=== PATIENT | male | born 1965 | race Caucasian/White ===

== ENCOUNTER 2017-01-02 13:41 | Inpatient (IN) | payer OTHER ==
[2017-01-02 14:56] VITALS: BMI 30.5
--- NOTE | 2017-01-02 16:28 | HP ---
COWS - Scale Resting Pulse: 0= ME 80 or Below Sweatin=Flushed/Facial Moisture Restless Observation: 3= Extraneous Movement Pupil Size: 2= Moderately Dilated Bone or Joint Aches: 2= Severe Diffuse Aches Runny Nose/ Eye Tearin= Runny Nose/Eyes GI Upset > 30mins: 3= Vomiting/Diarrhea Tremor Observation: 2= Slight Tremor Visible Yawning Observation: 2= >3x During Session Anxiety or Irritability: 2=Irritable/Anxious Goose Flesh Skin: 0=Smooth Skin COWS Score: 20 CIWA Score - CIWA Score Nausea/Vomitin Muscle Tremors: 3 Anxiety: 3 Agitation: 3 Paroxysmal Sweats: 1-Minimal Palms Moist Orientation: 0-Oriented Tacttile Disturbances: 2-Mild Itch/Numbness/Burn Auditory Disturbances: 2-Mild Harshness/Frighten Visual Disturbances: 2-Mild Sensitivity Headache: 2-Mild CIWA-Ar Total Score: 21 Admission ROS BHS - HPI Chief Complaint: i am here for detox from heroin,xanax,alcohol,cocaine Allergies/Adverse Reactions: Allergies Allergy/AdvReac Type Severity Reaction Status Date / Time shellfish derived Allergy Severe Verified 01/02/17 19:28 History of Present Illness: this 51years old male with heroin,alcohol,xanax,cocaine dependence,seeking detox ,multiple admissions in detox,last tretment in 06/30 at [facility] 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 in [facility] 18 months ago anxiety ptsd stated need help for detox Exam Limitations: No Limitations - Ebola screening Have you traveled outside of the country in the last 21 days: No Have you had contact with anyone from an Ebola affected area: No Have you been sick,other than usual withdrawal symptoms: No Do you have a fever: No - Review of Systems Constitutional: Chills, Diaphoresis, Loss of Appetite, Malaise, Night Sweats, Changes in sleep, Weakness EENT: reports: Tearing, Nose Congestion Respiratory: reports: No Symptoms reported Cardiac: reports: No Symptoms Reported GI: reports: Diarrhea, Vomiting, Indigestion : reports: No Symptoms Reported Musculoskeletal: reports: Back Pain, Joint Pain, Muscle Pain, Joint Stiffness Integumentary: reports: Dryness Neuro: reports: Headache, Tremors Endocrine: reports: No Symptoms Reported Hematology: reports: No Symptoms Reported Psychiatric: reports: Anxious (ptsd) Patient History - Patient Medical History Hx Anemia: No Hx Asthma: No Hx Chronic Obstructive Pulmonary Disease (COPD): No Hx Cancer: No Hx Cardiac Disorders: No Hx Congestive Heart Failure: No Hx Hypertension: No Hx Hypercholesterolemia: No Hx Pacemaker: No HX Cerebrovascular Accident: No Hx Seizures: Yes (etoh and drug related Last in 03/25) Hx Dementia: No Hx Diabetes: No Hx Gastrointestinal Disorders: No Hx Liver Disease: No Hx Genitourinary Disorders: No Hx Sexually Transmitted Disorders: No Hx Renal Disease (ESRD): No Hx Thyroid Disease: No Hx Human Immunodeficiency Virus (HIV): No (last 2015 negative) Hx Hepatitis C: No Hx Depression: Yes (anxiety,ptsd) Hx Suicide Attempt: No Hx Bipolar Disorder: No Hx Schizophrenia: No Other Medical History: no suicidal,no homicidal - Patient Surgical History Past Surgical History: Yes Hx Neurologic Surgery: No Hx Cataract Extraction: No Hx Cardiac Surgery: No Hx Lung Surgery: No Hx Breast Surgery: No Hx Breast Biopsy: No Hx Abdominal Surgery: No Hx Appendectomy: No Hx Cholecystectomy: No Hx Genitourinary Surgery: No Hx Section: No Hx Orthopedic Surgery: No Other Surgical History: 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 Anesthesia Reaction: No - PPD History Previous Implant?: Yes Documented Results: Negative w/o proof Implanted On Prior R Admission?: Yes Date: 01/18/13 PPD to be Administered?: Yes - Smoking Cessation Smoking history: Current every day smoker Have you smoked in the past 12 months: Yes Aproximately how many cigarettes per day: 20 Cigars Per Day: 0 Hx Chewing Tobacco Use: No Initiated information on smoking cessation: Yes 'Breaking Loose' booklet given: 01/02/17 - Substance & Tx. History Hx Alcohol Use: Yes Hx Substance Use: Yes Substance Use Type: Alcohol, Cocaine, Heroin, Tranquilizers Hx Substance Use Treatment: Yes ([facility] 06/30) - Substances Abused Heroin Route: Inhalation Frequency: Daily Amount used: 12 to 15 bags Age of first use: 37 Date of Last Use: 01/01/17 Alcohol Route: Oral Frequency: Daily Amount used: 1pint of vodka,1 quart of wine Age of first use: 13 Date of Last Use: 01/01/17 Cocaine Route: Smoking Frequency: 3-6 times per week Amount used: 30$ Age of first use: 16 Date of Last Use: 01/01/17 Alprazolam (Xanax) Route: Oral Frequency: Daily Amount used: 6 mgs Age of first use: 35 Date of Last Use: 12/31/16 street methadone Route: Oral Frequency: 1-3 times last 30 days Amount used: 40 mg Age of first use: 39 Date of Last Use: 12/30/16 Family Disease History - Family Disease History Family Disease History: Other: Father (parkinsonism) Admission Physical Exam [facility] - Vital Signs Vital Signs: Vital Signs - 24 hr 01/02/17 14:55 Temperature 97.1 F L Pulse Rate 67 Respiratory 20 Rate Blood Pressure 120/73 - Physical General Appearance: Yes: Moderate Distress, Tremorous, Irritable, Sweating, Anxious HEENTM: Yes: Hearing grossly Normal, Normal ENT Inspection, CHRYSTAL, Pharynx Normal Respiratory: Yes: Lungs Clear, Normal Breath Sounds, No Respiratory Distress Neck: Yes: Within Normal Limits, Supple, Trachea in good position Breast: Yes: Within Normal Limits Cardiology: Yes: Within Normal Limits, Regular Rhythm, Regular Rate, S1, S2 Abdominal: Yes: Within Normal Limits, Normal Bowel Sounds, Non Tender, Flat, Soft Genitourinary: Yes: Within Normal Limits Back: Yes: Muscle Spasm Extremities: Yes: Normal Range of Motion, Tremors Neurological: Yes: toaster operator II-XII NML intact, Fully Oriented, Alert, Motor Strength 5/5 Integumentary: Yes: Dry, Other (scar in left forearm and upper arm with mass in left upper rm size 1x1 cm) Lymphatic: Yes: Within Normal Limits - Diagnostic (1) Opioid dependence with withdrawal Current Visit: Yes Status: Acute (2) Uncomplicated sedative, hypnotic or anxiolytic withdrawal Current Visit: Yes Status: Acute (3) Alcohol dependence with uncomplicated withdrawal Current Visit: Yes Status: Acute (4) Cocaine dependence Current Visit: Yes Status: Acute (5) Sarcoma Current Visit: Yes Status: Acute (6) Sarcoma of upper extremity Current Visit: Yes Status: Acute (7) Anxiety Current Visit: Yes Status: Acute (8) PTSD (post-traumatic stress disorder) Current Visit: Yes Status: Acute (9) Seizure Current Visit: Yes Status: Acute (10) Nicotine dependence Current Visit: Yes Status: Acute (11) Neuropathy Current Visit: Yes Status: Acute Cleared for Admission [facility] - Detox or Rehab [facility] Level of Care: Medically Managed Detox Regimen/Protocol: Methadone/Valium [facility] Breath Alcohol Content Breath Alcohol Content: 0 Urine Drug Screen - Results Drug Screen Negative: No Urine Drug Screen Results: KAREEM-Cocaine, OPI-Opiates, BZO-Benzodiazepines, MTD- Methadone
[2017-01-02] MEDS ORDERED: guaiFENesin/D-METHORPHAN HB 10 ML UNIT-DOSE CUPS PO PRN (16:58)
[2017-01-02] MEDS ORDERED: MAGNESIUM CITRATE 300 ML BOTTLE PO PRN (16:58)
[2017-01-02] MEDS ORDERED: ACETAMINOPHEN 325 MG TABLET (FP) PO PRN (16:58)
[2017-01-02] MEDS ORDERED: diphenhydrAMINE HCL 50 MG CAPSULE PO PRN (16:58)
[2017-01-02] MEDS ORDERED: METHADONE HCL 10 MG TABLET (FOR DETOX USE ONLY) PO ONE ×3 (16:58→23:00)
[2017-01-02] MEDS ORDERED: MAG HYDROX/AL HYDROX/SIMETH 30 ML UNIT-DOSE CUP PO PRN (16:58)
[2017-01-02] MEDS ORDERED: P-EPHED 60MG/TRIPROLIDI 2.5MG TABLET PO PRN (16:58)
[2017-01-02] MEDS ORDERED: LOPERAMIDE HCL 2 MG CAPSULE PO PRN (16:58)
[2017-01-02] MEDS ORDERED: MAGNESIUM HYDROX 2400MG/30ML ORAL SUSPENSION 30 ML CUP PO PRN (16:58)
[2017-01-02] MEDS ORDERED: diazePAM 5 MG TABLET PO ONE ×2 (16:58→19:15)
[2017-01-02] MEDS ORDERED: MENTHOL/PHENOL 1 EACH UD MM PRN (16:58)
[2017-01-02] MEDS: NICOTINE 21 MG/24 HOURS TOPICAL PATCH TD SCH (19:12)
[2017-01-02] MEDS: IBUPROFEN 400 MG TABLET (FP) PO PRN (19:15)
[2017-01-02] MEDS: diazePAM 5 MG TABLET PO SCH (22:24)
[2017-01-02] MEDS: THIAMINE HCL 100 MG TABLET (FP) PO SCH (22:24)
[2017-01-02] MEDS: GABAPENTIN 400 MG CAPSULE (FP) PO SCH (22:25)
[2017-01-02] MEDS: cloNIDine HCL 0.1 MG TABLET PO SCH (22:25)
[2017-01-02] MEDS: METHOCARBAMOL 500 MG TABLET PO SCH (23:56)
[2017-01-03] MEDS: GABAPENTIN 400 MG CAPSULE (FP) PO SCH ×3 (05:29→22:12)
[2017-01-03] MEDS: diazePAM 5 MG TABLET PO SCH ×3 (05:29→22:12)
[2017-01-03] MEDS ORDERED: METHADONE HCL 10 MG TABLET (FOR DETOX USE ONLY) PO SCH (10:00)
[2017-01-03 10:20] LABS: MCH 28.5 pg (25.7-33.7); MCHC 32.6 g/dl (32.0-35.9); MEAN CELL VOLUME 87.3 fl (80-96); MEAN PLT VOLUME 9.4 fl (7.5-11.1); PLATELET COUNT 227 K/MM3 (134-434); RDW 14.4 % (11.9-15.9); WHITE BLOOD COUNT 7.3 K/mm3 (4.0-10.0)
[2017-01-03] MEDS: NICOTINE 21 MG/24 HOURS TOPICAL PATCH TD SCH (10:26)
[2017-01-03] MEDS: cloNIDine HCL 0.1 MG TABLET PO SCH ×2 (10:27→22:12)
[2017-01-03] MEDS: METHOCARBAMOL 500 MG TABLET PO SCH ×2 (10:27→22:12)
[2017-01-03] MEDS: PRENATAL VITAMINS W/ FOLIC ACID TABLET (FP) PO SCH (10:27)
[2017-01-03] MEDS: diazePAM 5 MG TABLET PO PRN ×2 (10:30→16:55)
[2017-01-03 10:56] LABS: ALBUMIN 3.3 g/dl (3.4-5.0); ALK PHOS 60 U/L (45-117); ANION GAP 8 (8-16); BILIRUBIN,TOTAL 0.4 mg/dL (0.2-1.0); CALCIUM 8.5 mg/dL (8.5-10.1); CO2 28 mmol/L (21-32); CREATININE 0.7 mg/dL (0.7-1.3); GLUCOSE,RANDOM 81 mg/dL (74-106); SGOT/AST 24 U/L (15-37); SGPT/ALT 50 U/L (12-78)
[2017-01-03] MEDS: IBUPROFEN 400 MG TABLET (FP) PO PRN ×2 (12:51→20:20)
--- NOTE | 2017-01-03 13:59 | PN ---
[facility] CIWA - CIWA Score Nausea/Vomitin-No Nausea/No Vomiting Muscle Tremors: 4-Moderate,w/Arms Extend Anxiety: 4-Mod. Anxious/Guarded Agitation: 4-Moderately Restless Paroxysmal Sweats: 3 Orientation: 0-Oriented Tacttile Disturbances: 1-Very Mild Itch/Numbness Auditory Disturbances: 0-None Visual Disturbances: 0-None Headache: 1-Very Mild CIWA-Ar Total Score: 17 [facility] COWS - Scale Resting Pulse: 0= NM 80 or Below Sweatin=Flushed/Facial Moisture Restless Observation: 3= Extraneous Movement Pupil Size: 0= Normal to Room Light Bone or Joint Aches: 2= Severe Diffuse Aches Runny Nose/ Eye Tearin= Runny Nose/Eyes GI Upset > 30mins: 0= None Tremor Observation of Outstretched Hands: 2= Slight Tremor Visible Yawning Observation: 1= 1-2x During Session Anxiety or Irritability: 2=Irritable/Anxious Goose Flesh Skin: 0=Smooth Skin COWS Score: 14 [facility] Progress Note (SOAP) Subjective: Chills, tremor, sweating, interrupted sleep (requesting ambien); c/o rash to b/ l inner mid thigh. Objective: 01/03/17 14:00 Last Vital Signs Temp Pulse Resp BP Pulse Ox 97.4 F L 61 18 113/76 01/03/17 10:00 01/03/17 10:00 01/03/17 10:00 01/03/17 10:00 PE: macular dark discolored patchy rash to b/l inner thigh, no redness/ discharge noted Laboratory Tests 01/03/17 01/03/17 07:40 07:40 WBC 7.3 RBC 4.60 Hgb 13.1 Hct 40.1 MCV 87.3 MCH 28.5 MCHC 32.6 RDW 14.4 Plt Count 227 D MPV 9.4 D Sodium 139 Potassium 4.0 Chloride 103 Carbon Dioxide 28 Anion Gap 8 BUN 19 H D Creatinine 0.7 Creat Clearance w eGFR > 60 Random Glucose 81 Calcium 8.5 Total Bilirubin 0.4 AST 24 D ALT 50 D Alkaline Phosphatase 60 Total Protein 6.0 L Albumin 3.3 L Labs noted 01/03/17 14:03 01/03/17 14:10 Assessment: 01/03/17 14:00 Withdrawal symptoms noted with tinea versicolor to b/l inner groin Plan: Continue detox, ambien 10mg PO qhs prn for insomnia/interrupted sleep Tinea versicolor to inner thighs: miconazole cream 2% bid x 14 days
[2017-01-03 19:08] LABS: URINE APPEARANCE CLEAR; URINE BILIRUBIN NEGATIVE (NEGATIVE); URINE BLOOD NEGATIVE (NEGATIVE); URINE COLOR YELLOW; URINE GLUCOSE (UA) NEGATIVE (NEGATIVE); URINE KETONE NEGATIVE (NEGATIVE); URINE LEUK ESTERASE NEGATIVE (NEGATIVE); URINE NITRITE NEGATIVE (NEGATIVE); URINE PROTEIN NEGATIVE (NEGATIVE); URINE UROBILINOGEN NEGATIVE mg/dL (0.2-1.0)
[2017-01-03] MEDS: MICONAZOLE NITRATE 28 GM TUBE TP SCH (22:12)
[2017-01-03] MEDS: ZOLPIDEM TARTRATE 5 MG TABLET PO PRN (22:12)
[2017-01-03] MEDS: THIAMINE HCL 100 MG TABLET (FP) PO SCH (22:13)
[2017-01-04] MEDS: diazePAM 5 MG TABLET PO PRN ×3 (05:38→16:31)
[2017-01-04] MEDS: GABAPENTIN 400 MG CAPSULE (FP) PO SCH ×3 (05:38→22:12)
[2017-01-04] MEDS: IBUPROFEN 400 MG TABLET (FP) PO PRN ×3 (05:38→19:38)
[2017-01-04] MEDS: METHADONE HCL 5 MG TABLET (FOR DETOX USE ONLY) PO SCH (10:19)
[2017-01-04] MEDS: PRENATAL VITAMINS W/ FOLIC ACID TABLET (FP) PO SCH (10:19)
[2017-01-04] MEDS: cloNIDine HCL 0.1 MG TABLET PO SCH ×2 (10:19→22:12)
[2017-01-04] MEDS: METHOCARBAMOL 500 MG TABLET PO SCH ×2 (10:19→22:12)
[2017-01-04] MEDS: NICOTINE 21 MG/24 HOURS TOPICAL PATCH TD SCH (10:20)
[2017-01-04] MEDS: diazePAM 5 MG TABLET PO SCH ×2 (10:20→22:11)
[2017-01-04] MEDS: MICONAZOLE NITRATE 28 GM TUBE TP SCH ×2 (10:20→22:11)
--- NOTE | 2017-01-04 10:49 | EKG ---
Test Reason : Blood Pressure : / mmHG Vent. Rate : 067 BPM Atrial Rate : 067 BPM P-R Int : 154 ms QRS Dur : 086 ms QT Int : 408 ms P-R-T Axes : 029 038 036 degrees QTc Int : 431 ms NORMAL SINUS RHYTHM NORMAL ECG WHEN COMPARED WITH ECG OF 14-JAN-2013 17:03, T WAVE AMPLITUDE HAS INCREASED IN ANTEROLATERAL LEADS Confirmed by BULMARO KENT MD ([id number]) on 01/04/2017 10:49:20 AM Referred By: Confirmed By:BULMARO KENT MD
--- NOTE | 2017-01-04 12:12 | PN ---
[facility] CIWA - CIWA Score Nausea/Vomitin-Mild Nausea/No Vomiting Muscle Tremors: 2 Anxiety: 5 Agitation: 2 Paroxysmal Sweats: 3 Orientation: 0-Oriented Tacttile Disturbances: 2-Mild Itch/Numbness/Burn Auditory Disturbances: 0-None Visual Disturbances: 2-Mild Sensitivity Headache: 0-None Present CIWA-Ar Total Score: 17 S COWS - Scale Resting Pulse: 0= NC 80 or Below Sweatin= Chills/Flushing Restless Observation: 0= Sits Still Pupil Size: 0= Normal to Room Light Bone or Joint Aches: 2= Severe Diffuse Aches Runny Nose/ Eye Tearin= Runny Nose/Eyes GI Upset > 30mins: 1= Stomach Cramp Tremor Observation of Outstretched Hands: 2= Slight Tremor Visible Yawning Observation: 1= 1-2x During Session Anxiety or Irritability: 2=Irritable/Anxious Goose Flesh Skin: 3=Piloerection COWS Score: 14 S Progress Note (SOAP) Subjective: Interrupted Sleep, Anxious, Body Aches, Sweating. Objective: PT. A & O X 3, OBSERVED AMBULATING ON UNIT. NO ACUTE DISTRESS. 01/04/17 12:11 Vital Signs Temperature 96.0 F L 01/04/17 09:15 Pulse Rate 62 01/04/17 09:15 Respiratory Rate 18 01/04/17 09:15 Blood Pressure 128/78 01/04/17 09:15 O2 Sat by Pulse Oximetry (%) Laboratory Tests 01/03/17 01/03/17 01/03/17 07:40 07:40 07:40 WBC 7.3 RBC 4.60 Hgb 13.1 Hct 40.1 MCV 87.3 MCH 28.5 MCHC 32.6 RDW 14.4 Plt Count 227 D MPV 9.4 D Sodium 139 Potassium 4.0 Chloride 103 Carbon Dioxide 28 Anion Gap 8 BUN 19 H D Creatinine 0.7 Creat Clearance w eGFR > 60 Random Glucose 81 Calcium 8.5 Total Bilirubin 0.4 AST 24 D ALT 50 D Alkaline Phosphatase 60 Total Protein 6.0 L Albumin 3.3 L Urine Color Urine Appearance Urine pH Ur Specific [place] Urine Protein Urine Glucose (UA) Urine Ketones Urine Blood Urine Nitrite Urine Bilirubin Urine Urobilinogen Ur Leukocyte Esterase RPR Titer Nonreactive 01/03/17 17:00 WBC RBC Hgb Hct MCV MCH MCHC RDW Plt Count MPV Sodium Potassium Chloride Carbon Dioxide Anion Gap BUN Creatinine Creat Clearance w eGFR Random Glucose Calcium Total Bilirubin AST ALT Alkaline Phosphatase Total Protein Albumin Urine Color Yellow Urine Appearance Clear Urine pH 5.0 D Ur Specific [place] 1.025 Urine Protein Negative Urine Glucose (UA) Negative Urine Ketones Negative Urine Blood Negative Urine Nitrite Negative Urine Bilirubin Negative Urine Urobilinogen Negative Ur Leukocyte Esterase Negative RPR Titer LABS NOTED. Assessment: 01/04/17 12:11 WITHDRAWAL SYMPTOMS. Plan: CONTINUE DETOX.
--- NOTE | 2017-01-04 16:12 | CONSULT ---
[facility] - Data Date of interview: 01/04/17 [facility] Identifying data: Readmission to [facility] for this 51 y/o male seeking detox treatment on for alcohol,heroin,cocaine and benzodiazepine (xanax) dependence.Patient is ,a father of one,currently homeless (thrown out of household),unemployed and supported on Social Security benefits. Substance Abuse History: Heavy.Patient endorses alcohol abuse since age 13, heroin abuse since age 35 (10-15 bags via snorting daily),xanax from age 35 to current (prescribed or obtained illicitly some other times) and cocaine since age 16 (smoking).Patient indicates that he smokes one pack of cigarettes a day. Medical History: Significant for sarcoma of left forearm and axilla (surgery + radiation therapy 18 months ago at [facility] in [facility]),withdrawal- related seizures in the past.Allergic to shellfish-derived products. 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 Additional Comment: Urine Drug Screen Results: KAREEM-Cocaine, OPI-Opiates, BZO- Benzodiazepines, MTD-Methadone.Noted. Mental Status Exam - Mental Status Exam Alert and Oriented to: Time, Place, Person Cognitive Function: Good Patient Appearance: Well Groomed Mood: Sad, Withdrawn, Anxious Affect: Mood Congruent Patient Behavior: Fatigued, Appropriate, Cooperative Speech Pattern: Clear Voice Loudness: Normal Thought Process: Goal Oriented Thought Disorder: Not Present Hallucinations: Denies Suicidal Ideation: Denies Homicidal Ideation: Denies Insight/Judgement: Poor Sleep: Poorly, Difficulty falling asleep Appetite: Good Muscle strength/Tone: Normal Gait/Station: Normal Psychiatric Findings - Problem List ([place] 1, 2,3) (1) Alcohol dependence with uncomplicated withdrawal Current Visit: Yes Status: Acute (2) Opioid dependence with withdrawal Current Visit: Yes Status: Acute (3) Cocaine dependence Current Visit: Yes Status: Acute (4) Uncomplicated sedative, hypnotic or anxiolytic withdrawal Current Visit: Yes Status: Acute (5) Nicotine dependence Current Visit: Yes Status: Acute (6) PTSD (post-traumatic stress disorder) Current Visit: Yes Status: Chronic (7) Sarcoma of upper extremity Current Visit: Yes Status: Chronic (8) Neuropathy Current Visit: Yes Status: Chronic (9) Seizure disorder Current Visit: Yes Status: Chronic (10) Insomnia Current Visit: Yes Status: Acute - Initial Treatment Plan Initial Treatment Plan: Psychoeducation.Detoxification in progress.Recent pharmacy claims revisited : noted script for seroquel on 12/04/16 from provider Sebastian Wayne.Patient is willing to resume that medication in this hospital course.Side effects/benefits discussed with the patient.Made aware of potential for metabolic syndrome,abnormal involuntary movements,oversedation/falls, orthostasis and cadiovascular adverse events.Agreement given (verbal) for the incorporation of seroquel in current regimen.Observation.
[2017-01-04] MEDS: hydrOXYzine PAMOATE 50 MG CAPSULE (FP) PO PRN (19:39)
[2017-01-04] MEDS ORDERED: QUEtiapine FUMARATE 100 MG TABLET (FP) PO SCH (22:00)
[2017-01-04] MEDS: ZOLPIDEM TARTRATE 5 MG TABLET PO PRN (22:12)
[2017-01-04] MEDS: THIAMINE HCL 100 MG TABLET (FP) PO SCH (22:12)
[2017-01-05] MEDS: GABAPENTIN 400 MG CAPSULE (FP) PO SCH ×3 (06:12→22:26)
[2017-01-05] MEDS: diazePAM 5 MG TABLET PO PRN ×3 (06:15→16:49)
[2017-01-05] MEDS: METHOCARBAMOL 500 MG TABLET PO SCH ×2 (10:14→22:26)
[2017-01-05] MEDS: METHADONE HCL 5 MG TABLET (FOR DETOX USE ONLY) PO SCH (10:15)
[2017-01-05] MEDS: diazePAM 5 MG TABLET PO SCH ×2 (10:15→22:26)
[2017-01-05] MEDS: cloNIDine HCL 0.1 MG TABLET PO SCH ×2 (10:15→22:26)
[2017-01-05] MEDS: NICOTINE 21 MG/24 HOURS TOPICAL PATCH TD SCH (10:15)
[2017-01-05] MEDS: PRENATAL VITAMINS W/ FOLIC ACID TABLET (FP) PO SCH (10:15)
[2017-01-05] MEDS: MICONAZOLE NITRATE 28 GM TUBE TP SCH ×2 (10:17→22:26)
[2017-01-05] MEDS: IBUPROFEN 400 MG TABLET (FP) PO PRN ×2 (10:18→22:26)
--- NOTE | 2017-01-05 11:06 | PN ---
[facility] Progress Note (SOAP) Subjective: ANXIETY,IRRITABILITY,ANGRY OUTBURSTS. C/O SWEATS/CHILLS AND BODY ACHE. Objective: 01/05/17 11:05 Vital Signs Temperature 96.7 F L 01/05/17 09:31 Pulse Rate 61 01/05/17 09:31 Respiratory Rate 18 01/05/17 09:31 Blood Pressure 139/88 01/05/17 09:31 O2 Sat by Pulse Oximetry (%) Laboratory Last Values WBC 7.3 K/mm3 (4.0-10.0) 01/03/17 07:40 RBC 4.60 M/mm3 (4.00-5.60) 01/03/17 07:40 Hgb 13.1 GM/dL (11.7-16.9) 01/03/17 07:40 Hct 40.1 % (35.4-49) 01/03/17 07:40 MCV 87.3 fl (80-96) 01/03/17 07:40 MCH 28.5 pg (25.7-33.7) 01/03/17 07:40 MCHC 32.6 g/dl (32.0-35.9) 01/03/17 07:40 RDW 14.4 % (11.9-15.9) 01/03/17 07:40 Plt Count 227 K/MM3 (134-434) D 01/03/17 07:40 MPV 9.4 fl (7.5-11.1) D 01/03/17 07:40 Sodium 139 mmol/L (136-145) 01/03/17 07:40 Potassium 4.0 mmol/L (3.5-5.1) 01/03/17 07:40 Chloride 103 mmol/L (98-107) 01/03/17 07:40 Carbon Dioxide 28 mmol/L (21-32) 01/03/17 07:40 Anion Gap 8 (8-16) 01/03/17 07:40 BUN 19 mg/dL (7-18) H D 01/03/17 07:40 Creatinine 0.7 mg/dL (0.7-1.3) 01/03/17 07:40 Creat Clearance w eGFR > 60 (>60) 01/03/17 07:40 Random Glucose 81 mg/dL (74-106) 01/03/17 07:40 Calcium 8.5 mg/dL (8.5-10.1) 01/03/17 07:40 Total Bilirubin 0.4 mg/dL (0.2-1.0) 01/03/17 07:40 AST 24 U/L (15-37) D 01/03/17 07:40 ALT 50 U/L (12-78) D 01/03/17 07:40 Alkaline Phosphatase 60 U/L (45-117) 01/03/17 07:40 Total Protein 6.0 g/dl (6.4-8.2) L 01/03/17 07:40 Albumin 3.3 g/dl (3.4-5.0) L 01/03/17 07:40 Urine Color Yellow 01/03/17 17:00 Urine Appearance Clear 01/03/17 17:00 Urine pH 5.0 (5.0-8.0) D 01/03/17 17:00 Ur Specific [place] 1.025 (1.005-1.025) 01/03/17 17:00 Urine Protein Negative (NEGATIVE) 01/03/17 17:00 Urine Glucose (UA) Negative (NEGATIVE) 01/03/17 17:00 Urine Ketones Negative (NEGATIVE) 01/03/17 17:00 Urine Blood Negative (NEGATIVE) 01/03/17 17:00 Urine Nitrite Negative (NEGATIVE) 01/03/17 17:00 Urine Bilirubin Negative (NEGATIVE) 01/03/17 17:00 Urine Urobilinogen Negative mg/dL (0.2-1.0) 01/03/17 17:00 Ur Leukocyte Esterase Negative (NEGATIVE) 01/03/17 17:00 RPR Titer Nonreactive (NONREACTIVE) 01/03/17 07:40 Assessment: 01/05/17 11:05 WITHDRAWAL SX Plan: CONTINUE DETOX
[2017-01-05] MEDS: ZOLPIDEM TARTRATE 5 MG TABLET PO PRN (22:25)
[2017-01-05] MEDS: THIAMINE HCL 100 MG TABLET (FP) PO SCH (22:26)
[2017-01-06] MEDS: GABAPENTIN 400 MG CAPSULE (FP) PO SCH ×3 (06:36→22:20)
[2017-01-06] MEDS ORDERED: METHADONE HCL 10 MG TABLET (FOR DETOX USE ONLY) PO SCH (10:00)
[2017-01-06] MEDS ORDERED: diazePAM 5 MG TABLET PO SCH (10:00)
[2017-01-06] MEDS: cloNIDine HCL 0.1 MG TABLET PO SCH ×2 (10:17→22:20)
[2017-01-06] MEDS: MICONAZOLE NITRATE 28 GM TUBE TP SCH ×2 (10:17→22:20)
[2017-01-06] MEDS: NICOTINE 21 MG/24 HOURS TOPICAL PATCH TD SCH (10:18)
[2017-01-06] MEDS: METHOCARBAMOL 500 MG TABLET PO SCH ×2 (10:19→22:20)
[2017-01-06] MEDS: PRENATAL VITAMINS W/ FOLIC ACID TABLET (FP) PO SCH (10:19)
--- NOTE | 2017-01-06 12:59 | PN ---
S Progress Note (SOAP) Subjective: PT STATES HE FEELS BETTER TODAY. BUT STILL EHIBITS IRRITABILITY, ANXIETY AND C /O ACHES. Objective: 01/06/17 12:58 Vital Signs Temperature 97.8 F 01/06/17 09:30 Pulse Rate 62 01/06/17 09:30 Respiratory Rate 18 01/06/17 09:30 Blood Pressure 124/84 01/06/17 09:30 O2 Sat by Pulse Oximetry (%) Laboratory Last Values WBC 7.3 K/mm3 (4.0-10.0) 01/03/17 07:40 RBC 4.60 M/mm3 (4.00-5.60) 01/03/17 07:40 Hgb 13.1 GM/dL (11.7-16.9) 01/03/17 07:40 Hct 40.1 % (35.4-49) 01/03/17 07:40 MCV 87.3 fl (80-96) 01/03/17 07:40 MCH 28.5 pg (25.7-33.7) 01/03/17 07:40 MCHC 32.6 g/dl (32.0-35.9) 01/03/17 07:40 RDW 14.4 % (11.9-15.9) 01/03/17 07:40 Plt Count 227 K/MM3 (134-434) D 01/03/17 07:40 MPV 9.4 fl (7.5-11.1) D 01/03/17 07:40 Sodium 139 mmol/L (136-145) 01/03/17 07:40 Potassium 4.0 mmol/L (3.5-5.1) 01/03/17 07:40 Chloride 103 mmol/L (98-107) 01/03/17 07:40 Carbon Dioxide 28 mmol/L (21-32) 01/03/17 07:40 Anion Gap 8 (8-16) 01/03/17 07:40 BUN 19 mg/dL (7-18) H D 01/03/17 07:40 Creatinine 0.7 mg/dL (0.7-1.3) 01/03/17 07:40 Creat Clearance w eGFR > 60 (>60) 01/03/17 07:40 Random Glucose 81 mg/dL (74-106) 01/03/17 07:40 Calcium 8.5 mg/dL (8.5-10.1) 01/03/17 07:40 Total Bilirubin 0.4 mg/dL (0.2-1.0) 01/03/17 07:40 AST 24 U/L (15-37) D 01/03/17 07:40 ALT 50 U/L (12-78) D 01/03/17 07:40 Alkaline Phosphatase 60 U/L (45-117) 01/03/17 07:40 Total Protein 6.0 g/dl (6.4-8.2) L 01/03/17 07:40 Albumin 3.3 g/dl (3.4-5.0) L 01/03/17 07:40 Urine Color Yellow 01/03/17 17:00 Urine Appearance Clear 01/03/17 17:00 Urine pH 5.0 (5.0-8.0) D 01/03/17 17:00 Ur Specific [place] 1.025 (1.005-1.025) 01/03/17 17:00 Urine Protein Negative (NEGATIVE) 01/03/17 17:00 Urine Glucose (UA) Negative (NEGATIVE) 01/03/17 17:00 Urine Ketones Negative (NEGATIVE) 01/03/17 17:00 Urine Blood Negative (NEGATIVE) 01/03/17 17:00 Urine Nitrite Negative (NEGATIVE) 01/03/17 17:00 Urine Bilirubin Negative (NEGATIVE) 01/03/17 17:00 Urine Urobilinogen Negative mg/dL (0.2-1.0) 01/03/17 17:00 Ur Leukocyte Esterase Negative (NEGATIVE) 01/03/17 17:00 RPR Titer Nonreactive (NONREACTIVE) 01/03/17 07:40 Assessment: 01/06/17 12:58 WITHDRAWAL SX Plan: CONTINUE DETOX
[2017-01-06] MEDS: hydrOXYzine PAMOATE 50 MG CAPSULE (FP) PO PRN ×3 (13:14→22:21)
[2017-01-06] MEDS: IBUPROFEN 400 MG TABLET (FP) PO PRN (17:40)
[2017-01-06] MEDS: THIAMINE HCL 100 MG TABLET (FP) PO SCH (22:20)
[2017-01-06] MEDS: ZOLPIDEM TARTRATE 5 MG TABLET PO PRN (22:20)
[2017-01-07] MEDS: GABAPENTIN 400 MG CAPSULE (FP) PO SCH (05:39)
[2017-01-07] MEDS: IBUPROFEN 400 MG TABLET (FP) PO PRN (05:40)
[2017-01-07] MEDS ORDERED: METHADONE HCL 5 MG TABLET (FOR DETOX USE ONLY) PO SCH (06:00)
[2017-01-07 06:40] VITALS: BP 126/83; PULSE 59; TEMP 95.9
--- NOTE | 2017-01-07 10:18 | DS ---
[facility] Detox Discharge Summary Admission Date: 01/02/17 Discharge Date: 01/07/17 - History Present History: Alcohol Dependence, Opioid Dependence, Sedative Dependence Additional Comments: DETOX COMPLETED. ALERT O X 3. NAD. PT INSTRUCTED TO FOLLOW UP WITH HIS PCP AT [facility] FOR MEDICAL MANAGEMENT OF COMORBID CONDITIONS. Pertinent Past History: SEIZURE DISORDER HX SARCOMA OF UPPER EXTREMITIY NEUROPATHY - Physical Exam Results Vital Signs: Vital Signs Temperature 95.9 F L 01/07/17 06:39 Pulse Rate 59 L 01/07/17 06:39 Respiratory Rate 18 01/07/17 06:39 Blood Pressure 126/83 01/07/17 06:39 O2 Sat by Pulse Oximetry (%) Pertinent Admission Physical Exam Findings: WITHDRAWAL SX Laboratory Last Values WBC 7.3 K/mm3 (4.0-10.0) 01/03/17 07:40 RBC 4.60 M/mm3 (4.00-5.60) 01/03/17 07:40 Hgb 13.1 GM/dL (11.7-16.9) 01/03/17 07:40 Hct 40.1 % (35.4-49) 01/03/17 07:40 MCV 87.3 fl (80-96) 01/03/17 07:40 MCH 28.5 pg (25.7-33.7) 01/03/17 07:40 MCHC 32.6 g/dl (32.0-35.9) 01/03/17 07:40 RDW 14.4 % (11.9-15.9) 01/03/17 07:40 Plt Count 227 K/MM3 (134-434) D 01/03/17 07:40 MPV 9.4 fl (7.5-11.1) D 01/03/17 07:40 Sodium 139 mmol/L (136-145) 01/03/17 07:40 Potassium 4.0 mmol/L (3.5-5.1) 01/03/17 07:40 Chloride 103 mmol/L (98-107) 01/03/17 07:40 Carbon Dioxide 28 mmol/L (21-32) 01/03/17 07:40 Anion Gap 8 (8-16) 01/03/17 07:40 BUN 19 mg/dL (7-18) H D 01/03/17 07:40 Creatinine 0.7 mg/dL (0.7-1.3) 01/03/17 07:40 Creat Clearance w eGFR > 60 (>60) 01/03/17 07:40 Random Glucose 81 mg/dL (74-106) 01/03/17 07:40 Calcium 8.5 mg/dL (8.5-10.1) 01/03/17 07:40 Total Bilirubin 0.4 mg/dL (0.2-1.0) 01/03/17 07:40 AST 24 U/L (15-37) D 01/03/17 07:40 ALT 50 U/L (12-78) D 01/03/17 07:40 Alkaline Phosphatase 60 U/L (45-117) 01/03/17 07:40 Total Protein 6.0 g/dl (6.4-8.2) L 01/03/17 07:40 Albumin 3.3 g/dl (3.4-5.0) L 01/03/17 07:40 Urine Color Yellow 01/03/17 17:00 Urine Appearance Clear 01/03/17 17:00 Urine pH 5.0 (5.0-8.0) D 01/03/17 17:00 Ur Specific [place] 1.025 (1.005-1.025) 01/03/17 17:00 Urine Protein Negative (NEGATIVE) 01/03/17 17:00 Urine Glucose (UA) Negative (NEGATIVE) 01/03/17 17:00 Urine Ketones Negative (NEGATIVE) 01/03/17 17:00 Urine Blood Negative (NEGATIVE) 01/03/17 17:00 Urine Nitrite Negative (NEGATIVE) 01/03/17 17:00 Urine Bilirubin Negative (NEGATIVE) 01/03/17 17:00 Urine Urobilinogen Negative mg/dL (0.2-1.0) 01/03/17 17:00 Ur Leukocyte Esterase Negative (NEGATIVE) 01/03/17 17:00 RPR Titer Nonreactive (NONREACTIVE) 01/03/17 07:40 - Treatment Hospital Course: Detox Protocol Followed, Detoxed Safely, Responded well, Discharged Condition Good, Rehab Referral Accepted Patient has Accepted a Rehab Referral to: [facility] - Medication Discharge Medications: Ambulatory Orders NK [No Known Home Medication] 01/07/17 - Diagnosis (1) Alcohol dependence with uncomplicated withdrawal Status: Acute (2) Cocaine dependence Status: Acute Qualifiers: Substance use status: uncomplicated Qualified Code(s): F14.20 - Cocaine dependence, uncomplicated (3) Nicotine dependence Status: Acute Qualifiers: Nicotine product type: cigarettes Substance use status: in withdrawal Qualified Code(s): F17.213 - Nicotine dependence, cigarettes, with withdrawal (4) Opioid dependence with withdrawal Status: Acute (5) Uncomplicated sedative, hypnotic or anxiolytic withdrawal Status: Acute (6) Neuropathy Status: Chronic (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
== END 2017-01-07 08:51 | disposition home or self-care (01) | DRG 773 ==
LOC: YASAS 13:41 → Y3N 17:17
PROVIDERS: ADMIT Internal Medicine; ATTEND Internal Medicine
PROC: HZ2ZZZZ Detoxification Services for Substance Abuse Treatment (ICD-10-PCS; principal; 2017-01-02)
DX: F11.23 Opioid dependence with withdrawal (principal); F13.230 Sedative, hypnotic or anxiolytic dependence with withdrawal, uncomplicated; F10.230 Alcohol dependence with withdrawal, uncomplicated; F14.20 Cocaine dependence, uncomplicated; F17.213 Nicotine dependence, cigarettes, with withdrawal; F41.9 Anxiety disorder, unspecified; F43.10 Post-traumatic stress disorder, unspecified; G62.9 Polyneuropathy, unspecified; B36.0 Pityriasis versicolor; Z91.013 Allergy to seafood; Z86.69 Personal history of other diseases of the nervous system and sense organs; Z85.831 Personal history of malignant neoplasm of soft tissue; Z92.21 Personal history of antineoplastic chemotherapy
CPT/HCPCS: 36415; 80053; 81003; 85027; 86593; 93005; 93010

== ENCOUNTER 2017-02-14 13:50 | Inpatient (IN) | payer OTHER ==
[2017-02-14 14:24] VITALS: BMI 30.2
[2017-02-14] MEDS ORDERED: LOPERAMIDE HCL 2 MG CAPSULE PO PRN (16:07)
[2017-02-14] MEDS ORDERED: MAGNESIUM HYDROX 2400MG/30ML ORAL SUSPENSION 30 ML CUP PO PRN (16:07)
[2017-02-14] MEDS ORDERED: P-EPHED 60MG/TRIPROLIDI 2.5MG TABLET PO PRN (16:07)
[2017-02-14] MEDS ORDERED: diphenhydrAMINE HCL 50 MG CAPSULE PO PRN (16:07)
[2017-02-14] MEDS ORDERED: guaiFENesin/D-METHORPHAN HB 10 ML UNIT-DOSE CUPS PO PRN (16:07)
[2017-02-14] MEDS ORDERED: NICOTINE POLACRILEX 4 MG GUM BC PRN (16:07)
[2017-02-14] MEDS ORDERED: MENTHOL/PHENOL 1 EACH UD MM PRN (16:07)
[2017-02-14] MEDS ORDERED: diazePAM 5 MG TABLET PO ONE (16:07)
[2017-02-14] MEDS ORDERED: MAG HYDROX/AL HYDROX/SIMETH 30 ML UNIT-DOSE CUP PO PRN (16:07)
[2017-02-14] MEDS ORDERED: MAGNESIUM CITRATE 300 ML BOTTLE PO PRN (16:07)
[2017-02-14] MEDS ORDERED: diazePAM 5 MG TABLET PO PRN (16:11)
[2017-02-14] MEDS ORDERED: METHADONE HCL 10 MG TABLET (FOR DETOX USE ONLY) PO ONE ×2 (16:11→23:00)
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
[2017-02-14] MEDS: diazePAM 5 MG TABLET PO SCH (22:20)
[2017-02-14] MEDS: THIAMINE HCL 100 MG TABLET (FP) PO SCH (22:20)
[2017-02-14] MEDS: IBUPROFEN 400 MG TABLET (FP) PO PRN (22:22)
[2017-02-15] MEDS: diazePAM 5 MG TABLET PO SCH ×3 (05:01→22:24)
[2017-02-15] MEDS: diazePAM 5 MG TABLET PO PRN ×4 (08:26→20:54)
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
[2017-02-15 09:39] LABS: MCH 28.4 pg (25.7-33.7); MEAN CELL VOLUME 86.1 fl (80-96); MEAN PLT VOLUME 8.9 fl (7.5-11.1); PLATELET COUNT 223 K/MM3 (134-434); RDW 14.4 % (11.9-15.9)
[2017-02-15] MEDS ORDERED: METHADONE HCL 10 MG TABLET (FOR DETOX USE ONLY) PO ONE (10:00)
[2017-02-15 10:08] LABS: ALBUMIN 3.2 g/dl (3.4-5.0); ALK PHOS 57 U/L (45-117); ANION GAP 6 (8-16); BILIRUBIN,TOTAL 0.4 mg/dL (0.2-1.0); CALCIUM 8.3 mg/dL (8.5-10.1); CO2 33 mmol/L (21-32); CREATININE 0.8 mg/dL (0.7-1.3); GLUCOSE,RANDOM 92 mg/dL (74-106); SGOT/AST 24 U/L (15-37); SGPT/ALT 40 U/L (12-78); TOT PROT 5.8 g/dl (6.4-8.2)
[2017-02-15] MEDS: PRENATAL VITAMINS W/ FOLIC ACID TABLET (FP) PO SCH (10:24)
[2017-02-15] MEDS: NICOTINE 21 MG/24 HOURS TOPICAL PATCH TD SCH (10:25)
[2017-02-15] MEDS: METHOCARBAMOL 500 MG TABLET PO SCH ×2 (12:07→22:25)
[2017-02-15] MEDS: GABAPENTIN 300 MG CAPSULE (FP) PO SCH ×2 (13:38→22:25)
--- NOTE | 2017-02-15 16:46 | PN ---
[facility] CIWA - CIWA Score Nausea/Vomitin-Mild Nausea/No Vomiting Muscle Tremors: 2 Anxiety: 4-Mod. Anxious/Guarded Agitation: 3 Paroxysmal Sweats: 3 Orientation: 0-Oriented Tacttile Disturbances: 2-Mild Itch/Numbness/Burn Auditory Disturbances: 0-None Visual Disturbances: 0-None Headache: 4-Moderately Severe CIWA-Ar Total Score: 19 S COWS - Scale Resting Pulse: 0= [place] 80 or Below Sweatin= Chills/Flushing Restless Observation: 1= Difficult to Sit Still Pupil Size: 0= Normal to Room Light Bone or Joint Aches: 2= Severe Diffuse Aches Runny Nose/ Eye Tearin= Runny Nose/Eyes GI Upset > 30mins: 1= Stomach Cramp Tremor Observation of Outstretched Hands: 2= Slight Tremor Visible Yawning Observation: 1= 1-2x During Session Anxiety or Irritability: 2=Irritable/Anxious Goose Flesh Skin: 3=Piloerection COWS Score: 15 S Progress Note (SOAP) Subjective: Fatigue, Body Aches, H/A, Sweating. Objective: PT. A & O X 3, OBSERVED AMBULATING ON UNIT. NO ACUTE DISTRESS. 02/15/17 16:45 Vital Signs Temperature 97.6 F 02/15/17 13:15 Pulse Rate 64 02/15/17 13:15 Respiratory Rate 18 02/15/17 13:15 Blood Pressure 125/80 02/15/17 13:15 O2 Sat by Pulse Oximetry (%) Laboratory Tests 02/15/17 02/15/17 02/15/17 05:30 05:30 05:30 WBC 5.0 D RBC 4.46 Hgb 12.7 Hct 38.4 MCV 86.1 MCH 28.4 MCHC 33.0 RDW 14.4 Plt Count 223 MPV 8.9 Sodium 142 Potassium 3.6 Chloride 103 Carbon Dioxide 33 H Anion Gap 6 L BUN 25 H D Creatinine 0.8 Creat Clearance w eGFR > 60 Random Glucose 92 Calcium 8.3 L Total Bilirubin 0.4 AST 24 ALT 40 Alkaline Phosphatase 57 Total Protein 5.8 L Albumin 3.2 L RPR Titer Nonreactive LABS NOTED. UA RESULT PENDING. 02/15/17 16:46 Assessment: 02/15/17 16:45 WITHDRAWAL SYMPTOMS. Plan: CONTINUE DETOX. REPEAT BUN ON 02/17/2017. INCREASE PO FLUID INTAKE.
[2017-02-15] MEDS: ACETAMINOPHEN 325 MG TABLET (FP) PO PRN (16:48)
[2017-02-15 18:39] LABS: URINE APPEARANCE SLCLOUDY; URINE BILIRUBIN NEGATIVE (NEGATIVE); URINE BLOOD NEGATIVE (NEGATIVE); URINE COLOR YELLOW; URINE GLUCOSE (UA) NEGATIVE (NEGATIVE); URINE KETONE NEGATIVE (NEGATIVE); URINE LEUK ESTERASE NEGATIVE (NEGATIVE); URINE NITRITE NEGATIVE (NEGATIVE); URINE PROTEIN NEGATIVE (NEGATIVE); URINE UROBILINOGEN NEGATIVE mg/dL (0.2-1.0)
[2017-02-15] MEDS: hydrOXYzine PAMOATE 50 MG CAPSULE (FP) PO PRN (19:37)
--- NOTE | 2017-02-15 22:16 | EKG ---
Test Reason : Blood Pressure : / mmHG Vent. Rate : 071 BPM Atrial Rate : 071 BPM P-R Int : 154 ms QRS Dur : 092 ms QT Int : 418 ms P-R-T Axes : 022 033 036 degrees QTc Int : 454 ms NORMAL SINUS RHYTHM NORMAL ECG WHEN COMPARED WITH ECG OF 02-JAN-2017 18:16, NO SIGNIFICANT CHANGE WAS FOUND Confirmed by CHAZ MOULTON MD ([id number]) on 02/15/2017 10:16:36 PM Referred By: Confirmed By:CHAZ MOULTON MD
[2017-02-15] MEDS: IBUPROFEN 400 MG TABLET (FP) PO PRN (22:25)
[2017-02-15] MEDS: THIAMINE HCL 100 MG TABLET (FP) PO SCH (22:25)
[2017-02-15] MEDS: ZOLPIDEM TARTRATE 10 MG TABLET (PARK CARE ONLY) PO PRN (22:25)
[2017-02-16] MEDS: diazePAM 5 MG TABLET PO PRN ×4 (03:15→17:30)
[2017-02-16] MEDS: GABAPENTIN 300 MG CAPSULE (FP) PO SCH ×3 (05:26→22:11)
[2017-02-16] MEDS ORDERED: METHADONE HCL 5 MG TABLET (FOR DETOX USE ONLY) PO ONE (10:00)
[2017-02-16] MEDS: METHOCARBAMOL 500 MG TABLET PO SCH ×2 (10:39→22:11)
[2017-02-16] MEDS: diazePAM 5 MG TABLET PO SCH ×2 (10:39→22:12)
[2017-02-16] MEDS: PRENATAL VITAMINS W/ FOLIC ACID TABLET (FP) PO SCH (10:39)
[2017-02-16] MEDS: NICOTINE 21 MG/24 HOURS TOPICAL PATCH TD SCH (10:42)
[2017-02-16] MEDS: IBUPROFEN 400 MG TABLET (FP) PO PRN (10:42)
--- NOTE | 2017-02-16 11:32 | PN ---
[facility] CIWA - CIWA Score Nausea/Vomitin-No Nausea/No Vomiting Muscle Tremors: 4-Moderate,w/Arms Extend Anxiety: 4-Mod. Anxious/Guarded Agitation: 4-Moderately Restless Paroxysmal Sweats: 1-Minimal Palms Moist Orientation: 0-Oriented Tacttile Disturbances: 3-Moderate Itch/Numb/Burn Auditory Disturbances: 0-None Visual Disturbances: 0-None Headache: 0-None Present CIWA-Ar Total Score: 16 [facility] COWS - Scale Resting Pulse: 0= [place] 80 or Below Sweatin= Chills/Flushing Restless Observation: 3= Extraneous Movement Pupil Size: 0= Normal to Room Light Bone or Joint Aches: 4=Acute Joint/Muscle Pain Runny Nose/ Eye Tearin= Nasal Congestion GI Upset > 30mins: 0= None Tremor Observation of Outstretched Hands: 1= Tremor [place], Not Seen Yawning Observation: 1= 1-2x During Session Anxiety or Irritability: 2=Irritable/Anxious Goose Flesh Skin: 0=Smooth Skin COWS Score: 13 S Progress Note (SOAP) Subjective: ANXIETY,IRRITABILITY,SWEATS/CHILLS,BODY ACHES,INTERMITTENT SLEEP. Objective: 02/16/17 11:34 Vital Signs Temperature 98.7 F 02/16/17 09:06 Pulse Rate 68 02/16/17 09:06 Respiratory Rate 18 02/16/17 09:06 Blood Pressure 133/87 02/16/17 09:06 O2 Sat by Pulse Oximetry (%) Laboratory Last Values WBC 5.0 K/mm3 (4.0-10.0) D 02/15/17 05:30 RBC 4.46 M/mm3 (4.00-5.60) 02/15/17 05:30 Hgb 12.7 GM/dL (11.7-16.9) 02/15/17 05:30 Hct 38.4 % (35.4-49) 02/15/17 05:30 MCV 86.1 fl (80-96) 02/15/17 05:30 MCH 28.4 pg (25.7-33.7) 02/15/17 05:30 MCHC 33.0 g/dl (32.0-35.9) 02/15/17 05:30 RDW 14.4 % (11.9-15.9) 02/15/17 05:30 Plt Count 223 K/MM3 (134-434) 02/15/17 05:30 MPV 8.9 fl (7.5-11.1) 02/15/17 05:30 Sodium 142 mmol/L (136-145) 02/15/17 05:30 Potassium 3.6 mmol/L (3.5-5.1) 02/15/17 05:30 Chloride 103 mmol/L (98-107) 02/15/17 05:30 Carbon Dioxide 33 mmol/L (21-32) H 02/15/17 05:30 Anion Gap 6 (8-16) L 02/15/17 05:30 BUN 25 mg/dL (7-18) H D 02/15/17 05:30 Creatinine 0.8 mg/dL (0.7-1.3) 02/15/17 05:30 Creat Clearance w eGFR > 60 (>60) 02/15/17 05:30 Random Glucose 92 mg/dL (74-106) 02/15/17 05:30 Calcium 8.3 mg/dL (8.5-10.1) L 02/15/17 05:30 Total Bilirubin 0.4 mg/dL (0.2-1.0) 02/15/17 05:30 AST 24 U/L (15-37) 02/15/17 05:30 ALT 40 U/L (12-78) 02/15/17 05:30 Alkaline Phosphatase 57 U/L (45-117) 02/15/17 05:30 Total Protein 5.8 g/dl (6.4-8.2) L 02/15/17 05:30 Albumin 3.2 g/dl (3.4-5.0) L 02/15/17 05:30 Urine Color Yellow 02/15/17 12:02 Urine Appearance Slcloudy 02/15/17 12:02 Urine pH 6.0 (5.0-8.0) 02/15/17 12:02 Ur Specific [place] 1.020 (1.005-1.025) 02/15/17 12:02 Urine Protein Negative (NEGATIVE) 02/15/17 12:02 Urine Glucose (UA) Negative (NEGATIVE) 02/15/17 12:02 Urine Ketones Negative (NEGATIVE) 02/15/17 12:02 Urine Blood Negative (NEGATIVE) 02/15/17 12:02 Urine Nitrite Negative (NEGATIVE) 02/15/17 12:02 Urine Bilirubin Negative (NEGATIVE) 02/15/17 12:02 Urine Urobilinogen Negative mg/dL (0.2-1.0) 02/15/17 12:02 Ur Leukocyte Esterase Negative (NEGATIVE) 02/15/17 12:02 RPR Titer Nonreactive (NONREACTIVE) 02/15/17 05:30 Assessment: 02/16/17 11:34 WITHDRAWAL SX Plan: CONTINUE DETOX
[2017-02-16] MEDS: ACETAMINOPHEN 325 MG TABLET (FP) PO PRN (16:59)
[2017-02-16] MEDS: THIAMINE HCL 100 MG TABLET (FP) PO SCH (22:12)
[2017-02-16] MEDS: ZOLPIDEM TARTRATE 10 MG TABLET (PARK CARE ONLY) PO PRN (22:13)
[2017-02-17] MEDS: diazePAM 5 MG TABLET PO PRN ×3 (02:04→12:30)
[2017-02-17] MEDS: GABAPENTIN 300 MG CAPSULE (FP) PO SCH ×3 (05:26→22:13)
[2017-02-17] MEDS ORDERED: METHADONE HCL 5 MG TABLET (FOR DETOX USE ONLY) PO ONE (10:00)
[2017-02-17] MEDS: METHOCARBAMOL 500 MG TABLET PO SCH ×2 (10:28→22:13)
[2017-02-17] MEDS: PRENATAL VITAMINS W/ FOLIC ACID TABLET (FP) PO SCH (10:28)
[2017-02-17] MEDS: diazePAM 5 MG TABLET PO SCH ×2 (10:28→22:13)
[2017-02-17] MEDS: NICOTINE 21 MG/24 HOURS TOPICAL PATCH TD SCH (10:29)
--- NOTE | 2017-02-17 11:15 | PN ---
[facility] Progress Note (SOAP) Subjective: ANXIETY,SWEATS,MUSCLE ACHES/SPASMS. Objective: 02/17/17 11:14 Vital Signs Temperature 98.4 F 02/17/17 09:35 Pulse Rate 64 02/17/17 09:35 Respiratory Rate 18 02/17/17 09:35 Blood Pressure 132/86 02/17/17 09:35 O2 Sat by Pulse Oximetry (%) Laboratory Last Values WBC 5.0 K/mm3 (4.0-10.0) D 02/15/17 05:30 RBC 4.46 M/mm3 (4.00-5.60) 02/15/17 05:30 Hgb 12.7 GM/dL (11.7-16.9) 02/15/17 05:30 Hct 38.4 % (35.4-49) 02/15/17 05:30 MCV 86.1 fl (80-96) 02/15/17 05:30 MCH 28.4 pg (25.7-33.7) 02/15/17 05:30 MCHC 33.0 g/dl (32.0-35.9) 02/15/17 05:30 RDW 14.4 % (11.9-15.9) 02/15/17 05:30 Plt Count 223 K/MM3 (134-434) 02/15/17 05:30 MPV 8.9 fl (7.5-11.1) 02/15/17 05:30 Sodium 142 mmol/L (136-145) 02/15/17 05:30 Potassium 3.6 mmol/L (3.5-5.1) 02/15/17 05:30 Chloride 103 mmol/L (98-107) 02/15/17 05:30 Carbon Dioxide 33 mmol/L (21-32) H 02/15/17 05:30 Anion Gap 6 (8-16) L 02/15/17 05:30 BUN 25 mg/dL (7-18) H D 02/15/17 05:30 Creatinine 0.8 mg/dL (0.7-1.3) 02/15/17 05:30 Creat Clearance w eGFR > 60 (>60) 02/15/17 05:30 Random Glucose 92 mg/dL (74-106) 02/15/17 05:30 Calcium 8.3 mg/dL (8.5-10.1) L 02/15/17 05:30 Total Bilirubin 0.4 mg/dL (0.2-1.0) 02/15/17 05:30 AST 24 U/L (15-37) 02/15/17 05:30 ALT 40 U/L (12-78) 02/15/17 05:30 Alkaline Phosphatase 57 U/L (45-117) 02/15/17 05:30 Total Protein 5.8 g/dl (6.4-8.2) L 02/15/17 05:30 Albumin 3.2 g/dl (3.4-5.0) L 02/15/17 05:30 Urine Color Yellow 02/15/17 12:02 Urine Appearance Slcloudy 02/15/17 12:02 Urine pH 6.0 (5.0-8.0) 02/15/17 12:02 Ur Specific [place] 1.020 (1.005-1.025) 02/15/17 12:02 Urine Protein Negative (NEGATIVE) 02/15/17 12:02 Urine Glucose (UA) Negative (NEGATIVE) 02/15/17 12:02 Urine Ketones Negative (NEGATIVE) 02/15/17 12:02 Urine Blood Negative (NEGATIVE) 02/15/17 12:02 Urine Nitrite Negative (NEGATIVE) 02/15/17 12:02 Urine Bilirubin Negative (NEGATIVE) 02/15/17 12:02 Urine Urobilinogen Negative mg/dL (0.2-1.0) 02/15/17 12:02 Ur Leukocyte Esterase Negative (NEGATIVE) 02/15/17 12:02 RPR Titer Nonreactive (NONREACTIVE) 02/15/17 05:30 Assessment: 02/17/17 11:14 WITHDRAWAL SX Plan: CONTINUE DETOX
[2017-02-17] MEDS: IBUPROFEN 400 MG TABLET (FP) PO PRN (13:59)
[2017-02-17] MEDS: hydrOXYzine PAMOATE 50 MG CAPSULE (FP) PO PRN (17:21)
[2017-02-17] MEDS: ZOLPIDEM TARTRATE 10 MG TABLET (PARK CARE ONLY) PO PRN (22:13)
[2017-02-17] MEDS: THIAMINE HCL 100 MG TABLET (FP) PO SCH (22:13)
[2017-02-17] MEDS: ACETAMINOPHEN 325 MG TABLET (FP) PO PRN (22:13)
[2017-02-18] MEDS: GABAPENTIN 300 MG CAPSULE (FP) PO SCH ×3 (07:10→22:23)
[2017-02-18] MEDS ORDERED: diazePAM 5 MG TABLET PO SCH (10:00)
[2017-02-18] MEDS ORDERED: METHADONE HCL 10 MG TABLET (FOR DETOX USE ONLY) PO ONE (10:00)
[2017-02-18] MEDS: PRENATAL VITAMINS W/ FOLIC ACID TABLET (FP) PO SCH (10:40)
[2017-02-18] MEDS: NICOTINE 21 MG/24 HOURS TOPICAL PATCH TD SCH (10:40)
[2017-02-18] MEDS: METHOCARBAMOL 500 MG TABLET PO SCH ×2 (10:40→22:23)
--- NOTE | 2017-02-18 11:21 | PN ---
[facility] Progress Note (SOAP) Subjective: IRRITABILITY,ANXIETY,FATIGUE. Objective: 02/18/17 11:20 Vital Signs Temperature 96.6 F L 02/18/17 09:42 Pulse Rate 70 02/18/17 09:42 Respiratory Rate 18 02/18/17 09:42 Blood Pressure 130/86 02/18/17 09:42 O2 Sat by Pulse Oximetry (%) Laboratory Last Values WBC 5.0 K/mm3 (4.0-10.0) D 02/15/17 05:30 RBC 4.46 M/mm3 (4.00-5.60) 02/15/17 05:30 Hgb 12.7 GM/dL (11.7-16.9) 02/15/17 05:30 Hct 38.4 % (35.4-49) 02/15/17 05:30 MCV 86.1 fl (80-96) 02/15/17 05:30 MCH 28.4 pg (25.7-33.7) 02/15/17 05:30 MCHC 33.0 g/dl (32.0-35.9) 02/15/17 05:30 RDW 14.4 % (11.9-15.9) 02/15/17 05:30 Plt Count 223 K/MM3 (134-434) 02/15/17 05:30 MPV 8.9 fl (7.5-11.1) 02/15/17 05:30 Sodium 142 mmol/L (136-145) 02/15/17 05:30 Potassium 3.6 mmol/L (3.5-5.1) 02/15/17 05:30 Chloride 103 mmol/L (98-107) 02/15/17 05:30 Carbon Dioxide 33 mmol/L (21-32) H 02/15/17 05:30 Anion Gap 6 (8-16) L 02/15/17 05:30 BUN 14 mg/dL (7-18) D 02/17/17 08:50 Creatinine 0.8 mg/dL (0.7-1.3) 02/15/17 05:30 Creat Clearance w eGFR > 60 (>60) 02/15/17 05:30 Random Glucose 92 mg/dL (74-106) 02/15/17 05:30 Calcium 8.3 mg/dL (8.5-10.1) L 02/15/17 05:30 Total Bilirubin 0.4 mg/dL (0.2-1.0) 02/15/17 05:30 AST 24 U/L (15-37) 02/15/17 05:30 ALT 40 U/L (12-78) 02/15/17 05:30 Alkaline Phosphatase 57 U/L (45-117) 02/15/17 05:30 Total Protein 5.8 g/dl (6.4-8.2) L 02/15/17 05:30 Albumin 3.2 g/dl (3.4-5.0) L 02/15/17 05:30 Urine Color Yellow 02/15/17 12:02 Urine Appearance Slcloudy 02/15/17 12:02 Urine pH 6.0 (5.0-8.0) 02/15/17 12:02 Ur Specific [place] 1.020 (1.005-1.025) 02/15/17 12:02 Urine Protein Negative (NEGATIVE) 02/15/17 12:02 Urine Glucose (UA) Negative (NEGATIVE) 02/15/17 12:02 Urine Ketones Negative (NEGATIVE) 02/15/17 12:02 Urine Blood Negative (NEGATIVE) 02/15/17 12:02 Urine Nitrite Negative (NEGATIVE) 02/15/17 12:02 Urine Bilirubin Negative (NEGATIVE) 02/15/17 12:02 Urine Urobilinogen Negative mg/dL (0.2-1.0) 02/15/17 12:02 Ur Leukocyte Esterase Negative (NEGATIVE) 02/15/17 12:02 RPR Titer Nonreactive (NONREACTIVE) 02/15/17 05:30 REPEAT BUN BACK TO WNL Assessment: 02/18/17 11:20 WITHDRAWAL SX Plan: CONTINUE DETOX
[2017-02-18] MEDS: hydrOXYzine PAMOATE 50 MG CAPSULE (FP) PO PRN ×2 (12:20→20:09)
[2017-02-18] MEDS: IBUPROFEN 400 MG TABLET (FP) PO PRN (12:21)
[2017-02-18] MEDS: ACETAMINOPHEN 325 MG TABLET (FP) PO PRN (20:09)
[2017-02-18] MEDS: THIAMINE HCL 100 MG TABLET (FP) PO SCH (22:23)
[2017-02-18] MEDS ORDERED: ZOLPIDEM TARTRATE 10 MG TABLET (PARK CARE ONLY) PO PRN (22:48)
[2017-02-19] MEDS: GABAPENTIN 300 MG CAPSULE (FP) PO SCH (05:56)
[2017-02-19] MEDS: IBUPROFEN 400 MG TABLET (FP) PO PRN (05:58)
[2017-02-19] MEDS ORDERED: METHADONE HCL 5 MG TABLET (FOR DETOX USE ONLY) PO ONE (06:00)
[2017-02-19 06:16] VITALS: BP 136/90; PULSE 69; TEMP 97.1
--- NOTE | 2017-02-19 09:55 | DS ---
[facility] Detox Discharge Summary Admission Date: 02/14/17 Discharge Date: 02/19/17 - History Present History: Alcohol Dependence, Cocaine Dependence, Opioid Dependence, Sedative Dependence Additional Comments: DETOX COMLPETED. ALERT O X 3. NAD. REMINDED TO FOLLOW UP WITH PMD AT [facility] NEEDED Pertinent Past History: NEUROPATHY PTSD - Physical Exam Results Vital Signs: Vital Signs Temperature 97.1 F L 02/19/17 06:15 Pulse Rate 69 02/19/17 06:15 Respiratory Rate 18 02/19/17 06:15 Blood Pressure 136/90 02/19/17 06:15 O2 Sat by Pulse Oximetry (%) Pertinent Admission Physical Exam Findings: WITHDRAWAL SX Laboratory Last Values WBC 5.0 K/mm3 (4.0-10.0) D 02/15/17 05:30 RBC 4.46 M/mm3 (4.00-5.60) 02/15/17 05:30 Hgb 12.7 GM/dL (11.7-16.9) 02/15/17 05:30 Hct 38.4 % (35.4-49) 02/15/17 05:30 MCV 86.1 fl (80-96) 02/15/17 05:30 MCH 28.4 pg (25.7-33.7) 02/15/17 05:30 MCHC 33.0 g/dl (32.0-35.9) 02/15/17 05:30 RDW 14.4 % (11.9-15.9) 02/15/17 05:30 Plt Count 223 K/MM3 (134-434) 02/15/17 05:30 MPV 8.9 fl (7.5-11.1) 02/15/17 05:30 Sodium 142 mmol/L (136-145) 02/15/17 05:30 Potassium 3.6 mmol/L (3.5-5.1) 02/15/17 05:30 Chloride 103 mmol/L (98-107) 02/15/17 05:30 Carbon Dioxide 33 mmol/L (21-32) H 02/15/17 05:30 Anion Gap 6 (8-16) L 02/15/17 05:30 BUN 14 mg/dL (7-18) D 02/17/17 08:50 Creatinine 0.8 mg/dL (0.7-1.3) 02/15/17 05:30 Creat Clearance w eGFR > 60 (>60) 02/15/17 05:30 Random Glucose 92 mg/dL (74-106) 02/15/17 05:30 Calcium 8.3 mg/dL (8.5-10.1) L 02/15/17 05:30 Total Bilirubin 0.4 mg/dL (0.2-1.0) 02/15/17 05:30 AST 24 U/L (15-37) 02/15/17 05:30 ALT 40 U/L (12-78) 02/15/17 05:30 Alkaline Phosphatase 57 U/L (45-117) 02/15/17 05:30 Total Protein 5.8 g/dl (6.4-8.2) L 02/15/17 05:30 Albumin 3.2 g/dl (3.4-5.0) L 02/15/17 05:30 Urine Color Yellow 02/15/17 12:02 Urine Appearance Slcloudy 02/15/17 12:02 Urine pH 6.0 (5.0-8.0) 02/15/17 12:02 Ur Specific [place] 1.020 (1.005-1.025) 02/15/17 12:02 Urine Protein Negative (NEGATIVE) 02/15/17 12:02 Urine Glucose (UA) Negative (NEGATIVE) 02/15/17 12:02 Urine Ketones Negative (NEGATIVE) 02/15/17 12:02 Urine Blood Negative (NEGATIVE) 02/15/17 12:02 Urine Nitrite Negative (NEGATIVE) 02/15/17 12:02 Urine Bilirubin Negative (NEGATIVE) 02/15/17 12:02 Urine Urobilinogen Negative mg/dL (0.2-1.0) 02/15/17 12:02 Ur Leukocyte Esterase Negative (NEGATIVE) 02/15/17 12:02 RPR Titer Nonreactive (NONREACTIVE) 02/15/17 05:30 - Treatment Hospital Course: Detox Protocol Followed, Detoxed Safely, Responded well, Discharged Condition Good, Rehab Referral Accepted Patient has Accepted a Rehab Referral to: [facility] - Medication Discharge Medications: Ambulatory Orders Gabapentin [Neurontin] 300 mg PO TID MDD 900 MG 02/15/17 Methocarbamol [Robaxin -] 500 mg PO TID MDD 1500 MG 02/15/17 - Diagnosis (1) Alcohol dependence with uncomplicated withdrawal Status: Acute (2) Neuropathy Status: Chronic (3) Nicotine dependence Status: Acute Qualifiers: Nicotine product type: cigarettes Substance use status: in withdrawal Qualified Code(s): F17.213 - Nicotine dependence, cigarettes, with withdrawal (4) Opioid dependence with withdrawal Status: Acute (5) Cocaine dependence Status: Acute Qualifiers: Substance use status: uncomplicated Qualified Code(s): F14.20 - Cocaine dependence, uncomplicated (6) Uncomplicated sedative, hypnotic or anxiolytic withdrawal Status: Acute - AMA Did Patient Leave Against Medical Advice: No
== END 2017-02-19 08:21 | disposition home or self-care (01) | DRG 773 ==
LOC: YASAS 13:50 → Y3N 15:18
PROVIDERS: ADMIT Internal Medicine Addiction Medicine; ATTEND Internal Medicine Addiction Medicine
PROC: HZ2ZZZZ Detoxification Services for Substance Abuse Treatment (ICD-10-PCS; principal; 2017-02-14)
DX: F11.23 Opioid dependence with withdrawal (principal); F13.230 Sedative, hypnotic or anxiolytic dependence with withdrawal, uncomplicated; F10.230 Alcohol dependence with withdrawal, uncomplicated; F14.20 Cocaine dependence, uncomplicated; F17.210 Nicotine dependence, cigarettes, uncomplicated; F43.10 Post-traumatic stress disorder, unspecified; F41.9 Anxiety disorder, unspecified; G62.9 Polyneuropathy, unspecified; E66.9 Obesity, unspecified; Z68.30 Body mass index [BMI] 30.0-30.9, adult; G47.00 Insomnia, unspecified; Z86.69 Personal history of other diseases of the nervous system and sense organs; Z85.831 Personal history of malignant neoplasm of soft tissue; Z91.013 Allergy to seafood
CPT/HCPCS: 36415; 80053; 81003; 84520; 85027; 86593; 93005; 93010

== ENCOUNTER 2017-07-13 13:55 | Inpatient (IN) | payer OTHER ==
[2017-07-13 14:27] VITALS: BMI 33.5
--- NOTE | 2017-07-13 17:01 | HP ---
COWS - Scale Resting Pulse: 1= SC 81-100 Sweatin= No chills or Flushing Restless Observation: 3= Extraneous Movement Pupil Size: 1= Pupils >than Normal Bone or Joint Aches: 2= Severe Diffuse Aches Runny Nose/ Eye Tearin= None GI Upset > 30mins: 0= None Tremor Observation: 2= Slight Tremor Visible Yawning Observation: 1= 1-2x During Session Anxiety or Irritability: 2=Irritable/Anxious Goose Flesh Skin: 0=Smooth Skin COWS Score: 12 CIWA Score - CIWA Score Nausea/Vomitin-Mild Nausea/No Vomiting Muscle Tremors: 4-Moderate,w/Arms Extend Anxiety: 4-Mod. Anxious/Guarded Agitation: 1-Slight > Activity Paroxysmal Sweats: 3 Orientation: 1-Uncertain about Date Tacttile Disturbances: 0-None Auditory Disturbances: 0-None Visual Disturbances: 2-Mild Sensitivity Headache: 0-None Present CIWA-Ar Total Score: 16 Admission ROS S - HPI Chief Complaint: withdrawal symptoms Allergies/Adverse Reactions: Allergies Allergy/AdvReac Type Severity Reaction Status Date / Time shellfish derived Allergy Severe Verified 07/13/17 16:34 History of Present Illness: 51 yo male with history Heroin, Xanax, Percocet dependence. Patient has medical history of [place] Left arm, chronic pain, anxiety, depression and PTSD. Denies any suicidal / homicidal ideation, Last Detox was April, in [facility]. Exam Limitations: No Limitations - Ebola screening Have you traveled outside of the country in the last 21 days: No Have you had contact with anyone from an Ebola affected area: No Have you been sick,other than usual withdrawal symptoms: No Do you have a fever: No - Review of Systems Constitutional: Chills, Malaise, Changes in sleep EENT: reports: Dental Problems (missing teeth, reports no dental care), Other Respiratory: reports: No Symptoms reported Cardiac: reports: No Symptoms Reported GI: reports: Constipated : reports: No Symptoms Reported (reports no urinary symptoms) Musculoskeletal: reports: Joint Pain, Muscle Pain (left arm, both legs) Integumentary: reports: No Symptoms Reported, Change in Hair/Nails (nail fungus b/t feet) Neuro: reports: Seizure (a year ago when stopped using Benzos) Endocrine: reports: Increased Thirst Hematology: reports: No Symptoms Reported Psychiatric: reports: Orientated x3, Anxious, Depressed Other Systems: Reviewed and Negative Patient History - Patient Medical History Hx Anemia: No Hx Asthma: No Hx Chronic Obstructive Pulmonary Disease (COPD): No Hx Cancer: Yes (Sarcoma 4 years ago ) Hx Cardiac Disorders: No Hx Congestive Heart Failure: No Hx Hypertension: Yes (Clonodine ) Hx Hypercholesterolemia: No Hx Pacemaker: No HX Cerebrovascular Accident: No Hx Seizures: Yes (drug related seizures last 1 yr ago.) Hx Dementia: No Hx Diabetes: No Hx Gastrointestinal Disorders: No Hx Liver Disease: No Hx Genitourinary Disorders: No Hx Sexually Transmitted Disorders: No Hx Renal Disease (ESRD): No Hx Thyroid Disease: No Hx Human Immunodeficiency Virus (HIV): No (last 2016 negative) Hx Hepatitis C: No Hx Depression: Yes Hx Suicide Attempt: No Hx Bipolar Disorder: No Hx Schizophrenia: No Other Medical History: Anxiety, PTSD worked during 02/22 - Patient Surgical History Past Surgical History: Yes Hx Neurologic Surgery: No Hx Cataract Extraction: No Hx Cardiac Surgery: No Hx Lung Surgery: No Hx Breast Surgery: No Hx Breast Biopsy: No Hx Abdominal Surgery: No Hx Appendectomy: No Hx Cholecystectomy: No Hx Genitourinary Surgery: No Hx Section: No Hx Orthopedic Surgery: No Other Surgical History: 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 Admission?: Yes Date: 01/04/17 Results: 0 mm PPD to be Administered?: Yes - Reproductive History Patient is a Female of Child Bearing Age (11 -55 yrs old): No - Smoking Cessation Smoking history: Current every day smoker Have you smoked in the past 12 months: Yes Aproximately how many cigarettes per day: 20 Cigars Per Day: 0 Hx Chewing Tobacco Use: No Initiated information on smoking cessation: Yes 'Breaking Loose' booklet given: 07/13/17 - Substance & Tx. History Hx Alcohol Use: No Hx Substance Use: Yes Substance Use Type: Heroin, Opiates, Prescribed (Oxycontin. Patient was given letter from Dr. Yung Pryor on 06/28/2017 stating his office will no longer prescribe medication. ), Tranquilizers Hx Substance Use Treatment: Yes (Last treatments Apr 2017 [facility] Christianson ) - Substances Abused Heroin Route: Inhalation Frequency: Daily Amount used: 12-15 BAGS Age of first use: 35 Date of Last Use: 07/12/17 Alprazolam (Xanax) Route: Oral Frequency: Daily Amount used: 8MG Age of first use: 35 Date of Last Use: 07/12/17 percocet Route: Oral Frequency: Daily Amount used: 4 10mg pills Age of first use: 35 Date of Last Use: 07/08/17 Family Disease History - Family Disease History Family Disease History: Other: Father (, parkinsonism), Mother ( Schizophernia ) Admission Physical Exam [facility] - Vital Signs Vital Signs: Vital Signs - 24 hr 07/13/17 14:25 Temperature 97.1 F L Pulse Rate 100 H Respiratory 18 Rate Blood Pressure 150/89 - Physical General Appearance: Yes: Appropriately Dressed, Tremorous, Irritable, Anxious HEENTM: Yes: Hearing grossly Normal, Normal ENT Inspection, Normocephalic, Normal Voice, CHRYSTAL, Pharynx Normal, Tm's normal, Other (missing teeth) Respiratory: Yes: Chest Non-Tender, Lungs Clear, Normal Breath Sounds, No Respiratory Distress, No Accessory Muscle Use Neck: Yes: No masses,lesions,Nodules, Trachea in good position Breast: Yes: Breast Exam Deferred Cardiology: Yes: Regular Rhythm, Regular Rate, S1, S2 Abdominal: Yes: Normal Bowel Sounds, Non Tender, Soft, Protuberent Genitourinary: Yes: Within Normal Limits (reports no urianry symptoms) Back: Yes: Normal Inspection Musculoskeletal: Yes: full range of Motion, Gait Steady, Other (+ pain on the left arm and hand) Extremities: Yes: Normal Range of Motion, Non-Tender, Tremors (b/l hands), Pedal Edema (+2 non- pitting), Other (tinea pedis b/t) Neurological: Yes: Fully Oriented, Alert, Motor Strength 5/5, Normal Response, Depressed Affect, Other (right ptosis) Integumentary: Yes: Normal Color, Warm, Moist, Other (poor skin turgor, surgical scar on the left arm) Lymphatic: Yes: Within Normal Limits - Addiitonal Findings: 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 HIV testing was offered during today's visit, patient declines testing at this moment. Patient is interested in Methadone / Suboxone program, upon completing detox - Diagnostic (1) Difficulty sleeping Current Visit: Yes Status: Acute (2) Dehydration Current Visit: Yes Status: Acute (3) Obese Current Visit: Yes Status: Chronic Qualifiers: Body mass index: BMI 33.0-33.9 (4) Anxiety Current Visit: Yes Status: Suspected (5) Nicotine dependence Current Visit: Yes Status: Chronic Qualifiers: Nicotine product type: cigarettes Substance use status: in withdrawal Qualified Code(s): F17.213 - Nicotine dependence, cigarettes, with withdrawal (6) Opioid dependence with withdrawal Current Visit: Yes Status: Acute (7) Uncomplicated sedative, hypnotic or anxiolytic withdrawal Current Visit: Yes Status: Acute (8) Neuropathy Current Visit: Yes Status: Chronic (9) Tinea pedis Current Visit: Yes Status: Acute Qualifiers: Laterality: bilateral Qualified Code(s): B35.3 - Tinea pedis Cleared for Admission S - Detox or Rehab [facility] Level of Care: Medically Managed Detox Regimen/Protocol: Methadone/Valium [facility] Breath Alcohol Content Breath Alcohol Content: 0 Urine Drug Screen - Results Drug Screen Negative: No Urine Drug Screen Results: OPI-Opiates, BZO-Benzodiazepines, MTD-Methadone
[2017-07-13] MEDS ORDERED: P-EPHED 60MG/TRIPROLIDI 2.5MG TABLET PO PRN (17:18)
[2017-07-13] MEDS ORDERED: guaiFENesin/D-METHORPHAN HB 10 ML UNIT-DOSE CUPS PO PRN (17:18)
[2017-07-13] MEDS ORDERED: MAGNESIUM HYDROX 2400MG/30ML ORAL SUSPENSION 30 ML CUP PO PRN (17:18)
[2017-07-13] MEDS ORDERED: MENTHOL/PHENOL 1 EACH UD MM PRN (17:18)
[2017-07-13] MEDS ORDERED: MAGNESIUM CITRATE 300 ML BOTTLE PO PRN (17:18)
[2017-07-13] MEDS ORDERED: LOPERAMIDE HCL 2 MG CAPSULE PO PRN (17:18)
[2017-07-13] MEDS ORDERED: MAG HYDROX/AL HYDROX/SIMETH 30 ML UNIT-DOSE CUP PO PRN (17:18)
[2017-07-13] MEDS ORDERED: NICOTINE POLACRILEX 2 MG GUM BUC PRN (17:18)
[2017-07-13] MEDS ORDERED: ACETAMINOPHEN 325 MG TABLET (FP) PO PRN (17:18)
[2017-07-13] MEDS ORDERED: METHOCARBAMOL 750 MG TABLET PO SCH (17:30)
[2017-07-13] MEDS ORDERED: diazePAM 5 MG TABLET PO ONE (18:15)
[2017-07-13] MEDS ORDERED: METHADONE HCL 10 MG TABLET (FOR DETOX USE ONLY) PO ONE ×2 (18:15→23:00)
[2017-07-13] MEDS: NICOTINE 21 MG/24 HOURS TOPICAL PATCH TD SCH (19:54)
[2017-07-13] MEDS: THIAMINE HCL 100 MG TABLET (FP) PO SCH (21:14)
[2017-07-13] MEDS: diazePAM 5 MG TABLET PO SCH (21:16)
[2017-07-13] MEDS: METHOCARBAMOL 500 MG TABLET PO SCH (21:16)
[2017-07-13] MEDS: GABAPENTIN 400 MG CAPSULE (FP) PO SCH (21:16)
[2017-07-13] MEDS ORDERED: PATIENT'S OWN MEDICATION (NON-FORMULARY) (Gabapentin [Gabapentin] 800 MG) PO SCH (22:00)
[2017-07-13] MEDS: hydrOXYzine PAMOATE 50 MG CAPSULE (FP) PO PRN (22:08)
[2017-07-14 00:25] LABS: URINE APPEARANCE CLEAR; URINE BILIRUBIN NEGATIVE (NEGATIVE); URINE BLOOD NEGATIVE (NEGATIVE); URINE COLOR STRAW; URINE GLUCOSE (UA) NEGATIVE (NEGATIVE); URINE KETONE NEGATIVE (NEGATIVE); URINE LEUK ESTERASE NEGATIVE (NEGATIVE); URINE NITRITE NEGATIVE (NEGATIVE); URINE PROTEIN NEGATIVE (NEGATIVE); URINE UROBILINOGEN NEGATIVE mg/dL (0.2-1.0)
[2017-07-14] MEDS: diazePAM 5 MG TABLET PO PRN ×4 (01:39→16:33)
[2017-07-14] MEDS: METHOCARBAMOL 500 MG TABLET PO SCH ×3 (05:39→22:05)
[2017-07-14] MEDS: diazePAM 5 MG TABLET PO SCH ×3 (05:40→22:06)
[2017-07-14] MEDS: GABAPENTIN 400 MG CAPSULE (FP) PO SCH ×3 (05:40→22:06)
--- NOTE | 2017-07-14 08:03 | EKG ---
Test Reason : Blood Pressure : / mmHG Vent. Rate : 075 BPM Atrial Rate : 075 BPM P-R Int : 154 ms QRS Dur : 086 ms QT Int : 376 ms P-R-T Axes : 026 024 028 degrees QTc Int : 419 ms NORMAL SINUS RHYTHM NORMAL ECG WHEN COMPARED WITH ECG OF 14-FEB-2017 16:56, NO SIGNIFICANT CHANGE WAS FOUND Confirmed by CECILIA HARRINGTON MD ([id number]) on 07/14/2017 8:03:16 AM Referred By: Confirmed By:CECILIA HARRINGTON MD
[2017-07-14] MEDS ORDERED: METHADONE HCL 10 MG TABLET (FOR DETOX USE ONLY) PO SCH (10:00)
[2017-07-14 10:03] LABS: HEMOGLOBIN 13.2 GM/dL (11.7-16.9); MCH 27.9 pg (25.7-33.7); MCHC 32.1 g/dl (32.0-35.9); MEAN PLT VOLUME 8.9 fl (7.5-11.1); PLATELET COUNT 282 K/MM3 (134-434); RBC 4.72 M/mm3 (4.00-5.60); WHITE BLOOD COUNT 5.5 K/mm3 (4.0-10.0)
[2017-07-14 10:14] LABS: CHLORIDE 103 mmol/L (98-107); POTASSIUM 4.3 mmol/L (3.5-5.1); SODIUM 140 mmol/L (136-145)
[2017-07-14] MEDS: PRENATAL VITAMINS W/ FOLIC ACID TABLET (FP) PO SCH (10:29)
[2017-07-14] MEDS: NICOTINE 21 MG/24 HOURS TOPICAL PATCH TD SCH (10:30)
[2017-07-14 10:32] LABS: ALBUMIN 3.1 g/dl (3.4-5.0); ALK PHOS 60 U/L (45-117); ANION GAP 8 (8-16); BILIRUBIN,TOTAL 0.3 mg/dL (0.2-1.0); BLOOD UREA NITROGEN 13 mg/dL (7-18); CALCIUM 8.6 mg/dL (8.5-10.1); CO2 29 mmol/L (21-32); CREATININE 0.7 mg/dL (0.7-1.3); GLUCOSE,RANDOM 85 mg/dL (74-106); SGOT/AST 21 U/L (15-37); SGPT/ALT 33 U/L (12-78)
--- NOTE | 2017-07-14 11:27 | CONSULT ---
[facility] Psychiatric Consult - Data Date of interview: 07/14/17 Admission source: [facility] Identifying data: Another admission to [facility] for this 51 y/o male seeking detox treatment on for heroin and benzodiazepine (xanax) dependence.Patient is ,a father of one,homeless,unemployed and supported on Social Security benefits. Substance Abuse History: Confirmed by patient in this interview.See details in current [facility] report : Smoking history: Current every day smoker. Have you smoked in the past 12 months: Yes. Aproximately how many cigarettes per day: 20. Cigars Per Day: 0. Hx Chewing Tobacco Use: No. Initiated information on smoking cessation: Yes. 'Breaking Loose' booklet given: 07/13/17. - Substance & Tx. History. Hx Alcohol Use: No. Hx Substance Use: Yes. Substance Use Type : Heroin, Opiates, Prescribed (Oxycontin. Patient was given letter from Dr. Yung Pryor on 06/28/2017 stating his office will no longer prescribe medication. ), Tranquilizers. Hx Substance Use Treatment: Yes (Last treatments Apr 2017 Adama Christianson ). - Substances Abused. Heroin. Route: Inhalation. Frequency: Daily. Amount used: 12-15 BAGS. Age of first use: 35. Date of Last Use: 07/12/17. Alprazolam (Xanax). Route: Oral. Frequency: Daily. Amount used: 8MG. Age of first use: 35. Date of Last Use: 07/12/17. * * percocet. Route: Oral. Frequency: Daily. Amount used: 4 10mg pills. Age of first use: 35. Date of Last Use: 07/08/17 Medical History: Sarcoma of left forearm and axilla (surgery + radiation therapy 18 months ago at [facility] in [facility]),hypertension and a history of withdrawal-related seizures.Allergic to shellfish-derived products. Psychiatric History: Patient denies history of psychiatric hospitalizations.Diagnosed with PTSD.Mr Albarran declares that he takes seroquel 100 mg/hs (prescribed by a primary care physician) for the management of insomnia.No reported history of formal psychiatric OPD care (no contact with psychiatrists).Patient denies history of suicide attempts. 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 Additional Comment: Urine Drug Screen Results: OPI-Opiates, BZO-Benzodiazepines , MTD-Methadone.Noted. Mental Status Exam - Mental Status Exam Alert and Oriented to: Time, Place, Person Cognitive Function: Good Patient Appearance: Well Groomed Mood: Withdrawn, Anxious, Irritable Affect: Mood Congruent Patient Behavior: Fatigued, Appropriate, Cooperative Speech Pattern: Clear, Appropriate Voice Loudness: Normal Thought Process: Goal Oriented Thought Disorder: Not Present Hallucinations: Denies Suicidal Ideation: Denies Homicidal Ideation: Denies Insight/Judgement: Poor Sleep: Poorly, Difficulty falling asleep Appetite: Good Muscle strength/Tone: Normal Gait/Station: Normal Psychiatric Findings - Problem List ([place] 1, 2,3) (1) Opioid dependence with withdrawal Current Visit: Yes Status: Acute (2) Uncomplicated sedative, hypnotic or anxiolytic withdrawal Current Visit: Yes Status: Acute (3) Nicotine dependence Current Visit: Yes Status: Acute Qualifiers: Nicotine product type: cigarettes Substance use status: in withdrawal Qualified Code(s): F17.213 - Nicotine dependence, cigarettes, with withdrawal (4) Insomnia Current Visit: Yes Status: Acute (5) Substance induced mood disorder Current Visit: Yes Status: Acute (6) PTSD (post-traumatic stress disorder) Current Visit: No Status: Chronic Comment: Self- report.Asymptomatic.Resistive to OPD care. - Initial Treatment Plan Initial Treatment Plan: Previous records are revisited.Psychoeducation and support provided in this session.Sleep hygiene discussed with patient.Detoxification in progress.Seroquel 100 mg po hs.Ordered (patient's request).Made aware of potential for metabolic syndrome,oversedation/falls, cardiovascular adverse events and abnormal involuntary movements.Mr Sidhu comments that " seroquel calms my nerves and helps me sleep at night." No report of side effects.Patient consents (verbally) to follow this plan of care.Daily monitoring of clinical course.
--- NOTE | 2017-07-14 12:46 | PN ---
[facility] CIWA - CIWA Score Nausea/Vomitin-No Nausea/No Vomiting Muscle Tremors: 3 Anxiety: 3 Agitation: 3 Paroxysmal Sweats: 3 Orientation: 0-Oriented Tacttile Disturbances: 2-Mild Itch/Numbness/Burn Auditory Disturbances: 2-Mild Harshness/Frighten Visual Disturbances: 0-None Headache: 0-None Present CIWA-Ar Total Score: 16 BHS COWS - Scale Resting Pulse: 0= [place] 80 or Below Sweatin= Chills/Flushing Restless Observation: 1= Difficult to Sit Still Pupil Size: 0= Normal to Room Light Bone or Joint Aches: 2= Severe Diffuse Aches Runny Nose/ Eye Tearin= None GI Upset > 30mins: 0= None Tremor Observation of Outstretched Hands: 2= Slight Tremor Visible Yawning Observation: 2= >3x During Session Anxiety or Irritability: 2=Irritable/Anxious Goose Flesh Skin: 3=Piloerection COWS Score: 13 S Progress Note (SOAP) Subjective: Constipation, Interrupted Sleep, Body Aches, Sweating, Hot / Cold sensations. Objective: PT. A & O X 3, OBSERVED AMBULATING ON UNIT. NO ACUTE DISTRESS. 07/14/17 12:44 Vital Signs Temperature 97.2 F L 07/14/17 09:18 Pulse Rate 72 07/14/17 09:18 Respiratory Rate 18 07/14/17 09:18 Blood Pressure 113/71 07/14/17 09:18 O2 Sat by Pulse Oximetry (%) Laboratory Tests 07/13/17 07/14/17 07/14/17 20:00 07:00 07:00 WBC 5.5 RBC 4.72 Hgb 13.2 Hct 41.0 MCV 87.0 MCH 27.9 MCHC 32.1 RDW 15.0 Plt Count 282 D MPV 8.9 Sodium 140 Potassium 4.3 Chloride 103 Carbon Dioxide 29 Anion Gap 8 BUN 13 Creatinine 0.7 Creat Clearance w eGFR > 60 Random Glucose 85 Calcium 8.6 Total Bilirubin 0.3 D AST 21 ALT 33 Alkaline Phosphatase 60 Total Protein 6.0 L Albumin 3.1 L Urine Color Straw Urine Appearance Clear Urine pH 6.0 Ur Specific [place] 1.005 Urine Protein Negative Urine Glucose (UA) Negative Urine Ketones Negative Urine Blood Negative Urine Nitrite Negative Urine Bilirubin Negative Urine Urobilinogen Negative Ur Leukocyte Esterase Negative LABS NOTED. HCV, RPR AB RESULTS PENDING. 07/14/17 12:45 Assessment: 07/14/17 12:45 WITHDRAWAL SYMPTOMS. Plan: CONTINUE DETOX. INCREASE DAILY PO FLUID INTAKE. PRN MOM FOR CONSTIPATION.
[2017-07-14] MEDS: IBUPROFEN 400 MG TABLET (FP) PO PRN (17:52)
[2017-07-14] MEDS: THIAMINE HCL 100 MG TABLET (FP) PO SCH (22:05)
[2017-07-14] MEDS: hydrOXYzine PAMOATE 50 MG CAPSULE (FP) PO PRN (22:05)
[2017-07-14] MEDS: QUEtiapine FUMARATE 100 MG TABLET (FP) PO SCH (22:06)
[2017-07-15] MEDS: METHOCARBAMOL 500 MG TABLET PO SCH ×3 (05:23→22:12)
[2017-07-15] MEDS: GABAPENTIN 400 MG CAPSULE (FP) PO SCH ×3 (05:23→22:13)
[2017-07-15] MEDS: diazePAM 5 MG TABLET PO PRN ×3 (05:25→17:11)
[2017-07-15] MEDS: NICOTINE 21 MG/24 HOURS TOPICAL PATCH TD SCH (10:24)
[2017-07-15] MEDS: METHADONE HCL 5 MG TABLET (FOR DETOX USE ONLY) PO SCH (10:24)
[2017-07-15] MEDS: PRENATAL VITAMINS W/ FOLIC ACID TABLET (FP) PO SCH (10:24)
[2017-07-15] MEDS: diazePAM 5 MG TABLET PO SCH ×2 (10:24→22:12)
--- NOTE | 2017-07-15 12:13 | PN ---
[facility] CIWA - CIWA Score Nausea/Vomitin-No Nausea/No Vomiting Muscle Tremors: 2 Anxiety: 5 Agitation: 3 Paroxysmal Sweats: No Perspiration Orientation: 0-Oriented Tacttile Disturbances: 2-Mild Itch/Numbness/Burn Auditory Disturbances: 0-None Visual Disturbances: 2-Mild Sensitivity Headache: 0-None Present CIWA-Ar Total Score: 14 BHS COWS - Scale Resting Pulse: 0= [place] 80 or Below Sweatin= Chills/Flushing Restless Observation: 1= Difficult to Sit Still Pupil Size: 0= Normal to Room Light Bone or Joint Aches: 2= Severe Diffuse Aches Runny Nose/ Eye Tearin= None GI Upset > 30mins: 0= None Tremor Observation of Outstretched Hands: 2= Slight Tremor Visible Yawning Observation: 1= 1-2x During Session Anxiety or Irritability: 4=Extreme Anxiety Goose Flesh Skin: 3=Piloerection COWS Score: 14 S Progress Note (SOAP) Subjective: Anxious, Fatigue, Body Aches, Interrupted Sleep. Objective: PT. A & O X 3, OBSERVED AMBULATING ON UNIT. NO ACUTE DISTRESS. 07/15/17 12:12 Vital Signs Temperature 97.7 F 07/15/17 10:02 Pulse Rate 71 07/15/17 10:02 Respiratory Rate 20 07/15/17 10:02 Blood Pressure 116/77 07/15/17 10:02 O2 Sat by Pulse Oximetry (%) Laboratory Tests 07/13/17 07/13/17 07/14/17 07:00 20:00 07:00 WBC 5.5 RBC 4.72 Hgb 13.2 Hct 41.0 MCV 87.0 MCH 27.9 MCHC 32.1 RDW 15.0 Plt Count 282 D MPV 8.9 Sodium Potassium Chloride Carbon Dioxide Anion Gap BUN Creatinine Creat Clearance w eGFR Random Glucose Calcium Total Bilirubin AST ALT Alkaline Phosphatase Total Protein Albumin Urine Color Straw Urine Appearance Clear Urine pH 6.0 Ur Specific [place] 1.005 Urine Protein Negative Urine Glucose (UA) Negative Urine Ketones Negative Urine Blood Negative Urine Nitrite Negative Urine Bilirubin Negative Urine Urobilinogen Negative Ur Leukocyte Esterase Negative RPR Titer Hepatitis C Antibody <0.1 07/14/17 07/14/17 07:00 07:00 WBC RBC Hgb Hct MCV MCH MCHC RDW Plt Count MPV Sodium 140 Potassium 4.3 Chloride 103 Carbon Dioxide 29 Anion Gap 8 BUN 13 Creatinine 0.7 Creat Clearance w eGFR > 60 Random Glucose 85 Calcium 8.6 Total Bilirubin 0.3 D AST 21 ALT 33 Alkaline Phosphatase 60 Total Protein 6.0 L Albumin 3.1 L Urine Color Urine Appearance Urine pH Ur Specific [place] Urine Protein Urine Glucose (UA) Urine Ketones Urine Blood Urine Nitrite Urine Bilirubin Urine Urobilinogen Ur Leukocyte Esterase RPR Titer Nonreactive Hepatitis C Antibody LABS NOTED. Assessment: 07/15/17 12:12 WITHDRAWAL SYMPTOMS. Plan: CONTINUE DETOX. INCREASE DAILY PO FLUID INTAKE.
[2017-07-15] MEDS: IBUPROFEN 400 MG TABLET (FP) PO PRN (17:11)
[2017-07-15] MEDS: QUEtiapine FUMARATE 100 MG TABLET (FP) PO SCH (22:12)
[2017-07-15] MEDS: THIAMINE HCL 100 MG TABLET (FP) PO SCH (22:12)
[2017-07-15] MEDS: hydrOXYzine PAMOATE 50 MG CAPSULE (FP) PO PRN (22:12)
[2017-07-16] MEDS: GABAPENTIN 400 MG CAPSULE (FP) PO SCH ×3 (05:23→22:22)
[2017-07-16] MEDS: METHOCARBAMOL 500 MG TABLET PO SCH ×3 (05:24→22:22)
[2017-07-16] MEDS: diazePAM 5 MG TABLET PO PRN ×2 (05:25→14:00)
[2017-07-16] MEDS: METHADONE HCL 5 MG TABLET (FOR DETOX USE ONLY) PO SCH (10:20)
[2017-07-16] MEDS: PRENATAL VITAMINS W/ FOLIC ACID TABLET (FP) PO SCH (10:20)
[2017-07-16] MEDS: NICOTINE 21 MG/24 HOURS TOPICAL PATCH TD SCH (10:20)
[2017-07-16] MEDS: diazePAM 5 MG TABLET PO SCH ×2 (10:20→22:23)
[2017-07-16] MEDS: IBUPROFEN 400 MG TABLET (FP) PO PRN ×2 (10:21→17:12)
--- NOTE | 2017-07-16 15:26 | PN ---
BHS Progress Note (SOAP) Subjective: Body Aches, Sweating, Hot / Cold Sensations, Constipation. Objective: PT. A & O X 3, OBSERVED AMBULATING ON UNIT. NO ACUTE DISTRESS. 07/16/17 15:24 Vital Signs Temperature 99.3 F 07/16/17 13:35 Pulse Rate 80 07/16/17 13:35 Respiratory Rate 20 07/16/17 13:35 Blood Pressure 141/72 07/16/17 13:35 O2 Sat by Pulse Oximetry (%) Laboratory Tests 07/13/17 07/13/17 07/14/17 07:00 20:00 07:00 WBC 5.5 RBC 4.72 Hgb 13.2 Hct 41.0 MCV 87.0 MCH 27.9 MCHC 32.1 RDW 15.0 Plt Count 282 D MPV 8.9 Sodium Potassium Chloride Carbon Dioxide Anion Gap BUN Creatinine Creat Clearance w eGFR Random Glucose Calcium Total Bilirubin AST ALT Alkaline Phosphatase Total Protein Albumin Urine Color Straw Urine Appearance Clear Urine pH 6.0 Ur Specific [place] 1.005 Urine Protein Negative Urine Glucose (UA) Negative Urine Ketones Negative Urine Blood Negative Urine Nitrite Negative Urine Bilirubin Negative Urine Urobilinogen Negative Ur Leukocyte Esterase Negative RPR Titer Hepatitis C Antibody <0.1 07/14/17 07/14/17 07:00 07:00 WBC RBC Hgb Hct MCV MCH MCHC RDW Plt Count MPV Sodium 140 Potassium 4.3 Chloride 103 Carbon Dioxide 29 Anion Gap 8 BUN 13 Creatinine 0.7 Creat Clearance w eGFR > 60 Random Glucose 85 Calcium 8.6 Total Bilirubin 0.3 D AST 21 ALT 33 Alkaline Phosphatase 60 Total Protein 6.0 L Albumin 3.1 L Urine Color Urine Appearance Urine pH Ur Specific [place] Urine Protein Urine Glucose (UA) Urine Ketones Urine Blood Urine Nitrite Urine Bilirubin Urine Urobilinogen Ur Leukocyte Esterase RPR Titer Nonreactive Hepatitis C Antibody LABS NOTED. Assessment: 07/16/17 15:25 WITHDRAWAL SYMPTOMS. Plan: CONTINUE DETOX. PRN MOM FOR CONSTIPATION. INCREASE DAILY PO FLUID INTAKE.
[2017-07-16] MEDS: hydrOXYzine PAMOATE 50 MG CAPSULE (FP) PO PRN (17:12)
[2017-07-16] MEDS: QUEtiapine FUMARATE 100 MG TABLET (FP) PO SCH (22:22)
[2017-07-16] MEDS: THIAMINE HCL 100 MG TABLET (FP) PO SCH (22:23)
[2017-07-17] MEDS: GABAPENTIN 400 MG CAPSULE (FP) PO SCH ×3 (05:12→22:21)
[2017-07-17] MEDS: hydrOXYzine PAMOATE 50 MG CAPSULE (FP) PO PRN ×4 (05:13→22:24)
[2017-07-17] MEDS: METHOCARBAMOL 500 MG TABLET PO SCH ×3 (05:14→22:21)
[2017-07-17] MEDS ORDERED: METHADONE HCL 10 MG TABLET (FOR DETOX USE ONLY) PO SCH (10:00)
[2017-07-17] MEDS ORDERED: diazePAM 5 MG TABLET PO SCH (10:00)
[2017-07-17] MEDS: NICOTINE 21 MG/24 HOURS TOPICAL PATCH TD SCH (10:24)
[2017-07-17] MEDS: PRENATAL VITAMINS W/ FOLIC ACID TABLET (FP) PO SCH (10:24)
[2017-07-17] MEDS: DOCUSATE SODIUM 100 MG CAPSULE (FP) PO SCH ×2 (13:14→22:21)
[2017-07-17] MEDS: IBUPROFEN 400 MG TABLET (FP) PO PRN (14:21)
[2017-07-17] MEDS ORDERED: cloNIDine HCL 0.1 MG TABLET PO ONE (14:47)
--- NOTE | 2017-07-17 14:50 | PN ---
BHS Progress Note (SOAP) Subjective: Body Aches, Anxious, Sweating, Constipation. Objective: PT. A & O X 3, OBSERVED AMBULATING ON UNIT. NO ACUTE DISTRESS. 07/17/17 14:48 Vital Signs Temperature 97.9 F 07/17/17 13:33 Pulse Rate 86 07/17/17 13:33 Respiratory Rate 18 07/17/17 13:33 Blood Pressure 134/81 07/17/17 13:33 O2 Sat by Pulse Oximetry (%) Laboratory Tests 07/13/17 07/13/17 07/14/17 07:00 20:00 07:00 WBC 5.5 RBC 4.72 Hgb 13.2 Hct 41.0 MCV 87.0 MCH 27.9 MCHC 32.1 RDW 15.0 Plt Count 282 D MPV 8.9 Sodium Potassium Chloride Carbon Dioxide Anion Gap BUN Creatinine Creat Clearance w eGFR Random Glucose Calcium Total Bilirubin AST ALT Alkaline Phosphatase Total Protein Albumin Urine Color Straw Urine Appearance Clear Urine pH 6.0 Ur Specific [place] 1.005 Urine Protein Negative Urine Glucose (UA) Negative Urine Ketones Negative Urine Blood Negative Urine Nitrite Negative Urine Bilirubin Negative Urine Urobilinogen Negative Ur Leukocyte Esterase Negative RPR Titer Hepatitis C Antibody <0.1 07/14/17 07/14/17 07:00 07:00 WBC RBC Hgb Hct MCV MCH MCHC RDW Plt Count MPV Sodium 140 Potassium 4.3 Chloride 103 Carbon Dioxide 29 Anion Gap 8 BUN 13 Creatinine 0.7 Creat Clearance w eGFR > 60 Random Glucose 85 Calcium 8.6 Total Bilirubin 0.3 D AST 21 ALT 33 Alkaline Phosphatase 60 Total Protein 6.0 L Albumin 3.1 L Urine Color Urine Appearance Urine pH Ur Specific [place] Urine Protein Urine Glucose (UA) Urine Ketones Urine Blood Urine Nitrite Urine Bilirubin Urine Urobilinogen Ur Leukocyte Esterase RPR Titer Nonreactive Hepatitis C Antibody LABS NOTED. Assessment: 07/17/17 14:49 WITHDRAWAL SYMPTOMS. Plan: CONTINUE DETOX. PRN MOM FOR CONSTIPATION. CLONIDINE, 0.1 MG PO X 1 FOR ELEVATED BP AND FOR DETOX SYMPTOMS.
[2017-07-17] MEDS: QUEtiapine FUMARATE 100 MG TABLET (FP) PO SCH (22:21)
[2017-07-17] MEDS: THIAMINE HCL 100 MG TABLET (FP) PO SCH (22:21)
[2017-07-18] MEDS: METHOCARBAMOL 500 MG TABLET PO SCH (05:49)
[2017-07-18] MEDS: GABAPENTIN 400 MG CAPSULE (FP) PO SCH (05:49)
[2017-07-18] MEDS: hydrOXYzine PAMOATE 50 MG CAPSULE (FP) PO PRN (05:51)
[2017-07-18] MEDS ORDERED: METHADONE HCL 5 MG TABLET (FOR DETOX USE ONLY) PO SCH (06:00)
[2017-07-18 06:18] VITALS: BP 107/75; PULSE 60; TEMP 96.4
--- NOTE | 2017-07-18 15:46 | DS ---
[facility] Detox Discharge Summary Admission Date: 07/13/17 Discharge Date: 07/18/17 - History Present History: Alcohol Dependence Additional Comments: NO BED AVAILABLE AT [facility] AT THIS TIME; PATIENT GOING HOME FOR TIME BEING. PATIENT ADVISED TO CONTACT [facility] ADMISSIONS DEPARTMENT FOR TOMORROW AM TO APPLY FOR ADMISSION AT THAT TIME OR ELSE TO CONSIDER LOCAL 12-STEP / NA / AA OUTPATIENT SUPPORT GROUPS FOR AFTERCARE. PATIENT WAS DISCHARGED FROM DETOX UNIT IN STABLE MEDICAL CONDITION. Pertinent Past History: History of Sarcoma, Asthma, History of Seizure, Depression, Anxiety, PTSD, HTN, Tinea Pedis, Difficulty Sleeping. - Physical Exam Results Vital Signs: Vital Signs Temperature 96.4 F L 07/18/17 06:17 Pulse Rate 60 07/18/17 06:17 Respiratory Rate 20 07/18/17 06:17 Blood Pressure 107/75 07/18/17 06:17 O2 Sat by Pulse Oximetry (%) Pertinent Admission Physical Exam Findings: WITHDRAWAL SYMPTOMS. Laboratory Tests 07/13/17 07/13/17 07/14/17 07:00 20:00 07:00 WBC 5.5 RBC 4.72 Hgb 13.2 Hct 41.0 MCV 87.0 MCH 27.9 MCHC 32.1 RDW 15.0 Plt Count 282 D MPV 8.9 Sodium Potassium Chloride Carbon Dioxide Anion Gap BUN Creatinine Creat Clearance w eGFR Random Glucose Calcium Total Bilirubin AST ALT Alkaline Phosphatase Total Protein Albumin Urine Color Straw Urine Appearance Clear Urine pH 6.0 Ur Specific [place] 1.005 Urine Protein Negative Urine Glucose (UA) Negative Urine Ketones Negative Urine Blood Negative Urine Nitrite Negative Urine Bilirubin Negative Urine Urobilinogen Negative Ur Leukocyte Esterase Negative RPR Titer Hepatitis C Antibody <0.1 07/14/17 07/14/17 07:00 07:00 WBC RBC Hgb Hct MCV MCH MCHC RDW Plt Count MPV Sodium 140 Potassium 4.3 Chloride 103 Carbon Dioxide 29 Anion Gap 8 BUN 13 Creatinine 0.7 Creat Clearance w eGFR > 60 Random Glucose 85 Calcium 8.6 Total Bilirubin 0.3 D AST 21 ALT 33 Alkaline Phosphatase 60 Total Protein 6.0 L Albumin 3.1 L Urine Color Urine Appearance Urine pH Ur Specific [place] Urine Protein Urine Glucose (UA) Urine Ketones Urine Blood Urine Nitrite Urine Bilirubin Urine Urobilinogen Ur Leukocyte Esterase RPR Titer Nonreactive Hepatitis C Antibody LABS NOTED. - Treatment Hospital Course: Detox Protocol Followed, Detoxed Safely, Responded well, Discharged Condition Good Patient has Accepted a Rehab Referral to: NO BED AT [facility]; ASDVISED PT TO APPLY AGAIN TOMORROW. - Medication Discharge Medications: Ambulatory Orders Gabapentin 800 mg PO TID 07/13/17 Methocarbamol [Robaxin -] 750 mg PO Q8H 07/13/17 - Diagnosis (1) Dehydration Status: Acute (2) Difficulty sleeping Status: Acute (3) Opioid dependence with withdrawal Status: Acute (4) Tinea pedis Status: Acute Qualifiers: Laterality: bilateral Qualified Code(s): B35.3 - Tinea pedis (5) Uncomplicated sedative, hypnotic or anxiolytic withdrawal Status: Acute (6) Neuropathy Status: Chronic (7) Nicotine dependence Status: Acute Qualifiers: Nicotine product type: cigarettes Substance use status: in withdrawal Qualified Code(s): F17.213 - Nicotine dependence, cigarettes, with withdrawal (8) Obese Status: Chronic Qualifiers: Obesity type: unspecified obesity type Obesity classification: adult class 1 (BMI 30 - 34.9) Serious obesity comorbidity presence: without serious comorbidity Body mass index: unspecified BMI Qualified Code(s): E66.9 - Obesity, unspecified (9) Anxiety Status: Suspected (10) Insomnia Status: Acute Qualifiers: Insomnia type: unspecified Qualified Code(s): G47.00 - Insomnia, unspecified (11) Substance induced mood disorder Status: Acute (12) PTSD (post-traumatic stress disorder) Status: Chronic - AMA Did Patient Leave Against Medical Advice: No
== END 2017-07-18 09:40 | disposition home or self-care (01) | DRG 773 ==
LOC: YASAS 13:55 → Y3N 18:02
PROVIDERS: ADMIT Internal Medicine; ATTEND Internal Medicine
PROC: HZ2ZZZZ Detoxification Services for Substance Abuse Treatment (ICD-10-PCS; principal; 2017-07-13)
DX: F11.23 Opioid dependence with withdrawal (principal); F13.230 Sedative, hypnotic or anxiolytic dependence with withdrawal, uncomplicated; F10.230 Alcohol dependence with withdrawal, uncomplicated; F17.210 Nicotine dependence, cigarettes, uncomplicated; F41.9 Anxiety disorder, unspecified; F19.24 Other psychoactive substance dependence with psychoactive substance-induced mood disorder; F43.10 Post-traumatic stress disorder, unspecified; G62.9 Polyneuropathy, unspecified; G47.00 Insomnia, unspecified; I10 Essential (primary) hypertension; B35.3 Tinea pedis; E66.9 Obesity, unspecified; Z68.34 Body mass index [BMI] 34.0-34.9, adult; Z85.89 Personal history of malignant neoplasm of other organs and systems
CPT/HCPCS: 36415; 80053; 81003; 85027; 86593; 86803; 93005; 93010; J0735

== ENCOUNTER 2018-02-04 18:57 | Inpatient (IN) | payer OTHER ==
[2018-02-04 20:07] VITALS: BMI 36.2
--- NOTE | 2018-02-04 20:18 | HP ---
COWS - Scale Resting Pulse: 1= [place] 81-100 Sweatin=Flushed/Facial Moisture Restless Observation: 1= Difficult to Sit Still Pupil Size: 1= Pupils >than Normal Bone or Joint Aches: 1= Mild Discomfort Runny Nose/ Eye Tearin= Runny Nose/Eyes GI Upset > 30mins: 1= Stomach Cramp Tremor Observation: 1= Tremor [place], Not Seen Yawning Observation: 1= 1-2x During Session Anxiety or Irritability: 2=Irritable/Anxious Goose Flesh Skin: 3=Piloerection COWS Score: 16 CIWA Score - CIWA Score Nausea/Vomitin-No Nausea/No Vomiting Muscle Tremors: 2 Anxiety: 3 Agitation: 3 Paroxysmal Sweats: 3 Orientation: 0-Oriented Tacttile Disturbances: 2-Mild Itch/Numbness/Burn (left arm) Auditory Disturbances: 2-Mild Harshness/Frighten Visual Disturbances: 2-Mild Sensitivity Headache: 0-None Present CIWA-Ar Total Score: 17 Admission ROS S - HPI Chief Complaint: opiod, alcohol and benzo withdrawal symptoms Allergies/Adverse Reactions: Allergies Allergy/AdvReac Type Severity Reaction Status Date / Time shellfish derived Allergy Severe Verified 12/14/17 20:03 History of Present Illness: 52 years old male with a long history of alcohol, benzodiazepine and heroin ( nasal) dependence is seeking admission to detox. Patient has been in previous detox and reports 4 years of sobriety. Last detox at [facility] 12/14/17 -12/20/17. Reports visit to the emergency department three times in the past week d/t to bruise on the left arm. PMHX: skin sarcoma, hypertension, bipolar and depression. Reports seizure one year ago. Last detox at [facility] 12/14/17 -12/20/17. He denies suicide attempt and suicidal ideation at this time. Hx OD x 5, with last episode one year ago. Exam Limitations: No Limitations - Ebola screening Have you traveled outside of the country in the last 21 days: No (N) Have you had contact with anyone from an Ebola affected area: No Have you been sick,other than usual withdrawal symptoms: No Do you have a fever: No - Review of Systems Constitutional: Chills, Changes in sleep, Other (weight gain 30 lbs) EENT: reports: No Symptoms Reported Respiratory: reports: No Symptoms reported Cardiac: reports: No Symptoms Reported GI: reports: Constipated (last BM x 5 days), Poor Fluid Intake, Abdominal cramping : reports: No Symptoms Reported Musculoskeletal: reports: Joint Pain, Other (left shoulder pain) Integumentary: reports: Rash (heat rash) Neuro: reports: See HPI, Numbness (left arms hx of neuropathy) Endocrine: reports: Increased Thirst Hematology: reports: No Symptoms Reported Psychiatric: reports: Orientated x3, Anxious Other Systems: Reviewed and Negative Patient History - Patient Medical History Hx Anemia: No Hx Asthma: No Hx Chronic Obstructive Pulmonary Disease (COPD): No Hx Cancer: Yes (Sarcoma 4 years ago ) Hx Cardiac Disorders: No Hx Congestive Heart Failure: No Hx Hypertension: Yes (Clonodine ) Hx Hypercholesterolemia: No Hx Pacemaker: No HX Cerebrovascular Accident: No Hx Seizures: Yes (drug related seizures last 1 yr ago.) Hx Dementia: No Hx Diabetes: No Hx Gastrointestinal Disorders: No Hx Liver Disease: No Hx Genitourinary Disorders: No Hx Sexually Transmitted Disorders: No Hx Renal Disease (ESRD): No Hx Thyroid Disease: No Hx Human Immunodeficiency Virus (HIV): No (last 2015 negative, declines testing ) Hx Hepatitis C: No Hx Depression: Yes (Not on medication) Hx Suicide Attempt: No Hx Bipolar Disorder: Yes Hx Schizophrenia: No - Patient Surgical History Past Surgical History: Yes Hx Neurologic Surgery: No Hx Cataract Extraction: No Hx Cardiac Surgery: No Hx Lung Surgery: No Hx Breast Surgery: No Hx Breast Biopsy: No Hx Abdominal Surgery: No Hx Appendectomy: No Hx Cholecystectomy: No Hx Genitourinary Surgery: No Hx Section: No Hx Orthopedic Surgery: No Other Surgical History: 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 History Hx Alcohol Use: Yes Hx Substance Use: Yes Substance Use Type: Alcohol, Heroin, Opiates, Tranquilizers Hx Substance Use Treatment: Yes - Substances Abused Heroin Route: Inhalation Frequency: Daily Amount used: 12 - 15 Age of first use: 39 Date of Last Use: 02/04/18 Alprazolam (Xanax) Route: Oral Frequency: 3-6 times per week Amount used: 6 mg Age of first use: 37 Date of Last Use: 02/02/18 Alcohol Route: Oral Frequency: Daily Amount used: 6 pack of beer and 1 pink of vodka Age of first use: 13 Date of Last Use: 02/04/18 Family Disease History - Family Disease History Family Disease History: Other: Father (, parkinsonism), Mother ( Schizophernia ) Admission Physical Exam [facility] - Vital Signs Vital Signs: Vital Signs - 24 hr 02/04/18 20:05 Temperature 98.7 F Pulse Rate 85 Respiratory 18 Rate Blood Pressure 129/85 - Physical General Appearance: Yes: Mild Distress, Obese, Sweating, Anxious HEENTM: Yes: EOMI, Hearing grossly Normal, Normal ENT Inspection, Normocephalic , Normal Voice, CHRYSTAL, Pharynx Normal, Tm's normal Respiratory: Yes: Chest Non-Tender, Lungs Clear, Normal Breath Sounds, No Respiratory Distress, No Accessory Muscle Use Neck: Yes: Within Normal Limits Breast: Yes: Breast Exam Deferred Cardiology: Yes: Regular Rhythm, Regular Rate Abdominal: Yes: Normal Bowel Sounds, Non Tender, Soft, Protuberent Genitourinary: Yes: Within Normal Limits Back: Yes: Normal Inspection Musculoskeletal: Yes: full range of Motion, Gait Steady, Pelvis Stable, Back pain Extremities: Yes: Normal Capillary Refill, Normal Inspection, Normal Range of Motion, Non-Tender Neurological: Yes: crew trainer II-XII NML intact, Fully Oriented, Alert, Motor Strength 5/5, Normal Response, Depressed Affect Integumentary: Yes: Normal Color, Warm, Diaphoresis, Other (brusie on the left upper arm, surgical arm on the left arm) Lymphatic: Yes: Within Normal Limits - Diagnostic (1) Alcohol dependence with uncomplicated withdrawal Current Visit: No Status: Acute (2) Nicotine dependence Current Visit: No Status: Acute Qualifiers: Nicotine product type: cigarettes Substance use status: in withdrawal Qualified Code(s): F17.213 - Nicotine dependence, cigarettes, with withdrawal (3) Opioid dependence with withdrawal Current Visit: Yes Status: Acute (4) HTN (hypertension) Current Visit: Yes Status: Chronic Qualifiers: Hypertension type: essential hypertension Qualified Code(s): I10 - Essential (primary) hypertension (5) Neuropathy Current Visit: Yes Status: Chronic (6) Obese Current Visit: Yes Status: Chronic Qualifiers: Obesity type: unspecified obesity type Obesity classification: adult class 1 (BMI 30 - 34.9) Serious obesity comorbidity presence: without serious comorbidity Body mass index: unspecified BMI Qualified Code(s): E66.9 - Obesity, unspecified (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
[2018-02-04] MEDS ORDERED: MAGNESIUM CITRATE 300 ML BOTTLE PO PRN (20:25)
[2018-02-04] MEDS ORDERED: METHADONE HCL 10 MG TABLET (FOR DETOX USE ONLY) PO ONE ×2 (20:25→23:00)
[2018-02-04] MEDS ORDERED: MAGNESIUM HYDROX 2400MG/30ML ORAL SUSPENSION 30 ML CUP PO PRN (20:25)
[2018-02-04] MEDS ORDERED: P-EPHED 60MG/TRIPROLIDI 2.5MG TABLET PO PRN (20:25)
[2018-02-04] MEDS ORDERED: guaiFENesin/D-METHORPHAN HB 10 ML UNIT-DOSE CUPS PO PRN (20:25)
[2018-02-04] MEDS ORDERED: diazePAM 5 MG TABLET PO ONE (20:25)
[2018-02-04] MEDS ORDERED: MENTHOL/PHENOL 1 EACH UD MM PRN (20:25)
[2018-02-04] MEDS ORDERED: MAG HYDROX/AL HYDROX/SIMETH 30 ML UNIT-DOSE CUP PO PRN (20:25)
[2018-02-04] MEDS ORDERED: MELATONIN 5 MG TABLETS PO PRN (22:00)
[2018-02-04] MEDS: THIAMINE HCL 100 MG TABLET (FP) PO SCH (22:41)
[2018-02-04] MEDS: cloNIDine HCL 0.1 MG TABLET PO SCH (22:41)
[2018-02-04] MEDS: GABAPENTIN 300 MG CAPSULE (FP) PO SCH (22:42)
[2018-02-04] MEDS: METHOCARBAMOL 500 MG TABLET PO SCH (23:13)
[2018-02-04] MEDS: diazePAM 5 MG TABLET PO SCH (23:15)
[2018-02-05 01:28] LABS: URINE APPEARANCE TURBID; URINE BILIRUBIN NEGATIVE (<2.0 mg/dL); URINE GLUCOSE (UA) NEGATIVE (NEGATIVE); URINE KETONE NEGATIVE (NEGATIVE); URINE LEUK ESTERASE NEGATIVE (NEGATIVE); URINE NITRITE NEGATIVE (NEGATIVE); URINE UROBILINOGEN NEGATIVE mg/dL (0.2-1.0)
[2018-02-05 01:34] LABS: URINE COLOR YELLOW; URINE PROTEIN 1+ (NEGATIVE)
[2018-02-05 01:42] LABS: URINE MUCUS MODERATE
[2018-02-05] MEDS: diazePAM 5 MG TABLET PO PRN ×3 (03:20→15:59)
[2018-02-05] MEDS: diazePAM 5 MG TABLET PO SCH ×3 (05:33→21:59)
[2018-02-05] MEDS: GABAPENTIN 300 MG CAPSULE (FP) PO SCH ×3 (05:33→21:59)
[2018-02-05] MEDS: METHOCARBAMOL 500 MG TABLET PO SCH ×3 (06:25→21:59)
[2018-02-05] MEDS ORDERED: METHADONE HCL 10 MG TABLET (FOR DETOX USE ONLY) PO SCH (10:00)
[2018-02-05 10:25] LABS: CHLORIDE 103 mmol/L (98-107); POTASSIUM 4.5 mmol/L (3.5-5.1); SODIUM 139 mmol/L (136-145)
[2018-02-05 10:32] LABS: HEMATOCRIT 40.4 % (35.4-49); HEMOGLOBIN 13.4 GM/dL (11.7-16.9); MCH 28.5 pg (25.7-33.7); MCHC 33.1 g/dl (32.0-35.9); MEAN PLT VOLUME 9.6 fl (7.5-11.1); PLATELET COUNT 271 K/MM3 (134-434); WHITE BLOOD COUNT 6.1 K/mm3 (4.0-10.0)
[2018-02-05] MEDS: cloNIDine HCL 0.1 MG TABLET PO SCH ×2 (10:42→21:58)
[2018-02-05] MEDS: PRENATAL VITAMINS W/ FOLIC ACID TABLET (FP) PO SCH (10:42)
[2018-02-05] MEDS: NICOTINE 21 MG/24 HOURS TOPICAL PATCH TD SCH (10:43)
[2018-02-05 10:59] LABS: ALBUMIN 3.5 g/dl (3.4-5.0); ANION GAP 10 MMOL/L (8-16); BILIRUBIN,TOTAL 0.2 mg/dL (0.2-1.0); BLOOD UREA NITROGEN 13 mg/dL (7-18); CALCIUM 8.7 mg/dL (8.5-10.1); CO2 26 mmol/L (21-32); CREATININE 0.6 mg/dL (0.7-1.3); GLUCOSE,RANDOM 72 mg/dL (74-106); SGOT/AST 19 U/L (15-37); TOT PROT 6.6 g/dl (6.4-8.2)
[2018-02-05 11:10] LABS: ALK PHOS 78 U/L (45-117); SGPT/ALT 26 U/L (12-78)
--- NOTE | 2018-02-05 12:12 | PN ---
S CIWA - CIWA Score Nausea/Vomitin Muscle Tremors: 2 Anxiety: 2 Agitation: 2 Paroxysmal Sweats: 2 Orientation: 0-Oriented Tacttile Disturbances: 2-Mild Itch/Numbness/Burn Auditory Disturbances: 0-None Visual Disturbances: 0-None Headache: 2-Mild CIWA-Ar Total Score: 14 [facility] COWS - Scale Resting Pulse: 0= [place] 80 or Below Sweatin= Chills/Flushing Restless Observation: 1= Difficult to Sit Still Pupil Size: 0= Normal to Room Light Bone or Joint Aches: 2= Severe Diffuse Aches Runny Nose/ Eye Tearin= Nasal Congestion GI Upset > 30mins: 2= Nausea/Diarrhea Tremor Observation of Outstretched Hands: 2= Slight Tremor Visible Yawning Observation: 1= 1-2x During Session Anxiety or Irritability: 2=Irritable/Anxious Goose Flesh Skin: 0=Smooth Skin COWS Score: 12 S Progress Note (SOAP) Subjective: Interrupted sleep, tremors and muscle aches Objective: 02/05/18 12:11 Last Vital Signs Temp Pulse Resp BP Pulse Ox 98.2 F 68 18 114/69 02/05/18 09:33 02/05/18 09:33 02/05/18 09:33 02/05/18 09:33 Laboratory Last Values WBC 6.1 K/mm3 (4.0-10.0) 02/05/18 08:00 RBC 4.70 M/mm3 (4.00-5.60) 02/05/18 08:00 Hgb 13.4 GM/dL (11.7-16.9) 02/05/18 08:00 Hct 40.4 % (35.4-49) 02/05/18 08:00 MCV 86.0 fl (80-96) 02/05/18 08:00 MCH 28.5 pg (25.7-33.7) 02/05/18 08:00 MCHC 33.1 g/dl (32.0-35.9) 02/05/18 08:00 RDW 14.0 % (11.9-15.9) 02/05/18 08:00 Plt Count 271 K/MM3 (134-434) 02/05/18 08:00 MPV 9.6 fl (7.5-11.1) 02/05/18 08:00 Sodium 139 mmol/L (136-145) 02/05/18 08:30 Potassium 4.5 mmol/L (3.5-5.1) D 02/05/18 08:30 Chloride 103 mmol/L (98-107) 02/05/18 08:30 Carbon Dioxide 26 mmol/L (21-32) 02/05/18 08:30 Anion Gap 10 MMOL/L (8-16) 02/05/18 08:30 BUN 13 mg/dL (7-18) 02/05/18 08:30 Creatinine 0.6 mg/dL (0.7-1.3) L 02/05/18 08:30 Creat Clearance w eGFR > 60 (>60) 02/05/18 08:30 Random Glucose 72 mg/dL (74-106) L D 02/05/18 08:30 Calcium 8.7 mg/dL (8.5-10.1) 02/05/18 08:30 Total Bilirubin 0.2 mg/dL (0.2-1.0) 02/05/18 08:30 AST 19 U/L (15-37) D 02/05/18 08:30 ALT 26 U/L (12-78) D 02/05/18 08:30 Alkaline Phosphatase 78 U/L (45-117) 02/05/18 08:30 Total Protein 6.6 g/dl (6.4-8.2) 02/05/18 08:30 Albumin 3.5 g/dl (3.4-5.0) 02/05/18 08:30 Urine Color Yellow 02/04/18 22:53 Urine Appearance Turbid 02/04/18 22:53 Urine pH 5.0 (5.0-8.0) D 02/04/18 22:53 Ur Specific [place] 1.027 (1.001-1.035) 02/04/18 22:53 Urine Protein 1+ (NEGATIVE) H 02/04/18 22:53 Urine Glucose (UA) Negative (NEGATIVE) 02/04/18 22:53 Urine Ketones Negative (NEGATIVE) 02/04/18 22:53 Urine Blood Negative (NEGATIVE) 02/04/18 22:53 Urine Nitrite Negative (NEGATIVE) 02/04/18 22:53 Urine Bilirubin Negative (<2.0 mg/dL) 02/04/18 22:53 Urine Urobilinogen Negative mg/dL (0.2-1.0) 02/04/18 22:53 Ur Leukocyte Esterase Negative (NEGATIVE) 02/04/18 22:53 Urine WBC (Auto) None /hpf (3-5) 02/04/18 22:53 Urine RBC (Auto) None /hpf (0-3) 02/04/18 22:53 Urine Mucus Moderate 02/04/18 22:53 Labs noted Assessment: 02/05/18 12:11 Withdrawal sx Plan: Continue detox
--- NOTE | 2018-02-05 17:46 | CONSULT ---
[facility] Psychiatric Consult - Data Date of interview: 02/05/18 Admission source: [facility] Identifying data: This is one of multiple admissions to [facility] for this 52 y/ o male seeking detox treatment on for alcohol, heroin and benzodiazepine (xanax) dependence.Patient is ,a father of one,homeless, unemployed and supported on Social Security benefits. Substance Abuse History: Discussed in this interview.Details in current [facility] report as follows : Smoking history: Current every day smoker. Have you smoked in the past 12 months: Yes. Aproximately how many cigarettes per day: 20. Cigars Per Day: 0. Hx Chewing Tobacco Use: No. Initiated information on smoking cessation: Yes. 'Breaking Loose' booklet given: 02/04/18. - Substance & Tx. History. Hx Alcohol Use: Yes. Hx Substance Use: Yes. Substance Use Type : Alcohol, Heroin, Opiates, Tranquilizers. Hx Substance Use Treatment: Yes. - Substances Abused. Heroin. Route: Inhalation. Frequency: Daily. Amount used: 12 - 15. Age of first use: 39. Date of Last Use: 02/04/18. Alprazolam (Xanax). Route: Oral. Frequency: 3-6 times per week. Amount used: 6 mg. Age of first use: 37. Date of Last Use: 02/02/18. Alcohol. Route: Oral. Frequency: Daily. Amount used: 6 pack of beer and 1 pink of vodka. Age of first use: 13. Date of Last Use: 02/04/18 Medical History: Sarcoma of left forearm and axilla (surgery + radiation therapy at [facility] in [facility]),hypertension and a history of withdrawal-related seizures.Allergic to shellfish-derived products. Psychiatric History: Patient, in this interview, endorses a history of three psychiatric hospitalizations ([facility]).Diagnosed with MDD and PTSD.Mr Eliecer Clemens declares that he has dropped out psychiatric OPD care since his discharge from [facility] in June 2017.Used to take seroquel 100 mg/hs (prescribed by a primary care physician) for the management of insomnia.Denies history of formal psychiatric OPD care (no contact with psychiatrists).Patient denies history of suicide attempts. 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 Additional Comment: Urine Drug Screen Results: THC-Marijuana, KAREEM-Cocaine, MDMA- Ecstasy, BAR-Barbiturates, BZO-Benzodiazepines, MTD-Methadone, TCA-Tricyclic Antidepressant, OXY-Oxycodone.Noted. Mental Status Exam - Mental Status Exam Alert and Oriented to: Time, Place, Person Cognitive Function: Grossly Intact Patient Appearance: Unkempt, Disheveled (overweight) Mood: Nervous, Withdrawn Affect: Mood Congruent Patient Behavior: Fatigued, Cooperative Speech Pattern: Clear Voice Loudness: Normal Thought Process: Intact, Goal Oriented Thought Disorder: Not Present Hallucinations: Denies Suicidal Ideation: Denies Homicidal Ideation: Denies Insight/Judgement: Poor Sleep: Poorly, Difficulty falling asleep Appetite: Good Muscle strength/Tone: Normal Gait/Station: Other (not observed : patient in bed for the duration of interview ) Psychiatric Findings - Problem List ([place] 1, 2,3) (1) Opioid dependence with withdrawal Current Visit: Yes Status: Acute (2) Sedative, hypnotic or anxiolytic dependence with withdrawal, unspecified Current Visit: Yes Status: Acute (3) Alcohol dependence with uncomplicated withdrawal Current Visit: Yes Status: Acute (4) Cocaine dependence Current Visit: Yes Status: Acute Qualifiers: Substance use status: uncomplicated Qualified Code(s): F14.20 - Cocaine dependence, uncomplicated (5) Cannabis abuse Current Visit: Yes Status: Acute (6) Nicotine dependence Current Visit: Yes Status: Acute Qualifiers: Nicotine product type: cigarettes Substance use status: in withdrawal Qualified Code(s): F17.213 - Nicotine dependence, cigarettes, with withdrawal (7) Substance induced mood disorder Current Visit: Yes Status: Acute (8) PTSD (post-traumatic stress disorder) Current Visit: No Status: Chronic Comment: As per history and self- report.No symptoms elicited in this evaluation.Patient is not in treatment.Off medications. (9) Insomnia Current Visit: Yes Status: Acute Qualifiers: Insomnia type: unspecified Qualified Code(s): G47.00 - Insomnia, unspecified - Initial Treatment Plan Initial Treatment Plan: Psychoeducation.Sleep hygiene.Detoxification.Ambien 5 mg po hs prn.Agrees to careplan.Patient made aware of risk of parasomnias.Observation.
--- NOTE | 2018-02-05 19:06 | EKG ---
Test Reason : Blood Pressure : / mmHG Vent. Rate : 071 BPM Atrial Rate : 071 BPM P-R Int : 148 ms QRS Dur : 098 ms QT Int : 392 ms P-R-T Axes : 036 028 033 degrees QTc Int : 425 ms NORMAL SINUS RHYTHM NORMAL ECG WHEN COMPARED WITH ECG OF 15-DEC-2017 02:37, NO SIGNIFICANT CHANGE WAS FOUND Confirmed by KRISTEN MALCOLM MD ([id number]) on 02/05/2018 7:05:33 PM Referred By: Confirmed By:KRISTEN MALCOLM MD
[2018-02-05] MEDS: IBUPROFEN 400 MG TABLET (FP) PO PRN (21:16)
[2018-02-05] MEDS: ZOLPIDEM TARTRATE 5 MG TABLET PO PRN (21:58)
[2018-02-05] MEDS: THIAMINE HCL 100 MG TABLET (FP) PO SCH (22:00)
[2018-02-06] MEDS: METHOCARBAMOL 500 MG TABLET PO SCH ×3 (05:10→22:17)
[2018-02-06] MEDS: GABAPENTIN 300 MG CAPSULE (FP) PO SCH ×3 (05:10→22:19)
[2018-02-06] MEDS: diazePAM 5 MG TABLET PO PRN ×4 (05:12→20:06)
[2018-02-06] MEDS: hydrOXYzine PAMOATE 50 MG CAPSULE (FP) PO PRN ×2 (08:39→12:52)
[2018-02-06] MEDS: IBUPROFEN 400 MG TABLET (FP) PO PRN ×2 (08:39→15:31)
[2018-02-06] MEDS: PRENATAL VITAMINS W/ FOLIC ACID TABLET (FP) PO SCH (10:09)
[2018-02-06] MEDS: METHADONE HCL 5 MG TABLET (FOR DETOX USE ONLY) PO SCH (10:09)
[2018-02-06] MEDS: diazePAM 5 MG TABLET PO SCH ×2 (10:09→22:16)
[2018-02-06] MEDS: cloNIDine HCL 0.1 MG TABLET PO SCH ×2 (10:09→22:16)
[2018-02-06] MEDS: NICOTINE 21 MG/24 HOURS TOPICAL PATCH TD SCH (10:10)
[2018-02-06] MEDS: LOPERAMIDE HCL 2 MG CAPSULE PO PRN (13:13)
[2018-02-06] MEDS: ACETAMINOPHEN 325 MG TABLET (FP) PO PRN (13:13)
--- NOTE | 2018-02-06 14:10 | PN ---
[facility] CIWA - CIWA Score Nausea/Vomitin-Mild Nausea/No Vomiting Muscle Tremors: 4-Moderate,w/Arms Extend Anxiety: 1-Mildly Anxious Agitation: 1-Slight > Activity Paroxysmal Sweats: No Perspiration Orientation: 0-Oriented Tacttile Disturbances: 0-None Auditory Disturbances: 0-None Visual Disturbances: 0-None Headache: 0-None Present CIWA-Ar Total Score: 7 S COWS - Scale Resting Pulse: 0= [place] 80 or Below Sweatin= Beads of Sweat on Face Restless Observation: 1= Difficult to Sit Still Pupil Size: 1= Pupils >than Normal Bone or Joint Aches: 2= Severe Diffuse Aches Runny Nose/ Eye Tearin= None GI Upset > 30mins: 2= Nausea/Diarrhea (States 2 episodes loose stool. No vomiting.) Tremor Observation of Outstretched Hands: 4= Gross Tremor/Twitching Yawning Observation: 0= None Anxiety or Irritability: 1=Feels Anxious/Irritable Goose Flesh Skin: 0=Smooth Skin COWS Score: 14 [facility] Progress Note (SOAP) Subjective: C/o anxiety, irritability, mild bone aches, (L) arm aches, sweating, nausea w/ 2 episodes of brown loose BM's. Denies vomiting. Objective: Alert and oriented x 3. Respirations quiet and unlabored. Gait steady. (+) tremors of hands. Lab Results WBC 6.1 K/mm3 (4.0-10.0) 02/05/18 08:00 RBC 4.70 M/mm3 (4.00-5.60) 02/05/18 08:00 Hgb 13.4 GM/dL (11.7-16.9) 02/05/18 08:00 Hct 40.4 % (35.4-49) 02/05/18 08:00 MCV 86.0 fl (80-96) 02/05/18 08:00 MCHC 33.1 g/dl (32.0-35.9) 02/05/18 08:00 RDW 14.0 % (11.9-15.9) 02/05/18 08:00 Plt Count 271 K/MM3 (134-434) 02/05/18 08:00 Sodium 139 mmol/L (136-145) 02/05/18 08:30 Potassium 4.5 mmol/L (3.5-5.1) D 02/05/18 08:30 Chloride 103 mmol/L (98-107) 02/05/18 08:30 Carbon Dioxide 26 mmol/L (21-32) 02/05/18 08:30 Anion Gap 10 MMOL/L (8-16) 02/05/18 08:30 BUN 13 mg/dL (7-18) 02/05/18 08:30 Creatinine 0.6 mg/dL (0.7-1.3) L 02/05/18 08:30 Random Glucose 72 mg/dL (74-106) L D 02/05/18 08:30 Calcium 8.7 mg/dL (8.5-10.1) 02/05/18 08:30 Labs reviewed. Vital Signs 02/06/18 10:00 Temperature 97.7 F Pulse Rate 82 Respiratory 18 Rate Blood Pressure 152/94 02/06/18 14:08 Assessment: Alcohol and opiate withdrawal symptoms. 02/06/18 14:09 Plan: Continue detox protocol.
[2018-02-06] MEDS: ZOLPIDEM TARTRATE 5 MG TABLET PO PRN (22:16)
[2018-02-06] MEDS: THIAMINE HCL 100 MG TABLET (FP) PO SCH (22:50)
[2018-02-07] MEDS: diazePAM 5 MG TABLET PO PRN ×3 (05:24→16:30)
[2018-02-07] MEDS: GABAPENTIN 300 MG CAPSULE (FP) PO SCH (05:25)
[2018-02-07] MEDS: IBUPROFEN 600 MG TABLET (FP) PO PRN ×2 (07:46→16:31)
[2018-02-07] MEDS: METHOCARBAMOL 500 MG TABLET PO SCH (07:47)
[2018-02-07] MEDS: cloNIDine HCL 0.1 MG TABLET PO SCH ×2 (09:12→22:02)
[2018-02-07] MEDS: PRENATAL VITAMINS W/ FOLIC ACID TABLET (FP) PO SCH (09:12)
[2018-02-07] MEDS: diazePAM 5 MG TABLET PO SCH ×2 (09:13→22:02)
[2018-02-07] MEDS: METHADONE HCL 5 MG TABLET (FOR DETOX USE ONLY) PO SCH (09:13)
[2018-02-07] MEDS: NICOTINE 21 MG/24 HOURS TOPICAL PATCH TD SCH (09:15)
--- NOTE | 2018-02-07 09:46 | PN ---
[facility] Progress Note (SOAP) Subjective: sweats, left arm pain -h/o sarcoma Objective: 02/07/18 09:43 Vital Signs Temperature 98.2 F 02/07/18 09:26 Pulse Rate 76 02/07/18 09:26 Respiratory Rate 20 02/07/18 09:26 Blood Pressure 156/111 02/07/18 09:26 O2 Sat by Pulse Oximetry (%) Laboratory Tests 02/04/18 02/05/18 02/05/18 22:53 08:00 08:00 WBC 6.1 RBC 4.70 Hgb 13.4 Hct 40.4 MCV 86.0 MCH 28.5 MCHC 33.1 RDW 14.0 Plt Count 271 MPV 9.6 Sodium Potassium Chloride Carbon Dioxide Anion Gap BUN Creatinine Creat Clearance w eGFR Random Glucose Calcium Total Bilirubin AST ALT Alkaline Phosphatase Total Protein Albumin Urine Color Yellow Urine Appearance Turbid Urine pH 5.0 D Ur Specific [place] 1.027 Urine Protein 1+ H Urine Glucose (UA) Negative Urine Ketones Negative Urine Blood Negative Urine Nitrite Negative Urine Bilirubin Negative Urine Urobilinogen Negative Ur Leukocyte Esterase Negative Urine WBC (Auto) None Urine RBC (Auto) None Urine Mucus Moderate RPR Titer Nonreactive 02/05/18 08:30 WBC RBC Hgb Hct MCV MCH MCHC RDW Plt Count MPV Sodium 139 Potassium 4.5 D Chloride 103 Carbon Dioxide 26 Anion Gap 10 BUN 13 Creatinine 0.6 L Creat Clearance w eGFR > 60 Random Glucose 72 L D Calcium 8.7 Total Bilirubin 0.2 AST 19 D ALT 26 D Alkaline Phosphatase 78 Total Protein 6.6 Albumin 3.5 Urine Color Urine Appearance Urine pH Ur Specific [place] Urine Protein Urine Glucose (UA) Urine Ketones Urine Blood Urine Nitrite Urine Bilirubin Urine Urobilinogen Ur Leukocyte Esterase Urine WBC (Auto) Urine RBC (Auto) Urine Mucus RPR Titer pt aox3 in nad sitting up in bed eatting Assessment: 02/07/18 09:44 withdrawal sx's htn sarcoma left arm + pain 02/07/18 09:46 Plan: cont.detox increase fluids increase neurontin to 400g tid pt encourage strongly to f/up with derm and oncology upon d/c norvasc 5mg /day
[2018-02-07] MEDS: amLODIPine BESYLATE 5 MG TABLET (FP) PO SCH (10:12)
[2018-02-07] MEDS: GABAPENTIN 400 MG CAPSULE (FP) PO SCH ×2 (14:55→22:02)
[2018-02-07] MEDS: METHOCARBAMOL 750 MG TAB PO SCH ×2 (15:09→22:02)
[2018-02-07] MEDS: ACETAMINOPHEN 325 MG TABLET (FP) PO PRN (20:32)
[2018-02-07] MEDS: hydrOXYzine PAMOATE 50 MG CAPSULE (FP) PO PRN (20:32)
[2018-02-07] MEDS: THIAMINE HCL 100 MG TABLET (FP) PO SCH (22:02)
[2018-02-07] MEDS: ZOLPIDEM TARTRATE 5 MG TABLET PO PRN (22:04)
[2018-02-08] MEDS: GABAPENTIN 400 MG CAPSULE (FP) PO SCH ×3 (06:28→22:07)
[2018-02-08] MEDS: METHOCARBAMOL 750 MG TAB PO SCH ×3 (06:29→22:07)
[2018-02-08] MEDS: hydrOXYzine PAMOATE 50 MG CAPSULE (FP) PO PRN ×3 (07:30→22:09)
[2018-02-08] MEDS: IBUPROFEN 600 MG TABLET (FP) PO PRN (07:30)
[2018-02-08] MEDS ORDERED: diazePAM 5 MG TABLET PO SCH (10:00)
[2018-02-08] MEDS ORDERED: METHADONE HCL 10 MG TABLET (FOR DETOX USE ONLY) PO SCH (10:00)
[2018-02-08] MEDS: amLODIPine BESYLATE 5 MG TABLET (FP) PO SCH (10:12)
[2018-02-08] MEDS: cloNIDine HCL 0.1 MG TABLET PO SCH ×2 (10:12→22:07)
[2018-02-08] MEDS: PRENATAL VITAMINS W/ FOLIC ACID TABLET (FP) PO SCH (10:12)
[2018-02-08] MEDS: NICOTINE 21 MG/24 HOURS TOPICAL PATCH TD SCH (10:12)
[2018-02-08] MEDS: ACETAMINOPHEN 325 MG TABLET (FP) PO PRN ×2 (10:14→18:49)
[2018-02-08] MEDS: LOPERAMIDE HCL 2 MG CAPSULE PO PRN (14:10)
--- NOTE | 2018-02-08 16:54 | PN ---
[facility] Progress Note Note: Vital Signs Temperature 97.9 F 02/08/18 14:03 Pulse Rate 75 02/08/18 14:03 Respiratory Rate 16 02/08/18 14:03 Blood Pressure 134/78 02/08/18 14:03 O2 Sat by Pulse Oximetry (%) Patient currently stable, reports chronic body aches patient Aox3 no distress no adventitious breath sounds ambulating in the unit continue detox Patient to follow up with primary care provider for all other chronic conditions increase fluids discharge in AM continue to monitor
[2018-02-08] MEDS: THIAMINE HCL 100 MG TABLET (FP) PO SCH (22:07)
[2018-02-08] MEDS: ZOLPIDEM TARTRATE 5 MG TABLET PO PRN (22:09)
[2018-02-09] MEDS: GABAPENTIN 400 MG CAPSULE (FP) PO SCH (05:43)
[2018-02-09] MEDS: METHOCARBAMOL 750 MG TAB PO SCH (05:43)
[2018-02-09] MEDS: hydrOXYzine PAMOATE 50 MG CAPSULE (FP) PO PRN (05:45)
[2018-02-09] MEDS ORDERED: METHADONE HCL 5 MG TABLET (FOR DETOX USE ONLY) PO SCH (06:00)
[2018-02-09 06:40] VITALS: BP 129/105; PULSE 82; TEMP 96.1
--- NOTE | 2018-02-09 07:14 | PN ---
[facility] Progress Note Note: Vital Signs Temperature 96.1 F L 02/09/18 06:40 Pulse Rate 82 02/09/18 06:40 Respiratory Rate 18 02/09/18 06:40 Blood Pressure 129/105 02/09/18 06:40 O2 Sat by Pulse Oximetry (%) b/p noted. client is asymptomatic. States he will take his home meds once he leaves. Left unit in nad a/o x 3
--- NOTE | 2018-02-09 08:30 | DS ---
[facility] Detox Discharge Summary Admission Date: 02/04/18 Discharge Date: 02/09/18 - History Present History: Alcohol Dependence, Cannabis Dependence, Cocaine Dependence, Opioid Dependence, Sedative Dependence - Physical Exam Results Vital Signs: Vital Signs Temperature 96.1 F L 02/09/18 06:40 Pulse Rate 82 02/09/18 06:40 Respiratory Rate 02/09/18 06:40 Blood Pressure 129/105 02/09/18 06:40 O2 Sat by Pulse Oximetry (%) - Treatment Hospital Course: Detox Protocol Followed, Detoxed Safely, Responded well, Discharged Condition Good - Medication Discharge Medications: Ambulatory Orders Gabapentin 300 mg PO TID 07/13/17 Methocarbamol [Robaxin -] 750 mg PO Q8H 07/13/17 Amlodipine Besylate [Norvasc -] 5 mg PO DAILY #15 tablet 02/08/18 Clonidine HCl 0.1 mg PO BID #30 tablet 02/08/18 Gabapentin [Neurontin -] 400 mg PO TID #30 capsule 02/08/18 - Diagnosis (1) Alcohol dependence with uncomplicated withdrawal Status: Chronic (2) Cannabis abuse Status: Chronic (3) Cocaine dependence Status: Acute Qualifiers: Substance use status: uncomplicated Qualified Code(s): F14.20 - Cocaine dependence, uncomplicated (4) Nicotine dependence Status: Chronic Qualifiers: Nicotine product type: cigarettes Substance use status: in withdrawal Qualified Code(s): F17.213 - Nicotine dependence, cigarettes, with withdrawal (5) Sedative, hypnotic or anxiolytic dependence with withdrawal, unspecified Status: Chronic (6) HTN (hypertension) Status: Chronic Qualifiers: Hypertension type: essential hypertension Qualified Code(s): I10 - Essential (primary) hypertension (7) Neuropathy Status: Chronic (8) Obese Status: Chronic Qualifiers: Obesity type: unspecified obesity type Obesity classification: adult class 1 (BMI 30 - 34.9) Serious obesity comorbidity presence: without serious comorbidity Body mass index: unspecified BMI Qualified Code(s): E66.9 - Obesity, unspecified (9) Skin Kaposi sarcoma Status: Chronic - AMA Did Patient Leave Against Medical Advice: No
== END 2018-02-09 07:10 | disposition home or self-care (01) | DRG 773 ==
LOC: YASAS 18:57 → Y6N 20:45
PROVIDERS: ADMIT Surgery; ATTEND Surgery
PROC: HZ2ZZZZ Detoxification Services for Substance Abuse Treatment (ICD-10-PCS; principal; 2018-02-04)
DX: F11.23 Opioid dependence with withdrawal (principal); F10.230 Alcohol dependence with withdrawal, uncomplicated; F13.230 Sedative, hypnotic or anxiolytic dependence with withdrawal, uncomplicated; F14.20 Cocaine dependence, uncomplicated; F12.20 Cannabis dependence, uncomplicated; F17.213 Nicotine dependence, cigarettes, with withdrawal; F43.10 Post-traumatic stress disorder, unspecified; F19.24 Other psychoactive substance dependence with psychoactive substance-induced mood disorder; I10 Essential (primary) hypertension; G62.9 Polyneuropathy, unspecified; G47.00 Insomnia, unspecified; C46.0 Kaposi's sarcoma of skin; E66.9 Obesity, unspecified; Z68.36 Body mass index [BMI] 36.0-36.9, adult; Z92.3 Personal history of irradiation; Z86.69 Personal history of other diseases of the nervous system and sense organs
CPT/HCPCS: 36415; 80053; 81003; 81015; 85027; 86593; 93005; 93010; J0735

== ENCOUNTER 2018-03-12 12:59 | Inpatient (IN) | payer OTHER ==
[2018-03-12 13:55] VITALS: BMI 36.2
--- NOTE | 2018-03-12 14:19 | HP ---
COWS - Scale Resting Pulse: 1= [place] 81-100 Sweatin= No chills or Flushing Restless Observation: 1= Difficult to Sit Still Pupil Size: 0= Normal to Room Light Bone or Joint Aches: 1= Mild Discomfort Runny Nose/ Eye Tearin= Nasal Congestion GI Upset > 30mins: 1= Stomach Cramp Tremor Observation: 2= Slight Tremor Visible Yawning Observation: 1= 1-2x During Session Anxiety or Irritability: 1=Feels Anxious/Irritable Goose Flesh Skin: 0=Smooth Skin COWS Score: 9 CIWA Score - CIWA Score Nausea/Vomitin Muscle Tremors: 4-Moderate,w/Arms Extend Anxiety: 4-Mod. Anxious/Guarded Agitation: 0-Normal Activity Paroxysmal Sweats: 1-Minimal Palms Moist Orientation: 0-Oriented Tacttile Disturbances: 1-Very Mild Itch/Numbness Auditory Disturbances: 0-None Visual Disturbances: 0-None Headache: 1-Very Mild CIWA-Ar Total Score: 13 Admission ROS BHS - HPI Chief Complaint: I'm killing myself, I have to stop, Allergies/Adverse Reactions: Allergies Allergy/AdvReac Type Severity Reaction Status Date / Time shellfish derived Allergy Severe Verified 02/04/18 20:54 History of Present Illness: 52 yo gentleman here for detox from opiates - also using alcohol and xanax - states he needs sarcoma excision surgery at [facility] in [place] - is very fearful, anxious about it. He is homeless - 'threw me out' 18 months ago. He is of the belief he cannot get into rehab due to his sarcoma. Was on a methadone program 18 months ago as well - thought he could go off it but relapsed. History of drug related seizures. Last here in detox 02/08/18 but relapsed shortly after leaving. Urine tox + methadone because [facility]. Exam Limitations: Clinical Condition - Ebola screening Have you traveled outside of the country in the last 21 days: No (N) Have you had contact with anyone from an Ebola affected area: No Have you been sick,other than usual withdrawal symptoms: No Do you have a fever: No - Review of Systems Constitutional: Loss of Appetite, Night Sweats, Changes in sleep EENT: reports: Nose Congestion Respiratory: reports: No Symptoms reported Cardiac: reports: No Symptoms Reported GI: reports: Nausea, Poor Fluid Intake : reports: Frequency Musculoskeletal: reports: Back Pain, Muscle Pain Integumentary: reports: No Symptoms Reported Neuro: reports: Headache, Tremors Endocrine: reports: No Symptoms Reported Hematology: reports: No Symptoms Reported Psychiatric: reports: Judgement Intact, Mood/Affect Appropiate, Anxious Other Systems: Reviewed and Negative Patient History - Patient Medical History Hx Anemia: Yes Hx Asthma: No Hx Chronic Obstructive Pulmonary Disease (COPD): No Hx Cancer: Yes (Sarcoma diagnosed 4 years ago ) Hx Cardiac Disorders: No Hx Congestive Heart Failure: No Hx Hypertension: Yes (Clonodine ) Hx Hypercholesterolemia: No Hx Pacemaker: No HX Cerebrovascular Accident: No Hx Seizures: Yes (drug related seizures last 1 yr ago.) Hx Dementia: No Hx Diabetes: No Hx Gastrointestinal Disorders: Yes (constipation) Hx Liver Disease: No Hx Genitourinary Disorders: No Hx Sexually Transmitted Disorders: No Hx Renal Disease (ESRD): No Hx Thyroid Disease: No Hx Human Immunodeficiency Virus (HIV): No (last 2015 negative, declines testing ) Hx Hepatitis C: No Hx Depression: Yes (Not on medication, PTSD) Hx Suicide Attempt: No Hx Bipolar Disorder: Yes Hx Schizophrenia: No - Patient Surgical History Past Surgical History: Yes Hx Neurologic Surgery: No Hx Cataract Extraction: No Hx Cardiac Surgery: No Hx Lung Surgery: No Hx Breast Surgery: No Hx Breast Biopsy: No Hx Abdominal Surgery: No Hx Appendectomy: No Hx Cholecystectomy: No Hx Genitourinary Surgery: No Hx Section: No Hx Orthopedic Surgery: No Other Surgical History: 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 Anesthesia Reaction: No (2 tumors removed from upper arm 04/30) - PPD History Previous Implant?: Yes Documented Results: Negative w/proof Implanted On Prior [facility] Admission?: Yes Date: 02/06/18 Results: 0 mm PPD to be Administered?: No - Reproductive History Patient is a Female of Child Bearing Age (11 -55 yrs old): No (male) - Smoking Cessation Smoking history: Current every day smoker Have you smoked in the past 12 months: Yes Aproximately how many cigarettes per day: 40 Cigars Per Day: 0 Hx Chewing Tobacco Use: No Initiated information on smoking cessation: Yes 'Breaking Loose' booklet given: 03/12/18 (t) - Substance & Tx. History Hx Alcohol Use: Yes Hx Substance Use: Yes Substance Use Type: Alcohol, Heroin Hx Substance Use Treatment: Yes (detox, rehab, methadone program, hx suboxone) - Substances Abused heroin Route: Inhalation Frequency: Daily Amount used: 12 bags Age of first use: 39 Date of Last Use: 03/12/18 xanax Route: Oral Frequency: Daily Amount used: two 2mg sticks Age of first use: 18 Date of Last Use: 03/11/18 alcohol Route: Oral Frequency: Daily Amount used: six 12 oz cans beer Age of first use: 13 Date of Last Use: 03/12/18 Family Disease History - Family Disease History Family Disease History: Other: Father (, parkinsonism), Mother ( Schizophrenia - no contact), Sister (one - living - healthy), Daughter (one age 32 - healthy) Admission Physical Exam [facility] - Vital Signs Vital Signs: Vital Signs - 24 hr 03/12/18 13:54 Temperature 98.6 F Pulse Rate 83 Respiratory 19 Rate Blood Pressure 160/97 - Physical General Appearance: Yes: Nourished, Appropriately Dressed, Moderate Distress, Anxious HEENTM: Yes: EOMI, Hearing grossly Normal, Normocephalic, Normal Voice, Pharynx Normal, Nasal Congestion, Other (poor dentition; eyes 'rheumy') Respiratory: Yes: Normal Breath Sounds, No Respiratory Distress Neck: Yes: No masses,lesions,Nodules, Supple Breast: Yes: Breast Exam Deferred Cardiology: Yes: Regular Rhythm, Regular Rate Abdominal: Yes: Non Tender, Soft, Protuberent Genitourinary: Yes: Frequency Back: Yes: Decreased Range of Motion, Other (mild kyphosis) Musculoskeletal: Yes: full range of Motion, Back pain, Muscle Pain Extremities: Yes: Other (left outer arm with scarring and lump under arm which patient states is sarcoma) Neurological: Yes: Fully Oriented, Alert, Normal Mood/Affect, Normal Response, Numbness Integumentary: Yes: Other (face, arms erythema - patient states he was out in wind, rain and sun as homeless - states non itchy and not a rash;) - Diagnostic (1) Opioid dependence with withdrawal Current Visit: Yes Status: Chronic (2) Alcohol dependence with uncomplicated withdrawal Current Visit: Yes Status: Chronic (3) Uncomplicated sedative, hypnotic or anxiolytic withdrawal Current Visit: Yes Status: Chronic (4) HTN (hypertension) Current Visit: Yes Status: Chronic Qualifiers: Hypertension type: essential hypertension Qualified Code(s): I10 - Essential (primary) hypertension (5) Neuropathy Current Visit: Yes Status: Chronic (6) Nicotine dependence Current Visit: Yes Status: Chronic Qualifiers: Nicotine product type: cigarettes Substance use status: in withdrawal Qualified Code(s): F17.213 - Nicotine dependence, cigarettes, with withdrawal (7) Obese Current Visit: Yes Status: Chronic Qualifiers: Obesity type: unspecified obesity type Obesity classification: adult class 2 (BMI 35 - 39.9) Serious obesity comorbidity presence: without serious comorbidity Body mass index: BMI 36.0-36.9 Qualified Code(s): E66.9 - Obesity, unspecified; Z68.36 - Body mass index (BMI) 36.0-36.9, adult (8) Seizures Current Visit: Yes Status: Suspected (9) Tinea pedis Current Visit: Yes Status: Chronic Qualifiers: Laterality: bilateral Qualified Code(s): B35.3 - Tinea pedis (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
[2018-03-12] MEDS ORDERED: METHADONE HCL 10 MG TABLET (FOR DETOX USE ONLY) PO ONE ×2 (14:29→23:00)
[2018-03-12] MEDS ORDERED: LOPERAMIDE HCL 2 MG CAPSULE PO PRN (14:29)
[2018-03-12] MEDS ORDERED: NICOTINE POLACRILEX 4 MG GUM BC PRN (14:29)
[2018-03-12] MEDS ORDERED: MAGNESIUM HYDROX 2400MG/30ML ORAL SUSPENSION 30 ML CUP PO PRN (14:29)
[2018-03-12] MEDS ORDERED: MENTHOL/PHENOL 1 EACH UD MM PRN (14:29)
[2018-03-12] MEDS ORDERED: diazePAM 5 MG TABLET PO ONE (14:29)
[2018-03-12] MEDS ORDERED: MAG HYDROX/AL HYDROX/SIMETH 30 ML UNIT-DOSE CUP PO PRN (14:29)
[2018-03-12] MEDS ORDERED: hydrOXYzine PAMOATE 25 MG CAPSULE (FP) PO PRN (14:29)
[2018-03-12] MEDS ORDERED: P-EPHED 60MG/TRIPROLIDI 2.5MG TABLET PO PRN (14:29)
[2018-03-12] MEDS ORDERED: guaiFENesin/D-METHORPHAN HB 10 ML UNIT-DOSE CUPS PO PRN (14:29)
[2018-03-12] MEDS ORDERED: MAGNESIUM CITRATE 300 ML BOTTLE PO PRN (14:29)
[2018-03-12] MEDS: amLODIPine BESYLATE 10 MG TABLET (FP) PO SCH (18:08)
[2018-03-12] MEDS: GABAPENTIN 400 MG CAPSULE (FP) PO SCH ×2 (18:11→22:57)
[2018-03-12] MEDS: NICOTINE 21 MG/24 HOURS TOPICAL PATCH TD SCH (18:12)
[2018-03-12] MEDS: IBUPROFEN 400 MG TABLET (FP) PO PRN (21:03)
[2018-03-12] MEDS ORDERED: MELATONIN 5 MG TABLETS PO PRN (22:00)
[2018-03-12] MEDS: THIAMINE HCL 100 MG TABLET (FP) PO SCH (22:57)
[2018-03-12] MEDS: TOLNAFTATE 1% CREAM 15 GM TUBE TP SCH (22:57)
[2018-03-12] MEDS: CYCLOBENZAPRINE HCL 10 MG TABLET (FP) PO PRN (22:57)
[2018-03-12] MEDS: diazePAM 5 MG TABLET PO SCH (22:57)
[2018-03-13] MEDS: diazePAM 5 MG TABLET PO PRN ×4 (02:36→19:28)
[2018-03-13] MEDS: diazePAM 5 MG TABLET PO SCH ×3 (05:58→22:17)
[2018-03-13] MEDS: GABAPENTIN 400 MG CAPSULE (FP) PO SCH ×3 (05:58→22:17)
[2018-03-13] MEDS ORDERED: METHADONE HCL 10 MG TABLET (FOR DETOX USE ONLY) PO SCH (10:00)
[2018-03-13] MEDS: NICOTINE 21 MG/24 HOURS TOPICAL PATCH TD SCH (10:22)
[2018-03-13] MEDS: PRENATAL VITAMINS W/ FOLIC ACID TABLET (FP) PO SCH (10:22)
[2018-03-13] MEDS: amLODIPine BESYLATE 10 MG TABLET (FP) PO SCH (10:22)
[2018-03-13] MEDS: TOLNAFTATE 1% CREAM 15 GM TUBE TP SCH ×2 (10:23→22:18)
[2018-03-13] MEDS: IBUPROFEN 400 MG TABLET (FP) PO PRN ×2 (10:24→17:05)
[2018-03-13] MEDS: PREGABALIN 100 MG CAPSULE PO SCH ×2 (10:52→22:17)
[2018-03-13 11:23] LABS: HEMATOCRIT 41.7 % (35.4-49); HEMOGLOBIN 13.2 GM/dL (11.7-16.9); MCH 27.1 pg (25.7-33.7); MCHC 31.6 g/dl (32.0-35.9); MEAN CELL VOLUME 85.6 fl (80-96); MEAN PLT VOLUME 9.3 fl (7.5-11.1); PLATELET COUNT 256 K/MM3 (134-434); RBC 4.88 M/mm3 (4.00-5.60); RDW 14.4 % (11.9-15.9); WHITE BLOOD COUNT 5.6 K/mm3 (4.0-10.0)
[2018-03-13 11:28] LABS: ALBUMIN 3.1 g/dl (3.4-5.0); ALK PHOS 72 U/L (45-117); ANION GAP 6 MMOL/L (8-16); BILIRUBIN,TOTAL 0.3 mg/dL (0.2-1); BLOOD UREA NITROGEN 10 mg/dL (7-18); CALCIUM 8.2 mg/dL (8.5-10.1); CHLORIDE 104 mmol/L (98-107); CO2 30 mmol/L (21-32); CREATININE 0.5 mg/dL (0.55-1.3); GLUCOSE,RANDOM 96 mg/dL (74-106); POTASSIUM 3.8 mmol/L (3.5-5.1); SGOT/AST 30 U/L (15-37); SGPT/ALT 28 U/L (13-61); SODIUM 140 mmol/L (136-145); TOT PROT 6.1 g/dl (6.4-8.2)
[2018-03-13] MEDS: CYCLOBENZAPRINE HCL 10 MG TABLET (FP) PO PRN ×2 (13:17→22:17)
--- NOTE | 2018-03-13 14:52 | CONSULT ---
[facility] Psychiatric Consult - Data Date of interview: 03/13/18 Admission source: Self-referred Identifying data: 52 y/o male single, unemployed, homeless, father of a grown child, SSI recipient Substance Abuse History: Here for heroin, cocaine and benzodiazepines. patient is marginally coopertative. Refer to addiction beauty counselor;or note Medical History: History of sarcoma left forearm and axilla. HTN Psychiatric History: Patient has a history of psychiatric hospitalizations, he has had several in [facility] admissions @ [facility] due to depression, anxiety and PTSD. He is non compliant with his medicatopns, and OPD treatments. Past medicated with Seroquel. Fells depressed and irritated due to his long roy with cancer. 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 C/o sleep disorder, deccreased appetite. denies psychosis, denies suicidal or homicidal ideation Physical/Sexual Abuse/Trauma History: Denied Additional Comment: Patient is angry, irritable and short fused, marginally cooperative with the examiner Mental Status Exam - Mental Status Exam Alert and Oriented to: Place Cognitive Function: Fair Patient Appearance: Unkempt, Disheveled Mood: Angry, Hostile Affect: Constricted Patient Behavior: Guarded, Impulsive Speech Pattern: Clear Voice Loudness: Moderately Loud Thought Process: Intact Thought Disorder: Not Present Hallucinations: Denies Suicidal Ideation: Denies Homicidal Ideation: Denies Insight/Judgement: Poor Sleep: Poorly Appetite: Fair Muscle strength/Tone: Normal Gait/Station: Normal Psychiatric Findings - Problem List ([place] 1, 2,3) (1) Alcohol dependence with uncomplicated withdrawal Current Visit: Yes Status: Chronic (2) HTN (hypertension) Current Visit: Yes Status: Chronic Qualifiers: Hypertension type: essential hypertension Qualified Code(s): I10 - Essential (primary) hypertension (3) Neuropathy Current Visit: Yes Status: Chronic (4) Obese Current Visit: Yes Status: Chronic Qualifiers: Obesity type: unspecified obesity type Obesity classification: adult class 2 (BMI 35 - 39.9) Serious obesity comorbidity presence: without serious comorbidity Body mass index: BMI 36.0-36.9 Qualified Code(s): E66.9 - Obesity, unspecified; Z68.36 - Body mass index (BMI) 36.0-36.9, adult (5) Opioid dependence with withdrawal Current Visit: Yes Status: Chronic (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 (7) Cocaine dependence Current Visit: No Status: Acute Qualifiers: Substance use status: uncomplicated Qualified Code(s): F14.20 - Cocaine dependence, uncomplicated (8) Insomnia Current Visit: No Status: Acute Qualifiers: Insomnia type: unspecified Qualified Code(s): G47.00 - Insomnia, unspecified (9) Substance induced mood disorder Current Visit: No Status: Acute (10) Depression Current Visit: No Status: Chronic Qualifiers: Depression Type: unspecified Qualified Code(s): F32.9 - Major depressive disorder, single episode, unspecified (11) PTSD (post-traumatic stress disorder) Current Visit: No Status: Chronic Comment: As per history and self- report.No symptoms elicited in this evaluation.Patient is not in treatment.Off medications. - Initial Treatment Plan Initial Treatment Plan: Continue Detox treatment. Monitor progress. Seoquel 100 mg po qhs. Prozac 20 mg po daily. Ambien 5 mg q hs prn
[2018-03-13] MEDS: FLUoxetine HCL 20 MG CAPSULE (FP) PO SCH (15:34)
--- NOTE | 2018-03-13 15:52 | PN ---
S CIWA - CIWA Score Nausea/Vomitin Muscle Tremors: 4-Moderate,w/Arms Extend Anxiety: 3 Agitation: 3 Paroxysmal Sweats: 3 Orientation: 0-Oriented Tacttile Disturbances: 0-None Auditory Disturbances: 0-None Visual Disturbances: 0-None Headache: 1-Very Mild CIWA-Ar Total Score: 17 BHS COWS - Scale Resting Pulse: 0= [place] 80 or Below Sweatin= Chills/Flushing Restless Observation: 3= Extraneous Movement Pupil Size: 1= Pupils >than Normal Bone or Joint Aches: 2= Severe Diffuse Aches Runny Nose/ Eye Tearin= Runny Nose/Eyes GI Upset > 30mins: 2= Nausea/Diarrhea Tremor Observation of Outstretched Hands: 2= Slight Tremor Visible Yawning Observation: 1= 1-2x During Session Anxiety or Irritability: 2=Irritable/Anxious Goose Flesh Skin: 0=Smooth Skin COWS Score: 16 S Progress Note (SOAP) Subjective: Chills, sweating, interrupted sleep Objective: 03/13/18 15:49 Last Vital Signs Temp Pulse Resp BP Pulse Ox 97.4 F L 74 18 144/66 03/13/18 14:52 03/13/18 14:52 03/13/18 14:52 03/13/18 14:52 Laboratory Tests 03/13/18 03/13/18 03/13/18 07:49 07:49 07:49 WBC 5.6 RBC 4.88 Hgb 13.2 Hct 41.7 MCV 85.6 MCH 27.1 MCHC 31.6 L RDW 14.4 Plt Count 256 MPV 9.3 Sodium 140 Potassium 3.8 Chloride 104 Carbon Dioxide 30 Anion Gap 6 L BUN 10 Creatinine 0.5 L Creat Clearance w eGFR > 60 Random Glucose 96 Calcium 8.2 L Total Bilirubin 0.3 AST 30 ALT 28 Alkaline Phosphatase 72 Total Protein 6.1 L Albumin 3.1 L RPR Titer Nonreactive Labs reviewed Assessment: 03/13/18 15:51 Withdrawal sx Plan: Continue detox
[2018-03-13] MEDS: ZOLPIDEM TARTRATE 5 MG TABLET PO PRN (22:17)
[2018-03-13] MEDS: QUEtiapine FUMARATE 100 MG TABLET (FP) PO SCH (22:17)
[2018-03-13] MEDS: THIAMINE HCL 100 MG TABLET (FP) PO SCH (22:17)
[2018-03-14] MEDS: GABAPENTIN 400 MG CAPSULE (FP) PO SCH ×3 (05:51→22:10)
[2018-03-14] MEDS: diazePAM 5 MG TABLET PO PRN ×3 (05:53→16:29)
[2018-03-14] MEDS: PREGABALIN 100 MG CAPSULE PO SCH ×2 (10:35→22:10)
[2018-03-14] MEDS: diazePAM 5 MG TABLET PO SCH ×2 (10:35→22:10)
[2018-03-14] MEDS: FLUoxetine HCL 20 MG CAPSULE (FP) PO SCH (10:35)
[2018-03-14] MEDS: amLODIPine BESYLATE 10 MG TABLET (FP) PO SCH (10:35)
[2018-03-14] MEDS: PRENATAL VITAMINS W/ FOLIC ACID TABLET (FP) PO SCH (10:35)
[2018-03-14] MEDS: METHADONE HCL 5 MG TABLET (FOR DETOX USE ONLY) PO SCH (10:36)
[2018-03-14] MEDS: TOLNAFTATE 1% CREAM 15 GM TUBE TP SCH ×2 (10:36→22:09)
[2018-03-14] MEDS: NICOTINE 21 MG/24 HOURS TOPICAL PATCH TD SCH (10:36)
[2018-03-14] MEDS: CYCLOBENZAPRINE HCL 10 MG TABLET (FP) PO PRN ×2 (10:37→22:10)
[2018-03-14] MEDS: IBUPROFEN 400 MG TABLET (FP) PO PRN ×2 (10:37→16:29)
[2018-03-14] MEDS: ACETAMINOPHEN 325 MG TABLET (FP) PO PRN (13:38)
--- NOTE | 2018-03-14 16:11 | PN ---
[facility] CIWA - CIWA Score Nausea/Vomitin Muscle Tremors: 3 Anxiety: 3 Agitation: 3 Paroxysmal Sweats: 3 Orientation: 0-Oriented Tacttile Disturbances: 0-None Auditory Disturbances: 0-None Visual Disturbances: 0-None Headache: 0-None Present CIWA-Ar Total Score: 15 S COWS - Scale Resting Pulse: 1= [place] 81-100 Sweatin=Flushed/Facial Moisture Restless Observation: 1= Difficult to Sit Still Pupil Size: 0= Normal to Room Light Bone or Joint Aches: 1= Mild Discomfort Runny Nose/ Eye Tearin= Nasal Congestion GI Upset > 30mins: 2= Nausea/Diarrhea Tremor Observation of Outstretched Hands: 2= Slight Tremor Visible Yawning Observation: 1= 1-2x During Session Anxiety or Irritability: 1=Feels Anxious/Irritable Goose Flesh Skin: 0=Smooth Skin COWS Score: 12 [facility] Progress Note (SOAP) Subjective: SLEEP DISTURBANCE SHAKES Objective: 03/14/18 16:09 a& o X 3 Vital Signs Temperature 97.7 F 03/14/18 13:29 Pulse Rate 93 H 03/14/18 13:29 Respiratory Rate 20 03/14/18 13:29 Blood Pressure 140/90 03/14/18 13:29 O2 Sat by Pulse Oximetry (%) Laboratory Last Values WBC 5.6 K/mm3 (4.0-10.0) 03/13/18 07:49 RBC 4.88 M/mm3 (4.00-5.60) 03/13/18 07:49 Hgb 13.2 GM/dL (11.7-16.9) 03/13/18 07:49 Hct 41.7 % (35.4-49) 03/13/18 07:49 MCV 85.6 fl (80-96) 03/13/18 07:49 MCH 27.1 pg (25.7-33.7) 03/13/18 07:49 MCHC 31.6 g/dl (32.0-35.9) L 03/13/18 07:49 RDW 14.4 % (11.9-15.9) 03/13/18 07:49 Plt Count 256 K/MM3 (134-434) 03/13/18 07:49 MPV 9.3 fl (7.5-11.1) 03/13/18 07:49 Sodium 140 mmol/L (136-145) 03/13/18 07:49 Potassium 3.8 mmol/L (3.5-5.1) 03/13/18 07:49 Chloride 104 mmol/L (98-107) 03/13/18 07:49 Carbon Dioxide 30 mmol/L (21-32) 03/13/18 07:49 Anion Gap 6 MMOL/L (8-16) L 03/13/18 07:49 BUN 10 mg/dL (7-18) 03/13/18 07:49 Creatinine 0.5 mg/dL (0.55-1.3) L 03/13/18 07:49 Creat Clearance w eGFR > 60 (>60) 03/13/18 07:49 Random Glucose 96 mg/dL (74-106) 03/13/18 07:49 Calcium 8.2 mg/dL (8.5-10.1) L 03/13/18 07:49 Total Bilirubin 0.3 mg/dL (0.2-1) 03/13/18 07:49 AST 30 U/L (15-37) 03/13/18 07:49 ALT 28 U/L (13-61) 03/13/18 07:49 Alkaline Phosphatase 72 U/L (45-117) 03/13/18 07:49 Total Protein 6.1 g/dl (6.4-8.2) L 03/13/18 07:49 Albumin 3.1 g/dl (3.4-5.0) L 03/13/18 07:49 RPR Titer Nonreactive (NONREACTIVE) 03/13/18 07:49 LABS NOTED, UA PENDING Assessment: 03/14/18 16:10 WITHDRAWAL SX Plan: CONTINUE DETOX CONTINUE INCREASED HYDRATION UA ORDERED
[2018-03-14] MEDS: THIAMINE HCL 100 MG TABLET (FP) PO SCH (22:09)
[2018-03-14] MEDS: QUEtiapine FUMARATE 100 MG TABLET (FP) PO SCH (22:10)
[2018-03-14] MEDS: ZOLPIDEM TARTRATE 5 MG TABLET PO PRN (22:11)
[2018-03-15] MEDS: GABAPENTIN 400 MG CAPSULE (FP) PO SCH ×3 (06:38→22:05)
[2018-03-15] MEDS: IBUPROFEN 400 MG TABLET (FP) PO PRN ×2 (08:34→17:16)
[2018-03-15] MEDS ORDERED: BACITRACIN 0.9 GM PACKET TP SCH (10:00)
[2018-03-15] MEDS: PRENATAL VITAMINS W/ FOLIC ACID TABLET (FP) PO SCH (10:34)
[2018-03-15] MEDS: amLODIPine BESYLATE 10 MG TABLET (FP) PO SCH (10:34)
[2018-03-15] MEDS: FLUoxetine HCL 20 MG CAPSULE (FP) PO SCH (10:34)
[2018-03-15] MEDS: PREGABALIN 100 MG CAPSULE PO SCH ×2 (10:34→22:05)
[2018-03-15] MEDS: METHADONE HCL 5 MG TABLET (FOR DETOX USE ONLY) PO SCH (10:34)
[2018-03-15] MEDS: NICOTINE 21 MG/24 HOURS TOPICAL PATCH TD SCH (10:35)
[2018-03-15] MEDS: TOLNAFTATE 1% CREAM 15 GM TUBE TP SCH ×2 (10:35→22:19)
[2018-03-15] MEDS: diazePAM 5 MG TABLET PO SCH ×2 (10:35→22:05)
[2018-03-15] MEDS: ACETAMINOPHEN 325 MG TABLET (FP) PO PRN (10:37)
[2018-03-15] MEDS: CYCLOBENZAPRINE HCL 10 MG TABLET (FP) PO PRN ×2 (10:37→20:32)
--- NOTE | 2018-03-15 11:08 | EKG ---
Test Reason : Blood Pressure : / mmHG Vent. Rate : 080 BPM Atrial Rate : 080 BPM P-R Int : 154 ms QRS Dur : 088 ms QT Int : 398 ms P-R-T Axes : 041 033 027 degrees QTc Int : 459 ms NORMAL SINUS RHYTHM LOW VOLTAGE QRS BORDERLINE ECG WHEN COMPARED WITH ECG OF 04-FEB-2018 22:15, T WAVE AMPLITUDE HAS DECREASED IN ANTEROLATERAL LEADS Confirmed by Bao Lake MD ([id number]) on 03/15/2018 11:07:47 AM Referred By: Confirmed By:Bao Lake MD
--- NOTE | 2018-03-15 12:30 | PN ---
[facility] Progress Note Note: PATIENT IN DETOX FOR OPIOD/ETOH WITHDRAWAL SYNDROME. STATES HE HAS MILD BODY ACHES AND NUMBNESS TO LEFT UPPER ARM TUMOR/MASS SITE. DENIES N/V/D AND SHAKES. Vital Signs Temperature 96.3 F L 03/15/18 09:28 Pulse Rate 104 H 03/15/18 09:28 Respiratory Rate 20 03/15/18 09:28 Blood Pressure 139/92 03/15/18 09:28 O2 Sat by Pulse Oximetry (%) Laboratory Tests 03/13/18 03/13/18 03/13/18 07:49 07:49 07:49 WBC 5.6 RBC 4.88 Hgb 13.2 Hct 41.7 MCV 85.6 MCH 27.1 MCHC 31.6 L RDW 14.4 Plt Count 256 MPV 9.3 Sodium 140 Potassium 3.8 Chloride 104 Carbon Dioxide 30 Anion Gap 6 L BUN 10 Creatinine 0.5 L Creat Clearance w eGFR > 60 Random Glucose 96 Calcium 8.2 L Total Bilirubin 0.3 AST 30 ALT 28 Alkaline Phosphatase 72 Total Protein 6.1 L Albumin 3.1 L RPR Titer Nonreactive PE: SKIN WARM AND DRY ALERT AND ORIENTED X 3 CAR S1S2 RESP CTA BL EXT LEFT UPPER ARM TUMOR/MASS, INTACT. NO DRAINAGE OR REDNESS NOTED A/P: OPIOD/ETOHWITHDRAWAL SYNDROME CONTINUE DETOX ENCOURAGE ORAL FLUIDS BACITRACIN TO LEFT UPPER ARM TUMOR/MASS WITH DRY GAUZE DRESSING ORDERED DAILY CONTINUE TO MONITOR CLINICALLY.
--- NOTE | 2018-03-15 12:35 | PN ---
[facility] Progress Note Note: PATIENT REQUESTED EARLY DISCHARGE TOMORROW. STATES HE NEEDS TO FOLLOW UP WITH [facility] REGARDING LEFT ARM MASS/TUMOR. PATIENT PENDING SURGERY 03/24/18. REFERRED TO SURGEON DR. STAFFORD AT [facility] [phone]. PATIENT UNABLE TO SCHEDULE APPT AND IS TO GO IN PERSON TOMORROW TO [facility] FOR FOLLOW UP. ORDER PLACED FOR D/C TOMORROW AT 8AM AND METHADONE DOSE ADJUSTED.
[2018-03-15] MEDS: diazePAM 5 MG TABLET PO PRN (12:36)
[2018-03-15 21:15] VITALS: PULSE 79
[2018-03-15] MEDS: THIAMINE HCL 100 MG TABLET (FP) PO SCH (22:04)
[2018-03-15] MEDS: ZOLPIDEM TARTRATE 5 MG TABLET PO PRN (22:05)
[2018-03-15] MEDS: QUEtiapine FUMARATE 100 MG TABLET (FP) PO SCH (22:05)
[2018-03-16] MEDS: GABAPENTIN 400 MG CAPSULE (FP) PO SCH (05:17)
[2018-03-16] MEDS: IBUPROFEN 400 MG TABLET (FP) PO PRN (05:20)
[2018-03-16] MEDS ORDERED: METHADONE HCL 5 MG TABLET (FOR DETOX USE ONLY) PO SCH ×2 (06:00→10:00)
[2018-03-16 06:31] VITALS: BP 128/85; TEMP 97.2
[2018-03-16] MEDS ORDERED: METHADONE HCL 10 MG TABLET (FOR DETOX USE ONLY) PO SCH (10:00)
[2018-03-16] MEDS ORDERED: diazePAM 5 MG TABLET PO SCH (10:00)
--- NOTE | 2018-03-16 14:28 | DS ---
[facility] Detox Discharge Summary Admission Date: 03/12/18 Discharge Date: 03/16/18 - History Present History: Alcohol Dependence, Opioid Dependence - Physical Exam Results Vital Signs: Vital Signs Temperature 97.2 F L 03/16/18 06:30 Pulse Rate 79 03/16/18 06:30 Respiratory Rate 18 03/16/18 06:30 Blood Pressure 128/85 03/16/18 06:30 O2 Sat by Pulse Oximetry (%) Pertinent Admission Physical Exam Findings: PATIENT TOLERATED DETOX WELL. MEDICALLY STABLE. DENIED SI/HI. PATIENT TO FOLLOW UP WITH [facility] TODAY REGARDING LEFT UPPER ARM TUMOR WITH SURGICAL DEPARTMENT. PATIENT ALSO PREFERS TO SELF ARRANGE OUTPATIENT REHAB SERVICES WITH [facility]. PATIENT ENCOURAGED TO ATTEND GROUP MEETINGS TO PREVENT RELAPSE AND ALSO TO SEEK MEDICAL ATTENTION IF WITHDRAWAL SYMPTOMS OCCUR. - Treatment Hospital Course: Detox Protocol Followed, Detoxed Safely, Responded well, Discharged Condition Good - Medication Discharge Medications: Ambulatory Orders Methocarbamol [Robaxin -] 750 mg PO BID 07/13/17 Gabapentin [Neurontin -] 400 mg PO TID #30 capsule 02/08/18 Amlodipine Besylate [Norvasc -] 10 mg PO DAILY #30 tablet 03/15/18 Clonidine HCl 0.1 mg PO BID #30 tablet 03/15/18 Pregabalin [Lyrica -] 100 mg PO BID #14 capsule MDD 200 03/15/18 - Diagnosis (1) Alcohol dependence with uncomplicated withdrawal Status: Resolved (2) Opioid dependence with withdrawal Status: Resolved - AMA Did Patient Leave Against Medical Advice: No
[2018-03-17] MEDS ORDERED: METHADONE HCL 5 MG TABLET (FOR DETOX USE ONLY) PO SCH (06:00)
== END 2018-03-16 06:45 | disposition home or self-care (01) | DRG 773 ==
LOC: YASAS 12:59 → Y3N 16:15
PROC: HZ2ZZZZ Detoxification Services for Substance Abuse Treatment (ICD-10-PCS; principal; 2018-03-12)
DX: F11.23 Opioid dependence with withdrawal (principal); F10.230 Alcohol dependence with withdrawal, uncomplicated; F13.230 Sedative, hypnotic or anxiolytic dependence with withdrawal, uncomplicated; F14.20 Cocaine dependence, uncomplicated; F12.10 Cannabis abuse, uncomplicated; F17.213 Nicotine dependence, cigarettes, with withdrawal; F41.9 Anxiety disorder, unspecified; F43.10 Post-traumatic stress disorder, unspecified; F32.9 Major depressive disorder, single episode, unspecified; F19.24 Other psychoactive substance dependence with psychoactive substance-induced mood disorder; F19.282 Other psychoactive substance dependence with psychoactive substance-induced sleep disorder; C49.9 Malignant neoplasm of connective and soft tissue, unspecified; E86.0 Dehydration; G47.00 Insomnia, unspecified; B35.3 Tinea pedis; Z68.36 Body mass index [BMI] 36.0-36.9, adult; R56.9 Unspecified convulsions; I10 Essential (primary) hypertension
CPT/HCPCS: 36415; 80053; 85027; 86593; 93005; 93010

== ENCOUNTER 2018-07-07 12:26 | Inpatient (IN) | payer OTHER ==
--- NOTE | 2018-07-07 14:39 | HP ---
CIWA Score Nausea/Vomitin-Mild Nausea/No Vomiting Muscle Tremors: 4-Moderate,w/Arms Extend Anxiety: 4-Mod. Anxious/Guarded Agitation: 4-Moderately Restless Paroxysmal Sweats: 1-Minimal Palms Moist Orientation: 0-Oriented Tacttile Disturbances: 1-Very Mild Itch/Numbness Auditory Disturbances: 0-None Visual Disturbances: 0-None Headache: 1-Very Mild CIWA-Ar Total Score: 16 - Admission Criteria OASAS Guidelines: Admission for Medically Managed Detox: Requires at least one of the followin. CIWA greater than 12 2. Seizures within the past 24 hours 3. Delirium tremens within the past 24 hours 4. Hallucinations within the past 24 hours 5. Acute intervention needed for co occurring medical disorder 6. Acute intervention needed for co occurring psychiatric disorder 7. Severe withdrawal that cannot be handled at a lower level of care (continued vomiting, continued diarrhea, abnormal vital signs) requiring intravenous medication and/or fluids 8. 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 and recent 04/2018 left arm cs skin removed history of hypertension treated with norvasc long history of alcohol drinking since age 13 2 pint of hard liquid and 40 oz of beer daily patient is in methadone program 70 mg po daily verified begin today last dose Exam Limitations: No Limitations - Ebola screening Have you traveled outside of the country in the last 21 days: No Have you had contact with anyone from an Ebola affected area: No Have you been sick,other than usual withdrawal symptoms: No Do you have a fever: No - Review of Systems Constitutional: No Symptoms Reported, Changes in sleep, Weight Stable EENT: reports: No Symptoms Reported Respiratory: reports: No Symptoms reported Cardiac: reports: No Symptoms Reported GI: reports: Nausea, Poor Fluid Intake, Indigestion : reports: No Symptoms Reported Musculoskeletal: reports: No Symptoms Reported Integumentary: reports: Change in Color (ca skin removed), Lesions (left arm) Neuro: reports: Tingling, Tremors Endocrine: reports: No Symptoms Reported Hematology: reports: No Symptoms Reported Psychiatric: reports: Judgement Intact, Mood/Affect Appropiate, Orientated x3, Agitated (bipolar) Other Systems: Reviewed and Negative Patient History - Patient Medical History Hx Anemia: Yes Hx Asthma: No Hx Chronic Obstructive Pulmonary Disease (COPD): No Hx Cancer: Yes (Sarcoma diagnosed 4 years ago ) Hx Cardiac Disorders: No Hx Congestive Heart Failure: No Hx Hypertension: Yes (Clonodine ) Hx Hypercholesterolemia: No Hx Pacemaker: No HX Cerebrovascular Accident: No Hx Seizures: Yes (drug related seizures last 1 yr ago.) Hx Dementia: No Hx Diabetes: No Hx Gastrointestinal Disorders: Yes (constipation) Hx Liver Disease: No Hx Genitourinary Disorders: No Hx Sexually Transmitted Disorders: No Hx Renal Disease (ESRD): No Hx Thyroid Disease: No Hx Human Immunodeficiency Virus (HIV): No (last 2015 negative, declines testing ) Hx Hepatitis C: No Hx Depression: Yes (Not on medication, PTSD) Hx Suicide Attempt: No Hx Bipolar Disorder: Yes Hx Schizophrenia: No - Patient Surgical History Past Surgical History: Yes Hx Neurologic Surgery: No Hx Cataract Extraction: No Hx Cardiac Surgery: No Hx Lung Surgery: No Hx Breast Surgery: No Hx Breast Biopsy: No Hx Abdominal Surgery: No Hx Appendectomy: No Hx Cholecystectomy: No Hx Genitourinary Surgery: No Hx Section: No Hx Orthopedic Surgery: No Other Surgical History: 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 History Hx Alcohol Use: Yes Hx Substance Use: Yes Substance Use Type: Alcohol, Tranquilizers Hx Substance Use Treatment: Yes (03/2018) - Substances Abused Alcohol-beer/whisky Route: Oral Frequency: Daily Amount used: 8 (12 oz.)/2 pts. Age of first use: 13 Date of Last Use: 07/06/18 Xanax Route: Oral Frequency: Daily Amount used: 4 mg. Age of first use: 33 Date of Last Use: 07/05/18 Marijuana Route: Smoking Frequency: Daily Amount used: 2 joints Age of first use: 13 Date of Last Use: 07/06/18 Family Disease History - Family Disease History Family Disease History: Other: Father (, parkinsonism), Mother ( Schizophrenia - no contact), Sister (one - living - healthy), Daughter (one age 32 - healthy) Admission Physical Exam S - Vital Signs Vital Signs: Vital Signs - 24 hr 07/07/18 13:22 Temperature 98.4 F Pulse Rate 76 Respiratory 20 Rate Blood Pressure 124/88 - Physical General Appearance: Yes: Nourished, Appropriately Dressed, Mild Distress, Tremorous, Irritable, Sweating, Anxious HEENTM: Yes: Hearing grossly Normal, Normal ENT Inspection, Normocephalic, Normal Voice Respiratory: Yes: Chest Non-Tender, Lungs Clear, Normal Breath Sounds, No Respiratory Distress, No Accessory Muscle Use Neck: Yes: Supple, Trachea in good position Breast: Yes: Breasts Symetrical, No Discharge Cardiology: Yes: Regular Rhythm, Regular Rate, S1, S2 Abdominal: Yes: Normal Bowel Sounds, Non Tender, Soft Genitourinary: Yes: Within Normal Limits Back: Yes: Normal Inspection Musculoskeletal: Yes: full range of Motion (limited on left arm raising), Gait Steady Extremities: Yes: Normal Range of Motion, Non-Tender, Tremors Neurological: Yes: Fully Oriented, Alert, Normal Response, Depressed Affect Integumentary: Yes: Warm, Clammy, Other (surgical hernandez on left arm surgically removed ca tissue x 4 due to sarcoma) Lymphatic: Yes: Within Normal Limits - Diagnostic (1) Methadone maintenance therapy patient Current Visit: Yes Status: Chronic (2) Substance induced mood disorder Current Visit: Yes Status: Suspected (3) HTN (hypertension) Current Visit: Yes Status: Chronic Qualifiers: Hypertension type: essential hypertension Qualified Code(s): I10 - Essential (primary) hypertension (4) Neuropathy Current Visit: Yes Status: Chronic (5) Nicotine dependence Current Visit: Yes Status: Acute Qualifiers: Nicotine product type: cigarettes Substance use status: in withdrawal Qualified Code(s): F17.213 - Nicotine dependence, cigarettes, with withdrawal (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 (7) Uncomplicated sedative, hypnotic or anxiolytic withdrawal Current Visit: Yes Status: Acute (8) Alcohol dependence with uncomplicated withdrawal Current Visit: Yes Status: Acute (9) Swelling of ankle Current Visit: Yes Status: Chronic Qualifiers: Laterality: unspecified laterality Qualified Code(s): M25.473 - Effusion, unspecified ankle Cleared for Admission [facility] - Detox or Rehab [facility] Level of Care: Medically Managed Detox Regimen/Protocol: Valium Claeared for Rehab Admission: No [facility] Breath Alcohol Content Breath Alcohol Content: 0 Urine Drug Screen - Results Drug Screen Negative: No Urine Drug Screen Results: THC-Marijuana, OPI-Opiates, BZO-Benzodiazepines, MTD- Methadone
[2018-07-07 14:42] VITALS: BMI 34.0
[2018-07-07] MEDS ORDERED: IBUPROFEN 400 MG TABLET (FP) PO PRN (14:45)
[2018-07-07] MEDS ORDERED: MAGNESIUM CITRATE 300 ML BOTTLE PO PRN (14:45)
[2018-07-07] MEDS ORDERED: NICOTINE POLACRILEX 4 MG GUM BUC PRN (14:45)
[2018-07-07] MEDS ORDERED: MAGNESIUM HYDROX 2400MG/30ML ORAL SUSPENSION 30 ML CUP PO PRN (14:45)
[2018-07-07] MEDS ORDERED: ACETAMINOPHEN 325 MG TABLET (FP) PO PRN (14:45)
[2018-07-07] MEDS ORDERED: MENTHOL/PHENOL 1 EACH UD MM PRN (14:45)
[2018-07-07] MEDS ORDERED: MAG HYDROX/AL HYDROX/SIMETH 30 ML UNIT-DOSE CUP PO PRN (14:45)
[2018-07-07] MEDS ORDERED: P-EPHED 60MG/TRIPROLIDI 2.5MG TABLET PO PRN (14:45)
[2018-07-07] MEDS ORDERED: guaiFENesin/D-METHORPHAN HB 10 ML UNIT-DOSE CUPS PO PRN (14:45)
[2018-07-07] MEDS ORDERED: LOPERAMIDE HCL 2 MG CAPSULE PO PRN (14:45)
[2018-07-07] MEDS ORDERED: METHOCARBAMOL 500 MG TABLET PO PRN (14:52)
[2018-07-07] MEDS ORDERED: diazePAM 5 MG TABLET PO ONE (15:00)
[2018-07-07] MEDS ORDERED: METHADONE HCL 40 MG DISPERSABLE TABLET PO SCH (15:00)
--- NOTE | 2018-07-07 15:29 | CONSULT ---
[facility] Psychiatric Consult - Data Date of interview: 07/07/18 Admission source: [facility] Identifying data: This is a 52 years old male, single father of one, unemployed , homeless, on SSI support, with psychiatric hospitalization history, with history of Bipolar Disorder, with long history of Alcohol, Opioids, Cocaine, Cannabis and Nicotine dependence/abuse, is reporting Alcohol withdrawal symptoms and seeking for detox. Substance Abuse History: Smoking history: Current every day smoker. Have you smoked in the past 12 months: Yes. Aproximately how many cigarettes per day: 20. Cigars Per Day: 0. Hx Chewing Tobacco Use: No. Initiated information on smoking cessation: Yes. 'Breaking Loose' booklet given: 07/07/18. - Substance & Tx. History. Hx Alcohol Use: Yes. Hx Substance Use: Yes. Substance Use Type : Alcohol, Tranquilizers. Hx Substance Use Treatment: Yes (03/2018). - Substances Abused. Alcohol-beer/whisky. Route: Oral. Frequency: Daily. Amount used: 8 (12 oz.)/2 pts. Age of first use: 13. Date of Last Use: . Xanax. Route: Oral. Frequency: Daily. Amount used: 4 mg. Age of first use: 33. Date of Last Use: 07/05/18. Marijuana. Route: Smoking. Frequency: Daily. Amount used: 2 joints. Age of first use: 13. Date of Last Use: 07/06/18 Medical History: HTN, Kaposi Sarcoma, Sarcoma of soft tissue, MMTP 70mgper day. Patient reports long history of skin Cancer since 2012 with left arm skin Sarcoma removal and recent 04/2018 with left arm Sarcoma skin removal again. Currently on MMTP 70MG per day. Psychiatric History: Patient reports history of Bipolar Disorder with most recent psychiatric admission tro [facility] for safety, reports taking prior to admission: Seroquel 100mg po qhs. Remeron 30mg po qhs. Denies suicidal, homicidal history. Physical/Sexual Abuse/Trauma History: Denies Additional Comment: Seroquel 100mg po qhs. Remeron 30mg po qhs Mental Status Exam - Mental Status Exam Alert and Oriented to: Person Cognitive Function: Fair Patient Appearance: Unkempt Mood: Anxious Affect: Mood Congruent Patient Behavior: Cooperative Speech Pattern: Appropriate Voice Loudness: Normal Thought Process: Goal Oriented Thought Disorder: Being Controlled Hallucinations: Denies Suicidal Ideation: Denies Homicidal Ideation: Denies Insight/Judgement: Fair Sleep: Difficulty falling asleep Appetite: Weight gain Muscle strength/Tone: Normal Gait/Station: Normal Additional Comments: Seroquel 100mg po qhs. Remeron 30mg po qhs Psychiatric Findings - Problem List ([place] 1, 2,3) (1) Alcohol dependence with uncomplicated withdrawal Current Visit: Yes Status: Acute (2) Nicotine dependence Current Visit: Yes Status: Acute Qualifiers: Nicotine product type: cigarettes Substance use status: in withdrawal Qualified Code(s): F17.213 - Nicotine dependence, cigarettes, with withdrawal (3) Uncomplicated sedative, hypnotic or anxiolytic withdrawal Current Visit: Yes Status: Acute (4) HTN (hypertension) Current Visit: Yes Status: Chronic Qualifiers: Hypertension type: essential hypertension Qualified Code(s): I10 - Essential (primary) hypertension (5) Methadone maintenance therapy patient Current Visit: Yes Status: Chronic (6) Neuropathy Current Visit: Yes Status: Chronic (7) Substance induced mood disorder Current Visit: Yes Status: Suspected (8) Substance-induced sleep disorder Current Visit: No Status: Acute (9) Cannabis abuse Current Visit: No Status: Chronic (10) Cocaine dependence Current Visit: No Status: Chronic Qualifiers: Substance use status: uncomplicated Qualified Code(s): F14.20 - Cocaine dependence, uncomplicated (11) Obese Current Visit: No Status: Chronic Qualifiers: Obesity type: unspecified obesity type Obesity classification: adult class 2 (BMI 35 - 39.9) Serious obesity comorbidity presence: without serious comorbidity Body mass index: BMI 36.0-36.9 Qualified Code(s): E66.9 - Obesity, unspecified; Z68.36 - Body mass index (BMI) 36.0-36.9, adult (12) PTSD (post-traumatic stress disorder) Current Visit: No Status: Chronic Comment: As per history and self- report.No symptoms elicited in this evaluation.Patient is not in treatment.Off medications. (13) Sedative, hypnotic or anxiolytic dependence with withdrawal, unspecified Current Visit: No Status: Chronic (14) Seizures Current Visit: No Status: Suspected - Initial Treatment Plan Initial Treatment Plan: Seroquel 100mg po qhs. Remeron 30mg po qhs
[2018-07-07] MEDS ORDERED: METHADONE HCL 10 MG TABLET ONE (17:32)
[2018-07-07] MEDS ORDERED: METHADONE HCL 40 MG DISPERSABLE TABLET ONE (17:32)
[2018-07-07] MEDS: METHADONE 40 MG, METHADONE 30 MG PO SCH (17:33)
[2018-07-07] MEDS: NICOTINE 21 MG/24 HOURS TOPICAL PATCH TD SCH (17:35)
[2018-07-07] MEDS ORDERED: MELATONIN 5 MG TABLETS PO PRN (22:00)
[2018-07-07] MEDS: MIRTAZAPINE 30 MG TABLET (FP) PO SCH (22:16)
[2018-07-07] MEDS: THIAMINE HCL 100 MG TABLET (FP) PO SCH (22:16)
[2018-07-07] MEDS: diazePAM 5 MG TABLET PO SCH (22:16)
[2018-07-07] MEDS: QUEtiapine FUMARATE 100 MG TABLET (FP) PO SCH (22:16)
[2018-07-07] MEDS: PREGABALIN 100 MG CAPSULE PO SCH (22:16)
[2018-07-08] MEDS: diazePAM 5 MG TABLET PO PRN ×3 (00:59→17:01)
[2018-07-08] MEDS: diazePAM 5 MG TABLET PO SCH ×3 (05:11→22:06)
[2018-07-08] MEDS ORDERED: METHADONE HCL 40 MG DISPERSABLE TABLET ONE (08:38)
[2018-07-08] MEDS ORDERED: METHADONE HCL 10 MG TABLET ONE (08:39)
[2018-07-08] MEDS: NICOTINE 21 MG/24 HOURS TOPICAL PATCH TD SCH (10:10)
[2018-07-08] MEDS: PRENATAL VITAMINS W/ FOLIC ACID TABLET (FP) PO SCH (10:10)
[2018-07-08] MEDS: amLODIPine BESYLATE 10 MG TABLET (FP) PO SCH (10:10)
[2018-07-08] MEDS: METHADONE 40 MG, METHADONE 30 MG PO SCH (10:11)
[2018-07-08] MEDS: PREGABALIN 100 MG CAPSULE PO SCH ×2 (10:11→22:06)
[2018-07-08 10:35] LABS: ALBUMIN 3.7 g/dl (3.4-5.0); ALK PHOS 94 U/L (45-117); ANION GAP 6 MMOL/L (8-16); BILIRUBIN,TOTAL 0.4 mg/dL (0.2-1); BLOOD UREA NITROGEN 13 mg/dL (7-18); CALCIUM 8.6 mg/dL (8.5-10.1); CHLORIDE 107 mmol/L (98-107); CO2 27 mmol/L (21-32); CREATININE 0.7 mg/dL (0.55-1.3); GLUCOSE,RANDOM 104 mg/dL (74-106); POTASSIUM 4.3 mmol/L (3.5-5.1); SGOT/AST 22 U/L (15-37); SGPT/ALT 30 U/L (13-61); SODIUM 140 mmol/L (136-145); TOT PROT 7.3 g/dl (6.4-8.2)
[2018-07-08 10:44] LABS: HEMATOCRIT 37.5 % (35.4-49); HEMOGLOBIN 12.5 GM/dL (11.7-16.9); MCH 28.2 pg (25.7-33.7); MCHC 33.5 g/dl (32.0-35.9); MEAN CELL VOLUME 84.3 fl (80-96); MEAN PLT VOLUME 9.9 fl (7.5-11.1); PLATELET COUNT 302 K/MM3 (134-434); RBC 4.45 M/mm3 (4.00-5.60); RDW 15.4 % (11.9-15.9); WHITE BLOOD COUNT 4.4 K/mm3 (4.0-10.0)
--- NOTE | 2018-07-08 11:35 | PN ---
S CIWA - CIWA Score Nausea/Vomitin-No Nausea/No Vomiting Muscle Tremors: 3 Anxiety: 3 Agitation: 3 Paroxysmal Sweats: 3 Orientation: 0-Oriented Tacttile Disturbances: 0-None Auditory Disturbances: 0-None Visual Disturbances: 0-None Headache: 0-None Present CIWA-Ar Total Score: 12 S Progress Note (SOAP) Subjective: sweats shakes interrupted sleep body aches Objective: 07/08/18 11:35 Vital Signs Temperature 96.3 F L 07/08/18 09:13 Pulse Rate 70 07/08/18 09:13 Respiratory Rate 18 07/08/18 09:13 Blood Pressure 127/66 07/08/18 09:13 O2 Sat by Pulse Oximetry (%) Laboratory Tests 07/08/18 07/08/18 06:00 06:00 WBC 4.4 RBC 4.45 Hgb 12.5 Hct 37.5 MCV 84.3 MCH 28.2 MCHC 33.5 RDW 15.4 Plt Count 302 MPV 9.9 Sodium 140 Potassium 4.3 Chloride 107 Carbon Dioxide 27 Anion Gap 6 L BUN 13 Creatinine 0.7 Creat Clearance w eGFR > 60 Random Glucose 104 Calcium 8.6 Total Bilirubin 0.4 AST 22 ALT 30 Alkaline Phosphatase 94 Total Protein 7.3 Albumin 3.7 aaox3 ambulating no acute distress Assessment: 07/08/18 11:35 withdrawal sx Plan: continue detox increase fluids
[2018-07-08] MEDS: MIRTAZAPINE 30 MG TABLET (FP) PO SCH (22:06)
[2018-07-08] MEDS: THIAMINE HCL 100 MG TABLET (FP) PO SCH (22:06)
[2018-07-08] MEDS: QUEtiapine FUMARATE 100 MG TABLET (FP) PO SCH (22:06)
[2018-07-09] MEDS: diazePAM 5 MG TABLET PO PRN ×4 (02:00→17:03)
[2018-07-09] MEDS ORDERED: METHADONE HCL 40 MG DISPERSABLE TABLET ONE (09:51)
[2018-07-09] MEDS ORDERED: METHADONE HCL 10 MG TABLET ONE (09:51)
[2018-07-09] MEDS: diazePAM 5 MG TABLET PO SCH ×2 (10:29→22:27)
[2018-07-09] MEDS: PREGABALIN 100 MG CAPSULE PO SCH ×2 (10:29→22:29)
[2018-07-09] MEDS: PRENATAL VITAMINS W/ FOLIC ACID TABLET (FP) PO SCH (10:29)
[2018-07-09] MEDS: NICOTINE 21 MG/24 HOURS TOPICAL PATCH TD SCH (10:29)
[2018-07-09] MEDS: amLODIPine BESYLATE 10 MG TABLET (FP) PO SCH (10:29)
[2018-07-09] MEDS: METHADONE 40 MG, METHADONE 30 MG PO SCH (10:29)
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
[2018-07-09] MEDS: CEPHALEXIN MONOHYDRATE 500 MG CAPSULE (UD) PO SCH ×2 (12:47→22:27)
[2018-07-09] MEDS: MUPIROCIN 2% TOPICAL OINTMENT 22 GM TUBE TP SCH ×2 (13:02→22:26)
[2018-07-09] MEDS: MIRTAZAPINE 30 MG TABLET (FP) PO SCH (22:27)
[2018-07-09] MEDS: THIAMINE HCL 100 MG TABLET (FP) PO SCH (22:27)
[2018-07-09] MEDS: QUEtiapine FUMARATE 100 MG TABLET (FP) PO SCH (22:28)
[2018-07-10] MEDS ORDERED: METHADONE HCL 40 MG DISPERSABLE TABLET ONE (09:27)
[2018-07-10] MEDS ORDERED: METHADONE HCL 10 MG TABLET ONE (09:27)
[2018-07-10] MEDS: amLODIPine BESYLATE 10 MG TABLET (FP) PO SCH (10:17)
[2018-07-10] MEDS: PRENATAL VITAMINS W/ FOLIC ACID TABLET (FP) PO SCH (10:17)
[2018-07-10] MEDS: CEPHALEXIN MONOHYDRATE 500 MG CAPSULE (UD) PO SCH ×2 (10:17→22:21)
[2018-07-10] MEDS: PREGABALIN 100 MG CAPSULE PO SCH ×2 (10:17→22:23)
[2018-07-10] MEDS: diazePAM 5 MG TABLET PO SCH ×2 (10:18→22:21)
[2018-07-10] MEDS: METHADONE 40 MG, METHADONE 30 MG PO SCH (10:18)
[2018-07-10] MEDS: MUPIROCIN 2% TOPICAL OINTMENT 22 GM TUBE TP SCH ×2 (10:18→22:23)
[2018-07-10] MEDS: NICOTINE 21 MG/24 HOURS TOPICAL PATCH TD SCH (10:19)
[2018-07-10] MEDS: diazePAM 5 MG TABLET PO PRN (13:11)
--- NOTE | 2018-07-10 13:20 | PN ---
[facility] Progress Note (SOAP) Subjective: Chills, anxious, sweating Objective: 07/10/18 13:18 Last Vital Signs Temp Pulse Resp BP Pulse Ox 98.2 F 75 18 142/81 07/10/18 10:08 07/10/18 10:08 07/10/18 10:08 07/10/18 10:08 HTN noted (has h/o htn, on medication) Laboratory Tests 07/08/18 07/08/18 07/08/18 06:00 06:00 06:00 WBC 4.4 RBC 4.45 Hgb 12.5 Hct 37.5 MCV 84.3 MCH 28.2 MCHC 33.5 RDW 15.4 Plt Count 302 MPV 9.9 Sodium 140 Potassium 4.3 Chloride 107 Carbon Dioxide 27 Anion Gap 6 L BUN 13 Creatinine 0.7 Creat Clearance w eGFR > 60 Random Glucose 104 Calcium 8.6 Total Bilirubin 0.4 AST 22 ALT 30 Alkaline Phosphatase 94 Total Protein 7.3 Albumin 3.7 RPR Titer Nonreactive Labs reviewed Assessment: 07/10/18 13:18 Withdrawal symptoms Plan: Continue detox Encouraged PO water hydration. Patient scheduled for discharge tomorrow.
[2018-07-10] MEDS ORDERED: diazePAM 5 MG TABLET PO ONE (17:24)
[2018-07-10] MEDS: THIAMINE HCL 100 MG TABLET (FP) PO SCH (22:21)
[2018-07-10] MEDS: QUEtiapine FUMARATE 100 MG TABLET (FP) PO SCH (22:21)
[2018-07-10] MEDS: MIRTAZAPINE 30 MG TABLET (FP) PO SCH (22:21)
[2018-07-11] MEDS ORDERED: diazePAM 5 MG TABLET PO SCH (10:00)
[2018-07-11] MEDS ORDERED: METHADONE HCL 40 MG DISPERSABLE TABLET ONE (10:11)
[2018-07-11] MEDS ORDERED: METHADONE HCL 10 MG TABLET ONE (10:11)
[2018-07-11] MEDS: PRENATAL VITAMINS W/ FOLIC ACID TABLET (FP) PO SCH (10:14)
[2018-07-11] MEDS: METHADONE 40 MG, METHADONE 30 MG PO SCH (10:14)
[2018-07-11] MEDS: amLODIPine BESYLATE 10 MG TABLET (FP) PO SCH (10:14)
[2018-07-11] MEDS: PREGABALIN 100 MG CAPSULE PO SCH (10:14)
[2018-07-11] MEDS: MUPIROCIN 2% TOPICAL OINTMENT 22 GM TUBE TP SCH (10:14)
[2018-07-11] MEDS: CEPHALEXIN MONOHYDRATE 500 MG CAPSULE (UD) PO SCH (10:18)
[2018-07-11] MEDS: NICOTINE 21 MG/24 HOURS TOPICAL PATCH TD SCH (10:18)
--- NOTE | 2018-07-11 13:52 | DS ---
[facility] Detox Discharge Summary Admission Date: 07/07/18 Discharge Date: 07/11/18 - History Present History: Alcohol Dependence, Cannabis Dependence, Cocaine Dependence, Opioid Dependence, Sedative Dependence, MMTP Additional Comments: PATIENT GOING TO [facility] ([facility] FOR AFTERCARE. 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 SURGERY WAS APPROX. 3 MONTHS AGO AND PATIENT WAS SUPPOSED TO FOLLOW-UP WITH SURGEON (DR. GOODMAN, [place], [place]) 1 MONTH AFTER SURGERY; HOWEVER PATIENT REPORTS THAT HE DID NOT DO SO. PATIENT REPORTS MILD INTERMITTENT "SORENESS" AT SITE. ERYTHEMA AND SWELLING NOTED IN LEFT ARMPIT AREA ( TODAY IS MANPOWER DEVELOPMENT SPECIALIST MANAGER'S FIRST ENCOUNTER WITH PATIENT, NO BASELINE VIEW AVAILABLE FOR COMPARISON). PATIENT ADVISED TO CONSIDER FOLLOW-UP WITH DR. GOODMAN FOR FURTHER EVALUATION PRIOR TO GOING TO REHAB. HOWEVER, PATIENT IS ELECTING TO GO TO REHAB FIRST. PATIENT ADVISED TO FOLLOW-UP WITH [facility] SOON POSSIBLE AFTER DISCHARGE FROM REHAB FOR FURTHER EVALUATION OF HISTORY OF REMOVAL OF OSTEOSARCOMA. PATIENT ALSO ADVISED TO NOTIFY NURSING / MEDICAL STAFF IMMEDIATELY SHOULD DISCOMFORT AT SITE BECOME MORE SEVERE AT ANY TIME. PATIENT VERBALIZED UNDERSTANDING OF RECOMMENDATIONS. PATIENT CURRENTLY PRESCRIBED PO KELFLEX FOR WOUND ON HIP, WILL CONTINUE AT INCREASED FREQUENCY WHILE PATIENT ADMITTED FOR REHAB. 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 History of Seizures (Substance-Related), History of Neuropathy, Nicotine Dependence. - Physical Exam Results Vital Signs: Vital Signs Temperature 98.4 F 07/11/18 13:21 Pulse Rate 81 07/11/18 13:21 Respiratory Rate 18 07/11/18 13:21 Blood Pressure 136/76 07/11/18 13:21 O2 Sat by Pulse Oximetry (%) Pertinent Admission Physical Exam Findings: WITHDRAWAL SYMPTOMS. Laboratory Tests 07/08/18 07/08/18 07/08/18 06:00 06:00 06:00 WBC 4.4 RBC 4.45 Hgb 12.5 Hct 37.5 MCV 84.3 MCH 28.2 MCHC 33.5 RDW 15.4 Plt Count 302 MPV 9.9 Sodium 140 Potassium 4.3 Chloride 107 Carbon Dioxide 27 Anion Gap 6 L BUN 13 Creatinine 0.7 Creat Clearance w eGFR > 60 Random Glucose 104 Calcium 8.6 Total Bilirubin 0.4 AST 22 ALT 30 Alkaline Phosphatase 94 Total Protein 7.3 Albumin 3.7 RPR Titer Nonreactive LABS NOTED. - Treatment Hospital Course: Detox Protocol Followed, Detoxed Safely, Responded well, Discharged Condition Good, Rehab Referral Accepted Patient has Accepted a Rehab Referral to: [facility] ([place], [place]). - Medication Discharge Medications: Ambulatory Orders Amlodipine Besylate [Norvasc -] 10 mg PO DAILY #30 tablet 03/15/18 Pregabalin [Lyrica -] 100 mg PO BID #14 capsule MDD 200 03/15/18 Methadone [Dolophine -] 70 mg PO DAILY 07/07/18 Mirtazapine [Remeron -] 30 mg PO HS #30 tablet 07/07/18 Quetiapine Fumarate [Seroquel] 100 mg PO HS #30 tablet 07/07/18 Cephalexin [Keflex] 500 mg PO BID #9 capsule 07/10/18 - Diagnosis (1) Alcohol dependence with uncomplicated withdrawal Current Visit: Yes Status: Acute (2) Ulcer of trochanteric region of right hip Current Visit: Yes Status: Acute Qualifiers: Non-pressure ulcer stage: unspecified non-pressure ulcer stage Qualified Code(s): L97.119 - Non-pressure chronic ulcer of right thigh with unspecified severity (3) Uncomplicated sedative, hypnotic or anxiolytic withdrawal Current Visit: Yes Status: Acute (4) Cocaine dependence Current Visit: Yes Status: Chronic Qualifiers: Substance use status: uncomplicated Qualified Code(s): F14.20 - Cocaine dependence, uncomplicated (5) HTN (hypertension) Current Visit: Yes Status: Chronic Qualifiers: Hypertension type: essential hypertension Qualified Code(s): I10 - Essential (primary) hypertension (6) Methadone maintenance therapy patient Current Visit: Yes Status: Chronic (7) Neuropathy Current Visit: Yes Status: Chronic (8) Nicotine dependence Current Visit: Yes Status: Chronic Qualifiers: Nicotine product type: cigarettes Substance use status: in withdrawal Qualified Code(s): F17.213 - Nicotine dependence, cigarettes, with withdrawal (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 (10) Swelling of ankle Current Visit: Yes Status: Chronic Qualifiers: Laterality: unspecified laterality Qualified Code(s): M25.473 - Effusion, unspecified ankle (11) Seizures Current Visit: Yes Status: Suspected (12) Substance induced mood disorder Current Visit: Yes Status: Acute (13) Substance-induced sleep disorder Current Visit: Yes Status: Acute (14) Obese Current Visit: Yes Status: Chronic Qualifiers: Obesity type: unspecified obesity type Obesity classification: adult class 2 (BMI 35 - 39.9) Serious obesity comorbidity presence: without serious comorbidity Body mass index: BMI 36.0-36.9 Qualified Code(s): E66.9 - Obesity, unspecified; Z68.36 - Body mass index (BMI) 36.0-36.9, adult (15) PTSD (post-traumatic stress disorder) Current Visit: Yes Status: Chronic (16) Cannabis abuse Current Visit: Yes Status: Chronic - AMA Did Patient Leave Against Medical Advice: No
[2018-07-11 17:51] VITALS: BP 142/78; PULSE 72; TEMP 98.2
== END 2018-07-11 18:25 | disposition other institution (70) | DRG 773 ==
LOC: YASAS 12:26 → Y6N 14:56
PROVIDERS: ADMIT Neuromusculoskeletal Medicine & OMM; ATTEND Neuromusculoskeletal Medicine & OMM
PROC: HZ2ZZZZ Detoxification Services for Substance Abuse Treatment (ICD-10-PCS; principal; 2018-07-07)
DX: F10.230 Alcohol dependence with withdrawal, uncomplicated (principal); F13.230 Sedative, hypnotic or anxiolytic dependence with withdrawal, uncomplicated; F14.20 Cocaine dependence, uncomplicated; F12.10 Cannabis abuse, uncomplicated; F11.20 Opioid dependence, uncomplicated; F17.213 Nicotine dependence, cigarettes, with withdrawal; F19.24 Other psychoactive substance dependence with psychoactive substance-induced mood disorder; F19.282 Other psychoactive substance dependence with psychoactive substance-induced sleep disorder; F43.10 Post-traumatic stress disorder, unspecified; I10 Essential (primary) hypertension; G62.9 Polyneuropathy, unspecified; L97.119 Non-pressure chronic ulcer of right thigh with unspecified severity; M25.473 Effusion, unspecified ankle; Z86.69 Personal history of other diseases of the nervous system and sense organs; Z85.828 Personal history of other malignant neoplasm of skin; E66.9 Obesity, unspecified; Z68.34 Body mass index [BMI] 34.0-34.9, adult
CPT/HCPCS: 36415; 80053; 85027; 86593

== ENCOUNTER 2018-07-11 18:45 | Inpatient (IN) | payer OTHER ==
--- NOTE | 2018-07-11 14:01 | HP ---
[facility] Re[facility] Assess/Revision - Admission History Admitted to Rehab from: [facility] Date of Admission to Rehab: 07/11/2018 - Vital signs Vital Signs: NOTED; STABLE. - Findings Detox History & Physical reviewed: Yes Concur with findings: Yes Comments/Additional Findings: PATIENT'S MEDICAL / MEDICATION HISTORY REVIEWED PRIOR TO DISCHARGE FROM DETOX UNIT. 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 SURGERY WAS APPROX. 3 MONTHS AGO AND PATIENT WAS SUPPOSED TO FOLLOW-UP WITH SURGEON (DR. GOODMAN, [place], [place]) 1 MONTH AFTER SURGERY; HOWEVER PATIENT REPORTS THAT HE DID NOT DO SO. PATIENT REPORTS MILD INTERMITTENT "SORENESS" AT SITE. ERYTHEMA AND SWELLING NOTED IN LEFT ARMPIT AREA ( TODAY IS AUTOMATIC SPLICING MACHINE OPERATOR'S FIRST ENCOUNTER WITH PATIENT, NO BASELINE VIEW AVAILABLE FOR COMPARISON). PATIENT ADVISED TO CONSIDER FOLLOW-UP WITH DR. GOODMAN FOR FURTHER EVALUATION PRIOR TO GOING TO REHAB. HOWEVER, PATIENT IS ELECTING TO GO TO REHAB FIRST. PATIENT ADVISED TO FOLLOW-UP WITH [facility] SOON POSSIBLE AFTER DISCHARGE FROM REHAB FOR FURTHER EVALUATION OF HISTORY OF REMOVAL OF OSTEOSARCOMA. PATIENT ALSO ADVISED TO NOTIFY NURSING / MEDICAL STAFF IMMEDIATELY SHOULD DISCOMFORT AT SITE BECOME MORE SEVERE AT ANY TIME. PATIENT VERBALIZED UNDERSTANDING OF RECOMMENDATIONS. PATIENT CURRENTLY PRESCRIBED PO KELFLEX FOR WOUND ON HIP, WILL CONTINUE AT INCREASED FREQUENCY WHILE PATIENT ADMITTED FOR REHAB. TOPICAL WOUND CARE OF TWO WOUNDS ON RIGHT HIP TO BE CONTINUED WHILE PATIENT ADMITTED FOR REHAB WITH RE-EVALUATION BY MEDICAL PRIOVIDER TO BE DONE IN FIVE DAYS. Inpatient Rehab Admission - Initial Determination Are CD services needed?: Yes Free of communicable disease: Yes Not in need of hospitalization: Yes - Rehab Admission Criteria Previous failed treatment: Yes Comorbidities: Yes Patient is meeting Inpatient Rehab admission criteria:: Yes
[~2018-07-11 18:45] MED LIST: LOPERAMIDE HCL 2 MG CAPSULE PO PRN; MAG HYDROX/AL HYDROX/SIMETH 30 ML UNIT-DOSE CUP PO PRN; MAGNESIUM CITRATE 300 ML BOTTLE PO PRN; MAGNESIUM HYDROX 2400MG/30ML ORAL SUSPENSION 30 ML CUP PO PRN; MENTHOL/PHENOL 1 EACH UD MM PRN; NICOTINE POLACRILEX 4 MG GUM BUC PRN; P-EPHED 60MG/TRIPROLIDI 2.5MG TABLET PO PRN; guaiFENesin/D-METHORPHAN HB 10 ML UNIT-DOSE CUPS PO PRN
--- NOTE | 2018-07-11 20:52 | PN ---
TRICE Progress Note Note: psychiatrist client resolution specialist notes: As per nursing report patient transferred from , restarted on preadmission medications: Seroquel 100mg po qhs Remeron 30mg po qhs
[2018-07-11] MEDS: MUPIROCIN 2% TOPICAL OINTMENT 22 GM TUBE TP SCH (21:54)
[2018-07-11] MEDS: THIAMINE HCL 100 MG TABLET (FP) PO SCH (21:55)
[2018-07-11] MEDS: CEPHALEXIN MONOHYDRATE 500 MG CAPSULE (UD) PO SCH (21:56)
[2018-07-11] MEDS: MIRTAZAPINE 30 MG TABLET (FP) PO SCH (21:56)
[2018-07-11] MEDS: QUEtiapine FUMARATE 100 MG TABLET (FP) PO SCH (21:56)
[2018-07-12] MEDS ORDERED: METHADONE HCL 40 MG DISPERSABLE TABLET ONE (05:02)
[2018-07-12] MEDS ORDERED: METHADONE HCL 10 MG TABLET ONE (05:02)
[2018-07-12] MEDS ORDERED: METHADONE HCL 40 MG DISPERSABLE TABLET PO SCH (06:00)
[2018-07-12] MEDS: CEPHALEXIN MONOHYDRATE 500 MG CAPSULE (UD) PO SCH ×3 (06:00→21:06)
[2018-07-12] MEDS: METHADONE 40 MG, METHADONE 30 MG PO SCH (06:00)
[2018-07-12] MEDS: PRENATAL VITAMINS W/ FOLIC ACID TABLET (FP) PO SCH (10:04)
[2018-07-12] MEDS: NICOTINE 21 MG/24 HOURS TOPICAL PATCH TD SCH (10:04)
[2018-07-12] MEDS: amLODIPine BESYLATE 10 MG TABLET (FP) PO SCH (10:04)
[2018-07-12] MEDS: MUPIROCIN 2% TOPICAL OINTMENT 22 GM TUBE TP SCH ×2 (10:05→22:15)
--- NOTE | 2018-07-12 13:54 | CONSULT ---
[facility] Psychiatric Consult - Data Date of interview: 07/12/18 Admission source: 6N Identifying data: Mr Sidhu is a 52 years old male, father of a 33 years old daughter, unemployed on SSI, homeless seeking rehab treatment for alcohol, benzodiazepine and cannabis Substance Abuse History: Reports history od alcohol, xanax and marijuana use. 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 Patient is on methadone 70 mg/day. Smokes cigarettes 1 ppd Psychiatric History: Reports that his first psychiatric contact was more than 5 years ago when he was admitted to [facility] and diagnosed with Bipolar disorder. Reports multiple subsequent admissions to [facility] and most recently to [facility] 4-5 months ago. He was discharged on Seroquel 100 mg po HS and Remeron 30 mg po HS. He was seen by Dr Bradley on 07/07/18 while in detox and he was prescribed Seroquel 100 mg po HS and Remeron 30 mg po HS. Denies previous suicidal attempt. At present, reports feeling irritable and sleeping poorly Physical/Sexual Abuse/Trauma History: Denies history of emotional, physical or sexual abuse as well as DV relationship. No service Mental Status Exam - Mental Status Exam Alert and Oriented to: Time, Place, Person Cognitive Function: Fair Patient Appearance: Well Groomed Mood: Irritable Affect: Appropriate Patient Behavior: Cooperative Speech Pattern: Clear Voice Loudness: Normal Thought Process: Intact, Goal Oriented Hallucinations: Denies Suicidal Ideation: Denies Homicidal Ideation: Denies Insight/Judgement: Fair Sleep: Poorly Appetite: Good Muscle strength/Tone: Normal Gait/Station: Normal Psychiatric Findings - Problem List ([place] 1, 2,3) (1) Alcohol dependence Current Visit: Yes Status: Acute (2) Sedative hypnotic or anxiolytic dependence Current Visit: Yes Status: Acute (3) Cannabis dependence Current Visit: Yes Status: Acute (4) Opioid dependence on agonist therapy Current Visit: Yes Status: Chronic (5) Nicotine dependence Current Visit: No Status: Chronic Qualifiers: Nicotine product type: cigarettes Substance use status: in withdrawal Qualified Code(s): F17.213 - Nicotine dependence, cigarettes, with withdrawal (6) Substance induced mood disorder Current Visit: No Status: Acute (7) Substance-induced sleep disorder Current Visit: No Status: Acute (8) HTN (hypertension) Current Visit: No Status: Chronic Qualifiers: Hypertension type: essential hypertension Qualified Code(s): I10 - Essential (primary) hypertension (9) Neuropathy Current Visit: No Status: Chronic (10) Obese Current Visit: No Status: Chronic Qualifiers: Obesity type: unspecified obesity type Obesity classification: adult class 2 (BMI 35 - 39.9) Serious obesity comorbidity presence: without serious comorbidity Body mass index: BMI 36.0-36.9 Qualified Code(s): E66.9 - Obesity, unspecified; Z68.36 - Body mass index (BMI) 36.0-36.9, adult (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 2) Continue inpatient rehabilitation
[2018-07-12] MEDS: ACETAMINOPHEN 325 MG TABLET (FP) PO PRN (21:06)
[2018-07-12] MEDS: QUEtiapine FUMARATE 100 MG TABLET (FP) PO SCH (21:06)
[2018-07-12] MEDS: MIRTAZAPINE 30 MG TABLET (FP) PO SCH (21:06)
[2018-07-12] MEDS: THIAMINE HCL 100 MG TABLET (FP) PO SCH (21:06)
[2018-07-12] MEDS: MELATONIN 5 MG TABLETS PO PRN (21:07)
[2018-07-13] MEDS ORDERED: METHADONE HCL 10 MG TABLET ONE (04:09)
[2018-07-13] MEDS ORDERED: METHADONE HCL 40 MG DISPERSABLE TABLET ONE (04:10)
[2018-07-13] MEDS: CEPHALEXIN MONOHYDRATE 500 MG CAPSULE (UD) PO SCH ×3 (05:56→21:09)
[2018-07-13] MEDS: METHADONE 40 MG, METHADONE 30 MG PO SCH (05:56)
[2018-07-13] MEDS: amLODIPine BESYLATE 10 MG TABLET (FP) PO SCH (10:02)
[2018-07-13] MEDS: NICOTINE 21 MG/24 HOURS TOPICAL PATCH TD SCH (10:02)
[2018-07-13] MEDS: PRENATAL VITAMINS W/ FOLIC ACID TABLET (FP) PO SCH (10:02)
[2018-07-13] MEDS: MUPIROCIN 2% TOPICAL OINTMENT 22 GM TUBE TP SCH ×2 (10:02→21:09)
[2018-07-13] MEDS: ACETAMINOPHEN 325 MG TABLET (FP) PO PRN (10:03)
[2018-07-13] MEDS: QUEtiapine FUMARATE 100 MG TABLET (FP) PO SCH (21:09)
[2018-07-13] MEDS: THIAMINE HCL 100 MG TABLET (FP) PO SCH (21:09)
[2018-07-13] MEDS: MIRTAZAPINE 30 MG TABLET (FP) PO SCH (21:09)
[2018-07-14] MEDS ORDERED: METHADONE HCL 10 MG TABLET ONE (02:49)
[2018-07-14] MEDS ORDERED: METHADONE HCL 40 MG DISPERSABLE TABLET ONE (02:49)
[2018-07-14] MEDS: CEPHALEXIN MONOHYDRATE 500 MG CAPSULE (UD) PO SCH ×3 (06:21→21:29)
[2018-07-14] MEDS: METHADONE 40 MG, METHADONE 30 MG PO SCH (06:22)
[2018-07-14] MEDS: PRENATAL VITAMINS W/ FOLIC ACID TABLET (FP) PO SCH (10:13)
[2018-07-14] MEDS: amLODIPine BESYLATE 10 MG TABLET (FP) PO SCH (10:13)
[2018-07-14] MEDS: NICOTINE 21 MG/24 HOURS TOPICAL PATCH TD SCH (10:13)
[2018-07-14] MEDS: ACETAMINOPHEN 325 MG TABLET (FP) PO PRN (10:13)
[2018-07-14] MEDS: MUPIROCIN 2% TOPICAL OINTMENT 22 GM TUBE TP SCH ×2 (10:13→21:30)
[2018-07-14] MEDS: MIRTAZAPINE 30 MG TABLET (FP) PO SCH (21:29)
[2018-07-14] MEDS: QUEtiapine FUMARATE 100 MG TABLET (FP) PO SCH (21:29)
[2018-07-14] MEDS: THIAMINE HCL 100 MG TABLET (FP) PO SCH (21:29)
[2018-07-15] MEDS ORDERED: METHADONE HCL 10 MG TABLET ONE (04:12)
[2018-07-15] MEDS ORDERED: METHADONE HCL 40 MG DISPERSABLE TABLET ONE (04:13)
[2018-07-15] MEDS: METHADONE 40 MG, METHADONE 30 MG PO SCH (06:22)
[2018-07-15] MEDS: CEPHALEXIN MONOHYDRATE 500 MG CAPSULE (UD) PO SCH ×3 (06:22→21:10)
[2018-07-15] MEDS: MUPIROCIN 2% TOPICAL OINTMENT 22 GM TUBE TP SCH ×2 (10:06→21:10)
[2018-07-15] MEDS: amLODIPine BESYLATE 10 MG TABLET (FP) PO SCH (10:06)
[2018-07-15] MEDS: PRENATAL VITAMINS W/ FOLIC ACID TABLET (FP) PO SCH (10:06)
[2018-07-15] MEDS: NICOTINE 21 MG/24 HOURS TOPICAL PATCH TD SCH (10:06)
[2018-07-15] MEDS: ACETAMINOPHEN 325 MG TABLET (FP) PO PRN (10:07)
[2018-07-15] MEDS: MIRTAZAPINE 30 MG TABLET (FP) PO SCH (21:10)
[2018-07-15] MEDS: QUEtiapine FUMARATE 100 MG TABLET (FP) PO SCH (21:10)
[2018-07-15] MEDS: THIAMINE HCL 100 MG TABLET (FP) PO SCH (21:10)
[2018-07-16] MEDS ORDERED: METHADONE HCL 10 MG TABLET ONE (04:07)
[2018-07-16] MEDS ORDERED: METHADONE HCL 40 MG DISPERSABLE TABLET ONE (04:07)
[2018-07-16] MEDS: CEPHALEXIN MONOHYDRATE 500 MG CAPSULE (UD) PO SCH ×3 (06:00→21:20)
[2018-07-16] MEDS: METHADONE 40 MG, METHADONE 30 MG PO SCH (06:00)
[2018-07-16] MEDS: NICOTINE 21 MG/24 HOURS TOPICAL PATCH TD SCH (10:09)
[2018-07-16] MEDS: amLODIPine BESYLATE 10 MG TABLET (FP) PO SCH (10:09)
[2018-07-16] MEDS: MUPIROCIN 2% TOPICAL OINTMENT 22 GM TUBE TP SCH ×2 (10:09→21:19)
[2018-07-16] MEDS: PRENATAL VITAMINS W/ FOLIC ACID TABLET (FP) PO SCH (10:09)
[2018-07-16] MEDS: ACETAMINOPHEN 325 MG TABLET (FP) PO PRN ×2 (10:10→21:19)
[2018-07-16] MEDS: THIAMINE HCL 100 MG TABLET (FP) PO SCH (21:19)
[2018-07-16] MEDS: QUEtiapine FUMARATE 100 MG TABLET (FP) PO SCH (21:20)
[2018-07-16] MEDS: MIRTAZAPINE 30 MG TABLET (FP) PO SCH (21:20)
[2018-07-17] MEDS ORDERED: METHADONE HCL 40 MG DISPERSABLE TABLET ONE (03:50)
[2018-07-17] MEDS ORDERED: METHADONE HCL 10 MG TABLET ONE (03:50)
[2018-07-17] MEDS: CEPHALEXIN MONOHYDRATE 500 MG CAPSULE (UD) PO SCH ×3 (05:47→21:18)
[2018-07-17] MEDS: METHADONE 40 MG, METHADONE 30 MG PO SCH (05:47)
[2018-07-17] MEDS: amLODIPine BESYLATE 10 MG TABLET (FP) PO SCH (09:35)
[2018-07-17] MEDS: NICOTINE 21 MG/24 HOURS TOPICAL PATCH TD SCH (09:35)
[2018-07-17] MEDS: PRENATAL VITAMINS W/ FOLIC ACID TABLET (FP) PO SCH (09:35)
[2018-07-17] MEDS: MUPIROCIN 2% TOPICAL OINTMENT 22 GM TUBE TP SCH ×2 (09:36→21:17)
[2018-07-17] MEDS: THIAMINE HCL 100 MG TABLET (FP) PO SCH (21:17)
[2018-07-17] MEDS: ACETAMINOPHEN 325 MG TABLET (FP) PO PRN (21:17)
[2018-07-17] MEDS: QUEtiapine FUMARATE 100 MG TABLET (FP) PO SCH (21:18)
[2018-07-17] MEDS: MIRTAZAPINE 30 MG TABLET (FP) PO SCH (21:18)
[2018-07-18] MEDS ORDERED: METHADONE HCL 40 MG DISPERSABLE TABLET ONE (06:03)
[2018-07-18] MEDS ORDERED: METHADONE HCL 10 MG TABLET ONE (06:03)
[2018-07-18] MEDS: METHADONE 40 MG, METHADONE 30 MG PO SCH (06:16)
[2018-07-18] MEDS: CEPHALEXIN MONOHYDRATE 500 MG CAPSULE (UD) PO SCH ×2 (06:16→14:31)
[2018-07-18] MEDS: IBUPROFEN 400 MG TABLET (FP) PO PRN (09:47)
[2018-07-18] MEDS: PRENATAL VITAMINS W/ FOLIC ACID TABLET (FP) PO SCH (09:47)
[2018-07-18] MEDS: amLODIPine BESYLATE 10 MG TABLET (FP) PO SCH (09:47)
[2018-07-18] MEDS: NICOTINE 21 MG/24 HOURS TOPICAL PATCH TD SCH (09:47)
[2018-07-18] MEDS: MUPIROCIN 2% TOPICAL OINTMENT 22 GM TUBE TP SCH ×2 (09:48→21:27)
[2018-07-18] MEDS: ACETAMINOPHEN 325 MG TABLET (FP) PO PRN (20:37)
[2018-07-18] MEDS: MIRTAZAPINE 30 MG TABLET (FP) PO SCH (21:26)
[2018-07-18] MEDS: QUEtiapine FUMARATE 100 MG TABLET (FP) PO SCH (21:26)
[2018-07-18] MEDS: THIAMINE HCL 100 MG TABLET (FP) PO SCH (21:28)
[2018-07-19] MEDS ORDERED: METHADONE HCL 10 MG TABLET ONE (03:14)
[2018-07-19] MEDS ORDERED: METHADONE HCL 40 MG DISPERSABLE TABLET ONE (03:14)
[2018-07-19] MEDS: METHADONE 40 MG, METHADONE 30 MG PO SCH (06:15)
[2018-07-19] MEDS: PRENATAL VITAMINS W/ FOLIC ACID TABLET (FP) PO SCH (10:02)
[2018-07-19] MEDS: IBUPROFEN 400 MG TABLET (FP) PO PRN ×2 (10:02→21:13)
[2018-07-19] MEDS: amLODIPine BESYLATE 10 MG TABLET (FP) PO SCH (10:02)
[2018-07-19] MEDS: MUPIROCIN 2% TOPICAL OINTMENT 22 GM TUBE TP SCH ×2 (10:02→21:13)
[2018-07-19] MEDS: NICOTINE 21 MG/24 HOURS TOPICAL PATCH TD SCH (10:02)
[2018-07-19] MEDS: MIRTAZAPINE 30 MG TABLET (FP) PO SCH (21:12)
[2018-07-19] MEDS: QUEtiapine FUMARATE 100 MG TABLET (FP) PO SCH (21:12)
[2018-07-19] MEDS: THIAMINE HCL 100 MG TABLET (FP) PO SCH (21:12)
[2018-07-20] MEDS ORDERED: METHADONE HCL 10 MG TABLET ONE (04:15)
[2018-07-20] MEDS ORDERED: METHADONE HCL 40 MG DISPERSABLE TABLET ONE (04:15)
[2018-07-20] MEDS: METHADONE 40 MG, METHADONE 30 MG PO SCH (06:15)
[2018-07-20] MEDS: MUPIROCIN 2% TOPICAL OINTMENT 22 GM TUBE TP SCH ×2 (09:57→21:36)
[2018-07-20] MEDS: amLODIPine BESYLATE 10 MG TABLET (FP) PO SCH (09:57)
[2018-07-20] MEDS: PRENATAL VITAMINS W/ FOLIC ACID TABLET (FP) PO SCH (09:57)
[2018-07-20] MEDS: IBUPROFEN 400 MG TABLET (FP) PO PRN ×2 (09:58→21:35)
[2018-07-20] MEDS: NICOTINE 21 MG/24 HOURS TOPICAL PATCH TD SCH (10:00)
[2018-07-20] MEDS: QUEtiapine FUMARATE 100 MG TABLET (FP) PO SCH (21:35)
[2018-07-20] MEDS: THIAMINE HCL 100 MG TABLET (FP) PO SCH (21:35)
[2018-07-20] MEDS: MIRTAZAPINE 30 MG TABLET (FP) PO SCH (21:35)
[2018-07-21] MEDS ORDERED: METHADONE HCL 10 MG TABLET ONE (04:06)
[2018-07-21] MEDS ORDERED: METHADONE HCL 40 MG DISPERSABLE TABLET ONE (04:06)
[2018-07-21] MEDS: METHADONE 40 MG, METHADONE 30 MG PO SCH (06:09)
[2018-07-21] MEDS: NICOTINE 21 MG/24 HOURS TOPICAL PATCH TD SCH (09:59)
[2018-07-21] MEDS: PRENATAL VITAMINS W/ FOLIC ACID TABLET (FP) PO SCH (09:59)
[2018-07-21] MEDS: amLODIPine BESYLATE 10 MG TABLET (FP) PO SCH (09:59)
[2018-07-21] MEDS: MUPIROCIN 2% TOPICAL OINTMENT 22 GM TUBE TP SCH ×2 (09:59→21:28)
[2018-07-21] MEDS: IBUPROFEN 400 MG TABLET (FP) PO PRN ×2 (10:00→21:29)
[2018-07-21] MEDS: MIRTAZAPINE 30 MG TABLET (FP) PO SCH (21:28)
[2018-07-21] MEDS: THIAMINE HCL 100 MG TABLET (FP) PO SCH (21:28)
[2018-07-21] MEDS: QUEtiapine FUMARATE 100 MG TABLET (FP) PO SCH (21:28)
[2018-07-22] MEDS ORDERED: METHADONE HCL 40 MG DISPERSABLE TABLET ONE (04:03)
[2018-07-22] MEDS ORDERED: METHADONE HCL 10 MG TABLET ONE (04:03)
[2018-07-22] MEDS: METHADONE 40 MG, METHADONE 30 MG PO SCH (06:05)
[2018-07-22] MEDS: IBUPROFEN 400 MG TABLET (FP) PO PRN ×2 (09:58→21:19)
[2018-07-22] MEDS: PRENATAL VITAMINS W/ FOLIC ACID TABLET (FP) PO SCH (09:59)
[2018-07-22] MEDS: amLODIPine BESYLATE 10 MG TABLET (FP) PO SCH (09:59)
[2018-07-22] MEDS: NICOTINE 21 MG/24 HOURS TOPICAL PATCH TD SCH (09:59)
[2018-07-22] MEDS: MUPIROCIN 2% TOPICAL OINTMENT 22 GM TUBE TP SCH ×2 (10:00→21:19)
[2018-07-22] MEDS: QUEtiapine FUMARATE 100 MG TABLET (FP) PO SCH (21:18)
[2018-07-22] MEDS: MIRTAZAPINE 30 MG TABLET (FP) PO SCH (21:18)
[2018-07-22] MEDS: THIAMINE HCL 100 MG TABLET (FP) PO SCH (21:18)
[2018-07-23] MEDS ORDERED: METHADONE HCL 40 MG DISPERSABLE TABLET ONE (03:22)
[2018-07-23] MEDS ORDERED: METHADONE HCL 10 MG TABLET ONE (03:22)
[2018-07-23] MEDS: METHADONE 40 MG, METHADONE 30 MG PO SCH (06:36)
[2018-07-23] MEDS: NICOTINE 21 MG/24 HOURS TOPICAL PATCH TD SCH (09:40)
[2018-07-23] MEDS: PRENATAL VITAMINS W/ FOLIC ACID TABLET (FP) PO SCH (09:40)
[2018-07-23] MEDS: IBUPROFEN 400 MG TABLET (FP) PO PRN ×2 (09:40→21:43)
[2018-07-23] MEDS: amLODIPine BESYLATE 10 MG TABLET (FP) PO SCH (09:40)
[2018-07-23] MEDS: MUPIROCIN 2% TOPICAL OINTMENT 22 GM TUBE TP SCH ×2 (09:41→21:42)
[2018-07-23] MEDS ORDERED: PT OWN MED DRAWER 7, Y5N ONE (19:34)
[2018-07-23] MEDS: THIAMINE HCL 100 MG TABLET (FP) PO SCH (21:42)
[2018-07-23] MEDS: QUEtiapine FUMARATE 100 MG TABLET (FP) PO SCH (21:42)
[2018-07-23] MEDS: MIRTAZAPINE 30 MG TABLET (FP) PO SCH (21:42)
[2018-07-24] MEDS ORDERED: METHADONE HCL 10 MG TABLET ONE (02:49)
[2018-07-24] MEDS ORDERED: METHADONE HCL 40 MG DISPERSABLE TABLET ONE (02:50)
[2018-07-24] MEDS: METHADONE 40 MG, METHADONE 30 MG PO SCH (06:16)
[2018-07-24] MEDS: amLODIPine BESYLATE 10 MG TABLET (FP) PO SCH (09:19)
[2018-07-24] MEDS: IBUPROFEN 400 MG TABLET (FP) PO PRN ×2 (09:19→21:10)
[2018-07-24] MEDS: PRENATAL VITAMINS W/ FOLIC ACID TABLET (FP) PO SCH (09:19)
[2018-07-24] MEDS: NICOTINE 21 MG/24 HOURS TOPICAL PATCH TD SCH (09:19)
[2018-07-24] MEDS: MUPIROCIN 2% TOPICAL OINTMENT 22 GM TUBE TP SCH ×2 (09:19→22:31)
[2018-07-24] MEDS: MIRTAZAPINE 30 MG TABLET (FP) PO SCH (21:09)
[2018-07-24] MEDS: THIAMINE HCL 100 MG TABLET (FP) PO SCH (21:09)
[2018-07-24] MEDS: QUEtiapine FUMARATE 100 MG TABLET (FP) PO SCH (21:09)
[2018-07-25] MEDS ORDERED: METHADONE HCL 40 MG DISPERSABLE TABLET ONE (04:05)
[2018-07-25] MEDS ORDERED: METHADONE HCL 10 MG TABLET ONE (04:05)
[2018-07-25] MEDS: METHADONE 40 MG, METHADONE 30 MG PO SCH (06:24)
[2018-07-25] MEDS: NICOTINE 21 MG/24 HOURS TOPICAL PATCH TD SCH (09:40)
[2018-07-25] MEDS: amLODIPine BESYLATE 10 MG TABLET (FP) PO SCH (09:40)
[2018-07-25] MEDS: PRENATAL VITAMINS W/ FOLIC ACID TABLET (FP) PO SCH (09:40)
[2018-07-25] MEDS: IBUPROFEN 400 MG TABLET (FP) PO PRN ×2 (09:41→21:21)
[2018-07-25] MEDS: MUPIROCIN 2% TOPICAL OINTMENT 22 GM TUBE TP SCH ×2 (10:07→22:01)
[2018-07-25 15:40] VITALS: PULSE 68
--- NOTE | 2018-07-25 16:21 | PN ---
[facility] Progress Note Note: PATIENT SCHEDULED FOR DISCHARGE TOMORROW MORNING. PATIENT STATES HE COMPLETED ALL REHAB GOAL AND IS TO FOLLOW UP WITH [facility] UPON DISCHARGE. PATIENT IS CLINICALLY STABLE AT THIS TIME. DENIES SI/HI. RIGHT HIP AREA WITH HEALING LAW. NO REDNESS OR DISCHARGE PRESENT TO AREA. PATIENT ENCOURAGED TO ATTEND GROUP MEETINGS TO PREVENT RELAPSE AND TO FOLLOW UP WITH PCP WITHIN ONE WEEK OF D/C. MEDICAL MEDICATION SENT TO PREFERRED PHARMACY. Vital Signs Temperature 97.8 F 07/25/18 06:52 Pulse Rate 68 07/25/18 10:00 Respiratory Rate 07/25/18 10:00 Blood Pressure 108/69 07/25/18 10:00 O2 Sat by Pulse Oximetry (%)
[2018-07-25] MEDS: QUEtiapine FUMARATE 100 MG TABLET (FP) PO SCH (21:20)
[2018-07-25] MEDS: MIRTAZAPINE 30 MG TABLET (FP) PO SCH (21:20)
[2018-07-25] MEDS: THIAMINE HCL 100 MG TABLET (FP) PO SCH (21:20)
[2018-07-25] MEDS: MELATONIN 5 MG TABLETS PO PRN (21:20)
[2018-07-26] MEDS ORDERED: METHADONE HCL 40 MG DISPERSABLE TABLET ONE (04:05)
[2018-07-26] MEDS ORDERED: METHADONE HCL 10 MG TABLET ONE (04:05)
[2018-07-26] MEDS: METHADONE 40 MG, METHADONE 30 MG PO SCH (06:02)
[2018-07-26 06:48] VITALS: BP 133/81; TEMP 97.7
== END 2018-07-26 08:30 | disposition home or self-care (01) | DRG 772 ==
LOC: YASAS 18:45 → Y3W 18:46
PROVIDERS: ADMIT Psychiatry & Neurology Psychiatry; ATTEND Psychiatry & Neurology Psychiatry
PROC: HZ42ZZZ Group Counseling for Substance Abuse Treatment, Cognitive-Behavioral (ICD-10-PCS; principal; 2018-07-11)
DX: F10.20 Alcohol dependence, uncomplicated (principal); F11.20 Opioid dependence, uncomplicated; F13.20 Sedative, hypnotic or anxiolytic dependence, uncomplicated; F12.20 Cannabis dependence, uncomplicated; F17.213 Nicotine dependence, cigarettes, with withdrawal; F19.24 Other psychoactive substance dependence with psychoactive substance-induced mood disorder; F19.282 Other psychoactive substance dependence with psychoactive substance-induced sleep disorder; I10 Essential (primary) hypertension; G62.9 Polyneuropathy, unspecified; E66.9 Obesity, unspecified; Z68.34 Body mass index [BMI] 34.0-34.9, adult

== ENCOUNTER 2018-09-26 15:47 | Inpatient (IN) | payer OTHER ==
[2018-09-26 17:12] VITALS: BMI 36.5
--- NOTE | 2018-09-26 18:12 | HP ---
CIWA Score Nausea/Vomitin-No Nausea/No Vomiting Muscle Tremors: 6 Anxiety: 1-Mildly Anxious Agitation: 4-Moderately Restless Paroxysmal Sweats: 3 (Increased facial moisture) Orientation: 0-Oriented Tacttile Disturbances: 0-None Auditory Disturbances: 0-None Visual Disturbances: 0-None Headache: 0-None Present CIWA-Ar Total Score: 14 - Admission Criteria OASAS Guidelines: Admission for Medically Managed Detox: Requires at least one of the followin. CIWA greater than 12 2. Seizures within the past 24 hours 3. Delirium tremens within the past 24 hours 4. Hallucinations within the past 24 hours 5. Acute intervention needed for co occurring medical disorder 6. Acute intervention needed for co occurring psychiatric disorder 7. Severe withdrawal that cannot be handled at a lower level of care (continued vomiting, continued diarrhea, abnormal vital signs) requiring intravenous medication and/or fluids 8. Patient presents the following: CIWA greater than 12 Admission Criteria Met: Admission criteria met Admission ROS [facility] Chief Complaint: Having withdrawal from alcohol and opiates. I have the 'hebe jeebies". Allergies/Adverse Reactions: Allergies Allergy/AdvReac Type Severity Reaction Status Date / Time shellfish derived Allergy Severe Hives Verified 09/26/18 17:05 No Known Drug Allergies Allergy Verified 09/26/18 17:05 NKDA Allergy Uncoded 09/26/18 17:05 History of Present Illness: Here for detox for from alcohol and benzo. Also relapse with heroin. Heroin use began at age 34. States started using after unable to get prescribed pain medications. Currently on [facility] Methadone Maintenance Program. States current Methadone dose is 80 mg and last medicated this a.m. No Narcan kit at home. Willing to have Narcan Kit upon discharge. Benzo use began at age 31. Alcohol use began at age 13. Marijuana use began at age 13. Cocaine use began at age 16. Nicotine use began at age 13. Longest length of sobriety [id number]. Hx; 9 overdoses in 2018; seizure 2 years ago. PMHx: Skin cancer 2013 left arm; Hypertension; MHHx:Depression, insomnia, PTSD. Does not have a MH Provider. Denies thoughts of harming self or others. Patient Name: Rios Sidhu Date: 1965 Address: [address] [place] [address] Sex: Male Rx Written Rx Dispensed Drug Quantity Days Supply Prescriber Name 07/30/2018 08/01/2018 clonazepam 0.5 mg tablet 6 3 Sidney Mtz 06/16/2018 06/16/2018 clonazepam 1 mg tablet 14 14 Kerri Granado MD 06/13/2018 06/15/2018 lyrica 100 mg capsule 60 30 Kerri Granado MD 03/15/2018 04/07/2018 lyrica 100 mg capsule 14 7 Charlene Beasley NP 03/09/2018 03/11/2018 lyrica 100 mg capsule 60 30 Manny Child DO Patient Name: Rios Sidhu Date: 1965 Address: [address] [place] [address] Sex: Male Rx Written Rx Dispensed Drug Quantity Days Supply Prescriber Name 10/08/2017 10/08/2017 clonazepam 1 mg tablet 28 14 Steve Uriarte Exam Limitations: No Limitations - Ebola screening Have you traveled outside of the country in the last 21 days: No Have you had contact with anyone from an Ebola affected area: No Have you been sick,other than usual withdrawal symptoms: No Do you have a fever: No - Review of Systems Constitutional: Diaphoresis, Changes in sleep (Difficulty falling asleep. On meds.) EENT: reports: Nose Congestion, Dental Problems (Missing teeth. Can chew and swallow ok.) Respiratory: reports: Wheezing (r/t cigarette smoking. Okay now.) Cardiac: reports: No Symptoms Reported GI: reports: Constipated (r/t opioid use), Abdominal cramping : reports: No Symptoms Reported Musculoskeletal: reports: Muscle Pain ((L) arm area and both thighs - burning pain) Integumentary: reports: Other (Scaring of multiple areas (L) arm r/t skin surgery) Neuro: reports: Numbness ((L) arm and hand) Endocrine: reports: Increased Thirst Hematology: reports: No Symptoms Reported Psychiatric: reports: Judgement Intact, Orientated x3, Agitated, Anxious, Depressed (Denies thoughts of harming self or others.) Patient History - Patient Medical History Hx Anemia: Yes Hx Asthma: No Hx Chronic Obstructive Pulmonary Disease (COPD): No Hx Cancer: Yes (Sarcoma diagnosed 4 years ago ) Hx Cardiac Disorders: No Hx Congestive Heart Failure: No Hx Hypertension: No Hx Hypercholesterolemia: No Hx Pacemaker: No HX Cerebrovascular Accident: No Hx Seizures: Yes Hx Dementia: No Hx Diabetes: No Hx Gastrointestinal Disorders: No Hx Liver Disease: No Hx Genitourinary Disorders: No Hx Sexually Transmitted Disorders: No Hx Renal Disease (ESRD): No Hx Thyroid Disease: No Hx Human Immunodeficiency Virus (HIV): No (last 2015 negative, declines testing ) Hx Hepatitis C: No Hx Depression: Yes Hx Suicide Attempt: No Hx Bipolar Disorder: Yes Hx Schizophrenia: No - Patient Surgical History Past Surgical History: Yes Hx Neurologic Surgery: No Hx Cataract Extraction: No Hx Cardiac Surgery: No Hx Lung Surgery: No Hx Breast Surgery: No Hx Breast Biopsy: No Hx Abdominal Surgery: No Hx Appendectomy: No Hx Cholecystectomy: No Hx Genitourinary Surgery: No Hx Section: No Hx Orthopedic Surgery: No Other Surgical History: 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 History Hx Alcohol Use: Yes Hx Substance Use: Yes Substance Use Type: Alcohol, Cocaine, Heroin, Marijuana Hx Substance Use Treatment: Yes (detoxes, rehabs;Currently on a MMTP) - Substances abused Alcohol Substance route: Oral Frequency: Daily Amount used: 2 PINTS WHISKY Age of first use: 13 Date of last use: 09/25/18 Alprazolam (Xanax) Substance route: Oral Frequency: Daily Amount used: 2 STICKS Age of first use: 31 Date of last use: 09/26/18 Cocaine Substance route: Smoking Frequency: Daily Amount used: $300 Age of first use: 16 Date of last use: 10/01/18 Heroin Other (specify): SNIFF Frequency: Daily Amount used: 6 BAGS Age of first use: 34 Date of last use: 09/25/18 Family Disease History - Family Disease History Family Disease History: Other: Father (, parkinsonism), Mother ( Schizophrenia - no contact), Sister (one - living - healthy), Daughter (one age 32 - healthy) Admission Physical Exam [facility] - Vital Signs Vital Signs: Vital Signs - 24 hr 09/26/18 17:01 Temperature 99.7 F H Pulse Rate 79 Respiratory 18 Rate Blood Pressure 110/68 - Physical General Appearance: Yes: Nourished, Mild Distress, Tremorous, Sweating, Anxious HEENTM: Yes: EOMI, Hearing grossly Normal, Normocephalic, Normal Voice, CHRYSTAL, Nasal Congestion Respiratory: Yes: Lungs Clear, Normal Breath Sounds, No Respiratory Distress Neck: Yes: No masses,lesions,Nodules, Supple Breast: Yes: Breast Exam Deferred Cardiology: Yes: Regular Rhythm, Regular Rate, S1, S2 Abdominal: Yes: Non Tender, Soft, Protuberent (Increased abdominal adiposity) Genitourinary: Yes: Within Normal Limits Back: Yes: Normal Inspection Musculoskeletal: Yes: full range of Motion, Gait Steady, Other (Surgical removal of skin and muscle from (L) arm area. Pulses (+)) Extremities: Yes: Normal Capillary Refill, Tremors (Tremors at rest and increases w/ arm elevation) Neurological: Yes: traveling electrician II-XII NML intact, Fully Oriented, Alert, Motor Strength 5/5 Integumentary: Yes: Normal Color, Dry (Decreased skin turgor except for increased facial moisture), Warm, Other (Surgical removal of skin and muscle from (L) arm area. Dry, cracked skin on feet and toes.) Lymphatic: Yes: Within Normal Limits - Diagnostic (1) History of sarcoma of soft tissue Current Visit: No Status: Chronic (2) Alcohol dependence with uncomplicated withdrawal Current Visit: Yes Status: Acute (3) Cannabis dependence Current Visit: Yes Status: Chronic (4) Dehydration Current Visit: Yes Status: Acute (5) Insomnia Current Visit: Yes Status: Chronic Qualifiers: Insomnia type: unspecified Qualified Code(s): G47.00 - Insomnia, unspecified (6) Uncomplicated sedative, hypnotic or anxiolytic withdrawal Current Visit: Yes Status: Acute (7) Cocaine dependence Current Visit: Yes Status: Chronic Qualifiers: Substance use status: uncomplicated Qualified Code(s): F14.20 - Cocaine dependence, uncomplicated (8) HTN (hypertension) Current Visit: Yes Status: Chronic Qualifiers: Hypertension type: essential hypertension Qualified Code(s): I10 - Essential (primary) hypertension (9) Neuropathy Current Visit: Yes Status: Chronic (10) Nicotine dependence Current Visit: Yes Status: Chronic Qualifiers: Nicotine product type: cigarettes Substance use status: in withdrawal Qualified Code(s): F17.213 - Nicotine dependence, cigarettes, with withdrawal (11) Obese Current Visit: Yes Status: Chronic Qualifiers: Obesity type: unspecified obesity type Obesity classification: adult class 2 (BMI 35 - 39.9) Serious obesity comorbidity presence: without serious comorbidity Body mass index: BMI 36.0-36.9 Qualified Code(s): E66.9 - Obesity, unspecified; Z68.36 - Body mass index (BMI) 36.0-36.9, adult (12) Opioid dependence on agonist therapy Current Visit: Yes Status: Chronic Comment: [facility] (13) Tinea pedis Current Visit: Yes Status: Chronic Qualifiers: Laterality: bilateral Qualified Code(s): B35.3 - Tinea pedis Cleared for Admission S - Detox or Rehab [facility] Level of Care: Medically Managed Detox Regimen/Protocol: Librium Breathalyzer - Breathalyzer Breathalyzer: 0 Urine Drug Screen - Test Device Lot number: [id number] Expiration date: 05/13/20 - Control Is test valid?: Yes - Results Drug screen NEGATIVE: No Urine drug screen results: THC-Marijuana, KAREEM-Cocaine, MOP-Opiates, MTD- Methadone, BZO-Benzodiazepines Inpatient Rehab Admission - Rehab Decision to Admit Inpatient rehab admission?: No
[2018-09-26] MEDS ORDERED: BISMUTH SUBSALICYLATE 524 MG/30 ML UD PO PRN (18:53)
[2018-09-26] MEDS ORDERED: MENTHOL/PHENOL 1 EACH UD MM PRN (18:53)
[2018-09-26] MEDS ORDERED: MAG HYDROX/AL HYDROX/SIMETH 30 ML UNIT-DOSE CUP PO PRN (18:53)
[2018-09-26] MEDS ORDERED: MAGNESIUM CITRATE 300 ML BOTTLE PO PRN (18:53)
[2018-09-26] MEDS ORDERED: MAGNESIUM HYDROX 2400MG/30ML ORAL SUSPENSION 30 ML CUP PO PRN (18:53)
[2018-09-26] MEDS ORDERED: ACETAMINOPHEN 325 MG TABLET (FP) PO PRN ×2 (18:53)
[2018-09-26] MEDS ORDERED: guaiFENesin 200 MG/10 ML 10 ML UNIT-DOSE CUPS PO PRN (18:53)
[2018-09-26] MEDS ORDERED: MELATONIN 5 MG TABLETS PO PRN (18:53)
[2018-09-26] MEDS ORDERED: NICOTINE POLACRILEX 2 MG GUM BUC PRN (18:53)
[2018-09-26] MEDS ORDERED: chlordiazePOXIDE HCL 25 MG CAPSULE PO ONE (19:15)
[2018-09-26] MEDS: IBUPROFEN 400 MG TABLET (FP) PO PRN (20:58)
[2018-09-26] MEDS: chlordiazePOXIDE HCL 25 MG CAPSULE PO SCH (22:15)
[2018-09-26] MEDS: GABAPENTIN 300 MG CAPSULE (FP) PO SCH (22:15)
[2018-09-26] MEDS: DOCUSATE SODIUM 100 MG CAPSULE (FP) PO SCH (22:15)
[2018-09-26] MEDS: THIAMINE HCL 100 MG TABLET (FP) PO SCH (22:15)
[2018-09-26] MEDS ORDERED: QUEtiapine FUMARATE 100 MG TABLET (FP) PO ONE (23:00)
[2018-09-26] MEDS: TOLNAFTATE 1% CREAM 15 GM TUBE TP SCH (23:02)
[2018-09-27] MEDS: GABAPENTIN 300 MG CAPSULE (FP) PO SCH ×3 (05:40→22:06)
[2018-09-27] MEDS: chlordiazePOXIDE HCL 25 MG CAPSULE PO SCH ×4 (05:40→22:06)
[2018-09-27] MEDS: DOCUSATE SODIUM 100 MG CAPSULE (FP) PO SCH ×3 (05:40→22:06)
[2018-09-27] MEDS: chlordiazePOXIDE HCL 25 MG CAPSULE PO PRN ×3 (07:59→20:29)
[2018-09-27] MEDS ORDERED: METHADONE HCL 40 MG DISPERSABLE TABLET PO ONE (08:23)
[2018-09-27] MEDS: PRENATAL VITAMINS W/ FOLIC ACID TABLET (FP) PO SCH (09:58)
[2018-09-27] MEDS: TOLNAFTATE 1% CREAM 15 GM TUBE TP SCH ×2 (09:58→22:07)
[2018-09-27] MEDS: amLODIPine BESYLATE 10 MG TABLET (FP) PO SCH (09:59)
[2018-09-27] MEDS: NICOTINE 21 MG/24 HOURS TOPICAL PATCH TD SCH (09:59)
[2018-09-27 10:09] LABS: ALBUMIN 3.2 g/dl (3.4-5.0); ALK PHOS 81 U/L (45-117); ANION GAP 5 MMOL/L (8-16); BILIRUBIN,TOTAL 0.2 mg/dL (0.2-1); BLOOD UREA NITROGEN 15 mg/dL (7-18); CALCIUM 8.4 mg/dL (8.5-10.1); CHLORIDE 102 mmol/L (98-107); CO2 29 mmol/L (21-32); CREATININE 0.8 mg/dL (0.55-1.3); GLUCOSE,RANDOM 88 mg/dL (74-106); POTASSIUM 3.5 mmol/L (3.5-5.1); SGOT/AST 18 U/L (15-37); SGPT/ALT 26 U/L (13-61); SODIUM 136 mmol/L (136-145); TOT PROT 6.4 g/dl (6.4-8.2)
[2018-09-27 10:15] LABS: HEMATOCRIT 38.1 % (35.4-49); HEMOGLOBIN 12.4 GM/dL (11.7-16.9); MCH 27.4 pg (25.7-33.7); MCHC 32.7 g/dl (32.0-35.9); MEAN CELL VOLUME 83.9 fl (80-96); MEAN PLT VOLUME 8.8 fl (7.5-11.1); PLATELET COUNT 294 K/MM3 (134-434); RBC 4.55 M/mm3 (4.00-5.60); RDW 15.3 % (11.9-15.9); WHITE BLOOD COUNT 4.7 K/mm3 (4.0-10.0)
--- NOTE | 2018-09-27 10:23 | CONSULT ---
[facility] Psychiatric Consult - Data Date of interview: 09/27/18 Admission source: Self-referred Identifying data: Mr Sidhu is a 53 years old male, father of a 33 years old daughter, unemployed on SSI, homeless seeking rehab treatment for alcohol, opioid, cocaine, benzodiazepine and cannabis Substance Abuse History: Reports history of alcohol, opioid, cocaine, bezodiazepie and cannabis use. 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 Patient is on methadone 80 mg/day([facility]). Smokes cigarettes 1 ppd Psychiatric History: Patient is well known to press writer from a previous encounter in this facility on 07/12/18. Historical narrative remains consistent. He reports that his first psychiatric contact was more than 5 years ago when he was admitted to [facility] and diagnosed with Bipolar disorder. Reports multiple subsequent admissions to [facility] and most recently to [facility] Summer 2017. He was discharged on Seroquel 100 mg po HS and Remeron 30 mg po HS. When he saw press writer on 07/12/18, he was prescribed Seroquel 100 mg/hs and Remeron 30 mg/hs. Told press writer that he has been visiting ED for med refills and brought medicatons with him. Denies previous suicidal attempt. At present, reports feeling irritable and sleeping poorly Physical/Sexual Abuse/Trauma History: Denies history of emotional, physical or sexual abuse as well as DV relationship. No service Additional Comment: Reports history of couple arrests Mental Status Exam - Mental Status Exam Alert and Oriented to: Place, Person Cognitive Function: Fair Patient Appearance: Disheveled Mood: Depressed, Irritable Affect: Appropriate Patient Behavior: Wandering, Cooperative Voice Loudness: Normal Thought Process: Intact, Goal Oriented Thought Disorder: Not Present Hallucinations: Denies Suicidal Ideation: Denies Homicidal Ideation: Denies Insight/Judgement: Poor Sleep: Poorly Appetite: Fair Muscle strength/Tone: Normal Gait/Station: Normal Psychiatric Findings - Problem List ([place] 1, 2,3) (1) Mood disorder Current Visit: Yes Status: Chronic (2) Bipolar disorder Current Visit: Yes Status: Ruled-out (3) Substance induced mood disorder Current Visit: Yes Status: Acute (4) Substance-induced sleep disorder Current Visit: Yes Status: Acute (5) Alcohol dependence with uncomplicated withdrawal Current Visit: Yes Status: Acute (6) Cocaine dependence Current Visit: Yes Status: Acute Qualifiers: Substance use status: uncomplicated Qualified Code(s): F14.20 - Cocaine dependence, uncomplicated (7) Uncomplicated sedative, hypnotic or anxiolytic withdrawal Current Visit: Yes Status: Acute (8) Cannabis dependence Current Visit: Yes Status: Chronic (9) Opioid dependence on agonist therapy Current Visit: Yes Status: Chronic Comment: [facility] (10) Nicotine dependence Current Visit: Yes Status: Chronic Qualifiers: Nicotine product type: cigarettes Substance use status: in withdrawal Qualified Code(s): F17.213 - Nicotine dependence, cigarettes, with withdrawal (11) HTN (hypertension) Current Visit: Yes Status: Chronic Qualifiers: Hypertension type: essential hypertension Qualified Code(s): I10 - Essential (primary) hypertension (12) Neuropathy Current Visit: Yes Status: Chronic (13) History of sarcoma of soft tissue Current Visit: No Status: Chronic - Initial Treatment Plan Initial Treatment Plan: 1) Continue Seroquel 100 mg po HS and Remeron 30 mg po HS. 2) Continue inpatient rehabilitation
--- NOTE | 2018-09-27 10:59 | PN ---
[facility] CIWA - CIWA Score Nausea/Vomitin-No Nausea/No Vomiting Muscle Tremors: 4-Moderate,w/Arms Extend Anxiety: 4-Mod. Anxious/Guarded Agitation: 3 Paroxysmal Sweats: No Perspiration Orientation: 0-Oriented Tacttile Disturbances: 2-Mild Itch/Numbness/Burn Auditory Disturbances: 1-Very Mild Visual Disturbances: 2-Mild Sensitivity Headache: 0-None Present CIWA-Ar Total Score: 16 [facility] Progress Note (SOAP) Subjective: Tremors, Anxious, Interrupted Sleep. Objective: PATIENT A & O X 3, OBSERVED AMBULATING ON UNIT. IN NO ACUTE DISTRESS. 09/27/18 11:00 Vital Signs Temperature 97.6 F 09/27/18 09:11 Pulse Rate 69 09/27/18 09:11 Respiratory Rate 18 09/27/18 09:11 Blood Pressure 100/55 L 09/27/18 09:11 O2 Sat by Pulse Oximetry (%) Laboratory Tests 09/27/18 09/27/18 07:00 07:00 WBC 4.7 RBC 4.55 Hgb 12.4 Hct 38.1 MCV 83.9 MCH 27.4 MCHC 32.7 RDW 15.3 Plt Count 294 MPV 8.8 D Sodium 136 Potassium 3.5 Chloride 102 Carbon Dioxide 29 Anion Gap 5 L BUN 15 Creatinine 0.8 Creat Clearance w eGFR 101.51 Random Glucose 88 Calcium 8.4 L Total Bilirubin 0.2 AST 18 ALT 26 Alkaline Phosphatase 81 Total Protein 6.4 Albumin 3.2 L LABS NOTED. ADMISSION RPR RESULT PENDING. 09/27/18 11:01 Assessment: 09/27/18 11:00 WITHDRAWAL SYMPTOMS. Plan: CONTINUE DETOX. INCREASE DAILY PO FLUID / WATER INTAKE.
[2018-09-27] MEDS: IBUPROFEN 400 MG TABLET (FP) PO PRN (12:07)
[2018-09-27] MEDS: THIAMINE HCL 100 MG TABLET (FP) PO SCH (22:06)
[2018-09-27] MEDS: MIRTAZAPINE 30 MG TABLET (FP) PO SCH (22:06)
[2018-09-27] MEDS: QUEtiapine FUMARATE 100 MG TABLET (FP) PO SCH (22:06)
[2018-09-28] MEDS: GABAPENTIN 300 MG CAPSULE (FP) PO SCH ×3 (06:11→22:03)
[2018-09-28] MEDS: METHADONE HCL 40 MG DISPERSABLE TABLET PO SCH (06:11)
[2018-09-28] MEDS: DOCUSATE SODIUM 100 MG CAPSULE (FP) PO SCH ×3 (06:11→22:03)
[2018-09-28] MEDS: chlordiazePOXIDE HCL 25 MG CAPSULE PO SCH ×3 (06:11→16:59)
[2018-09-28] MEDS: METHOCARBAMOL 500 MG TABLET PO PRN ×2 (08:58→22:05)
[2018-09-28] MEDS: amLODIPine BESYLATE 10 MG TABLET (FP) PO SCH (10:07)
[2018-09-28] MEDS: PRENATAL VITAMINS W/ FOLIC ACID TABLET (FP) PO SCH (10:07)
[2018-09-28] MEDS: NICOTINE 21 MG/24 HOURS TOPICAL PATCH TD SCH (10:08)
[2018-09-28] MEDS: NYSTATIN 100,000 UNIT/GM TOPICAL CREAM 15 GM TUBE TP SCH ×3 (11:05→23:27)
[2018-09-28] MEDS: VITAMINS A AND D TOPICAL OINTMENT 60 GM TUBE TP SCH ×3 (11:06→23:27)
--- NOTE | 2018-09-28 11:14 | PN ---
S CIWA - CIWA Score Nausea/Vomitin-No Nausea/No Vomiting Muscle Tremors: 3 Anxiety: 3 Agitation: 3 Paroxysmal Sweats: 3 Orientation: 0-Oriented Tacttile Disturbances: 0-None Auditory Disturbances: 0-None Visual Disturbances: 0-None Headache: 0-None Present CIWA-Ar Total Score: 12 S Progress Note (SOAP) Subjective: fungus on toes sweats agitation interrupted sleep dry skin to left arm Objective: 09/28/18 11:12 Vital Signs Temperature 98.1 F 09/28/18 09:29 Pulse Rate 75 09/28/18 09:29 Respiratory Rate 18 09/28/18 09:29 Blood Pressure 124/61 09/28/18 09:29 O2 Sat by Pulse Oximetry (%) Laboratory Tests 09/27/18 09/27/18 09/27/18 07:00 07:00 07:00 WBC 4.7 RBC 4.55 Hgb 12.4 Hct 38.1 MCV 83.9 MCH 27.4 MCHC 32.7 RDW 15.3 Plt Count 294 MPV 8.8 D Sodium 136 Potassium 3.5 Chloride 102 Carbon Dioxide 29 Anion Gap 5 L BUN 15 Creatinine 0.8 Creat Clearance w eGFR 101.51 Random Glucose 88 Calcium 8.4 L Total Bilirubin 0.2 AST 18 ALT 26 Alkaline Phosphatase 81 Total Protein 6.4 Albumin 3.2 L RPR Titer Nonreactive aaox3 ambulating no acute distress Assessment: 09/28/18 11:13 withdrawal sx Plan: continue detox increase fluids nystatin cream vitamin a&d ointment
[2018-09-28] MEDS: chlordiazePOXIDE HCL 25 MG CAPSULE PO PRN ×2 (12:19→20:12)
[2018-09-28] MEDS: THIAMINE HCL 100 MG TABLET (FP) PO SCH (22:02)
[2018-09-28] MEDS: QUEtiapine FUMARATE 100 MG TABLET (FP) PO SCH (22:03)
[2018-09-28] MEDS: MIRTAZAPINE 30 MG TABLET (FP) PO SCH (22:03)
[2018-09-28] MEDS: chlordiazePOXIDE HCL 10 MG CAPSULE PO SCH (22:03)
[2018-09-28] MEDS ORDERED: chlordiazePOXIDE HCL 10 MG CAPSULE PO PRN (23:00)
[2018-09-29] MEDS: GABAPENTIN 300 MG CAPSULE (FP) PO SCH ×3 (05:58→22:04)
[2018-09-29] MEDS: chlordiazePOXIDE HCL 10 MG CAPSULE PO SCH ×4 (05:58→22:03)
[2018-09-29] MEDS: VITAMINS A AND D TOPICAL OINTMENT 60 GM TUBE TP SCH ×4 (05:58→23:54)
[2018-09-29] MEDS: DOCUSATE SODIUM 100 MG CAPSULE (FP) PO SCH ×3 (05:58→22:03)
[2018-09-29] MEDS: NYSTATIN 100,000 UNIT/GM TOPICAL CREAM 15 GM TUBE TP SCH ×4 (05:58→23:54)
[2018-09-29] MEDS: METHADONE HCL 40 MG DISPERSABLE TABLET PO SCH (06:00)
[2018-09-29] MEDS: METHOCARBAMOL 500 MG TABLET PO PRN (09:23)
[2018-09-29] MEDS: NICOTINE 21 MG/24 HOURS TOPICAL PATCH TD SCH (10:09)
[2018-09-29] MEDS: amLODIPine BESYLATE 10 MG TABLET (FP) PO SCH (10:10)
[2018-09-29] MEDS: PRENATAL VITAMINS W/ FOLIC ACID TABLET (FP) PO SCH (10:10)
[2018-09-29] MEDS: hydrOXYzine PAMOATE 25 MG CAPSULE (FP) PO PRN ×2 (12:53→20:21)
--- NOTE | 2018-09-29 15:02 | PN ---
S CIWA - CIWA Score Nausea/Vomitin-No Nausea/No Vomiting Muscle Tremors: None Anxiety: 3 Agitation: 2 Paroxysmal Sweats: 3 Orientation: 0-Oriented Tacttile Disturbances: 2-Mild Itch/Numbness/Burn Auditory Disturbances: 0-None Visual Disturbances: 2-Mild Sensitivity Headache: 0-None Present CIWA-Ar Total Score: 12 BHS Progress Note (SOAP) Subjective: Sweating, Anxious, Interrupted sleep. Objective: PATIENT A & O X 3, OBSERVED AMBULATING ON UNIT. IN NO ACUTE DISTRESS. 09/29/18 15:03 Vital Signs Temperature 97.6 F 09/29/18 10:31 Pulse Rate 69 09/29/18 14:16 Respiratory Rate 18 09/29/18 14:16 Blood Pressure 116/70 09/29/18 14:16 O2 Sat by Pulse Oximetry (%) Laboratory Tests 09/27/18 09/27/18 09/27/18 07:00 07:00 07:00 WBC 4.7 RBC 4.55 Hgb 12.4 Hct 38.1 MCV 83.9 MCH 27.4 MCHC 32.7 RDW 15.3 Plt Count 294 MPV 8.8 D Sodium 136 Potassium 3.5 Chloride 102 Carbon Dioxide 29 Anion Gap 5 L BUN 15 Creatinine 0.8 Creat Clearance w eGFR 101.51 Random Glucose 88 Calcium 8.4 L Total Bilirubin 0.2 AST 18 ALT 26 Alkaline Phosphatase 81 Total Protein 6.4 Albumin 3.2 L RPR Titer Nonreactive LABS NOTED. Assessment: 09/29/18 15:03 WITHDRAWAL SYMPTOMS. Plan: CONTINUE DETOX. INCREASE DAILY PO FLUID INTAKE.
[2018-09-29] MEDS: IBUPROFEN 400 MG TABLET (FP) PO PRN (15:59)
[2018-09-29] MEDS: QUEtiapine FUMARATE 100 MG TABLET (FP) PO SCH (22:03)
[2018-09-29] MEDS: THIAMINE HCL 100 MG TABLET (FP) PO SCH (22:03)
[2018-09-29] MEDS: MIRTAZAPINE 30 MG TABLET (FP) PO SCH (22:03)
[2018-09-30] MEDS: METHADONE HCL 40 MG DISPERSABLE TABLET PO SCH (05:56)
[2018-09-30] MEDS: GABAPENTIN 300 MG CAPSULE (FP) PO SCH ×2 (05:57→13:07)
[2018-09-30] MEDS: NYSTATIN 100,000 UNIT/GM TOPICAL CREAM 15 GM TUBE TP SCH ×2 (05:59→12:02)
[2018-09-30] MEDS: DOCUSATE SODIUM 100 MG CAPSULE (FP) PO SCH ×2 (05:59→13:07)
[2018-09-30] MEDS: VITAMINS A AND D TOPICAL OINTMENT 60 GM TUBE TP SCH ×2 (05:59→12:02)
[2018-09-30] MEDS: hydrOXYzine PAMOATE 25 MG CAPSULE (FP) PO PRN ×2 (07:29→13:07)
[2018-09-30] MEDS: METHOCARBAMOL 500 MG TABLET PO PRN (08:49)
[2018-09-30] MEDS: IBUPROFEN 400 MG TABLET (FP) PO PRN ×2 (08:49→16:16)
[2018-09-30] MEDS: PRENATAL VITAMINS W/ FOLIC ACID TABLET (FP) PO SCH (10:13)
[2018-09-30] MEDS: chlordiazePOXIDE HCL 10 MG CAPSULE PO SCH (10:13)
[2018-09-30] MEDS: amLODIPine BESYLATE 10 MG TABLET (FP) PO SCH (10:13)
[2018-09-30] MEDS: NICOTINE 21 MG/24 HOURS TOPICAL PATCH TD SCH (10:13)
[2018-09-30 14:52] VITALS: BP 121/65; PULSE 72; TEMP 97.6
--- NOTE | 2018-09-30 15:11 | PN ---
[facility] CIWA - CIWA Score Nausea/Vomitin-No Nausea/No Vomiting Muscle Tremors: 1-None Visible, but [place] Anxiety: 1-Mildly Anxious Agitation: 1-Slight > Activity Paroxysmal Sweats: No Perspiration Orientation: 0-Oriented Tacttile Disturbances: 0-None Auditory Disturbances: 0-None Visual Disturbances: 0-None Headache: 0-None Present CIWA-Ar Total Score: 3 [facility] Progress Note (SOAP) Subjective: pt using alcohol/benzo- here for benzo detox protocol, on MAT methadone O: Vital Signs - 24 hr 09/29/18 09/29/18 09/30/18 17:14 21:26 03:30 Temperature 98.2 F 97.3 F L Pulse Rate 69 69 Respiratory 18 18 18 Rate Blood Pressure 119/76 144/88 09/30/18 09/30/18 09/30/18 06:00 11:17 14:51 Temperature 96.1 F L 97.6 F Pulse Rate 68 76 72 Respiratory 20 20 18 Rate Blood Pressure 116/71 122/94 121/65 Laboratory Tests 09/27/18 09/27/18 09/27/18 07:00 07:00 07:00 WBC 4.7 RBC 4.55 Hgb 12.4 Hct 38.1 MCV 83.9 MCH 27.4 MCHC 32.7 RDW 15.3 Plt Count 294 MPV 8.8 D Sodium 136 Potassium 3.5 Chloride 102 Carbon Dioxide 29 Anion Gap 5 L BUN 15 Creatinine 0.8 Creat Clearance w eGFR 101.51 Random Glucose 88 Calcium 8.4 L Total Bilirubin 0.2 AST 18 ALT 26 Alkaline Phosphatase 81 Total Protein 6.4 Albumin 3.2 L RPR Titer Nonreactive a/p: continue benzo detox protocol- pt would like to go to rehab- d/c imminent
--- NOTE | 2018-09-30 15:40 | DS ---
[facility] Detox Discharge Summary Admission Date: 09/26/18 Discharge Date: 09/30/18 - History Present History: Alcohol Dependence Additional Comments: pt using alcohol/benzo- here for benzo detox protocol, on MAT methadone. Going to rehab today - Physical Exam Results Vital Signs: Vital Signs Temperature 97.6 F 09/30/18 14:51 Pulse Rate 72 09/30/18 14:51 Respiratory Rate 18 09/30/18 14:51 Blood Pressure 121/65 09/30/18 14:51 O2 Sat by Pulse Oximetry (%) - Treatment Hospital Course: Detox Protocol Followed, Detoxed Safely, Responded well, Discharged Condition Good, Rehab Referral Accepted - Medication Discharge Medications: Ambulatory Orders Methadone [Dolophine -] 80 mg PO DAILY 07/07/18 Quetiapine Fumarate [Seroquel] 100 mg PO HS #30 tablet 07/07/18 Amlodipine Besylate [Norvasc -] 10 mg PO DAILY #14 tablet 07/25/18 Mirtazapine [Remeron -] 30 mg PO HS #30 tablet 07/26/18 - AMA Did Patient Leave Against Medical Advice: No
== END 2018-09-30 17:50 | disposition other institution (70) | DRG 773 ==
LOC: YASAS 15:47 → Y6N 19:06
PROVIDERS: ADMIT Surgery; ATTEND Surgery
PROC: HZ2ZZZZ Detoxification Services for Substance Abuse Treatment (ICD-10-PCS; principal; 2018-09-26)
DX: F10.230 Alcohol dependence with withdrawal, uncomplicated (principal); F11.20 Opioid dependence, uncomplicated; F13.230 Sedative, hypnotic or anxiolytic dependence with withdrawal, uncomplicated; F14.20 Cocaine dependence, uncomplicated; F12.20 Cannabis dependence, uncomplicated; F17.213 Nicotine dependence, cigarettes, with withdrawal; F39 Unspecified mood [affective] disorder; F31.9 Bipolar disorder, unspecified; F19.24 Other psychoactive substance dependence with psychoactive substance-induced mood disorder; F19.282 Other psychoactive substance dependence with psychoactive substance-induced sleep disorder; E86.0 Dehydration; D64.9 Anemia, unspecified; B35.3 Tinea pedis; I10 Essential (primary) hypertension; G47.00 Insomnia, unspecified; Z85.828 Personal history of other malignant neoplasm of skin; Z92.3 Personal history of irradiation; Z91.013 Allergy to seafood; Z86.69 Personal history of other diseases of the nervous system and sense organs; E66.9 Obesity, unspecified; Z68.36 Body mass index [BMI] 36.0-36.9, adult; Z59.0 Homelessness
CPT/HCPCS: 36415; 80053; 85027; 86593

== ENCOUNTER 2018-09-30 18:08 | Inpatient (IN) | payer OTHER ==
--- NOTE | 2018-09-30 20:39 | HP ---
[facility] Rehab Assess/Revision - Admission History Admitted to Rehab from: [facility] Date of Admission to Rehab: 09/30/2018 - Vital signs Vital Signs: Vital Signs Period Temp Pulse Resp BP Sys/Cooper Pulse Ox Last 24 Hr 97.8 F 71-71 16-18 104-118/62-76 - Findings Detox History & Physical reviewed: Yes Concur with findings: Yes Inpatient Rehab Admission - Rehab Decision to Admit Inpatient rehab admission?: Yes - Initial Determination Are CD services needed?: Yes Free of communicable disease: Yes Not in need of hospitalization: Yes - Rehab Admission Criteria Previous failed treatment: Yes Poor recovery environment: Yes Comorbidities: Yes Lacks judgement: No Patient is meeting Inpatient Rehab admission criteria:: Yes
[2018-09-30] MEDS ORDERED: LOPERAMIDE HCL 2 MG CAPSULE PO PRN (20:40)
[2018-09-30] MEDS ORDERED: guaiFENesin 200 MG/10 ML 10 ML UNIT-DOSE CUPS PO PRN (20:40)
[2018-09-30] MEDS ORDERED: MAG HYDROX/AL HYDROX/SIMETH 30 ML UNIT-DOSE CUP PO PRN (20:40)
[2018-09-30] MEDS ORDERED: MAGNESIUM HYDROX 2400MG/30ML ORAL SUSPENSION 30 ML CUP PO PRN (20:40)
[2018-09-30] MEDS ORDERED: P-EPHED 60MG/TRIPROLIDI 2.5MG TABLET PO PRN (20:40)
[2018-09-30] MEDS ORDERED: MENTHOL/PHENOL 1 EACH UD MM PRN (20:40)
[2018-09-30] MEDS ORDERED: MAGNESIUM CITRATE 300 ML BOTTLE PO PRN (20:40)
[2018-09-30] MEDS ORDERED: NICOTINE POLACRILEX 2 MG GUM BUC PRN (20:40)
[2018-09-30] MEDS: QUEtiapine FUMARATE 100 MG TABLET (FP) PO SCH (21:06)
[2018-09-30] MEDS: MIRTAZAPINE 30 MG TABLET (FP) PO SCH (21:06)
[2018-09-30] MEDS: MELATONIN 5 MG TABLETS PO PRN (21:07)
[2018-09-30] MEDS: THIAMINE HCL 100 MG TABLET (FP) PO SCH (21:07)
[2018-09-30] MEDS: IBUPROFEN 400 MG TABLET (FP) PO PRN (21:08)
[2018-10-01] MEDS: METHADONE HCL 40 MG DISPERSABLE TABLET PO SCH (06:17)
[2018-10-01] MEDS: PRENATAL VITAMINS W/ FOLIC ACID TABLET (FP) PO SCH (09:47)
[2018-10-01] MEDS: amLODIPine BESYLATE 10 MG TABLET (FP) PO SCH (09:47)
[2018-10-01] MEDS: IBUPROFEN 400 MG TABLET (FP) PO PRN (09:48)
[2018-10-01] MEDS: hydrOXYzine PAMOATE 50 MG CAPSULE (FP) PO PRN (09:48)
[2018-10-01] MEDS: METHOCARBAMOL 500 MG TABLET PO PRN ×2 (09:49→21:01)
[2018-10-01] MEDS ORDERED: NICOTINE 14 MG/24 HOURS TOPICAL PATCH TD SCH (10:00)
--- NOTE | 2018-10-01 12:50 | PN ---
S Progress Note Note: Patient on nicotine patch 14mg, requests higher dose as he continues to have cravings. He is on PRN gum which he declines to take. 14mg dose ordered.
[2018-10-01] MEDS: ACETAMINOPHEN 325 MG TABLET (FP) PO PRN (14:15)
[2018-10-01] MEDS: MIRTAZAPINE 30 MG TABLET (FP) PO SCH (21:01)
[2018-10-01] MEDS: QUEtiapine FUMARATE 100 MG TABLET (FP) PO SCH (21:01)
[2018-10-01] MEDS: MELATONIN 5 MG TABLETS PO PRN (21:01)
[2018-10-01] MEDS: THIAMINE HCL 100 MG TABLET (FP) PO SCH (21:01)
[2018-10-02] MEDS: METHADONE HCL 40 MG DISPERSABLE TABLET PO SCH (06:16)
[2018-10-02] MEDS: METHOCARBAMOL 500 MG TABLET PO PRN ×2 (08:20→21:06)
[2018-10-02] MEDS: PRENATAL VITAMINS W/ FOLIC ACID TABLET (FP) PO SCH (09:48)
[2018-10-02] MEDS: amLODIPine BESYLATE 10 MG TABLET (FP) PO SCH (09:48)
[2018-10-02] MEDS: NICOTINE 21 MG/24 HOURS TOPICAL PATCH TD SCH (09:48)
[2018-10-02] MEDS: IBUPROFEN 400 MG TABLET (FP) PO PRN (09:49)
[2018-10-02] MEDS: hydrOXYzine PAMOATE 50 MG CAPSULE (FP) PO PRN (09:49)
[2018-10-02] MEDS: MELATONIN 5 MG TABLETS PO PRN (21:05)
[2018-10-02] MEDS: THIAMINE HCL 100 MG TABLET (FP) PO SCH (21:05)
[2018-10-02] MEDS: MIRTAZAPINE 30 MG TABLET (FP) PO SCH (21:05)
[2018-10-02] MEDS: QUEtiapine FUMARATE 100 MG TABLET (FP) PO SCH (21:06)
[2018-10-03] MEDS: METHADONE HCL 40 MG DISPERSABLE TABLET PO SCH (05:53)
[2018-10-03] MEDS: amLODIPine BESYLATE 10 MG TABLET (FP) PO SCH (09:57)
[2018-10-03] MEDS: NICOTINE 21 MG/24 HOURS TOPICAL PATCH TD SCH (09:57)
[2018-10-03] MEDS: PRENATAL VITAMINS W/ FOLIC ACID TABLET (FP) PO SCH (09:57)
[2018-10-03] MEDS: METHOCARBAMOL 500 MG TABLET PO PRN ×2 (09:57→21:15)
[2018-10-03] MEDS: hydrOXYzine PAMOATE 50 MG CAPSULE (FP) PO PRN (09:57)
[2018-10-03] MEDS: IBUPROFEN 400 MG TABLET (FP) PO PRN (11:57)
[2018-10-03] MEDS: MELATONIN 5 MG TABLETS PO PRN (21:14)
[2018-10-03] MEDS: MIRTAZAPINE 30 MG TABLET (FP) PO SCH (21:14)
[2018-10-03] MEDS: THIAMINE HCL 100 MG TABLET (FP) PO SCH (21:14)
[2018-10-03] MEDS: QUEtiapine FUMARATE 100 MG TABLET (FP) PO SCH (21:14)
--- NOTE | 2018-10-03 21:19 | PN ---
[facility] Progress Note Note: Vital Signs Temperature 98.4 F 10/03/18 06:42 Pulse Rate 75 10/03/18 10:00 Respiratory Rate 20 10/03/18 10:00 Blood Pressure 116/74 10/03/18 10:00 O2 Sat by Pulse Oximetry (%) Patient reports taking gabapentin 300mg TID for pain, patient was receiving this dose while in detox. med ordered. continue to monitor
[2018-10-03] MEDS: GABAPENTIN 300 MG CAPSULE (FP) PO SCH (22:07)
[2018-10-04] MEDS: METHADONE HCL 40 MG DISPERSABLE TABLET PO SCH (06:07)
[2018-10-04] MEDS: GABAPENTIN 300 MG CAPSULE (FP) PO SCH ×3 (06:07→21:10)
[2018-10-04] MEDS: METHOCARBAMOL 500 MG TABLET PO PRN ×2 (10:14→21:10)
[2018-10-04] MEDS: IBUPROFEN 400 MG TABLET (FP) PO PRN (10:14)
[2018-10-04] MEDS: PRENATAL VITAMINS W/ FOLIC ACID TABLET (FP) PO SCH (10:15)
[2018-10-04] MEDS: amLODIPine BESYLATE 10 MG TABLET (FP) PO SCH (10:15)
[2018-10-04] MEDS: NICOTINE 21 MG/24 HOURS TOPICAL PATCH TD SCH (10:15)
[2018-10-04] MEDS: COLLOIDAL OATMEAL 1 BAR EACH TP PRN (19:52)
[2018-10-04] MEDS: MELATONIN 5 MG TABLETS PO PRN (21:10)
[2018-10-04] MEDS: MIRTAZAPINE 30 MG TABLET (FP) PO SCH (21:10)
[2018-10-04] MEDS: THIAMINE HCL 100 MG TABLET (FP) PO SCH (21:10)
[2018-10-04] MEDS: QUEtiapine FUMARATE 100 MG TABLET (FP) PO SCH (21:10)
[2018-10-05] MEDS: METHADONE HCL 40 MG DISPERSABLE TABLET PO SCH (05:56)
[2018-10-05] MEDS: GABAPENTIN 300 MG CAPSULE (FP) PO SCH ×3 (05:56→21:40)
[2018-10-05] MEDS: NICOTINE 21 MG/24 HOURS TOPICAL PATCH TD SCH (09:43)
[2018-10-05] MEDS: amLODIPine BESYLATE 10 MG TABLET (FP) PO SCH (09:43)
[2018-10-05] MEDS: METHOCARBAMOL 500 MG TABLET PO PRN ×2 (09:43→21:40)
[2018-10-05] MEDS: IBUPROFEN 400 MG TABLET (FP) PO PRN (09:43)
[2018-10-05] MEDS: PRENATAL VITAMINS W/ FOLIC ACID TABLET (FP) PO SCH (09:43)
[2018-10-05] MEDS: MELATONIN 5 MG TABLETS PO PRN (21:40)
[2018-10-05] MEDS: MIRTAZAPINE 30 MG TABLET (FP) PO SCH (21:40)
[2018-10-05] MEDS: THIAMINE HCL 100 MG TABLET (FP) PO SCH (21:40)
[2018-10-05] MEDS: QUEtiapine FUMARATE 100 MG TABLET (FP) PO SCH (21:40)
[2018-10-06] MEDS: METHADONE HCL 40 MG DISPERSABLE TABLET PO SCH (06:04)
[2018-10-06] MEDS: GABAPENTIN 300 MG CAPSULE (FP) PO SCH ×3 (06:04→21:10)
[2018-10-06] MEDS: PRENATAL VITAMINS W/ FOLIC ACID TABLET (FP) PO SCH (09:21)
[2018-10-06] MEDS: NICOTINE 21 MG/24 HOURS TOPICAL PATCH TD SCH (09:22)
[2018-10-06] MEDS: amLODIPine BESYLATE 10 MG TABLET (FP) PO SCH (09:22)
[2018-10-06] MEDS: METHOCARBAMOL 500 MG TABLET PO PRN ×2 (09:23→21:10)
[2018-10-06] MEDS: QUEtiapine FUMARATE 100 MG TABLET (FP) PO SCH (21:09)
[2018-10-06] MEDS: MIRTAZAPINE 30 MG TABLET (FP) PO SCH (21:09)
[2018-10-06] MEDS: THIAMINE HCL 100 MG TABLET (FP) PO SCH (21:10)
[2018-10-06] MEDS: MELATONIN 5 MG TABLETS PO PRN (21:10)
[2018-10-07] MEDS: METHADONE HCL 40 MG DISPERSABLE TABLET PO SCH (05:55)
[2018-10-07] MEDS: GABAPENTIN 300 MG CAPSULE (FP) PO SCH ×3 (05:56→21:48)
[2018-10-07] MEDS: NICOTINE 21 MG/24 HOURS TOPICAL PATCH TD SCH (09:42)
[2018-10-07] MEDS: PRENATAL VITAMINS W/ FOLIC ACID TABLET (FP) PO SCH (09:42)
[2018-10-07] MEDS: amLODIPine BESYLATE 10 MG TABLET (FP) PO SCH (09:43)
[2018-10-07] MEDS: IBUPROFEN 400 MG TABLET (FP) PO PRN (09:43)
[2018-10-07] MEDS: METHOCARBAMOL 500 MG TABLET PO PRN ×2 (09:43→21:48)
[2018-10-07] MEDS: THIAMINE HCL 100 MG TABLET (FP) PO SCH (21:48)
[2018-10-07] MEDS: MIRTAZAPINE 30 MG TABLET (FP) PO SCH (21:48)
[2018-10-07] MEDS: QUEtiapine FUMARATE 100 MG TABLET (FP) PO SCH (21:48)
[2018-10-07] MEDS: MELATONIN 5 MG TABLETS PO PRN (21:48)
[2018-10-07] MEDS: hydrOXYzine PAMOATE 50 MG CAPSULE (FP) PO PRN (21:49)
[2018-10-08] MEDS: GABAPENTIN 300 MG CAPSULE (FP) PO SCH ×3 (05:53→21:13)
[2018-10-08] MEDS: METHADONE HCL 40 MG DISPERSABLE TABLET PO SCH (05:53)
[2018-10-08] MEDS: METHOCARBAMOL 500 MG TABLET PO PRN (08:35)
[2018-10-08] MEDS: IBUPROFEN 400 MG TABLET (FP) PO PRN (08:35)
[2018-10-08] MEDS: hydrOXYzine PAMOATE 50 MG CAPSULE (FP) PO PRN (09:58)
[2018-10-08] MEDS: PRENATAL VITAMINS W/ FOLIC ACID TABLET (FP) PO SCH (09:58)
[2018-10-08] MEDS: NICOTINE 21 MG/24 HOURS TOPICAL PATCH TD SCH (09:58)
[2018-10-08] MEDS: amLODIPine BESYLATE 10 MG TABLET (FP) PO SCH (10:56)
[2018-10-08] MEDS: COLLOIDAL OATMEAL 1 BAR EACH TP PRN (14:52)
[2018-10-08] MEDS: MELATONIN 5 MG TABLETS PO PRN (21:13)
[2018-10-08] MEDS: THIAMINE HCL 100 MG TABLET (FP) PO SCH (21:13)
[2018-10-08] MEDS: MIRTAZAPINE 30 MG TABLET (FP) PO SCH (21:13)
[2018-10-08] MEDS: QUEtiapine FUMARATE 100 MG TABLET (FP) PO SCH (21:13)
[2018-10-09] MEDS: GABAPENTIN 300 MG CAPSULE (FP) PO SCH ×3 (05:58→21:39)
[2018-10-09] MEDS: METHADONE HCL 40 MG DISPERSABLE TABLET PO SCH (05:58)
[2018-10-09] MEDS: PRENATAL VITAMINS W/ FOLIC ACID TABLET (FP) PO SCH (09:46)
[2018-10-09] MEDS: METHOCARBAMOL 500 MG TABLET PO PRN (09:46)
[2018-10-09] MEDS: NICOTINE 21 MG/24 HOURS TOPICAL PATCH TD SCH (09:46)
[2018-10-09] MEDS: hydrOXYzine PAMOATE 50 MG CAPSULE (FP) PO PRN ×2 (09:46→14:52)
[2018-10-09] MEDS: amLODIPine BESYLATE 10 MG TABLET (FP) PO SCH (09:46)
[2018-10-09] MEDS: IBUPROFEN 400 MG TABLET (FP) PO PRN (09:47)
[2018-10-09] MEDS: THIAMINE HCL 100 MG TABLET (FP) PO SCH (21:39)
[2018-10-09] MEDS: QUEtiapine FUMARATE 100 MG TABLET (FP) PO SCH (21:39)
[2018-10-09] MEDS: MELATONIN 5 MG TABLETS PO PRN (21:39)
[2018-10-09] MEDS: MIRTAZAPINE 30 MG TABLET (FP) PO SCH (21:39)
[2018-10-10] MEDS: GABAPENTIN 300 MG CAPSULE (FP) PO SCH ×3 (06:02→21:20)
[2018-10-10] MEDS: METHADONE HCL 40 MG DISPERSABLE TABLET PO SCH (06:02)
[2018-10-10] MEDS: hydrOXYzine PAMOATE 50 MG CAPSULE (FP) PO PRN ×2 (09:41→21:20)
[2018-10-10] MEDS: PRENATAL VITAMINS W/ FOLIC ACID TABLET (FP) PO SCH (09:41)
[2018-10-10] MEDS: amLODIPine BESYLATE 10 MG TABLET (FP) PO SCH (09:41)
[2018-10-10] MEDS: METHOCARBAMOL 500 MG TABLET PO PRN ×2 (09:42→21:20)
[2018-10-10] MEDS: NICOTINE 21 MG/24 HOURS TOPICAL PATCH TD SCH (09:42)
[2018-10-10] MEDS: IBUPROFEN 400 MG TABLET (FP) PO PRN (09:42)
[2018-10-10] MEDS: QUEtiapine FUMARATE 100 MG TABLET (FP) PO SCH (21:20)
[2018-10-10] MEDS: MIRTAZAPINE 30 MG TABLET (FP) PO SCH (21:20)
[2018-10-10] MEDS: THIAMINE HCL 100 MG TABLET (FP) PO SCH (21:20)
[2018-10-10] MEDS: MELATONIN 5 MG TABLETS PO PRN (21:20)
[2018-10-11] MEDS: GABAPENTIN 300 MG CAPSULE (FP) PO SCH ×3 (06:01→21:49)
[2018-10-11] MEDS: METHADONE HCL 40 MG DISPERSABLE TABLET PO SCH (06:01)
[2018-10-11] MEDS: IBUPROFEN 400 MG TABLET (FP) PO PRN (08:37)
[2018-10-11] MEDS: amLODIPine BESYLATE 10 MG TABLET (FP) PO SCH (09:48)
[2018-10-11] MEDS: PRENATAL VITAMINS W/ FOLIC ACID TABLET (FP) PO SCH (09:48)
[2018-10-11] MEDS: NICOTINE 21 MG/24 HOURS TOPICAL PATCH TD SCH (09:48)
[2018-10-11] MEDS: hydrOXYzine PAMOATE 50 MG CAPSULE (FP) PO PRN ×2 (09:48→21:49)
[2018-10-11] MEDS: ACETAMINOPHEN 325 MG TABLET (FP) PO PRN (11:17)
[2018-10-11] MEDS: MIRTAZAPINE 30 MG TABLET (FP) PO SCH (21:49)
[2018-10-11] MEDS: METHOCARBAMOL 500 MG TABLET PO PRN (21:49)
[2018-10-11] MEDS: MELATONIN 5 MG TABLETS PO PRN (21:49)
[2018-10-11] MEDS: QUEtiapine FUMARATE 100 MG TABLET (FP) PO SCH (21:49)
[2018-10-11] MEDS: THIAMINE HCL 100 MG TABLET (FP) PO SCH (21:50)
[2018-10-12] MEDS: GABAPENTIN 300 MG CAPSULE (FP) PO SCH ×3 (05:58→21:36)
[2018-10-12] MEDS: METHADONE HCL 40 MG DISPERSABLE TABLET PO SCH (05:58)
[2018-10-12] MEDS: hydrOXYzine PAMOATE 50 MG CAPSULE (FP) PO PRN (09:27)
[2018-10-12] MEDS: METHOCARBAMOL 500 MG TABLET PO PRN ×3 (09:27→21:36)
[2018-10-12] MEDS: amLODIPine BESYLATE 10 MG TABLET (FP) PO SCH (09:27)
[2018-10-12] MEDS: PRENATAL VITAMINS W/ FOLIC ACID TABLET (FP) PO SCH (09:27)
[2018-10-12] MEDS: NICOTINE 21 MG/24 HOURS TOPICAL PATCH TD SCH (09:27)
[2018-10-12] MEDS: ACETAMINOPHEN 325 MG TABLET (FP) PO PRN (11:29)
--- NOTE | 2018-10-12 13:59 | PN ---
[facility] Progress Note Note: Patient reported feet and ankle swelling. States he has been eating a lot of grilled cheese and thinks that may be the case. PE: slight edema, bilaterally. Albumin slightly low, he has not had a U/A since 01/2018. Vital Signs Period Temp Pulse Resp BP Sys/Cooper Pulse Ox Last 24 Hr 97.5 F 61-62 18-18 122-137/73-77 JANIE stockings ordered. Advised to elevate legs; ambulate during the day, avoid salt and salty food, maintain hydration. U/A ordered.
[2018-10-12 17:24] LABS: URINE APPEARANCE CLEAR; URINE COLOR YELLOW
[2018-10-12 17:25] LABS: URINE BILIRUBIN NEGATIVE (NEGATIVE); URINE GLUCOSE (UA) NEGATIVE (NEGATIVE); URINE KETONE NEGATIVE (NEGATIVE); URINE LEUK ESTERASE NEGATIVE (NEGATIVE); URINE NITRITE NEGATIVE (NEGATIVE); URINE PROTEIN NEGATIVE (NEGATIVE); URINE UROBILINOGEN 0.2 mg/dL (0.2-1.0)
[2018-10-12] MEDS: THIAMINE HCL 100 MG TABLET (FP) PO SCH (21:35)
[2018-10-12] MEDS: QUEtiapine FUMARATE 100 MG TABLET (FP) PO SCH (21:36)
[2018-10-12] MEDS: MELATONIN 5 MG TABLETS PO PRN (21:36)
[2018-10-12] MEDS: MIRTAZAPINE 30 MG TABLET (FP) PO SCH (21:36)
[2018-10-13] MEDS: GABAPENTIN 300 MG CAPSULE (FP) PO SCH ×3 (05:51→21:08)
[2018-10-13] MEDS: METHADONE HCL 40 MG DISPERSABLE TABLET PO SCH (05:52)
[2018-10-13] MEDS: PRENATAL VITAMINS W/ FOLIC ACID TABLET (FP) PO SCH (09:45)
[2018-10-13] MEDS: IBUPROFEN 400 MG TABLET (FP) PO PRN ×2 (09:45→21:08)
[2018-10-13] MEDS: METHOCARBAMOL 500 MG TABLET PO PRN ×2 (09:46→14:10)
[2018-10-13] MEDS: amLODIPine BESYLATE 10 MG TABLET (FP) PO SCH (09:46)
[2018-10-13] MEDS: hydrOXYzine PAMOATE 50 MG CAPSULE (FP) PO PRN ×3 (09:46→21:09)
[2018-10-13] MEDS: NICOTINE 21 MG/24 HOURS TOPICAL PATCH TD SCH (10:32)
[2018-10-13] MEDS: THIAMINE HCL 100 MG TABLET (FP) PO SCH (21:08)
[2018-10-13] MEDS: MIRTAZAPINE 30 MG TABLET (FP) PO SCH (21:09)
[2018-10-13] MEDS: QUEtiapine FUMARATE 100 MG TABLET (FP) PO SCH (21:09)
[2018-10-13] MEDS: MELATONIN 5 MG TABLETS PO PRN (21:09)
[2018-10-14] MEDS: GABAPENTIN 300 MG CAPSULE (FP) PO SCH ×3 (05:49→21:03)
[2018-10-14] MEDS: METHADONE HCL 40 MG DISPERSABLE TABLET PO SCH (05:49)
[2018-10-14] MEDS: IBUPROFEN 400 MG TABLET (FP) PO PRN ×2 (09:43→15:33)
[2018-10-14] MEDS: METHOCARBAMOL 500 MG TABLET PO PRN ×3 (09:44→21:03)
[2018-10-14] MEDS: amLODIPine BESYLATE 10 MG TABLET (FP) PO SCH (09:44)
[2018-10-14] MEDS: NICOTINE 21 MG/24 HOURS TOPICAL PATCH TD SCH (09:44)
[2018-10-14] MEDS: hydrOXYzine PAMOATE 50 MG CAPSULE (FP) PO PRN ×2 (09:44→14:06)
[2018-10-14] MEDS: PRENATAL VITAMINS W/ FOLIC ACID TABLET (FP) PO SCH (09:44)
[2018-10-14] MEDS: THIAMINE HCL 100 MG TABLET (FP) PO SCH (21:02)
[2018-10-14] MEDS: MELATONIN 5 MG TABLETS PO PRN (21:03)
[2018-10-14] MEDS: MIRTAZAPINE 30 MG TABLET (FP) PO SCH (21:03)
[2018-10-14] MEDS: QUEtiapine FUMARATE 100 MG TABLET (FP) PO SCH (21:03)
[2018-10-14] MEDS: ACETAMINOPHEN 325 MG TABLET (FP) PO PRN (21:03)
[2018-10-15] MEDS: METHADONE HCL 40 MG DISPERSABLE TABLET PO SCH (06:11)
[2018-10-15] MEDS: GABAPENTIN 300 MG CAPSULE (FP) PO SCH ×3 (06:11→21:09)
[2018-10-15] MEDS: METHOCARBAMOL 500 MG TABLET PO PRN ×2 (09:56→21:09)
[2018-10-15] MEDS: IBUPROFEN 400 MG TABLET (FP) PO PRN (09:56)
[2018-10-15] MEDS: amLODIPine BESYLATE 10 MG TABLET (FP) PO SCH (09:57)
[2018-10-15] MEDS: NICOTINE 21 MG/24 HOURS TOPICAL PATCH TD SCH (09:57)
[2018-10-15] MEDS: PRENATAL VITAMINS W/ FOLIC ACID TABLET (FP) PO SCH (09:57)
[2018-10-15] MEDS: hydrOXYzine PAMOATE 50 MG CAPSULE (FP) PO PRN (11:37)
[2018-10-15] MEDS: MIRTAZAPINE 30 MG TABLET (FP) PO SCH (21:09)
[2018-10-15] MEDS: THIAMINE HCL 100 MG TABLET (FP) PO SCH (21:09)
[2018-10-15] MEDS: QUEtiapine FUMARATE 100 MG TABLET (FP) PO SCH (21:09)
[2018-10-15] MEDS: MELATONIN 5 MG TABLETS PO PRN (21:09)
[2018-10-15] MEDS: ACETAMINOPHEN 325 MG TABLET (FP) PO PRN (21:10)
[2018-10-16] MEDS: METHADONE HCL 40 MG DISPERSABLE TABLET PO SCH (06:29)
[2018-10-16] MEDS: GABAPENTIN 300 MG CAPSULE (FP) PO SCH ×3 (06:29→21:44)
[2018-10-16] MEDS: PRENATAL VITAMINS W/ FOLIC ACID TABLET (FP) PO SCH (09:30)
[2018-10-16] MEDS: NICOTINE 21 MG/24 HOURS TOPICAL PATCH TD SCH (09:30)
[2018-10-16] MEDS: amLODIPine BESYLATE 10 MG TABLET (FP) PO SCH (09:30)
[2018-10-16] MEDS: METHOCARBAMOL 500 MG TABLET PO PRN ×2 (09:30→21:44)
[2018-10-16] MEDS: IBUPROFEN 400 MG TABLET (FP) PO PRN (09:31)
[2018-10-16] MEDS: hydrOXYzine PAMOATE 50 MG CAPSULE (FP) PO PRN ×2 (11:27→19:26)
[2018-10-16] MEDS: QUEtiapine FUMARATE 100 MG TABLET (FP) PO SCH (21:43)
[2018-10-16] MEDS: MELATONIN 5 MG TABLETS PO PRN (21:43)
[2018-10-16] MEDS: ACETAMINOPHEN 325 MG TABLET (FP) PO PRN (21:44)
[2018-10-16] MEDS: MIRTAZAPINE 30 MG TABLET (FP) PO SCH (21:44)
[2018-10-16] MEDS: THIAMINE HCL 100 MG TABLET (FP) PO SCH (21:53)
[2018-10-17] MEDS: GABAPENTIN 300 MG CAPSULE (FP) PO SCH ×3 (06:16→21:05)
[2018-10-17] MEDS: METHADONE HCL 40 MG DISPERSABLE TABLET PO SCH (06:16)
[2018-10-17] MEDS: amLODIPine BESYLATE 10 MG TABLET (FP) PO SCH (09:48)
[2018-10-17] MEDS: NICOTINE 21 MG/24 HOURS TOPICAL PATCH TD SCH (09:48)
[2018-10-17] MEDS: hydrOXYzine PAMOATE 50 MG CAPSULE (FP) PO PRN ×2 (09:48→15:50)
[2018-10-17] MEDS: METHOCARBAMOL 500 MG TABLET PO PRN ×2 (09:48→14:23)
[2018-10-17] MEDS: IBUPROFEN 400 MG TABLET (FP) PO PRN (09:48)
[2018-10-17] MEDS: PRENATAL VITAMINS W/ FOLIC ACID TABLET (FP) PO SCH (09:48)
[2018-10-17] MEDS: COLLOIDAL OATMEAL 1 BAR EACH TP PRN (09:51)
[2018-10-17] MEDS: THIAMINE HCL 100 MG TABLET (FP) PO SCH (21:05)
[2018-10-17] MEDS: QUEtiapine FUMARATE 100 MG TABLET (FP) PO SCH (21:05)
[2018-10-17] MEDS: MIRTAZAPINE 30 MG TABLET (FP) PO SCH (21:05)
[2018-10-17] MEDS: MELATONIN 5 MG TABLETS PO PRN (21:05)
[2018-10-18] MEDS: METHADONE HCL 40 MG DISPERSABLE TABLET PO SCH (05:50)
[2018-10-18] MEDS: GABAPENTIN 300 MG CAPSULE (FP) PO SCH ×3 (05:50→21:37)
[2018-10-18] MEDS: hydrOXYzine PAMOATE 50 MG CAPSULE (FP) PO PRN (09:31)
[2018-10-18] MEDS: NICOTINE 21 MG/24 HOURS TOPICAL PATCH TD SCH (09:31)
[2018-10-18] MEDS: amLODIPine BESYLATE 10 MG TABLET (FP) PO SCH (09:31)
[2018-10-18] MEDS: PRENATAL VITAMINS W/ FOLIC ACID TABLET (FP) PO SCH (09:32)
[2018-10-18] MEDS: ACETAMINOPHEN 325 MG TABLET (FP) PO PRN (09:33)
[2018-10-18] MEDS: METHOCARBAMOL 500 MG TABLET PO PRN (09:33)
[2018-10-18] MEDS: IBUPROFEN 400 MG TABLET (FP) PO PRN ×2 (13:40→21:38)
[2018-10-18] MEDS: THIAMINE HCL 100 MG TABLET (FP) PO SCH (21:37)
[2018-10-18] MEDS: MELATONIN 5 MG TABLETS PO PRN (21:37)
[2018-10-18] MEDS: QUEtiapine FUMARATE 100 MG TABLET (FP) PO SCH (21:37)
[2018-10-18] MEDS: MIRTAZAPINE 30 MG TABLET (FP) PO SCH (21:38)
[2018-10-19] MEDS: GABAPENTIN 300 MG CAPSULE (FP) PO SCH (05:45)
[2018-10-19] MEDS: METHADONE HCL 40 MG DISPERSABLE TABLET PO SCH (05:46)
[2018-10-19 06:37] VITALS: TEMP 97.7
--- NOTE | 2018-10-19 06:52 | PN ---
[facility] Progress Note Note: Patient is scheduled for discharge today. Scripts for 30 days supply of medications(Seroquel 100 mg/hs, Remeron 30 mg/hs) are electronically transmitted to [facility] [id number] [place] [address]
[2018-10-19] MEDS: IBUPROFEN 400 MG TABLET (FP) PO PRN (08:35)
--- NOTE | 2018-10-19 08:36 | PN ---
S Progress Note (SOAP) Subjective: Patient to be discharged today Objective: 10/19/18 08:34 Ambulatory Orders Methadone [Dolophine -] 80 mg PO DAILY 07/07/18 Amlodipine Besylate [Norvasc -] 10 mg PO DAILY #14 tablet 10/19/18 Gabapentin [Neurontin -] 300 mg PO TID #30 capsule 10/19/18 Mirtazapine [Remeron -] 30 mg PO HS #30 tablet 10/19/18 Quetiapine Fumarate [Seroquel] 100 mg PO HS #30 tablet 10/19/18 Vital Signs (72 hours) 10/16/18 10/17/18 10/17/18 09:30 00:30 03:30 Temperature Pulse Rate 73 Respiratory 18 18 18 Rate Blood Pressure 129/80 10/17/18 10/17/18 10/18/18 06:45 09:30 00:30 Temperature 97.8 F Pulse Rate 57 L 68 Respiratory 18 18 18 Rate Blood Pressure 140/76 126/71 10/18/18 10/18/18 10/18/18 03:30 06:50 09:15 Temperature 97.8 F Pulse Rate 66 70 Respiratory 18 18 Rate Blood Pressure 111/71 153/79 10/19/18 10/19/18 10/19/18 00:30 03:30 06:36 Temperature 97.7 F Pulse Rate 63 Respiratory 18 18 18 Rate Blood Pressure 112/74 10/19/18 09:55 A+O x3; no neurological deficits noted, CN 2-12 intact. Heart rate regular, lungs clear, abd soft, non-tender, non-distended, obese. Assessment: Medically stable for discharge. 10/19/18 08:35 Discharge dx: Opioid Dependence, chronic ETOh dependence, chronic Cocaine dependence, chronic Neuropathy HTN 10/19/18 08:36 10/19/18 09:56 Plan: Patient does not have a primary care provider and is being discharged to the half-way. He anticipates securing after care at [facility], where he may get health care also
[2018-10-19] MEDS: amLODIPine BESYLATE 10 MG TABLET (FP) PO SCH (09:01)
[2018-10-19] MEDS: PRENATAL VITAMINS W/ FOLIC ACID TABLET (FP) PO SCH (09:01)
[2018-10-19] MEDS: METHOCARBAMOL 500 MG TABLET PO PRN (09:01)
[2018-10-19] MEDS: NICOTINE 21 MG/24 HOURS TOPICAL PATCH TD SCH (09:04)
[2018-10-19 09:35] VITALS: BP 132/84; PULSE 81
[2018-10-20] MEDS ORDERED: METHADONE HCL 40 MG DISPERSABLE TABLET PO SCH (06:00)
== END 2018-10-19 09:15 | disposition home or self-care (01) | DRG 772 ==
LOC: YASAS 18:08 → Y3W 18:09
PROVIDERS: ADMIT Neuromusculoskeletal Medicine & OMM; ATTEND Neuromusculoskeletal Medicine & OMM
PROC: HZ42ZZZ Group Counseling for Substance Abuse Treatment, Cognitive-Behavioral (ICD-10-PCS; principal; 2018-09-30)
DX: F11.20 Opioid dependence, uncomplicated (principal); F10.20 Alcohol dependence, uncomplicated; F14.20 Cocaine dependence, uncomplicated; F17.210 Nicotine dependence, cigarettes, uncomplicated; I10 Essential (primary) hypertension; G62.9 Polyneuropathy, unspecified; R60.0 Localized edema; E66.9 Obesity, unspecified; Z68.36 Body mass index [BMI] 36.0-36.9, adult; Z59.0 Homelessness
CPT/HCPCS: 81003

== ENCOUNTER 2018-11-23 16:43 | Inpatient (IN) | payer OTHER ==
[2018-11-23 17:56] VITALS: BMI 36.2
--- NOTE | 2018-11-23 19:22 | HP ---
CIWA Score Nausea/Vomitin-Mild Nausea/No Vomiting Muscle Tremors: 2 Anxiety: 2 Agitation: 2 Paroxysmal Sweats: 2 Orientation: 0-Oriented Tacttile Disturbances: 0-None Auditory Disturbances: 0-None Visual Disturbances: 0-None Headache: 1-Very Mild CIWA-Ar Total Score: 10 - Admission Criteria OASAS Guidelines: Admission for Medically Managed Detox: Requires at least one of the followin. CIWA greater than 12 2. Seizures within the past 24 hours 3. Delirium tremens within the past 24 hours 4. Hallucinations within the past 24 hours 5. Acute intervention needed for co occurring medical disorder 6. Acute intervention needed for co occurring psychiatric disorder 7. Severe withdrawal that cannot be handled at a lower level of care (continued vomiting, continued diarrhea, abnormal vital signs) requiring intravenous medication and/or fluids 8. Admission ROS BHS - HPI Chief Complaint: here for alcohol and benzo detox, in a methadone MAT - using heroin 53 yo with multiple medical problems:Skin cancer recurred left arm; Hypertension. Depression, insomnia, PTSD Currently on [facility] Methadone Maintenance Program. States current Methadone dose is 80 mg and last medicated this a.m. Pt is homeless and is having difficulty finding housing so he can take care of his health issues- recurrence of sarcoma Opioid use: continues to use heroin, on MAT, 9 overdoses in 2018; seizure 2 years ago. No Narcan kit at home. Willing to have Narcan Kit upon discharge. Benzo use began at age 31. Alcohol use began at age 13. Marijuana use began at age 13. Cocaine use began at age 16. Nicotine use began at age 13. DUR- shows no recent meds Allergies/Adverse Reactions: Allergies Allergy/AdvReac Type Severity Reaction Status Date / Time shellfish derived Allergy Severe Hives Verified 11/23/18 17:42 - Ebola screening Have you traveled outside of the country in the last 21 days: No (N) Have you had contact with anyone from an Ebola affected area: No Do you have a fever: No Patient History - Patient Medical History Hx Anemia: Yes Hx Asthma: No Hx Chronic Obstructive Pulmonary Disease (COPD): No Hx Cancer: Yes (Sarcoma diagnosed 4 years ago ) Hx Cardiac Disorders: No Hx Congestive Heart Failure: No Hx Hypertension: Yes Hx Hypercholesterolemia: No Hx Pacemaker: No HX Cerebrovascular Accident: No Hx Seizures: Yes Hx Dementia: No Hx Diabetes: No Hx Gastrointestinal Disorders: No Hx Liver Disease: No Hx Genitourinary Disorders: No Hx Sexually Transmitted Disorders: No Hx Renal Disease (ESRD): No Hx Thyroid Disease: No Hx Human Immunodeficiency Virus (HIV): No (last 2015 negative, declines testing ) Hx Hepatitis C: No Hx Depression: Yes Hx Suicide Attempt: No Hx Bipolar Disorder: Yes Hx Schizophrenia: No - Patient Surgical History Past Surgical History: Yes Hx Neurologic Surgery: No Hx Cataract Extraction: No Hx Cardiac Surgery: No Hx Lung Surgery: No Hx Breast Surgery: No Hx Breast Biopsy: No Hx Abdominal Surgery: No Hx Appendectomy: No Hx Cholecystectomy: No Hx Genitourinary Surgery: No Hx Section: No Hx Orthopedic Surgery: No Other Surgical History: 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 Anesthesia Reaction: No (2 tumors removed from upper arm 04/30) - PPD History Date: 02/06/18 Results: 0MM - Smoking Cessation Smoking history: Current every day smoker Have you smoked in the past 12 months: Yes Aproximately how many cigarettes per day: 20 Cigars Per Day: 0 Hx Chewing Tobacco Use: No Initiated information on smoking cessation: Yes 'Breaking Loose' booklet given: 11/23/18 - Substances abused Alcohol Substance route: Oral Frequency: Daily Amount used: 2 PINTS WHISKY Age of first use: 13 Date of last use: 11/22/18 Alprazolam (Xanax) Substance route: Oral Frequency: Daily Amount used: 2 of 4 mg Age of first use: 31 Date of last use: 11/22/18 Cocaine Substance route: Smoking Frequency: 1-3 times last 30 days Amount used: somebody gave it to me' Age of first use: 16 Date of last use: 11/22/18 Heroin Other (specify): SNIFF Frequency: Daily Amount used: 6 BAGS Age of first use: 34 Date of last use: 11/22/18 Benzodiazepine (Klonopin) Substance route: Oral Frequency: Daily Amount used: 2 of 2 mg Age of first use: 37 Date of last use: 11/20/18 Family Disease History - Family Disease History Family Disease History: Other: Father (, parkinsonism), Mother ( Schizophrenia - no contact), Sister (one - living - healthy), Daughter (one age 32 - healthy) Admission Physical Exam BHS - Vital Signs Vital Signs: Vital Signs - 24 hr 11/23/18 11/23/18 17:46 19:09 Temperature 98.1 F 98.1 F Pulse Rate 110 H 110 H Respiratory 16 16 Rate Blood Pressure 150/90 150/90 - Physical General Appearance: Yes: Within Normal Limits, Disheveled HEENTM: Yes: Within Normal Limits, Hearing grossly Normal, Other (poor dentition ) Respiratory: Yes: Within Normal Limits, Lungs Clear Neck: Yes: Within Normal Limits Cardiology: Yes: Within Normal Limits, Regular Rhythm Abdominal: Yes: Within Normal Limits, Protuberent, Distended Back: Yes: Within Normal Limits Musculoskeletal: Yes: Within Normal Limits Lymphatic: Yes: Other (R arm with scars from previous surgeries and new areas of recurrence of sarcoma near scar) - Diagnostic (1) Alcohol dependence with uncomplicated withdrawal Current Visit: No Status: Acute (2) Anxiety Current Visit: No Status: Acute (3) Cocaine dependence Current Visit: No Status: Acute Qualifiers: Substance use status: uncomplicated Qualified Code(s): F14.20 - Cocaine dependence, uncomplicated (4) Sedative hypnotic or anxiolytic dependence Current Visit: No Status: Acute (5) HTN (hypertension) Current Visit: No Status: Chronic Qualifiers: Hypertension type: essential hypertension Qualified Code(s): I10 - Essential (primary) hypertension (6) History of sarcoma of soft tissue Current Visit: No Status: Chronic (7) Methadone maintenance therapy patient Current Visit: No Status: Chronic (8) Neuropathy Current Visit: No Status: Chronic (9) Obese Current Visit: No Status: Chronic Qualifiers: Obesity type: unspecified obesity type Obesity classification: adult class 2 (BMI 35 - 39.9) Serious obesity comorbidity presence: without serious comorbidity Body mass index: BMI 36.0-36.9 Qualified Code(s): E66.9 - Obesity, unspecified; Z68.36 - Body mass index (BMI) 36.0-36.9, adult (10) PTSD (post-traumatic stress disorder) Current Visit: No Status: Chronic Comment: As per history and self- report.No symptoms elicited in this evaluation.Patient is not in treatment.Off medications. (11) Opioid dependence with withdrawal Current Visit: No Status: Resolved (12) Bipolar disorder Current Visit: No Status: Ruled-out Breathalyzer - Breathalyzer Breathalyzer: 0 Urine Drug Screen - Test Device Lot number: [id number] Expiration date: 05/13/20 - Control Is test valid?: Yes - Results Drug screen NEGATIVE: No Urine drug screen results: KAREEM-Cocaine, FEN-Fentanyl, MOP-Opiates, MTD-Methadone , BZO-Benzodiazepines Inpatient Rehab Admission - Rehab Decision to Admit Inpatient rehab admission?: No
[2018-11-23] MEDS ORDERED: MENTHOL/PHENOL 1 EACH UD MM PRN (19:29)
[2018-11-23] MEDS ORDERED: ACETAMINOPHEN 325 MG TABLET (FP) PO PRN (19:29)
[2018-11-23] MEDS ORDERED: MAGNESIUM CITRATE 300 ML BOTTLE PO PRN (19:29)
[2018-11-23] MEDS ORDERED: MAGNESIUM HYDROX 2400MG/30ML ORAL SUSPENSION 30 ML CUP PO PRN (19:29)
[2018-11-23] MEDS ORDERED: MAG HYDROX/AL HYDROX/SIMETH 30 ML UNIT-DOSE CUP PO PRN (19:29)
[2018-11-23] MEDS ORDERED: ONDANSETRON *ODT* 4 MG TABLET SL PRN (19:29)
[2018-11-23] MEDS ORDERED: MELATONIN 5 MG TABLETS PO PRN (19:29)
[2018-11-23] MEDS ORDERED: chlordiazePOXIDE HCL 25 MG CAPSULE PO ONE (19:29)
[2018-11-23] MEDS ORDERED: BISMUTH SUBSALICYLATE 524 MG/30 ML UD PO PRN (19:29)
[2018-11-23] MEDS ORDERED: METHADONE HCL 40 MG DISPERSABLE TABLET PO SCH (19:45)
[2018-11-23] MEDS: IBUPROFEN 400 MG TABLET (FP) PO PRN (20:37)
[2018-11-23] MEDS ORDERED: METHADONE HCL 10 MG TABLET PO ONE (21:23)
[2018-11-23] MEDS: METHOCARBAMOL 500 MG TABLET PO PRN (21:52)
[2018-11-23] MEDS: GABAPENTIN 300 MG CAPSULE (FP) PO SCH (21:52)
[2018-11-23] MEDS: QUEtiapine FUMARATE 100 MG TABLET (FP) PO PRN (21:53)
[2018-11-23] MEDS: THIAMINE HCL 100 MG TABLET (FP) PO SCH (22:03)
[2018-11-23] MEDS: chlordiazePOXIDE HCL 25 MG CAPSULE PO SCH (22:04)
[2018-11-24] MEDS: GABAPENTIN 300 MG CAPSULE (FP) PO SCH ×3 (06:00→22:05)
[2018-11-24] MEDS: chlordiazePOXIDE HCL 25 MG CAPSULE PO SCH ×4 (06:01→22:05)
[2018-11-24] MEDS: METHOCARBAMOL 500 MG TABLET PO PRN ×3 (06:03→22:35)
[2018-11-24] MEDS: IBUPROFEN 400 MG TABLET (FP) PO PRN ×3 (08:41→20:45)
[2018-11-24] MEDS ORDERED: METHADONE HCL 10 MG TABLET PO ONE (09:21)
[2018-11-24] MEDS ORDERED: METHADONE HCL 40 MG DISPERSABLE TABLET PO ONE (09:35)
[2018-11-24 09:57] LABS: ALBUMIN 3.4 g/dl (3.4-5.0); BILIRUBIN,TOTAL 0.4 mg/dL (0.2-1); BLOOD UREA NITROGEN 14.8 mg/dL (7-18); CALCIUM 8.7 mg/dL (8.5-10.1); CREATININE 0.8 mg/dL (0.55-1.3); POTASSIUM 4.3 mmol/L (3.5-5.1); TOT PROT 6.5 g/dl (6.4-8.2)
[2018-11-24] MEDS: PRENATAL VITAMINS W/ FOLIC ACID TABLET (FP) PO SCH (10:06)
[2018-11-24] MEDS: amLODIPine BESYLATE 10 MG TABLET (FP) PO SCH (10:06)
[2018-11-24 10:07] LABS: HEMATOCRIT 38.5 % (35.4-49); HEMOGLOBIN 12.5 GM/dL (11.7-16.9); MCH 27.6 pg (25.7-33.7); MCHC 32.5 g/dl (32.0-35.9); MEAN CELL VOLUME 84.9 fl (80-96); MEAN PLT VOLUME 9.3 fl (7.5-11.1); PLATELET COUNT 277 K/MM3 (134-434); RBC 4.54 M/mm3 (4.00-5.60); RDW 15.4 % (11.9-15.9); WHITE BLOOD COUNT 3.9 K/mm3 (4.0-10.0)
[2018-11-24] MEDS: NICOTINE 21 MG/24 HOURS TOPICAL PATCH TD SCH (10:09)
[2018-11-24] MEDS: COLLOIDAL OATMEAL 1 BAR EACH TP PRN (10:10)
--- NOTE | 2018-11-24 11:36 | PN ---
S CIWA - CIWA Score Nausea/Vomitin-No Nausea/No Vomiting Muscle Tremors: 3 Anxiety: 2 Agitation: 3 Paroxysmal Sweats: 2 Orientation: 0-Oriented Tacttile Disturbances: 0-None Auditory Disturbances: 0-None Visual Disturbances: 0-None Headache: 0-None Present CIWA-Ar Total Score: 10 S Progress Note (SOAP) Subjective: hot/cold sweats chills agitation body aches i need aveeno soap and vitamin a&d ointment Objective: 11/24/18 11:35 Vital Signs Temperature 96.9 F L 11/24/18 09:27 Pulse Rate 66 11/24/18 09:27 Respiratory Rate 16 11/24/18 09:27 Blood Pressure 125/85 11/24/18 09:27 O2 Sat by Pulse Oximetry (%) Laboratory Tests 11/24/18 11/24/18 11/24/18 07:00 07:00 07:00 WBC 3.9 L RBC 4.54 Hgb 12.5 Hct 38.5 MCV 84.9 MCH 27.6 MCHC 32.5 RDW 15.4 Plt Count 277 MPV 9.3 Sodium 143 Potassium 4.3 Chloride 111 H Carbon Dioxide 27 Anion Gap 5 L BUN 14.8 Creatinine 0.8 Est GFR (CKD-EPI)AfAm 119.04 Est GFR (CKD-EPI)NonAf 102.71 Random Glucose 93 Calcium 8.7 Total Bilirubin 0.4 AST 17 ALT 22 Alkaline Phosphatase 87 Total Protein 6.5 Albumin 3.4 RPR Titer Nonreactive labs noted aaox3 ambulating no acute distress Assessment: 11/24/18 11:35 withdrawal sx Plan: continue detox increase fluids aveeno soap ordered vitamin A&D oint ordered
[2018-11-24] MEDS: hydrOXYzine PAMOATE 25 MG CAPSULE (FP) PO PRN (11:42)
[2018-11-24] MEDS: VITAMINS A AND D TOPICAL OINTMENT 60 GM TUBE TP SCH ×2 (12:28→17:31)
[2018-11-24] MEDS: chlordiazePOXIDE HCL 25 MG CAPSULE PO PRN (14:54)
[2018-11-24] MEDS: THIAMINE HCL 100 MG TABLET (FP) PO SCH (22:05)
[2018-11-24] MEDS: QUEtiapine FUMARATE 100 MG TABLET (FP) PO PRN (22:09)
[2018-11-24] MEDS: ACETAMINOPHEN 325 MG TABLET (FP) PO PRN (22:36)
[2018-11-25] MEDS: VITAMINS A AND D TOPICAL OINTMENT 60 GM TUBE TP SCH ×4 (05:53→17:12)
[2018-11-25] MEDS: chlordiazePOXIDE HCL 25 MG CAPSULE PO SCH ×3 (05:54→17:12)
[2018-11-25] MEDS: GABAPENTIN 300 MG CAPSULE (FP) PO SCH ×3 (05:54→22:34)
[2018-11-25] MEDS: METHADONE HCL 40 MG DISPERSABLE TABLET PO SCH (05:54)
[2018-11-25] MEDS ORDERED: METHADONE HCL 40 MG DISPERSABLE TABLET PO SCH (06:00)
[2018-11-25] MEDS: amLODIPine BESYLATE 10 MG TABLET (FP) PO SCH (09:20)
[2018-11-25] MEDS: METHOCARBAMOL 500 MG TABLET PO PRN ×2 (09:20→22:37)
[2018-11-25] MEDS: IBUPROFEN 400 MG TABLET (FP) PO PRN ×2 (09:20→22:36)
[2018-11-25] MEDS: PRENATAL VITAMINS W/ FOLIC ACID TABLET (FP) PO SCH (09:20)
[2018-11-25 10:03] LABS: URINE APPEARANCE CLEAR; URINE BILIRUBIN NEGATIVE (NEGATIVE); URINE COLOR YELLOW; URINE GLUCOSE (UA) NEGATIVE (NEGATIVE); URINE KETONE NEGATIVE (NEGATIVE); URINE LEUK ESTERASE NEGATIVE (NEGATIVE); URINE NITRITE NEGATIVE (NEGATIVE); URINE PROTEIN NEGATIVE (NEGATIVE); URINE UROBILINOGEN 0.2 mg/dL (0.2-1.0)
[2018-11-25] MEDS: NICOTINE 21 MG/24 HOURS TOPICAL PATCH TD SCH (10:17)
--- NOTE | 2018-11-25 11:04 | PN ---
[facility] CIWA - CIWA Score Nausea/Vomitin-No Nausea/No Vomiting Muscle Tremors: 2 Anxiety: 3 Agitation: 2 Paroxysmal Sweats: 3 Orientation: 0-Oriented Tacttile Disturbances: 0-None Auditory Disturbances: 0-None Visual Disturbances: 0-None Headache: 0-None Present CIWA-Ar Total Score: 10 S Progress Note (SOAP) Subjective: sweats mild shakes anxiety interrupted sleep Objective: 11/25/18 11:03 Vital Signs Temperature 97.4 F L 11/25/18 09:49 Pulse Rate 66 11/25/18 09:49 Respiratory Rate 18 11/25/18 09:49 Blood Pressure 119/71 11/25/18 09:49 O2 Sat by Pulse Oximetry (%) Laboratory Tests 11/24/18 11/24/18 11/24/18 07:00 07:00 07:00 WBC 3.9 L RBC 4.54 Hgb 12.5 Hct 38.5 MCV 84.9 MCH 27.6 MCHC 32.5 RDW 15.4 Plt Count 277 MPV 9.3 Sodium 143 Potassium 4.3 Chloride 111 H Carbon Dioxide 27 Anion Gap 5 L BUN 14.8 Creatinine 0.8 Est GFR (CKD-EPI)AfAm 119.04 Est GFR (CKD-EPI)NonAf 102.71 Random Glucose 93 Calcium 8.7 Total Bilirubin 0.4 AST 17 ALT 22 Alkaline Phosphatase 87 Total Protein 6.5 Albumin 3.4 Urine Color Urine Appearance Urine pH Ur Specific [place] Urine Protein Urine Glucose (UA) Urine Ketones Urine Blood Urine Nitrite Urine Bilirubin Urine Urobilinogen Ur Leukocyte Esterase RPR Titer Nonreactive 11/25/18 07:00 WBC RBC Hgb Hct MCV MCH MCHC RDW Plt Count MPV Sodium Potassium Chloride Carbon Dioxide Anion Gap BUN Creatinine Est GFR (CKD-EPI)AfAm Est GFR (CKD-EPI)NonAf Random Glucose Calcium Total Bilirubin AST ALT Alkaline Phosphatase Total Protein Albumin Urine Color Yellow Urine Appearance Clear Urine pH 6.0 Ur Specific [place] 1.008 L Urine Protein Negative Urine Glucose (UA) Negative Urine Ketones Negative Urine Blood Negative Urine Nitrite Negative Urine Bilirubin Negative Urine Urobilinogen 0.2 Ur Leukocyte Esterase Negative RPR Titer aaox3 ambulating no acute distress Assessment: 11/25/18 11:03 withdrawal sx Plan: continue detox increase fluids
[2018-11-25] MEDS: chlordiazePOXIDE HCL 25 MG CAPSULE PO PRN (12:36)
[2018-11-25] MEDS: hydrOXYzine PAMOATE 25 MG CAPSULE (FP) PO PRN ×2 (13:51→20:09)
[2018-11-25] MEDS: ACETAMINOPHEN 325 MG TABLET (FP) PO PRN (15:55)
[2018-11-25] MEDS: THIAMINE HCL 100 MG TABLET (FP) PO SCH (22:34)
[2018-11-25] MEDS: chlordiazePOXIDE HCL 10 MG CAPSULE PO SCH (22:34)
[2018-11-25] MEDS: QUEtiapine FUMARATE 100 MG TABLET (FP) PO PRN (22:42)
[2018-11-26] MEDS: VITAMINS A AND D TOPICAL OINTMENT 60 GM TUBE TP SCH ×4 (01:02→19:51)
[2018-11-26] MEDS: GABAPENTIN 300 MG CAPSULE (FP) PO SCH ×3 (05:17→22:16)
[2018-11-26] MEDS: METHADONE HCL 40 MG DISPERSABLE TABLET PO SCH (05:17)
[2018-11-26] MEDS: chlordiazePOXIDE HCL 10 MG CAPSULE PO SCH ×4 (05:17→22:18)
[2018-11-26] MEDS: IBUPROFEN 400 MG TABLET (FP) PO PRN ×3 (05:18→19:28)
[2018-11-26] MEDS: METHOCARBAMOL 500 MG TABLET PO PRN ×3 (05:20→17:25)
[2018-11-26] MEDS: ACETAMINOPHEN 325 MG TABLET (FP) PO PRN ×2 (06:51→16:45)
[2018-11-26] MEDS: chlordiazePOXIDE HCL 10 MG CAPSULE PO PRN ×2 (08:56→14:32)
[2018-11-26] MEDS: amLODIPine BESYLATE 10 MG TABLET (FP) PO SCH (10:17)
[2018-11-26] MEDS: PRENATAL VITAMINS W/ FOLIC ACID TABLET (FP) PO SCH (10:17)
[2018-11-26] MEDS: NICOTINE 21 MG/24 HOURS TOPICAL PATCH TD SCH (10:18)
--- NOTE | 2018-11-26 15:28 | PN ---
S CIWA - CIWA Score Nausea/Vomitin-No Nausea/No Vomiting Muscle Tremors: 3 Anxiety: 4-Mod. Anxious/Guarded Agitation: 4-Moderately Restless Paroxysmal Sweats: 3 Orientation: 0-Oriented Tacttile Disturbances: 0-None Auditory Disturbances: 0-None Visual Disturbances: 0-None Headache: 0-None Present CIWA-Ar Total Score: 14 BHS Progress Note (SOAP) Subjective: generalized pain Constipation Objective: 11/26/18 15:27 A & Ox 3 skin flushed ambulating steadily on unit Not acute distress Vital Signs Temperature 97.0 F L 11/26/18 15:06 Pulse Rate 65 11/26/18 15:06 Respiratory Rate 18 11/26/18 15:06 Blood Pressure 125/75 11/26/18 15:06 O2 Sat by Pulse Oximetry (%) Assessment: 11/26/18 15:27 withdrawal sx Plan: continue detox Prn pain meds
[2018-11-26] MEDS: hydrOXYzine PAMOATE 25 MG CAPSULE (FP) PO PRN (19:29)
[2018-11-26] MEDS: THIAMINE HCL 100 MG TABLET (FP) PO SCH (22:16)
[2018-11-26] MEDS: QUEtiapine FUMARATE 100 MG TABLET (FP) PO PRN (22:20)
[2018-11-27] MEDS: BACITRACIN 15 GM TUBE TOPICAL OINTMENT TP SCH ×2 (01:10→10:35)
[2018-11-27] MEDS: hydrOXYzine PAMOATE 25 MG CAPSULE (FP) PO PRN ×4 (01:14→18:48)
[2018-11-27] MEDS: VITAMINS A AND D TOPICAL OINTMENT 60 GM TUBE TP SCH ×4 (01:19→18:02)
[2018-11-27] MEDS: METHADONE HCL 40 MG DISPERSABLE TABLET PO SCH (05:19)
[2018-11-27] MEDS: GABAPENTIN 300 MG CAPSULE (FP) PO SCH ×3 (05:19→22:14)
[2018-11-27] MEDS: IBUPROFEN 400 MG TABLET (FP) PO PRN ×3 (06:05→22:15)
[2018-11-27] MEDS: COLLOIDAL OATMEAL 1 BAR EACH TP PRN (08:56)
[2018-11-27] MEDS: chlordiazePOXIDE HCL 10 MG CAPSULE PO SCH ×2 (10:09→22:14)
[2018-11-27] MEDS: PRENATAL VITAMINS W/ FOLIC ACID TABLET (FP) PO SCH (10:09)
[2018-11-27] MEDS: amLODIPine BESYLATE 10 MG TABLET (FP) PO SCH (10:09)
[2018-11-27] MEDS: NICOTINE 21 MG/24 HOURS TOPICAL PATCH TD SCH (10:09)
[2018-11-27] MEDS: METHOCARBAMOL 500 MG TABLET PO PRN ×2 (12:28→18:48)
--- NOTE | 2018-11-27 14:53 | PN ---
S CIWA - CIWA Score Nausea/Vomitin-No Nausea/No Vomiting Muscle Tremors: 2 Anxiety: 2 Agitation: 2 Paroxysmal Sweats: 2 Orientation: 0-Oriented Tacttile Disturbances: 0-None Auditory Disturbances: 0-None Visual Disturbances: 0-None Headache: 0-None Present CIWA-Ar Total Score: 8 BHS Progress Note (SOAP) Subjective: sweats anxiety Objective: 11/27/18 14:52 Vital Signs Temperature 98.8 F 11/27/18 14:18 Pulse Rate 65 11/27/18 14:18 Respiratory Rate 18 11/27/18 14:18 Blood Pressure 141/89 11/27/18 14:18 O2 Sat by Pulse Oximetry (%) aaox3 ambulating no acute distress Assessment: 11/27/18 14:53 withdrawal sx Plan: continue detox increase fluids d/c in am
[2018-11-27] MEDS: ACETAMINOPHEN 325 MG TABLET (FP) PO PRN (16:21)
[2018-11-27] MEDS: QUEtiapine FUMARATE 100 MG TABLET (FP) PO PRN (22:14)
[2018-11-27] MEDS: THIAMINE HCL 100 MG TABLET (FP) PO SCH (22:14)
[2018-11-28] MEDS: METHADONE HCL 40 MG DISPERSABLE TABLET PO SCH (05:47)
[2018-11-28] MEDS: GABAPENTIN 300 MG CAPSULE (FP) PO SCH (05:47)
[2018-11-28] MEDS: VITAMINS A AND D TOPICAL OINTMENT 60 GM TUBE TP SCH (05:48)
[2018-11-28] MEDS: METHOCARBAMOL 500 MG TABLET PO PRN (06:54)
[2018-11-28] MEDS: IBUPROFEN 400 MG TABLET (FP) PO PRN (06:55)
[2018-11-28 09:24] VITALS: BP 135/84; PULSE 72; TEMP 98.2
--- NOTE | 2018-11-28 09:24 | DS ---
[facility] Detox Discharge Summary Admission Date: 11/23/18 Discharge Date: 11/28/18 - History Present History: Alcohol Dependence, Cannabis Dependence, Cocaine Dependence, Sedative Dependence, MMTP - Physical Exam Results Vital Signs: Vital Signs Temperature 96.1 F L 11/28/18 06:19 Pulse Rate 61 11/28/18 06:19 Respiratory Rate 18 11/28/18 06:19 Blood Pressure 119/71 11/28/18 06:19 O2 Sat by Pulse Oximetry (%) - Treatment Hospital Course: Detox Protocol Followed, Detoxed Safely, Responded well, Discharged Condition Good, Rehab Referral Accepted - Medication Discharge Medications: Ambulatory Orders Methadone [Dolophine -] 80 mg PO DAILY 07/07/18 Mirtazapine [Remeron -] 30 mg PO HS #30 tablet 10/19/18 Quetiapine Fumarate [Seroquel] 100 mg PO HS #30 tablet 10/19/18 Amlodipine Besylate [Norvasc -] 10 mg PO DAILY #14 tablet 11/28/18 Gabapentin [Neurontin -] 300 mg PO TID #21 capsule 11/28/18 - Diagnosis (1) Alcohol dependence with uncomplicated withdrawal Current Visit: Yes Status: Chronic (2) Cocaine dependence Current Visit: Yes Status: Chronic Qualifiers: Substance use status: uncomplicated Qualified Code(s): F14.20 - Cocaine dependence, uncomplicated (3) Substance induced mood disorder Current Visit: No Status: Acute (4) Substance-induced sleep disorder Current Visit: No Status: Acute (5) Uncomplicated sedative, hypnotic or anxiolytic withdrawal Current Visit: Yes Status: Chronic (6) Cannabis dependence Current Visit: Yes Status: Chronic (7) HTN (hypertension) Current Visit: Yes Status: Chronic Qualifiers: Hypertension type: essential hypertension Qualified Code(s): I10 - Essential (primary) hypertension (8) History of sarcoma of soft tissue Current Visit: No Status: Chronic (9) Methadone maintenance therapy patient Current Visit: Yes Status: Chronic (10) Neuropathy Current Visit: Yes Status: Chronic (11) Nicotine dependence Current Visit: Yes Status: Chronic Qualifiers: Nicotine product type: cigarettes Substance use status: uncomplicated Qualified Code(s): F17.210 - Nicotine dependence, cigarettes, uncomplicated (12) Obese Current Visit: Yes Status: Chronic Qualifiers: Obesity type: unspecified obesity type Obesity classification: adult class 2 (BMI 35 - 39.9) Serious obesity comorbidity presence: without serious comorbidity Body mass index: BMI 36.0-36.9 Qualified Code(s): E66.9 - Obesity, unspecified; Z68.36 - Body mass index (BMI) 36.0-36.9, adult (13) PTSD (post-traumatic stress disorder) Current Visit: Yes Status: Chronic (14) Sedative, hypnotic or anxiolytic dependence with withdrawal, unspecified Current Visit: Yes Status: Chronic (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
[2018-11-28] MEDS: PRENATAL VITAMINS W/ FOLIC ACID TABLET (FP) PO SCH (09:25)
[2018-11-28] MEDS: amLODIPine BESYLATE 10 MG TABLET (FP) PO SCH (09:25)
[2018-11-28] MEDS: BACITRACIN 15 GM TUBE TOPICAL OINTMENT TP SCH (09:26)
[2018-11-28] MEDS: NICOTINE 21 MG/24 HOURS TOPICAL PATCH TD SCH (09:26)
[2018-11-28] MEDS ORDERED: BACITRACIN 0.9 GM PACKET ONE (09:26)
[2018-11-28] MEDS: hydrOXYzine PAMOATE 25 MG CAPSULE (FP) PO PRN (09:27)
--- NOTE | 2018-11-28 09:39 | PN ---
[facility] Progress Note Note: Patient is discharged today. Script for 30 days supply of Seroquel 100 mg/hs is electronically transmitted to [facility] at [address], [place] [address]
== END 2018-11-28 09:50 | disposition home or self-care (01) | DRG 773 ==
LOC: YASAS 16:43 → Y6N 19:57
PROVIDERS: ADMIT Surgery; ATTEND Surgery
PROC: HZ2ZZZZ Detoxification Services for Substance Abuse Treatment (ICD-10-PCS; principal; 2018-11-23)
DX: F10.230 Alcohol dependence with withdrawal, uncomplicated (principal); F13.230 Sedative, hypnotic or anxiolytic dependence with withdrawal, uncomplicated; F11.20 Opioid dependence, uncomplicated; F14.20 Cocaine dependence, uncomplicated; F12.20 Cannabis dependence, uncomplicated; F17.210 Nicotine dependence, cigarettes, uncomplicated; F19.282 Other psychoactive substance dependence with psychoactive substance-induced sleep disorder; F19.24 Other psychoactive substance dependence with psychoactive substance-induced mood disorder; F43.10 Post-traumatic stress disorder, unspecified; F31.9 Bipolar disorder, unspecified; F32.9 Major depressive disorder, single episode, unspecified; G62.9 Polyneuropathy, unspecified; E66.9 Obesity, unspecified; Z68.36 Body mass index [BMI] 36.0-36.9, adult; Z59.0 Homelessness
CPT/HCPCS: 36415; 80053; 81003; 85027; 86593

== ENCOUNTER 2018-12-31 13:06 | Inpatient (IN) | payer OTHER ==
[2018-12-31 13:43] VITALS: BMI 36.8
--- NOTE | 2018-12-31 14:02 | HP ---
"CIWA Score Nausea/Vomitin Muscle Tremors: 4-Moderate,w/Arms Extend Anxiety: 4-Mod. Anxious/Guarded Agitation: 2 Paroxysmal Sweats: 1-Minimal Palms Moist Orientation: 0-Oriented Tacttile Disturbances: 0-None Auditory Disturbances: 0-None Visual Disturbances: 0-None Headache: 2-Mild CIWA-Ar Total Score: 15 - Admission Criteria OASAS Guidelines: Admission for Medically Managed Detox: Requires at least one of the followin. CIWA greater than 12 2. Seizures within the past 24 hours 3. Delirium tremens within the past 24 hours 4. Hallucinations within the past 24 hours 5. Acute intervention needed for co occurring medical disorder 6. Acute intervention needed for co occurring psychiatric disorder 7. Severe withdrawal that cannot be handled at a lower level of care (continued vomiting, continued diarrhea, abnormal vital signs) requiring intravenous medication and/or fluids 8. Patient presents the following: CIWA greater than 12 Admission Criteria Met: Admission criteria met Admission ROS BHS - HPI Chief Complaint: I need help, I want to get into [facility] but I have to detox first Allergies/Adverse Reactions: Allergies Allergy/AdvReac Type Severity Reaction Status Date / Time shellfish derived Allergy Severe Hives Verified 12/31/18 13:43 History of Present Illness: 53 yo gentleman here for detox from alcohol and alprazolam - also using heroin but on MMTP. Patient with history of multiple admissions for treatment. Patient with history of black outs, drug related seizure (last one in 2017) and history of overdose. 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 He hopes to get into [facility] residential treatment program so he can then get treatment for his sarcoma. [facility]: Search Terms: rios anderson, 1965 Search Date: 12/31/2018 01:59:32 PM The Drug Utilization Report below displays all of the controlled substance prescriptions, if any, that your patient has filled in the last twelve months. The information displayed on this report is compiled from pharmacy submissions to the Department, and accurately reflects the information as submitted by the pharmacies. This report was requested by: Brittnee Flynn | Reference #: [id number] Others' Prescriptions Patient Name: Rios Anderson Date: 1965 Address: [address] [place] [address] Sex: Male Rx Written Rx Dispensed Drug Quantity Days Supply Prescriber Name 07/30/2018 08/01/2018 clonazepam 0.5 mg tablet 6 3 Sidney Mtz 06/16/2018 06/16/2018 clonazepam 1 mg tablet 14 14 Kerri Granado MD 06/13/2018 06/15/2018 lyrica 100 mg capsule 60 30 Kerri Granado MD 03/15/2018 04/07/2018 lyrica 100 mg capsule 14 7 Charlene Beasley NP 03/09/2018 03/11/2018 lyrica 100 mg capsule 60 30 Manny Child DO Exam Limitations: No Limitations - Ebola screening Have you traveled outside of the country in the last 21 days: No (N) Have you had contact with anyone from an Ebola affected area: No Do you have a fever: No - Review of Systems Constitutional: Malaise, Night Sweats, Changes in sleep EENT: reports: Nose Congestion Respiratory: reports: No Symptoms reported Cardiac: reports: No Symptoms Reported GI: reports: Poor Fluid Intake, Abdominal cramping : reports: Frequency Musculoskeletal: reports: Muscle Pain Integumentary: reports: Other (left arm with scarring and tumors protruding) Neuro: reports: Headache, Tremors Endocrine: reports: No Symptoms Reported Hematology: reports: No Symptoms Reported Psychiatric: reports: Judgement Intact, Mood/Affect Appropiate, Orientated x3, Anxious Other Systems: Reviewed and Negative Patient History - Patient Medical History Hx Anemia: No Hx Asthma: No Hx Chronic Obstructive Pulmonary Disease (COPD): No Hx Cancer: Yes (Sarcoma diagnosed 4 years ago ) Hx Cardiac Disorders: No Hx Congestive Heart Failure: No Hx Hypertension: Yes (hx meds - needs primary) Hx Hypercholesterolemia: No Hx Pacemaker: No HX Cerebrovascular Accident: No Hx Seizures: Yes (2016) Hx Dementia: No Hx Diabetes: No Hx Gastrointestinal Disorders: No Hx Liver Disease: No Hx Genitourinary Disorders: No Hx Sexually Transmitted Disorders: No Hx Renal Disease (ESRD): No Hx Thyroid Disease: No Hx Human Immunodeficiency Virus (HIV): No (last 2015 negative, declines testing ) Hx Hepatitis C: No Hx Depression: Yes (with anxiety, on meds, hospitalized may 2018) Hx Suicide Attempt: No Hx Bipolar Disorder: Yes Hx Schizophrenia: No - Patient Surgical History Past Surgical History: Yes Hx Neurologic Surgery: No Hx Cataract Extraction: No Hx Cardiac Surgery: No Hx Lung Surgery: No Hx Breast Surgery: No Hx Breast Biopsy: No Hx Abdominal Surgery: No Hx Appendectomy: No Hx Cholecystectomy: No Hx Genitourinary Surgery: No Hx Section: No Hx Orthopedic Surgery: No Other Surgical History: 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 Anesthesia Reaction: No (2 tumors removed from upper arm 04/30) - PPD History Previous Implant?: Yes Documented Results: Negative w/proof Implanted On Prior R Admission?: Yes Date: 02/06/18 Results: 0MM PPD to be Administered?: No - Reproductive History Patient is a Female of Child Bearing Age (11 -55 yrs old): No - Smoking Cessation Smoking history: Current every day smoker Have you smoked in the past 12 months: Yes Aproximately how many cigarettes per day: 20 Cigars Per Day: 0 Hx Chewing Tobacco Use: No Initiated information on smoking cessation: Yes 'Breaking Loose' booklet given: 12/31/18 (give on floor) - Substance & Tx. History Hx Alcohol Use: Yes Hx Substance Use: Yes Substance Use Type: Alcohol, Heroin, Tranquilizers Hx Substance Use Treatment: Yes (detox, rehab, MMTP) - Substances abused Alcohol Substance route: Oral Frequency: Daily Amount used: 2 PINTS WHISKY Age of first use: 13 Date of last use: 12/30/18 Alprazolam (Xanax) Substance route: Oral Frequency: Daily Amount used: 2 PILLS OF 2MG Age of first use: 31 Date of last use: 12/29/18 Heroin Other (specify): SNIFF Substance route: Inhalation Frequency: Daily Amount used: 10 BAGS Age of first use: 34 Date of last use: 12/31/18 Cocaine Substance route: Smoking Frequency: 1-2 times per week Amount used: $20 Age of first use: 16 Date of last use: 11/22/18 Benzodiazepine (Klonopin) Substance route: Oral Frequency: Daily Amount used: 2 PILLS of 2 mg Age of first use: 37 Date of last use: 12/29/18 Family Disease History - Family Disease History Family Disease History: [place]: Sister (one - living - hx leukemia), Other: Father (, parkinsonism, etoh), Mother (Schizophrenia - no contact), Sister, Daughter (one age 35 - healthy) Admission Physical Exam [facility] - Vital Signs Vital Signs: Vital Signs - 24 hr 12/31/18 13:37 Temperature 98.0 F Pulse Rate 70 Respiratory 20 Rate Blood Pressure 164/95 - Physical General Appearance: Yes: Appropriately Dressed, Moderate Distress, Tremorous, Anxious HEENTM: Yes: EOMI, Hearing grossly Normal, Normocephalic, Normal Voice, Other ( poor dentition - missing teeth) Respiratory: Yes: Normal Breath Sounds, No Respiratory Distress Neck: Yes: Within Normal Limits Breast: Yes: Breast Exam Deferred Cardiology: Yes: Regular Rhythm, Regular Rate Abdominal: Yes: Soft, Protuberent Genitourinary: Yes: Frequency, Nocturia Back: Yes: Normal Inspection Musculoskeletal: Yes: full range of Motion, Gait Steady, Muscle Pain Extremities: Yes: Normal Range of Motion, Tremors, Other (left arm with tumors protruding back of arm and underneath upper arm - also healed surgical scars - scabbed area) Neurological: Yes: Fully Oriented, Alert, Normal Mood/Affect, Normal Response Integumentary: Yes: Normal Color, Warm Lymphatic: Yes: Within Normal Limits - Diagnostic (1) Alcohol dependence with uncomplicated withdrawal Current Visit: Yes Status: Chronic (2) Uncomplicated sedative, hypnotic or anxiolytic withdrawal Current Visit: Yes Status: Chronic (3) HTN (hypertension) Current Visit: Yes Status: Chronic Qualifiers: Hypertension type: essential hypertension Qualified Code(s): I10 - Essential (primary) hypertension (4) History of sarcoma of soft tissue Current Visit: Yes Status: Chronic (5) Methadone maintenance therapy patient Current Visit: Yes Status: Chronic (6) Nicotine dependence Current Visit: Yes Status: Chronic Qualifiers: Nicotine product type: cigarettes Substance use status: uncomplicated Qualified Code(s): F17.210 - Nicotine dependence, cigarettes, uncomplicated (7) Obese Current Visit: Yes Status: Chronic Qualifiers: Obesity type: unspecified obesity type Obesity classification: adult class 2 (BMI 35 - 39.9) Serious obesity comorbidity presence: without serious comorbidity Body mass index: BMI 36.0-36.9 Qualified Code(s): E66.9 - Obesity, unspecified; Z68.36 - Body mass index (BMI) 36.0-36.9, adult Cleared for Admission [facility] - Detox or Rehab [facility] Level of Care: Medically Managed Detox Regimen/Protocol: Librium Breathalyzer - Breathalyzer Breathalyzer: 0 Urine Drug Screen - Test Device Lot number: [id number] Expiration date: 10/11/20 - Control Is test valid?: Yes - Results Drug screen NEGATIVE: No Urine drug screen results: MET-Methamphetamine, MOP-Opiates, OXY-Oxycodone, BZO- Benzodiazepines Inpatient Rehab Admission - Rehab Decision to Admit Inpatient rehab admission?: No"
[2018-12-31] MEDS ORDERED: ACETAMINOPHEN 325 MG TABLET (FP) PO PRN (14:25)
[2018-12-31] MEDS ORDERED: MAGNESIUM HYDROX 2400MG/30ML ORAL SUSPENSION 30 ML CUP PO PRN (14:25)
[2018-12-31] MEDS ORDERED: chlordiazePOXIDE HCL 25 MG CAPSULE PO ONE (14:25)
[2018-12-31] MEDS ORDERED: MENTHOL/PHENOL 1 EACH UD MM PRN (14:25)
[2018-12-31] MEDS ORDERED: BISMUTH SUBSALICYLATE 524 MG/30 ML UD PO PRN (14:25)
[2018-12-31] MEDS ORDERED: MAG HYDROX/AL HYDROX/SIMETH 30 ML UNIT-DOSE CUP PO PRN (14:25)
[2018-12-31] MEDS ORDERED: hydrOXYzine PAMOATE 25 MG CAPSULE (FP) PO PRN (14:25)
[2018-12-31] MEDS ORDERED: MAGNESIUM CITRATE 300 ML BOTTLE PO PRN (14:25)
[2018-12-31] MEDS ORDERED: DOCUSATE SODIUM 100 MG CAPSULE (FP) PO PRN (14:29)
[2018-12-31] MEDS: COLLOIDAL OATMEAL 1 BAR EACH TP PRN (16:56)
[2018-12-31] MEDS: amLODIPine BESYLATE 10 MG TABLET (FP) PO SCH (16:57)
[2018-12-31] MEDS: METHOCARBAMOL 500 MG TABLET PO PRN (16:58)
[2018-12-31] MEDS: GABAPENTIN 300 MG CAPSULE (FP) PO SCH ×2 (16:58→21:27)
[2018-12-31] MEDS: chlordiazePOXIDE HCL 25 MG CAPSULE PO SCH ×2 (16:59→22:22)
[2018-12-31] MEDS: NICOTINE 21 MG/24 HOURS TOPICAL PATCH TD SCH (16:59)
[2018-12-31] MEDS: IBUPROFEN 400 MG TABLET (FP) PO PRN (18:58)
[2018-12-31] MEDS: THIAMINE HCL 100 MG TABLET (FP) PO SCH (21:27)
[2018-12-31] MEDS: MELATONIN 5 MG TABLETS PO PRN (22:22)
[2019-01-01] MEDS ORDERED: METHADONE HCL 40 MG DISPERSABLE TABLET PO ONE (06:00)
[2019-01-01] MEDS: GABAPENTIN 300 MG CAPSULE (FP) PO SCH ×3 (06:06→22:16)
[2019-01-01] MEDS: chlordiazePOXIDE HCL 25 MG CAPSULE PO SCH ×4 (06:06→22:17)
[2019-01-01] MEDS: NICOTINE 21 MG/24 HOURS TOPICAL PATCH TD SCH (10:13)
[2019-01-01] MEDS: PRENATAL VITAMINS W/ FOLIC ACID TABLET (FP) PO SCH (10:13)
[2019-01-01] MEDS: amLODIPine BESYLATE 10 MG TABLET (FP) PO SCH (10:13)
[2019-01-01 10:44] LABS: HEMATOCRIT 41.5 % (35.4-49); HEMOGLOBIN 13.4 GM/dL (11.7-16.9); MCH 27.9 pg (25.7-33.7); MCHC 32.3 g/dl (32.0-35.9); MEAN CELL VOLUME 86.5 fl (80-96); MEAN PLT VOLUME 9.4 fl (7.5-11.1); PLATELET COUNT 301 K/MM3 (134-434); WHITE BLOOD COUNT 6.6 K/mm3 (4.0-10.0)
[2019-01-01 10:56] LABS: ALBUMIN 3.8 g/dl (3.4-5.0); BILIRUBIN,TOTAL 0.5 mg/dL (0.2-1); CALCIUM 8.5 mg/dL (8.5-10.1); CREATININE 0.8 mg/dL (0.55-1.3); POTASSIUM 3.9 mmol/L (3.5-5.1); TOT PROT 7.2 g/dl (6.4-8.2)
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
--- NOTE | 2019-01-01 14:07 | PN ---
S CIWA - CIWA Score Nausea/Vomitin-No Nausea/No Vomiting Muscle Tremors: None Anxiety: 4-Mod. Anxious/Guarded Agitation: 4-Moderately Restless Paroxysmal Sweats: 3 Orientation: 0-Oriented Tacttile Disturbances: 0-None Auditory Disturbances: 0-None Visual Disturbances: 0-None Headache: 0-None Present CIWA-Ar Total Score: 11 BHS Progress Note (SOAP) Subjective: PATIENT C/O ANXIETY, RESTLESSNESS AND SWEATS. Objective: 01/01/19 14:06 Laboratory Tests 01/01/19 01/01/19 01/01/19 07:50 07:50 07:50 WBC 6.6 RBC 4.80 Hgb 13.4 Hct 41.5 MCV 86.5 MCH 27.9 MCHC 32.3 RDW 15.0 Plt Count 301 MPV 9.4 Sodium 139 Potassium 3.9 Chloride 105 Carbon Dioxide 28 Anion Gap 7 L BUN 18.0 Creatinine 0.8 Est GFR (CKD-EPI)AfAm 119.04 Est GFR (CKD-EPI)NonAf 102.71 Random Glucose 94 Calcium 8.5 Total Bilirubin 0.5 AST 21 ALT 30 Alkaline Phosphatase 90 Total Protein 7.2 Albumin 3.8 RPR Titer Nonreactive Vital Signs Temperature 98.1 F 01/01/19 13:57 Pulse Rate 66 01/01/19 13:57 Respiratory Rate 18 01/01/19 13:57 Blood Pressure 120/70 01/01/19 13:57 O2 Sat by Pulse Oximetry (%) PE: ALERT AND ORIENTED X 3 PERRLA SKIN WARM, FACIAL FLUSHING EXT NO VISIBLE TREMORS, AMB AD SHARITA ANXIOUS/RESTLESSNESS Assessment: 01/01/19 14:07 WITHDRAWAL SX Plan: CONTINUE DETOX MONITOR CLINICALLY
[2019-01-01] MEDS: chlordiazePOXIDE HCL 25 MG CAPSULE PO PRN ×2 (15:25→20:10)
[2019-01-01] MEDS: IBUPROFEN 400 MG TABLET (FP) PO PRN (19:03)
[2019-01-01] MEDS: METHOCARBAMOL 500 MG TABLET PO PRN (19:04)
[2019-01-01] MEDS: THIAMINE HCL 100 MG TABLET (FP) PO SCH (22:16)
[2019-01-01] MEDS: QUEtiapine FUMARATE 100 MG TABLET (FP) PO SCH (22:17)
[2019-01-01] MEDS: VITAMINS A AND D TOPICAL OINTMENT 60 GM TUBE TP SCH (22:17)
[2019-01-02] MEDS: chlordiazePOXIDE HCL 25 MG CAPSULE PO SCH ×4 (04:24→22:14)
[2019-01-02] MEDS: GABAPENTIN 300 MG CAPSULE (FP) PO SCH ×3 (05:43→22:14)
[2019-01-02] MEDS ORDERED: METHADONE HCL 40 MG DISPERSABLE TABLET PO ONE (09:55)
[2019-01-02] MEDS: PRENATAL VITAMINS W/ FOLIC ACID TABLET (FP) PO SCH (10:06)
[2019-01-02] MEDS: amLODIPine BESYLATE 10 MG TABLET (FP) PO SCH (10:07)
[2019-01-02] MEDS: NICOTINE 21 MG/24 HOURS TOPICAL PATCH TD SCH (10:07)
[2019-01-02] MEDS: METHOCARBAMOL 500 MG TABLET PO PRN ×2 (10:11→17:58)
--- NOTE | 2019-01-02 11:05 | PN ---
S CIWA - CIWA Score Nausea/Vomitin-No Nausea/No Vomiting Muscle Tremors: 3 Anxiety: 2 Agitation: 2 Paroxysmal Sweats: 2 Orientation: 0-Oriented Tacttile Disturbances: 0-None Auditory Disturbances: 0-None Visual Disturbances: 0-None Headache: 0-None Present CIWA-Ar Total Score: 9 BHS Progress Note (SOAP) Subjective: sweats shakes interrupted sleep body aches irritable agitation Objective: 01/02/19 11:05 Vital Signs Temperature 97.9 F 01/02/19 09:25 Pulse Rate 80 01/02/19 09:25 Respiratory Rate 18 01/02/19 09:25 Blood Pressure 122/82 01/02/19 09:25 O2 Sat by Pulse Oximetry (%) Laboratory Tests 01/01/19 01/01/19 01/01/19 07:50 07:50 07:50 WBC 6.6 RBC 4.80 Hgb 13.4 Hct 41.5 MCV 86.5 MCH 27.9 MCHC 32.3 RDW 15.0 Plt Count 301 MPV 9.4 Sodium 139 Potassium 3.9 Chloride 105 Carbon Dioxide 28 Anion Gap 7 L BUN 18.0 Creatinine 0.8 Est GFR (CKD-EPI)AfAm 119.04 Est GFR (CKD-EPI)NonAf 102.71 Random Glucose 94 Calcium 8.5 Total Bilirubin 0.5 AST 21 ALT 30 Alkaline Phosphatase 90 Total Protein 7.2 Albumin 3.8 RPR Titer Nonreactive aaox3 ambulating no acute distress Assessment: 01/02/19 11:05 withdrawal sx Plan: continue detox increase fluids
[2019-01-02] MEDS: chlordiazePOXIDE HCL 25 MG CAPSULE PO PRN ×2 (12:47→19:06)
[2019-01-02] MEDS: VITAMINS A AND D TOPICAL OINTMENT 60 GM TUBE TP SCH ×2 (14:17→22:49)
[2019-01-02] MEDS: IBUPROFEN 400 MG TABLET (FP) PO PRN (16:49)
[2019-01-02] MEDS: QUEtiapine FUMARATE 100 MG TABLET (FP) PO SCH (22:14)
[2019-01-02] MEDS: THIAMINE HCL 100 MG TABLET (FP) PO SCH (22:14)
[2019-01-03] MEDS ORDERED: chlordiazePOXIDE HCL 10 MG CAPSULE PO PRN
[2019-01-03] MEDS: chlordiazePOXIDE HCL 10 MG CAPSULE PO SCH ×4 (05:41→22:08)
[2019-01-03] MEDS: GABAPENTIN 300 MG CAPSULE (FP) PO SCH ×3 (05:41→22:08)
[2019-01-03] MEDS: METHADONE HCL 40 MG DISPERSABLE TABLET PO SCH (05:41)
[2019-01-03] MEDS: NICOTINE 21 MG/24 HOURS TOPICAL PATCH TD SCH (10:07)
[2019-01-03] MEDS: VITAMINS A AND D TOPICAL OINTMENT 60 GM TUBE TP SCH ×2 (10:07→22:40)
[2019-01-03] MEDS: PRENATAL VITAMINS W/ FOLIC ACID TABLET (FP) PO SCH (10:07)
[2019-01-03] MEDS: amLODIPine BESYLATE 10 MG TABLET (FP) PO SCH (10:07)
[2019-01-03] MEDS: METHOCARBAMOL 500 MG TABLET PO PRN ×2 (10:10→17:16)
--- NOTE | 2019-01-03 11:38 | PN ---
S CIWA - CIWA Score Nausea/Vomitin-No Nausea/No Vomiting Muscle Tremors: 2 Anxiety: 2 Agitation: 2 Paroxysmal Sweats: 2 Orientation: 0-Oriented Tacttile Disturbances: 0-None Auditory Disturbances: 0-None Visual Disturbances: 0-None Headache: 0-None Present CIWA-Ar Total Score: 8 BHS Progress Note (SOAP) Subjective: sweats shakes agitation Objective: 01/03/19 11:34 Vital Signs Temperature 97.2 F L 01/03/19 10:00 Pulse Rate 78 01/03/19 10:00 Respiratory Rate 18 01/03/19 10:00 Blood Pressure 126/79 01/03/19 10:00 O2 Sat by Pulse Oximetry (%) aaox3 ambulating no acute distress Assessment: 01/03/19 11:34 withdrawal sx wound assess, maintained moist and draining serous sanguineous fluid noted. no s /s of infection noted but will order bacitracin oint prn Plan: continue detox increase fluids bacitracin ointment
[2019-01-03] MEDS: BACITRACIN 15 GM TUBE TOPICAL OINTMENT TP SCH (13:36)
[2019-01-03] MEDS: IBUPROFEN 400 MG TABLET (FP) PO PRN (15:45)
[2019-01-03] MEDS: QUEtiapine FUMARATE 100 MG TABLET (FP) PO SCH (22:08)
[2019-01-03] MEDS: THIAMINE HCL 100 MG TABLET (FP) PO SCH (22:08)
[2019-01-04] MEDS: MELATONIN 5 MG TABLETS PO PRN (01:25)
[2019-01-04] MEDS: METHADONE HCL 40 MG DISPERSABLE TABLET PO SCH (06:06)
[2019-01-04] MEDS: GABAPENTIN 300 MG CAPSULE (FP) PO SCH ×3 (06:06→22:10)
[2019-01-04] MEDS: chlordiazePOXIDE HCL 10 MG CAPSULE PO SCH ×2 (06:06→16:54)
[2019-01-04] MEDS: METHOCARBAMOL 500 MG TABLET PO PRN ×2 (10:07→16:54)
[2019-01-04] MEDS: COLLOIDAL OATMEAL 1 BAR EACH TP PRN (10:07)
[2019-01-04] MEDS: NICOTINE 21 MG/24 HOURS TOPICAL PATCH TD SCH (10:08)
[2019-01-04] MEDS: amLODIPine BESYLATE 10 MG TABLET (FP) PO SCH (10:08)
[2019-01-04] MEDS: BACITRACIN 15 GM TUBE TOPICAL OINTMENT TP SCH (10:08)
[2019-01-04] MEDS: VITAMINS A AND D TOPICAL OINTMENT 60 GM TUBE TP SCH ×2 (10:08→22:10)
[2019-01-04] MEDS: PRENATAL VITAMINS W/ FOLIC ACID TABLET (FP) PO SCH (10:08)
--- NOTE | 2019-01-04 12:44 | PN ---
S CIWA - CIWA Score Nausea/Vomitin-No Nausea/No Vomiting Muscle Tremors: None Anxiety: 1-Mildly Anxious Agitation: 1-Slight > Activity Paroxysmal Sweats: 2 Orientation: 0-Oriented Tacttile Disturbances: 0-None Auditory Disturbances: 0-None Visual Disturbances: 0-None Headache: 0-None Present CIWA-Ar Total Score: 4 BHS Progress Note (SOAP) Subjective: sweats agitation Objective: 01/04/19 12:43 Vital Signs Temperature 97.3 F L 01/04/19 09:23 Pulse Rate 67 01/04/19 09:23 Respiratory Rate 18 01/04/19 09:23 Blood Pressure 119/70 01/04/19 09:23 O2 Sat by Pulse Oximetry (%) aaox3 ambulating no acute distress Assessment: 01/04/19 12:44 mild withdrawal sx Plan: continue detox increase fluids d/c in am
[2019-01-04] MEDS: hydrOXYzine PAMOATE 50 MG CAPSULE (FP) PO PRN ×2 (14:40→20:50)
[2019-01-04] MEDS: QUEtiapine FUMARATE 100 MG TABLET (FP) PO SCH (22:10)
[2019-01-04] MEDS: THIAMINE HCL 100 MG TABLET (FP) PO SCH (22:10)
[2019-01-05] MEDS ORDERED: chlordiazePOXIDE HCL 10 MG CAPSULE PO ONE (05:00)
[2019-01-05] MEDS: GABAPENTIN 300 MG CAPSULE (FP) PO SCH (05:37)
[2019-01-05] MEDS: METHADONE HCL 40 MG DISPERSABLE TABLET PO SCH (05:37)
[2019-01-05 09:36] VITALS: BP 155/86; PULSE 79; TEMP 98.2
[2019-01-05] MEDS: BACITRACIN 15 GM TUBE TOPICAL OINTMENT TP SCH (09:38)
[2019-01-05] MEDS: NICOTINE 21 MG/24 HOURS TOPICAL PATCH TD SCH (09:38)
[2019-01-05] MEDS: PRENATAL VITAMINS W/ FOLIC ACID TABLET (FP) PO SCH (09:38)
[2019-01-05] MEDS: amLODIPine BESYLATE 10 MG TABLET (FP) PO SCH (09:38)
[2019-01-05] MEDS: VITAMINS A AND D TOPICAL OINTMENT 60 GM TUBE TP SCH (09:38)
--- NOTE | 2019-01-05 09:40 | DS ---
[facility] Detox Discharge Summary Admission Date: 12/31/18 Discharge Date: 01/05/19 - History Present History: Alcohol Dependence, Cannabis Dependence, Cocaine Dependence, Sedative Dependence, MMTP - Physical Exam Results Vital Signs: Vital Signs Temperature 96.6 F L 01/05/19 06:46 Pulse Rate 67 01/05/19 06:46 Respiratory Rate 18 01/05/19 06:46 Blood Pressure 122/72 01/05/19 06:46 O2 Sat by Pulse Oximetry (%) Pertinent Admission Physical Exam Findings: pt arrived in withdrawal Laboratory Tests 01/01/19 01/01/19 01/01/19 07:50 07:50 07:50 WBC 6.6 RBC 4.80 Hgb 13.4 Hct 41.5 MCV 86.5 MCH 27.9 MCHC 32.3 RDW 15.0 Plt Count 301 MPV 9.4 Sodium 139 Potassium 3.9 Chloride 105 Carbon Dioxide 28 Anion Gap 7 L BUN 18.0 Creatinine 0.8 Est GFR (CKD-EPI)AfAm 119.04 Est GFR (CKD-EPI)NonAf 102.71 Random Glucose 94 Calcium 8.5 Total Bilirubin 0.5 AST 21 ALT 30 Alkaline Phosphatase 90 Total Protein 7.2 Albumin 3.8 RPR Titer Nonreactive pt today is aaox3 ambulating no acute distress no s/s of withdrawals - Treatment Hospital Course: Detox Protocol Followed, Detoxed Safely, Responded well, Discharged Condition Good, Rehab Referral Accepted Patient has Accepted a Rehab Referral to: pt declined rehab; referred to - Medication Discharge Medications: Ambulatory Orders Methadone [Dolophine -] 80 mg PO DAILY 07/07/18 RX: Mirtazapine [Remeron -] 30 mg PO HS #30 tablet 10/19/18 RX: Amlodipine Besylate [Norvasc -] 10 mg PO DAILY #14 tablet 11/28/18 RX: Gabapentin [Neurontin -] 300 mg PO TID #21 capsule 11/28/18 RX: Quetiapine Fumarate [Seroquel] 100 mg PO HS #30 tablet 11/28/18 - Diagnosis (1) Alcohol dependence with uncomplicated withdrawal Current Visit: Yes Status: Chronic (2) Cannabis dependence Current Visit: Yes Status: Chronic (3) HTN (hypertension) Current Visit: Yes Status: Chronic Qualifiers: Hypertension type: essential hypertension Qualified Code(s): I10 - Essential (primary) hypertension (4) History of sarcoma of soft tissue Current Visit: Yes Status: Chronic (5) Methadone maintenance therapy patient Current Visit: Yes Status: Chronic (6) Mood disorder Current Visit: Yes Status: Chronic (7) Nicotine dependence Current Visit: Yes Status: Chronic Qualifiers: Nicotine product type: cigarettes Substance use status: uncomplicated Qualified Code(s): F17.210 - Nicotine dependence, cigarettes, uncomplicated (8) Obese Current Visit: Yes Status: Chronic Qualifiers: Obesity type: unspecified obesity type Obesity classification: adult class 2 (BMI 35 - 39.9) Serious obesity comorbidity presence: without serious comorbidity Body mass index: BMI 36.0-36.9 Qualified Code(s): E66.9 - Obesity, unspecified; Z68.36 - Body mass index (BMI) 36.0-36.9, adult (9) Opioid dependence on agonist therapy Current Visit: Yes Status: Chronic (10) Cocaine dependence Current Visit: Yes Status: Chronic Qualifiers: Substance use status: uncomplicated Qualified Code(s): F14.20 - Cocaine dependence, uncomplicated (11) Sedative, hypnotic or anxiolytic dependence with withdrawal, unspecified Current Visit: Yes Status: Chronic (12) Substance induced mood disorder Current Visit: No Status: Acute (13) Substance-induced sleep disorder Current Visit: No Status: Acute (14) Neuropathy Current Visit: Yes Status: Chronic (15) PTSD (post-traumatic stress disorder) Current Visit: No Status: Chronic (16) Bipolar disorder Current Visit: No Status: Ruled-out - AMA Did Patient Leave Against Medical Advice: No (pt referred to MMTP )
[2019-01-05] MEDS: IBUPROFEN 400 MG TABLET (FP) PO PRN (10:06)
[2019-01-05] MEDS: hydrOXYzine PAMOATE 50 MG CAPSULE (FP) PO PRN (10:06)
--- NOTE | 2019-01-05 10:08 | PN ---
S Progress Note Note: Pt was advised to speak and make an appt with office before his discharge from detox. Associate Professor [employer] facilitated by making his appt made for January 12, 2019 at 11:45am at [address] [facility] in [place] [address] at [phone] with Sushila (Dr. Park secretary specialist).
[2019-01-05] MEDS: METHOCARBAMOL 500 MG TABLET PO PRN (10:31)
== END 2019-01-05 12:48 | disposition home or self-care (01) | DRG 773 ==
LOC: YASAS 13:06 → Y6N 14:43
PROVIDERS: ADMIT Surgery; ATTEND Surgery
PROC: HZ2ZZZZ Detoxification Services for Substance Abuse Treatment (ICD-10-PCS; principal; 2018-12-31)
DX: F10.230 Alcohol dependence with withdrawal, uncomplicated (principal); F11.20 Opioid dependence, uncomplicated; F13.230 Sedative, hypnotic or anxiolytic dependence with withdrawal, uncomplicated; F14.20 Cocaine dependence, uncomplicated; F12.20 Cannabis dependence, uncomplicated; F17.210 Nicotine dependence, cigarettes, uncomplicated; F39 Unspecified mood [affective] disorder; F19.24 Other psychoactive substance dependence with psychoactive substance-induced mood disorder; F19.282 Other psychoactive substance dependence with psychoactive substance-induced sleep disorder; F43.10 Post-traumatic stress disorder, unspecified; I10 Essential (primary) hypertension; G62.9 Polyneuropathy, unspecified; Z85.831 Personal history of malignant neoplasm of soft tissue; E66.9 Obesity, unspecified; Z68.36 Body mass index [BMI] 36.0-36.9, adult; Z91.013 Allergy to seafood; Z86.69 Personal history of other diseases of the nervous system and sense organs; Z59.0 Homelessness
CPT/HCPCS: 36415; 80053; 85027; 86593

== ENCOUNTER 2019-02-27 17:39 | Inpatient (IN) | payer OTHER ==
[2019-02-27 22:05] VITALS: BMI 36.5
--- NOTE | 2019-02-28 00:19 | HP ---
CIWA Score Nausea/Vomitin-No Nausea/No Vomiting Muscle Tremors: 3 Anxiety: 3 Agitation: 3 Paroxysmal Sweats: 3 (Increased facial moisture) Orientation: 0-Oriented Tacttile Disturbances: 0-None Auditory Disturbances: 0-None Visual Disturbances: 2-Mild Sensitivity Headache: 0-None Present CIWA-Ar Total Score: 14 - Admission Criteria OASAS Guidelines: Admission for Medically Managed Detox: Requires at least one of the followin. CIWA greater than 12 2. Seizures within the past 24 hours 3. Delirium tremens within the past 24 hours 4. Hallucinations within the past 24 hours 5. Acute intervention needed for co occurring medical disorder 6. Acute intervention needed for co occurring psychiatric disorder 7. Severe withdrawal that cannot be handled at a lower level of care (continued vomiting, continued diarrhea, abnormal vital signs) requiring intravenous medication and/or fluids 8. Patient presents the following: CIWA greater than 12 Admission Criteria Met: Admission criteria met Admission ROS S - [facility] Chief Complaint: Sick from withdrawal. Allergies/Adverse Reactions: Allergies Allergy/AdvReac Type Severity Reaction Status Date / Time shellfish derived Allergy Severe Hives Verified 02/27/19 21:57 History of Present Illness: 53 yo presents w/ alcohol and benzo withdrawal seeking detox. UTox + KAREEM/FEN/MOP/MTD/BZO RIGO: 0.0 Heroin use began at age 34. States started using after unable to get prescribed pain medications. Continues to relapsed w/ opiates([place]) Currently on [facility] Methadone Maintenance Program. States current Methadone dose is 110 mg and last medicated this a.m. No Narcan kit at home. ([place] streets). Benzo(Xanax) use began at age 31. Now using Klonopin. Current use is 4 mg PO daily Alcohol use began at age 13. Current use is 2 pints/day. Cocaine (Crack) use began at age 16. Current smokes $20/day. Discussed the effects of cocaine on circulation and the healing process. Nicotine use began at age 13. Currently smoking 1 PPD. Longest length of sobriety [id number]. Hx; 9 overdoses in 2018; seizure 2 years ago. PMHx: Skin cancer since 2012 left arm: Additional surgical removal tumors (L) arm 01/2019 @ [facility]; Hypertension; Patient informed that opioid pain medication will not be provided and verbalizes an understanding. States neurontin is helpful for pain management. MHHx:Depression, insomnia, PTSD. Does not have a MH Provider. Denies thoughts of harming self or others. SHx: Homeless. Unemployed. No legal issues Patient Name: Rios Sidhu Date: 1965 Address: [address] [place] [address] Sex: Male Rx Written Rx Dispensed Drug Quantity Days Supply Prescriber Name 01/31/2019 02/07/2019 hydromorphone 4 mg tablet 18 3 Elvin Bales 07/30/2018 08/01/2018 clonazepam 0.5 mg tablet 6 3 Sidney Mtz 06/16/2018 06/16/2018 clonazepam 1 mg tablet 14 14 Kerri Granado MD 06/13/2018 06/15/2018 lyrica 100 mg capsule 60 30 Kerri Granado MD 03/15/2018 04/07/2018 lyrica 100 mg capsule 14 7 Charlene Beasley NP 03/09/2018 03/11/2018 lyrica 100 mg capsule 60 30 Manny Child DO Search Terms: Rios Sidhu, 1965 Search Date: 02/28/2019 12:27:30 AM States Searched: [place], [place], [place], [place], [place], [place] The Drug Utilization Report below displays the controlled substance prescriptions, if any, that were dispensed in the indicated state(s). The information displayed on this report is compiled from requests submitted to other states' PMPs, and accurately reflects the information as returned by them. Blank valenzuela indicate data not provided by other state. This report was requested by: Pamella Lamas | Reference #: [id number] Exam Limitations: No Limitations - Ebola screening Have you traveled outside of the country in the last 21 days: No (N) Have you had contact with anyone from an Ebola affected area: No Have you been sick,other than usual withdrawal symptoms: No Do you have a fever: No - Review of Systems Constitutional: Chills, Changes in sleep (Difficulty falling and staying asleep - used to take seroquel 100 mg) EENT: reports: Nose Congestion Respiratory: reports: No Symptoms reported Cardiac: reports: Chest Pain GI: reports: Constipated (Last BM 5 days ago. Brown, firm. Denies blood.), Nausea : reports: No Symptoms Reported Musculoskeletal: reports: Other ((L) arm "nerve pain" hot/burning/throbbing. Currently pain = "8". Pain increases w/ movement of arms. Pain decreases w/ drugs and nerontin.) Integumentary: reports: Other Neuro: reports: Numbness (and tingling in (L) hand) Endocrine: reports: Increased Thirst Hematology: reports: No Symptoms Reported Psychiatric: reports: Orientated x3, Agitated, Anxious, Depressed (Denies thoughts of harming self or others.) Patient History - Patient Medical History Hx Anemia: No Hx Asthma: No Hx Chronic Obstructive Pulmonary Disease (COPD): No Hx Cancer: Yes (Sarcoma diagnosed 4 years ago ) Hx Cardiac Disorders: No Hx Congestive Heart Failure: No Hx Hypertension: Yes (hx meds - needs primary) Hx Hypercholesterolemia: No Hx Pacemaker: No HX Cerebrovascular Accident: No Hx Seizures: Yes (1YR AGO- DRUG RELATED) Hx Dementia: No Hx Diabetes: No Hx Gastrointestinal Disorders: No Hx Liver Disease: No Hx Genitourinary Disorders: No Hx Sexually Transmitted Disorders: No Hx Renal Disease (ESRD): No Hx Thyroid Disease: No Hx Human Immunodeficiency Virus (HIV): No (last 2015 negative, declines testing ) Hx Hepatitis C: No Hx Depression: No Hx Suicide Attempt: No Hx Bipolar Disorder: Yes Hx Schizophrenia: No - Patient Surgical History Past Surgical History: Yes Hx Neurologic Surgery: No Hx Cataract Extraction: No Hx Cardiac Surgery: No Hx Lung Surgery: No Hx Breast Surgery: No Hx Breast Biopsy: No Hx Abdominal Surgery: No Hx Appendectomy: No Hx Cholecystectomy: No Hx Genitourinary Surgery: No Hx Section: No Hx Orthopedic Surgery: No Other Surgical History: 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 History Hx Alcohol Use: Yes Hx Substance Use: Yes Substance Use Type: Alcohol, Cocaine, Heroin, Opiates Hx Substance Use Treatment: Yes (detox, rehab. Currently on MMTP) - Substances abused Alcohol Substance route: Oral Frequency: Daily Amount used: 2 PINTS vodka Age of first use: 13 Date of last use: 02/26/19 Alprazolam (Xanax) Substance route: Oral Frequency: Daily Amount used: 2 PILLS OF 2MG Age of first use: 31 Date of last use: 02/25/19 Cocaine Substance route: Smoking Frequency: 1-2 times per week Amount used: $20 Age of first use: 16 Date of last use: 02/25/19 Heroin Other (specify): SNIFF Substance route: Inhalation Frequency: Daily Amount used: 10 BAGS Age of first use: 34 Date of last use: 02/26/19 Benzodiazepine (Klonopin) Substance route: Oral Frequency: Daily Amount used: 2 PILLS of 2 mg Age of first use: 37 Date of last use: 02/25/19 Family Disease History - Family Disease History Family Disease History: [place]: Sister (one - living - hx leukemia), Other: Father (, parkinsonism, etoh), Mother (Schizophrenia - no contact), Sister, Daughter (one age 35 - healthy) Admission Physical Exam S - Vital Signs Vital Signs: Vital Signs - 24 hr 02/27/19 22:01 Temperature 97.9 F Pulse Rate 75 Respiratory 16 Rate Blood Pressure 163/111 H - Physical General Appearance: Yes: Nourished, Mild Distress, Tremorous, Sweating ( Increased facial moisture), Anxious HEENTM: Yes: EOMI (Jerking movement of eyes upon lateral gaze), Hearing grossly Normal, Normocephalic, Normal Voice, CHRYSTAL (Pupils = 4 mm), Pharynx Normal Respiratory: Yes: Lungs Clear (Pulse Ox = 99 %), Normal Breath Sounds, No Respiratory Distress Neck: Yes: No masses,lesions,Nodules, Supple Breast: Yes: Breast Exam Deferred Cardiology: Yes: Regular Rhythm, Regular Rate (HR: 66), S1, S2 Abdominal: Yes: Non Tender, Soft, Increased Bowel Sounds, Protuberent ( Increased abdominal adiposity) Genitourinary: Yes: Within Normal Limits Back: Yes: Normal Inspection Musculoskeletal: Yes: full range of Motion, Gait Steady, Muscle weakness ((L) arm w/ decreased muscle mass) Extremities: Yes: Normal Capillary Refill, Tremors (Tremors at rest, increase w / arm elevation), Pedal Edema (Mild pedal edema (L) slight > (R)) Neurological: Yes: investigator utility bill complaints II-XII NML intact (Jerking movement of eyes upon lateral gaze), Fully Oriented, Alert, Normal Response, Other ((L) hand grasp weak.) Integumentary: Yes: Normal Color, Warm, Other (Multiple healing incision lines ( L) arm w/ some dryness.) Lymphatic: Yes: Within Normal Limits - Diagnostic (1) Cocaine use disorder Current Visit: Yes Status: Chronic (2) Alcohol dependence with uncomplicated withdrawal Current Visit: Yes Status: Acute (3) HTN (hypertension) Current Visit: Yes Status: Chronic Qualifiers: Hypertension type: essential hypertension Qualified Code(s): I10 - Essential (primary) hypertension (4) History of sarcoma of soft tissue Current Visit: Yes Status: Chronic Comment: Multiple surgical removals, last surgery 01/2019 (5) Methadone maintenance therapy patient Current Visit: No Status: Chronic (6) Neuropathy Current Visit: Yes Status: Chronic (7) Nicotine dependence Current Visit: Yes Status: Chronic Qualifiers: Nicotine product type: cigarettes Substance use status: uncomplicated Qualified Code(s): F17.210 - Nicotine dependence, cigarettes, uncomplicated (8) Sedative, hypnotic or anxiolytic dependence with withdrawal, unspecified Current Visit: Yes Status: Acute Comment: Mild illicit usage (9) Constipation Current Visit: Yes Status: Chronic Qualifiers: Constipation type: unspecified constipation type Qualified Code(s): K59.00 - Constipation, unspecified (10) Opioid use disorder Current Visit: Yes Status: Chronic Comment: w/ continued illicit opioid relpase Cleared for Admission [facility] - Detox or Rehab [facility] Level of Care: Medically Managed Detox Regimen/Protocol: Librium Claeared for Rehab Admission: No Breathalyzer - Breathalyzer Breathalyzer: 0 Urine Drug Screen - Test Device Lot number: [id number] Expiration date: 11/11/20 - Control Is test valid?: Yes - Results Drug screen NEGATIVE: No Urine drug screen results: KAREEM-Cocaine, FEN-Fentanyl, MOP-Opiates, MTD-Methadone , BZO-Benzodiazepines Inpatient Rehab Admission - Rehab Decision to Admit Inpatient rehab admission?: No
[2019-02-28] MEDS ORDERED: MAGNESIUM CITRATE 300 ML BOTTLE PO PRN (00:53)
[2019-02-28] MEDS ORDERED: MAGNESIUM HYDROX 2400MG/30ML ORAL SUSPENSION 30 ML CUP PO PRN (00:53)
[2019-02-28] MEDS ORDERED: MAG HYDROX/AL HYDROX/SIMETH 30 ML UNIT-DOSE CUP PO PRN (00:53)
[2019-02-28] MEDS ORDERED: BISMUTH SUBSALICYLATE 524 MG/30 ML UD PO PRN (00:53)
[2019-02-28] MEDS ORDERED: MENTHOL/PHENOL 1 EACH UD MM PRN (00:53)
[2019-02-28] MEDS ORDERED: IBUPROFEN 400 MG TABLET (FP) PO PRN (00:53)
[2019-02-28] MEDS ORDERED: MELATONIN 5 MG TABLETS PO PRN (00:53)
[2019-02-28] MEDS ORDERED: NICOTINE POLACRILEX 2 MG GUM BUC PRN (00:53)
[2019-02-28] MEDS ORDERED: ACETAMINOPHEN 325 MG TABLET (FP) PO PRN ×2 (00:53)
[2019-02-28] MEDS ORDERED: chlordiazePOXIDE HCL 25 MG CAPSULE PO ONE (00:53)
[2019-02-28] MEDS ORDERED: QUEtiapine FUMARATE 50 MG TABLET PO ONE (00:57)
[2019-02-28] MEDS ORDERED: cloNIDine HCL 0.1 MG TABLET PO ONE (01:46)
[2019-02-28] MEDS: GABAPENTIN 300 MG CAPSULE (FP) PO SCH ×3 (05:00→22:16)
[2019-02-28] MEDS: chlordiazePOXIDE HCL 25 MG CAPSULE PO SCH ×4 (05:00→22:16)
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
[2019-02-28] MEDS ORDERED: METHADONE HCL 10 MG TABLET PO ONE (08:36)
[2019-02-28] MEDS ORDERED: METHADONE 80 MG, METHADONE 30 MG PO ONE (08:45)
[2019-02-28] MEDS ORDERED: METHADONE HCL 10 MG TABLET ONE (08:53)
[2019-02-28] MEDS ORDERED: METHADONE HCL 40 MG DISPERSABLE TABLET ONE (08:56)
[2019-02-28] MEDS ORDERED: POLYETHYLENE GLYCOL 3350 119 GM BTL PO ONE (10:00)
[2019-02-28] MEDS: NICOTINE 21 MG/24 HOURS TOPICAL PATCH TD SCH (10:14)
[2019-02-28] MEDS: PRENATAL VITAMINS W/ FOLIC ACID TABLET (FP) PO SCH (10:14)
[2019-02-28] MEDS: amLODIPine BESYLATE 10 MG TABLET (FP) PO SCH (10:14)
[2019-02-28] MEDS ORDERED: COLLOIDAL OATMEAL 1 BAR EACH TP ONE (11:07)
--- NOTE | 2019-02-28 11:09 | PN ---
S CIWA - CIWA Score Nausea/Vomitin-No Nausea/No Vomiting Muscle Tremors: 3 Anxiety: 2 Agitation: 3 Paroxysmal Sweats: 3 Orientation: 0-Oriented Tacttile Disturbances: 0-None Auditory Disturbances: 0-None Visual Disturbances: 0-None Headache: 0-None Present CIWA-Ar Total Score: 11 BHS Progress Note (SOAP) Subjective: shakes sweats irritable dry skin Objective: 02/28/19 11:08 Vital Signs Temperature 97.5 F L 02/28/19 09:11 Pulse Rate 63 02/28/19 09:11 Respiratory Rate 18 02/28/19 09:11 Blood Pressure 129/80 02/28/19 09:11 O2 Sat by Pulse Oximetry (%) labs pending aaox3 ambulating no acute distress Assessment: 02/28/19 11:08 withdrawal sx Plan: continue detox increase fluids aveeno soap x one pending labs
[2019-02-28] MEDS: chlordiazePOXIDE HCL 25 MG CAPSULE PO PRN ×2 (12:48→20:07)
[2019-02-28] MEDS: IBUPROFEN 400 MG TABLET (FP) PO PRN (16:39)
[2019-02-28] MEDS: DOCUSATE SODIUM 100 MG CAPSULE (FP) PO SCH (22:16)
[2019-02-28] MEDS: QUEtiapine FUMARATE 100 MG TABLET (FP) PO SCH (22:16)
[2019-02-28] MEDS: THIAMINE HCL 100 MG TABLET (FP) PO SCH (22:16)
[2019-03-01] MEDS ORDERED: METHADONE HCL 40 MG DISPERSABLE TABLET ONE ×2 (04:15→05:24)
[2019-03-01] MEDS ORDERED: METHADONE HCL 10 MG TABLET ONE ×2 (04:15→05:23)
[2019-03-01] MEDS: chlordiazePOXIDE HCL 25 MG CAPSULE PO SCH ×4 (05:25→22:12)
[2019-03-01] MEDS: METHADONE 80 MG, METHADONE 30 MG PO SCH (05:26)
[2019-03-01] MEDS: GABAPENTIN 300 MG CAPSULE (FP) PO SCH ×3 (05:26→22:11)
[2019-03-01] MEDS ORDERED: METHADONE HCL 40 MG DISPERSABLE TABLET PO SCH (06:00)
[2019-03-01] MEDS: IBUPROFEN 400 MG TABLET (FP) PO PRN (08:55)
[2019-03-01 09:49] LABS: HEMATOCRIT 38.2 % (35.4-49); HEMOGLOBIN 12.4 GM/dL (11.7-16.9); MCH 27.9 pg (25.7-33.7); MCHC 32.5 g/dl (32.0-35.9); MEAN CELL VOLUME 85.8 fl (80-96); MEAN PLT VOLUME 9.4 fl (7.5-11.1); PLATELET COUNT 315 K/MM3 (134-434); RBC 4.46 M/mm3 (4.00-5.60); RDW 14.4 % (11.9-15.9); WHITE BLOOD COUNT 4.5 K/mm3 (4.0-10.0)
[2019-03-01 10:05] LABS: ALBUMIN 3.2 g/dl (3.4-5.0); BILIRUBIN,TOTAL 0.2 mg/dL (0.2-1); BLOOD UREA NITROGEN 11.5 mg/dL (7-18); CALCIUM 8.8 mg/dL (8.5-10.1); CREATININE 0.7 mg/dL (0.55-1.3); POTASSIUM 3.9 mmol/L (3.5-5.1); TOT PROT 6.2 g/dl (6.4-8.2)
[2019-03-01] MEDS: NICOTINE 21 MG/24 HOURS TOPICAL PATCH TD SCH (10:24)
[2019-03-01] MEDS: BACITRACIN 15 GM TUBE TOPICAL OINTMENT TP SCH ×2 (10:24→22:12)
[2019-03-01] MEDS: PRENATAL VITAMINS W/ FOLIC ACID TABLET (FP) PO SCH (10:25)
[2019-03-01] MEDS: amLODIPine BESYLATE 10 MG TABLET (FP) PO SCH (10:25)
[2019-03-01] MEDS: VITAMINS A AND D TOPICAL OINTMENT 60 GM TUBE TP SCH ×3 (11:14→23:08)
--- NOTE | 2019-03-01 11:15 | PN ---
S CIWA - CIWA Score Nausea/Vomitin Muscle Tremors: 2 Anxiety: 2 Agitation: 2 Paroxysmal Sweats: No Perspiration Orientation: 0-Oriented Tacttile Disturbances: 0-None Auditory Disturbances: 0-None Visual Disturbances: 0-None Headache: 2-Mild CIWA-Ar Total Score: 10 BHS Progress Note (SOAP) Subjective: alert,irritable,anxious,interrupted sleep,tremor,pain in the body Objective: 03/01/19 11:15 Vital Signs Temperature 98.6 F 03/01/19 09:06 Pulse Rate 79 03/01/19 09:06 Respiratory Rate 18 03/01/19 09:06 Blood Pressure 122/68 03/01/19 09:06 O2 Sat by Pulse Oximetry (%) Laboratory Last Values WBC 4.5 K/mm3 (4.0-10.0) 03/01/19 08:20 RBC 4.46 M/mm3 (4.00-5.60) 03/01/19 08:20 Hgb 12.4 GM/dL (11.7-16.9) 03/01/19 08:20 Hct 38.2 % (35.4-49) 03/01/19 08:20 MCV 85.8 fl (80-96) 03/01/19 08:20 MCH 27.9 pg (25.7-33.7) 03/01/19 08:20 MCHC 32.5 g/dl (32.0-35.9) 03/01/19 08:20 RDW 14.4 % (11.9-15.9) 03/01/19 08:20 Plt Count 315 K/MM3 (134-434) 03/01/19 08:20 MPV 9.4 fl (7.5-11.1) 03/01/19 08:20 Sodium 142 mmol/L (136-145) 03/01/19 08:20 Potassium 3.9 mmol/L (3.5-5.1) 03/01/19 08:20 Chloride 107 mmol/L (98-107) 03/01/19 08:20 Carbon Dioxide 31 mmol/L (21-32) 03/01/19 08:20 Anion Gap 4 MMOL/L (8-16) L 03/01/19 08:20 BUN 11.5 mg/dL (7-18) 03/01/19 08:20 Creatinine 0.7 mg/dL (0.55-1.3) 03/01/19 08:20 Est GFR (CKD-EPI)AfAm 125.75 03/01/19 08:20 Est GFR (CKD-EPI)NonAf 108.50 03/01/19 08:20 Random Glucose 89 mg/dL (74-106) 03/01/19 08:20 Calcium 8.8 mg/dL (8.5-10.1) 03/01/19 08:20 Total Bilirubin 0.2 mg/dL (0.2-1) 03/01/19 08:20 AST 18 U/L (15-37) 03/01/19 08:20 ALT 28 U/L (13-61) 03/01/19 08:20 Alkaline Phosphatase 87 U/L (45-117) 03/01/19 08:20 Total Protein 6.2 g/dl (6.4-8.2) L 03/01/19 08:20 Albumin 3.2 g/dl (3.4-5.0) L 03/01/19 08:20 Assessment: 03/01/19 11:15 withdrawal symptom Plan: continue detox,librium regimen
[2019-03-01] MEDS: chlordiazePOXIDE HCL 25 MG CAPSULE PO PRN ×2 (13:26→18:36)
[2019-03-01] MEDS: QUEtiapine FUMARATE 100 MG TABLET (FP) PO SCH (22:12)
[2019-03-01] MEDS: DOCUSATE SODIUM 100 MG CAPSULE (FP) PO SCH (22:12)
[2019-03-01] MEDS: THIAMINE HCL 100 MG TABLET (FP) PO SCH (22:12)
[2019-03-02] MEDS ORDERED: METHADONE HCL 40 MG DISPERSABLE TABLET ONE (04:31)
[2019-03-02] MEDS ORDERED: METHADONE HCL 10 MG TABLET ONE (04:31)
[2019-03-02] MEDS: METHADONE 80 MG, METHADONE 30 MG PO SCH (05:16)
[2019-03-02] MEDS: GABAPENTIN 300 MG CAPSULE (FP) PO SCH ×3 (05:16→22:23)
[2019-03-02] MEDS: chlordiazePOXIDE HCL 10 MG CAPSULE PO SCH ×4 (05:16→22:24)
[2019-03-02] MEDS: VITAMINS A AND D TOPICAL OINTMENT 60 GM TUBE TP SCH ×3 (05:50→18:59)
[2019-03-02] MEDS ORDERED: METHOCARBAMOL 500 MG TABLET PO SCH (10:00)
[2019-03-02] MEDS: amLODIPine BESYLATE 10 MG TABLET (FP) PO SCH (10:23)
[2019-03-02] MEDS: NICOTINE 21 MG/24 HOURS TOPICAL PATCH TD SCH (10:23)
[2019-03-02] MEDS: PRENATAL VITAMINS W/ FOLIC ACID TABLET (FP) PO SCH (10:23)
[2019-03-02] MEDS: BACITRACIN 15 GM TUBE TOPICAL OINTMENT TP SCH ×2 (11:05→22:22)
--- NOTE | 2019-03-02 12:03 | PN ---
S CIWA - CIWA Score Nausea/Vomitin-No Nausea/No Vomiting Muscle Tremors: 3 Anxiety: 2 Agitation: 2 Paroxysmal Sweats: 2 Orientation: 0-Oriented Tacttile Disturbances: 0-None Auditory Disturbances: 0-None Visual Disturbances: 0-None Headache: 0-None Present CIWA-Ar Total Score: 9 BHS Progress Note (SOAP) Subjective: sweats body aches muscle spasms Objective: 03/02/19 12:03 Vital Signs Temperature 98.1 F 03/02/19 09:10 Pulse Rate 70 03/02/19 09:10 Respiratory Rate 18 03/02/19 09:10 Blood Pressure 111/66 03/02/19 09:10 O2 Sat by Pulse Oximetry (%) aaox3 ambulating no acute distress Assessment: 03/02/19 12:03 withdrawals Plan: continue detox increase fluids roboxin prn
[2019-03-02] MEDS: chlordiazePOXIDE HCL 10 MG CAPSULE PO PRN ×2 (12:36→19:58)
[2019-03-02] MEDS: IBUPROFEN 400 MG TABLET (FP) PO PRN (12:36)
[2019-03-02] MEDS: METHOCARBAMOL 500 MG TABLET PO PRN (17:19)
[2019-03-02] MEDS: QUEtiapine FUMARATE 100 MG TABLET (FP) PO SCH (22:23)
[2019-03-02] MEDS: DOCUSATE SODIUM 100 MG CAPSULE (FP) PO SCH (22:23)
[2019-03-02] MEDS: THIAMINE HCL 100 MG TABLET (FP) PO SCH (22:24)
[2019-03-03] MEDS ORDERED: METHADONE HCL 10 MG TABLET ONE (04:52)
[2019-03-03] MEDS ORDERED: METHADONE HCL 40 MG DISPERSABLE TABLET ONE (04:53)
[2019-03-03] MEDS ORDERED: chlordiazePOXIDE HCL 10 MG CAPSULE PO SCH (05:00)
[2019-03-03] MEDS: METHADONE 80 MG, METHADONE 30 MG PO SCH (05:40)
[2019-03-03] MEDS: GABAPENTIN 300 MG CAPSULE (FP) PO SCH (05:40)
[2019-03-03] MEDS: IBUPROFEN 400 MG TABLET (FP) PO PRN (08:49)
[2019-03-03 09:41] VITALS: BP 117/72; PULSE 81; TEMP 98.4
--- NOTE | 2019-03-03 09:50 | PN ---
S CIWA - CIWA Score Nausea/Vomitin-No Nausea/No Vomiting Muscle Tremors: 1-None Visible, but Crane Anxiety: 1-Mildly Anxious Agitation: 1-Slight > Activity Paroxysmal Sweats: No Perspiration Orientation: 0-Oriented Tacttile Disturbances: 0-None Auditory Disturbances: 0-None Visual Disturbances: 0-None Headache: 1-Very Mild CIWA-Ar Total Score: 4 BHS Progress Note (SOAP) Subjective: alert,irritable,interrupted sleep Objective: 03/03/19 09:47 Vital Signs Temperature 98.4 F 03/03/19 09:39 Pulse Rate 81 03/03/19 09:39 Respiratory Rate 18 03/03/19 09:39 Blood Pressure 117/72 03/03/19 09:39 O2 Sat by Pulse Oximetry (%) Assessment: 03/03/19 09:47 patient is stable,much improved,less withdrawal Plan: discharge today ,[facility] level [facility]
--- NOTE | 2019-03-03 09:53 | DS ---
[facility] Detox Discharge Summary Admission Date: 02/27/19 Discharge Date: 03/03/19 - History Present History: Alcohol Dependence, Cocaine Dependence, Sedative Dependence, MMTP Additional Comments: stable for discharge in rehab Pertinent Past History: nicotine dependence history of surgery for sarcoma of soft tissue of left upper arm neuropathy - Physical Exam Results Vital Signs: Vital Signs Temperature 98.4 F 03/03/19 09:39 Pulse Rate 81 03/03/19 09:39 Respiratory Rate 18 03/03/19 09:39 Blood Pressure 117/72 03/03/19 09:39 O2 Sat by Pulse Oximetry (%) Pertinent Admission Physical Exam Findings: withdrawal signs and symptoms - Treatment Hospital Course: Detox Protocol Followed, Detoxed Safely, Responded well, Discharged Condition Good, Rehab Referral Accepted Patient has Accepted a Rehab Referral to: [facility] - Medication Discharge Medications: Ambulatory Orders Methadone [Dolophine -] 110 mg PO DAILY 07/07/18 Mirtazapine [Remeron -] 30 mg PO HS #30 tablet 10/19/18 Amlodipine Besylate [Norvasc -] 10 mg PO DAILY #14 tablet 11/28/18 Quetiapine Fumarate [Seroquel -] 100 mg PO HS #30 tablet 11/28/18 Gabapentin [Neurontin -] 600 mg PO TID 02/27/19 - Diagnosis (1) Alcohol dependence with uncomplicated withdrawal Current Visit: Yes Status: Acute (2) Sedative, hypnotic or anxiolytic dependence with withdrawal, unspecified Current Visit: Yes Status: Acute (3) HTN (hypertension) Current Visit: Yes Status: Chronic Qualifiers: Hypertension type: essential hypertension Qualified Code(s): I10 - Essential (primary) hypertension (4) History of sarcoma of soft tissue Current Visit: Yes Status: Chronic (5) Neuropathy Current Visit: Yes Status: Chronic (6) Nicotine dependence Current Visit: Yes Status: Chronic Qualifiers: Nicotine product type: cigarettes Substance use status: uncomplicated Qualified Code(s): F17.210 - Nicotine dependence, cigarettes, uncomplicated (7) Methadone maintenance therapy patient Current Visit: No Status: Chronic (8) Bipolar disorder Current Visit: No Status: Ruled-out - AMA Did Patient Leave Against Medical Advice: No
[2019-03-03] MEDS: amLODIPine BESYLATE 10 MG TABLET (FP) PO SCH (10:13)
[2019-03-03] MEDS: PRENATAL VITAMINS W/ FOLIC ACID TABLET (FP) PO SCH (10:13)
[2019-03-03] MEDS: BACITRACIN 15 GM TUBE TOPICAL OINTMENT TP SCH (10:13)
[2019-03-03] MEDS: NICOTINE 21 MG/24 HOURS TOPICAL PATCH TD SCH (10:15)
[2019-03-03] MEDS: METHOCARBAMOL 500 MG TABLET PO PRN (10:16)
[2019-03-03] MEDS: VITAMINS A AND D TOPICAL OINTMENT 60 GM TUBE TP SCH (11:58)
[2019-03-04] MEDS ORDERED: chlordiazePOXIDE HCL 10 MG CAPSULE PO ONE (05:00)
== END 2019-03-03 13:10 | disposition other institution (70) | DRG 773 ==
LOC: YASAS 17:39 → Y6N 23:00
PROVIDERS: ADMIT Surgery; ATTEND Surgery
PROC: HZ2ZZZZ Detoxification Services for Substance Abuse Treatment (ICD-10-PCS; principal; 2019-02-27)
DX: F10.230 Alcohol dependence with withdrawal, uncomplicated (principal); F11.20 Opioid dependence, uncomplicated; F13.230 Sedative, hypnotic or anxiolytic dependence with withdrawal, uncomplicated; F14.20 Cocaine dependence, uncomplicated; F12.20 Cannabis dependence, uncomplicated; F17.210 Nicotine dependence, cigarettes, uncomplicated; F19.24 Other psychoactive substance dependence with psychoactive substance-induced mood disorder; F19.282 Other psychoactive substance dependence with psychoactive substance-induced sleep disorder; G62.9 Polyneuropathy, unspecified; K59.00 Constipation, unspecified; E66.9 Obesity, unspecified; Z68.36 Body mass index [BMI] 36.0-36.9, adult; Z85.831 Personal history of malignant neoplasm of soft tissue; Z86.69 Personal history of other diseases of the nervous system and sense organs; Z59.0 Homelessness
CPT/HCPCS: 36415; 80053; 85027; 86593

== ENCOUNTER 2019-03-03 13:30 | Inpatient (IN) | payer OTHER ==
[2019-03-03] MEDS ORDERED: P-EPHED 60MG/TRIPROLIDI 2.5MG TABLET PO PRN (14:47)
[2019-03-03] MEDS ORDERED: MAG HYDROX/AL HYDROX/SIMETH 30 ML UNIT-DOSE CUP PO PRN (14:47)
[2019-03-03] MEDS ORDERED: guaiFENesin 200 MG/10 ML 10 ML UNIT-DOSE CUPS PO PRN (14:47)
[2019-03-03] MEDS ORDERED: LOPERAMIDE HCL 2 MG CAPSULE PO PRN (14:47)
[2019-03-03] MEDS ORDERED: NICOTINE POLACRILEX 2 MG GUM BUC PRN (14:47)
[2019-03-03] MEDS ORDERED: MAGNESIUM HYDROX 2400MG/30ML ORAL SUSPENSION 30 ML CUP PO PRN (14:47)
[2019-03-03] MEDS ORDERED: hydrOXYzine PAMOATE 50 MG CAPSULE (FP) PO PRN (14:47)
[2019-03-03] MEDS ORDERED: MENTHOL/PHENOL 1 EACH UD MM PRN (14:47)
[2019-03-03] MEDS ORDERED: IBUPROFEN 400 MG TABLET (FP) PO PRN (14:47)
[2019-03-03] MEDS ORDERED: MAGNESIUM CITRATE 300 ML BOTTLE PO PRN (14:47)
[2019-03-03] MEDS ORDERED: COLLOIDAL OATMEAL 1 BAR EACH TP PRN (14:48)
--- NOTE | 2019-03-03 14:53 | HP ---
[facility] Re[facility] Assess/Revision - Admission History Admitted to Rehab from: [facility] Date of Admission to Rehab: 03/03/2019 - Findings Detox History & Physical reviewed: Yes Concur with findings: Yes Inpatient Rehab Admission - Rehab Decision to Admit Inpatient rehab admission?: Yes - Initial Determination Are CD services needed?: Yes Free of communicable disease: Yes Not in need of hospitalization: Yes - Rehab Admission Criteria Previous failed treatment: Yes Poor recovery environment: Yes Comorbidities: Yes Lacks judgement: No Patient is meeting Inpatient Rehab admission criteria:: Yes
[2019-03-03] MEDS ORDERED: GABAPENTIN 300 MG CAPSULE (FP) PO ONE (16:00)
[2019-03-03] MEDS: VITAMINS A AND D TOPICAL OINTMENT 60 GM TUBE TP SCH ×2 (17:49→23:28)
[2019-03-03] MEDS: DOCUSATE SODIUM 100 MG CAPSULE (FP) PO SCH (21:05)
[2019-03-03] MEDS: THIAMINE HCL 100 MG TABLET (FP) PO SCH (21:05)
[2019-03-03] MEDS: METHOCARBAMOL 500 MG TABLET PO SCH (21:06)
[2019-03-03] MEDS: GABAPENTIN 300 MG CAPSULE (FP) PO SCH (21:06)
[2019-03-03] MEDS: BACITRACIN 15 GM TUBE TOPICAL OINTMENT TP SCH (21:07)
[2019-03-03] MEDS: MELATONIN 5 MG TABLETS PO PRN (21:08)
[2019-03-04] MEDS ORDERED: METHADONE HCL 10 MG TABLET PO SCH (06:00)
[2019-03-04] MEDS ORDERED: METHADONE HCL 40 MG DISPERSABLE TABLET ONE (06:18)
[2019-03-04] MEDS: METHADONE 80 MG, METHADONE 30 MG PO SCH (06:18)
[2019-03-04] MEDS ORDERED: METHADONE HCL 10 MG TABLET ONE (06:18)
[2019-03-04] MEDS: METHOCARBAMOL 500 MG TABLET PO SCH ×3 (06:18→21:25)
[2019-03-04] MEDS: GABAPENTIN 300 MG CAPSULE (FP) PO SCH ×3 (06:18→21:25)
[2019-03-04] MEDS: VITAMINS A AND D TOPICAL OINTMENT 60 GM TUBE TP SCH ×4 (06:21→23:22)
[2019-03-04] MEDS: PRENATAL VITAMINS W/ FOLIC ACID TABLET (FP) PO SCH (09:37)
[2019-03-04] MEDS: NICOTINE 21 MG/24 HOURS TOPICAL PATCH TD SCH (09:37)
[2019-03-04] MEDS: amLODIPine BESYLATE 10 MG TABLET (FP) PO SCH (09:37)
[2019-03-04] MEDS: BACITRACIN 15 GM TUBE TOPICAL OINTMENT TP SCH ×2 (09:38→21:25)
[2019-03-04] MEDS: IBUPROFEN 400 MG TABLET (FP) PO PRN ×2 (09:39→16:30)
[2019-03-04] MEDS: ACETAMINOPHEN 325 MG TABLET (FP) PO PRN ×2 (11:40→21:26)
[2019-03-04] MEDS: MELATONIN 5 MG TABLETS PO PRN (21:25)
[2019-03-04] MEDS: THIAMINE HCL 100 MG TABLET (FP) PO SCH (21:25)
[2019-03-04] MEDS: DOCUSATE SODIUM 100 MG CAPSULE (FP) PO SCH (21:25)
[2019-03-05] MEDS ORDERED: METHADONE HCL 10 MG TABLET ONE (05:58)
[2019-03-05] MEDS ORDERED: METHADONE HCL 40 MG DISPERSABLE TABLET ONE (05:59)
[2019-03-05] MEDS: METHADONE 80 MG, METHADONE 30 MG PO SCH (06:19)
[2019-03-05] MEDS: METHOCARBAMOL 500 MG TABLET PO SCH ×3 (06:19→21:20)
[2019-03-05] MEDS: GABAPENTIN 300 MG CAPSULE (FP) PO SCH ×3 (06:19→21:20)
[2019-03-05] MEDS: VITAMINS A AND D TOPICAL OINTMENT 60 GM TUBE TP SCH ×3 (06:21→18:15)
[2019-03-05] MEDS: IBUPROFEN 400 MG TABLET (FP) PO PRN ×2 (09:30→21:21)
[2019-03-05] MEDS: amLODIPine BESYLATE 10 MG TABLET (FP) PO SCH (09:31)
[2019-03-05] MEDS: PRENATAL VITAMINS W/ FOLIC ACID TABLET (FP) PO SCH (09:31)
[2019-03-05] MEDS: NICOTINE 21 MG/24 HOURS TOPICAL PATCH TD SCH (09:31)
[2019-03-05] MEDS: BACITRACIN 15 GM TUBE TOPICAL OINTMENT TP SCH ×2 (09:32→21:20)
[2019-03-05] MEDS: ACETAMINOPHEN 325 MG TABLET (FP) PO PRN (16:53)
[2019-03-05] MEDS: DOCUSATE SODIUM 100 MG CAPSULE (FP) PO SCH (21:20)
[2019-03-05] MEDS: THIAMINE HCL 100 MG TABLET (FP) PO SCH (21:20)
[2019-03-05] MEDS: MELATONIN 5 MG TABLETS PO PRN (21:20)
[2019-03-06] MEDS: VITAMINS A AND D TOPICAL OINTMENT 60 GM TUBE TP SCH ×4 (01:56→19:06)
[2019-03-06] MEDS ORDERED: METHADONE HCL 40 MG DISPERSABLE TABLET ONE (06:02)
[2019-03-06] MEDS ORDERED: METHADONE HCL 10 MG TABLET ONE (06:02)
[2019-03-06] MEDS: GABAPENTIN 300 MG CAPSULE (FP) PO SCH ×3 (06:24→21:32)
[2019-03-06] MEDS: METHOCARBAMOL 500 MG TABLET PO SCH ×3 (06:24→21:32)
[2019-03-06] MEDS: METHADONE 80 MG, METHADONE 30 MG PO SCH (06:24)
[2019-03-06] MEDS: amLODIPine BESYLATE 10 MG TABLET (FP) PO SCH (09:54)
[2019-03-06] MEDS: NICOTINE 21 MG/24 HOURS TOPICAL PATCH TD SCH (09:54)
[2019-03-06] MEDS: IBUPROFEN 400 MG TABLET (FP) PO PRN ×2 (09:54→14:29)
[2019-03-06] MEDS: BACITRACIN 15 GM TUBE TOPICAL OINTMENT TP SCH ×2 (10:09→21:31)
[2019-03-06] MEDS: PRENATAL VITAMINS W/ FOLIC ACID TABLET (FP) PO SCH (10:10)
[2019-03-06] MEDS: ACETAMINOPHEN 325 MG TABLET (FP) PO PRN (19:07)
[2019-03-06] MEDS: DOCUSATE SODIUM 100 MG CAPSULE (FP) PO SCH (21:31)
[2019-03-06] MEDS: THIAMINE HCL 100 MG TABLET (FP) PO SCH (21:31)
[2019-03-06] MEDS: QUEtiapine FUMARATE 100 MG TABLET (FP) PO SCH (21:32)
[2019-03-07] MEDS: VITAMINS A AND D TOPICAL OINTMENT 60 GM TUBE TP SCH ×5 (00:42→23:54)
[2019-03-07] MEDS ORDERED: METHADONE HCL 40 MG DISPERSABLE TABLET ONE (06:02)
[2019-03-07] MEDS ORDERED: METHADONE HCL 10 MG TABLET ONE (06:02)
[2019-03-07] MEDS: GABAPENTIN 300 MG CAPSULE (FP) PO SCH ×3 (06:27→21:16)
[2019-03-07] MEDS: METHADONE 80 MG, METHADONE 30 MG PO SCH (06:27)
[2019-03-07] MEDS: METHOCARBAMOL 500 MG TABLET PO SCH ×3 (06:27→21:16)
[2019-03-07] MEDS: NICOTINE 21 MG/24 HOURS TOPICAL PATCH TD SCH (09:33)
[2019-03-07] MEDS: IBUPROFEN 400 MG TABLET (FP) PO PRN ×3 (09:33→21:16)
[2019-03-07] MEDS: amLODIPine BESYLATE 10 MG TABLET (FP) PO SCH (09:33)
[2019-03-07] MEDS: PRENATAL VITAMINS W/ FOLIC ACID TABLET (FP) PO SCH (09:33)
[2019-03-07] MEDS: BACITRACIN 15 GM TUBE TOPICAL OINTMENT TP SCH ×2 (09:50→21:17)
[2019-03-07] MEDS: DOCUSATE SODIUM 100 MG CAPSULE (FP) PO SCH (21:16)
[2019-03-07] MEDS: MELATONIN 5 MG TABLETS PO PRN (21:16)
[2019-03-07] MEDS: QUEtiapine FUMARATE 100 MG TABLET (FP) PO SCH (21:16)
[2019-03-07] MEDS: THIAMINE HCL 100 MG TABLET (FP) PO SCH (22:33)
[2019-03-08] MEDS ORDERED: METHADONE HCL 10 MG TABLET ONE (05:47)
[2019-03-08] MEDS ORDERED: METHADONE HCL 40 MG DISPERSABLE TABLET ONE (05:47)
[2019-03-08] MEDS: METHOCARBAMOL 500 MG TABLET PO SCH ×3 (06:08→21:24)
[2019-03-08] MEDS: METHADONE 80 MG, METHADONE 30 MG PO SCH (06:08)
[2019-03-08] MEDS: GABAPENTIN 300 MG CAPSULE (FP) PO SCH ×3 (06:08→21:23)
[2019-03-08] MEDS: VITAMINS A AND D TOPICAL OINTMENT 60 GM TUBE TP SCH ×4 (07:31→23:23)
[2019-03-08] MEDS: IBUPROFEN 400 MG TABLET (FP) PO PRN ×2 (09:59→14:20)
[2019-03-08] MEDS: amLODIPine BESYLATE 10 MG TABLET (FP) PO SCH (09:59)
[2019-03-08] MEDS: NICOTINE 21 MG/24 HOURS TOPICAL PATCH TD SCH (09:59)
[2019-03-08] MEDS: PRENATAL VITAMINS W/ FOLIC ACID TABLET (FP) PO SCH (09:59)
[2019-03-08] MEDS: BACITRACIN 15 GM TUBE TOPICAL OINTMENT TP SCH ×2 (10:33→21:24)
[2019-03-08] MEDS: ACETAMINOPHEN 325 MG TABLET (FP) PO PRN (16:42)
[2019-03-08] MEDS: THIAMINE HCL 100 MG TABLET (FP) PO SCH (21:23)
[2019-03-08] MEDS: DOCUSATE SODIUM 100 MG CAPSULE (FP) PO SCH (21:23)
[2019-03-08] MEDS: QUEtiapine FUMARATE 100 MG TABLET (FP) PO SCH (21:24)
[2019-03-09] MEDS ORDERED: METHADONE HCL 40 MG DISPERSABLE TABLET ONE (05:59)
[2019-03-09] MEDS ORDERED: METHADONE HCL 10 MG TABLET ONE (05:59)
[2019-03-09] MEDS: METHADONE 80 MG, METHADONE 30 MG PO SCH (06:07)
[2019-03-09] MEDS: GABAPENTIN 300 MG CAPSULE (FP) PO SCH ×3 (06:07→21:08)
[2019-03-09] MEDS: METHOCARBAMOL 500 MG TABLET PO SCH ×3 (06:07→21:08)
[2019-03-09] MEDS: VITAMINS A AND D TOPICAL OINTMENT 60 GM TUBE TP SCH ×4 (06:08→23:39)
[2019-03-09] MEDS: NICOTINE 21 MG/24 HOURS TOPICAL PATCH TD SCH (09:24)
[2019-03-09] MEDS: BACITRACIN 15 GM TUBE TOPICAL OINTMENT TP SCH ×2 (09:24→21:09)
[2019-03-09] MEDS: amLODIPine BESYLATE 10 MG TABLET (FP) PO SCH (09:24)
[2019-03-09] MEDS: PRENATAL VITAMINS W/ FOLIC ACID TABLET (FP) PO SCH (09:24)
[2019-03-09] MEDS: IBUPROFEN 400 MG TABLET (FP) PO PRN ×2 (09:26→19:17)
[2019-03-09] MEDS: QUEtiapine FUMARATE 100 MG TABLET (FP) PO SCH (21:08)
[2019-03-09] MEDS: MELATONIN 5 MG TABLETS PO PRN (21:08)
[2019-03-09] MEDS: DOCUSATE SODIUM 100 MG CAPSULE (FP) PO SCH (21:08)
[2019-03-09] MEDS: THIAMINE HCL 100 MG TABLET (FP) PO SCH (21:09)
[2019-03-10] MEDS ORDERED: METHADONE HCL 40 MG DISPERSABLE TABLET ONE (06:00)
[2019-03-10] MEDS ORDERED: METHADONE HCL 10 MG TABLET ONE (06:00)
[2019-03-10] MEDS: METHADONE 80 MG, METHADONE 30 MG PO SCH (06:09)
[2019-03-10] MEDS: METHOCARBAMOL 500 MG TABLET PO SCH ×3 (06:09→21:20)
[2019-03-10] MEDS: GABAPENTIN 300 MG CAPSULE (FP) PO SCH ×3 (06:10→21:19)
[2019-03-10] MEDS: VITAMINS A AND D TOPICAL OINTMENT 60 GM TUBE TP SCH ×4 (06:10→23:48)
[2019-03-10] MEDS: IBUPROFEN 400 MG TABLET (FP) PO PRN ×2 (09:27→21:21)
[2019-03-10] MEDS: PRENATAL VITAMINS W/ FOLIC ACID TABLET (FP) PO SCH (09:28)
[2019-03-10] MEDS: amLODIPine BESYLATE 10 MG TABLET (FP) PO SCH (09:28)
[2019-03-10] MEDS: BACITRACIN 15 GM TUBE TOPICAL OINTMENT TP SCH ×2 (09:29→21:35)
[2019-03-10] MEDS: NICOTINE 21 MG/24 HOURS TOPICAL PATCH TD SCH (09:30)
--- NOTE | 2019-03-10 09:32 | PN ---
S Progress Note Note: Patient requested to have his Gabapentin increased to 600mg tid as he was taking this medication while at home. External hx does not show medication. [facility] called, closed at this time. Left message and awaiting call back.
[2019-03-10] MEDS: ACETAMINOPHEN 325 MG TABLET (FP) PO PRN (19:14)
[2019-03-10] MEDS ORDERED: PT OWN MED DRAWER 7, Y5N ONE (19:18)
[2019-03-10] MEDS: DOCUSATE SODIUM 100 MG CAPSULE (FP) PO SCH (21:20)
[2019-03-10] MEDS: THIAMINE HCL 100 MG TABLET (FP) PO SCH (21:20)
[2019-03-10] MEDS: QUEtiapine FUMARATE 100 MG TABLET (FP) PO SCH (21:20)
[2019-03-11] MEDS ORDERED: METHADONE HCL 10 MG TABLET ONE (05:58)
[2019-03-11] MEDS ORDERED: METHADONE HCL 40 MG DISPERSABLE TABLET ONE (05:58)
[2019-03-11] MEDS: VITAMINS A AND D TOPICAL OINTMENT 60 GM TUBE TP SCH ×4 (06:20→22:59)
[2019-03-11] MEDS: GABAPENTIN 300 MG CAPSULE (FP) PO SCH ×3 (06:22→21:20)
[2019-03-11] MEDS: METHOCARBAMOL 500 MG TABLET PO SCH ×3 (06:23→21:21)
[2019-03-11] MEDS: METHADONE 80 MG, METHADONE 30 MG PO SCH (06:23)
[2019-03-11] MEDS: NICOTINE 21 MG/24 HOURS TOPICAL PATCH TD SCH (09:41)
[2019-03-11] MEDS: amLODIPine BESYLATE 10 MG TABLET (FP) PO SCH (09:41)
[2019-03-11] MEDS: PRENATAL VITAMINS W/ FOLIC ACID TABLET (FP) PO SCH (09:41)
[2019-03-11] MEDS: IBUPROFEN 400 MG TABLET (FP) PO PRN ×3 (09:42→21:22)
[2019-03-11] MEDS: BACITRACIN 15 GM TUBE TOPICAL OINTMENT TP SCH ×2 (09:43→21:20)
[2019-03-11] MEDS: DOCUSATE SODIUM 100 MG CAPSULE (FP) PO SCH (21:20)
[2019-03-11] MEDS: THIAMINE HCL 100 MG TABLET (FP) PO SCH (21:21)
[2019-03-11] MEDS: QUEtiapine FUMARATE 100 MG TABLET (FP) PO SCH (21:21)
[2019-03-12] MEDS: VITAMINS A AND D TOPICAL OINTMENT 60 GM TUBE TP SCH ×4 (05:49→23:01)
[2019-03-12] MEDS: GABAPENTIN 300 MG CAPSULE (FP) PO SCH ×3 (05:50→21:31)
[2019-03-12] MEDS ORDERED: METHADONE HCL 40 MG DISPERSABLE TABLET ONE (05:50)
[2019-03-12] MEDS: METHADONE 80 MG, METHADONE 30 MG PO SCH (05:50)
[2019-03-12] MEDS ORDERED: METHADONE HCL 10 MG TABLET ONE (05:50)
[2019-03-12] MEDS: METHOCARBAMOL 500 MG TABLET PO SCH ×3 (05:51→21:32)
[2019-03-12] MEDS: PRENATAL VITAMINS W/ FOLIC ACID TABLET (FP) PO SCH (09:41)
[2019-03-12] MEDS: NICOTINE 21 MG/24 HOURS TOPICAL PATCH TD SCH (09:41)
[2019-03-12] MEDS: BACITRACIN 15 GM TUBE TOPICAL OINTMENT TP SCH ×2 (09:41→21:31)
[2019-03-12] MEDS: amLODIPine BESYLATE 10 MG TABLET (FP) PO SCH (09:41)
[2019-03-12] MEDS: IBUPROFEN 400 MG TABLET (FP) PO PRN ×3 (09:42→19:33)
[2019-03-12] MEDS: DOCUSATE SODIUM 100 MG CAPSULE (FP) PO SCH (21:31)
[2019-03-12] MEDS: THIAMINE HCL 100 MG TABLET (FP) PO SCH (21:31)
[2019-03-12] MEDS: MELATONIN 5 MG TABLETS PO PRN (21:32)
[2019-03-12] MEDS ORDERED: QUEtiapine FUMARATE 50 MG TABLET ONE (21:33)
[2019-03-12] MEDS: QUEtiapine FUMARATE 100 MG TABLET (FP) PO SCH (21:33)
[2019-03-13] MEDS ORDERED: METHADONE HCL 10 MG TABLET ONE (03:15)
[2019-03-13] MEDS ORDERED: METHADONE HCL 40 MG DISPERSABLE TABLET ONE (03:16)
[2019-03-13] MEDS: IBUPROFEN 400 MG TABLET (FP) PO PRN ×4 (06:26→19:03)
[2019-03-13] MEDS: METHOCARBAMOL 500 MG TABLET PO SCH ×3 (06:27→21:15)
[2019-03-13] MEDS: METHADONE 80 MG, METHADONE 30 MG PO SCH (06:27)
[2019-03-13] MEDS: GABAPENTIN 300 MG CAPSULE (FP) PO SCH ×3 (06:27→21:15)
[2019-03-13] MEDS: VITAMINS A AND D TOPICAL OINTMENT 60 GM TUBE TP SCH ×3 (06:29→18:23)
[2019-03-13] MEDS: amLODIPine BESYLATE 10 MG TABLET (FP) PO SCH (09:44)
[2019-03-13] MEDS: PRENATAL VITAMINS W/ FOLIC ACID TABLET (FP) PO SCH (09:44)
[2019-03-13] MEDS: NICOTINE 21 MG/24 HOURS TOPICAL PATCH TD SCH (09:44)
[2019-03-13] MEDS: BACITRACIN 15 GM TUBE TOPICAL OINTMENT TP SCH ×2 (10:32→21:14)
[2019-03-13] MEDS: DOCUSATE SODIUM 100 MG CAPSULE (FP) PO SCH (21:14)
[2019-03-13] MEDS: THIAMINE HCL 100 MG TABLET (FP) PO SCH (21:14)
[2019-03-13] MEDS: MELATONIN 5 MG TABLETS PO PRN (21:15)
[2019-03-13] MEDS: QUEtiapine FUMARATE 100 MG TABLET (FP) PO SCH (21:15)
[2019-03-14] MEDS: VITAMINS A AND D TOPICAL OINTMENT 60 GM TUBE TP SCH ×5 (01:40→23:12)
[2019-03-14] MEDS ORDERED: METHADONE HCL 10 MG TABLET ONE (05:59)
[2019-03-14] MEDS ORDERED: METHADONE HCL 40 MG DISPERSABLE TABLET ONE (05:59)
[2019-03-14] MEDS: METHADONE 80 MG, METHADONE 30 MG PO SCH (06:17)
[2019-03-14] MEDS: GABAPENTIN 300 MG CAPSULE (FP) PO SCH ×3 (06:17→21:25)
[2019-03-14] MEDS: METHOCARBAMOL 500 MG TABLET PO SCH ×3 (06:17→21:25)
[2019-03-14] MEDS: IBUPROFEN 400 MG TABLET (FP) PO PRN ×2 (09:10→21:25)
[2019-03-14] MEDS: BACITRACIN 15 GM TUBE TOPICAL OINTMENT TP SCH ×2 (09:41→21:42)
[2019-03-14] MEDS: PRENATAL VITAMINS W/ FOLIC ACID TABLET (FP) PO SCH (09:41)
[2019-03-14] MEDS: amLODIPine BESYLATE 10 MG TABLET (FP) PO SCH (09:41)
[2019-03-14] MEDS: NICOTINE 21 MG/24 HOURS TOPICAL PATCH TD SCH (09:41)
[2019-03-14] MEDS: QUEtiapine FUMARATE 100 MG TABLET (FP) PO SCH (21:25)
[2019-03-14] MEDS: DOCUSATE SODIUM 100 MG CAPSULE (FP) PO SCH (21:25)
[2019-03-14] MEDS: THIAMINE HCL 100 MG TABLET (FP) PO SCH (21:25)
[2019-03-14] MEDS: MELATONIN 5 MG TABLETS PO PRN (21:25)
[2019-03-15] MEDS ORDERED: METHADONE HCL 40 MG DISPERSABLE TABLET ONE (06:06)
[2019-03-15] MEDS ORDERED: METHADONE HCL 10 MG TABLET ONE (06:06)
[2019-03-15] MEDS: VITAMINS A AND D TOPICAL OINTMENT 60 GM TUBE TP SCH ×4 (06:10→23:24)
[2019-03-15] MEDS: GABAPENTIN 300 MG CAPSULE (FP) PO SCH ×3 (06:11→21:11)
[2019-03-15] MEDS: METHOCARBAMOL 500 MG TABLET PO SCH ×3 (06:11→21:12)
[2019-03-15] MEDS: METHADONE 80 MG, METHADONE 30 MG PO SCH (06:11)
[2019-03-15] MEDS: amLODIPine BESYLATE 10 MG TABLET (FP) PO SCH (09:42)
[2019-03-15] MEDS: IBUPROFEN 400 MG TABLET (FP) PO PRN ×2 (09:42→19:24)
[2019-03-15] MEDS: NICOTINE 21 MG/24 HOURS TOPICAL PATCH TD SCH (09:42)
[2019-03-15] MEDS: PRENATAL VITAMINS W/ FOLIC ACID TABLET (FP) PO SCH (09:42)
[2019-03-15] MEDS: BACITRACIN 15 GM TUBE TOPICAL OINTMENT TP SCH ×2 (09:44→21:38)
[2019-03-15] MEDS: DOCUSATE SODIUM 100 MG CAPSULE (FP) PO SCH (21:11)
[2019-03-15] MEDS: THIAMINE HCL 100 MG TABLET (FP) PO SCH (21:12)
[2019-03-15] MEDS: QUEtiapine FUMARATE 100 MG TABLET (FP) PO SCH (21:12)
[2019-03-16] MEDS: METHOCARBAMOL 500 MG TABLET PO SCH ×3 (06:46→21:30)
[2019-03-16] MEDS: GABAPENTIN 300 MG CAPSULE (FP) PO SCH ×3 (06:46→21:30)
[2019-03-16] MEDS: VITAMINS A AND D TOPICAL OINTMENT 60 GM TUBE TP SCH ×4 (06:48→23:52)
[2019-03-16] MEDS ORDERED: METHADONE HCL 40 MG DISPERSABLE TABLET PO SCH (07:15)
[2019-03-16] MEDS ORDERED: METHADONE HCL 10 MG TABLET ONE (07:40)
[2019-03-16] MEDS ORDERED: METHADONE HCL 40 MG DISPERSABLE TABLET ONE (07:41)
[2019-03-16] MEDS: METHADONE 80 MG, METHADONE 30 MG PO SCH (07:41)
[2019-03-16] MEDS: PRENATAL VITAMINS W/ FOLIC ACID TABLET (FP) PO SCH (09:45)
[2019-03-16] MEDS: amLODIPine BESYLATE 10 MG TABLET (FP) PO SCH (09:45)
[2019-03-16] MEDS: IBUPROFEN 400 MG TABLET (FP) PO PRN (09:45)
[2019-03-16] MEDS: BACITRACIN 15 GM TUBE TOPICAL OINTMENT TP SCH ×2 (09:46→22:06)
[2019-03-16] MEDS: NICOTINE 21 MG/24 HOURS TOPICAL PATCH TD SCH (09:47)
[2019-03-16] MEDS ORDERED: NICOTINE 21 MG/24 HOURS TOPICAL PATCH ONE (10:58)
[2019-03-16] MEDS ORDERED: INSULIN (NOVOLOG) ASPART 100 UNITS/ML 10ML VIAL ONE (11:50)
--- NOTE | 2019-03-16 15:20 | PN ---
[facility] Progress Note Note: Patient is scheduled for discharge tomorrow. Script for 30 days supply of Seroquel 100 mg/hs will be electronically transmitted to [facility] [address] [place] [id number]
--- NOTE | 2019-03-16 15:28 | DS ---
[facility] Rehab Discharge Summary - [facility] Rehab Discharge Summary Admission Date: 03/03/19 Discharge Date: 03/16/19 - History Present History: Alcohol dependence, Cocaine dependence, MMTP, Opioid dependence Pertinent Past History: Pt admitted on 02/28 for detox from alcohol and benzo use disorders. [facility] Pt will be followed up at [facility] methadone- 110mg/day. Pt has no complaints Pt has HTN, sarcoma of L arm: pt has f/u with surgeon. PT would like refill of nerutonin and BP meds. Will refer to for prescription of those meds - Discharge Physical Exam Vital Signs: Vital Signs Temperature 97.8 F 03/16/19 10:55 Pulse Rate 69 03/16/19 10:55 Respiratory Rate 18 03/16/19 10:55 Blood Pressure 122/76 03/16/19 10:55 O2 Sat by Pulse Oximetry (%) - Treatment Discharge Condition: Discharge condition good - Medication Discharge Medications: Ambulatory Orders Methadone [Dolophine -] 110 mg PO DAILY 07/07/18 Mirtazapine [Remeron -] 30 mg PO HS #30 tablet 10/19/18 Gabapentin [Neurontin -] 600 mg PO TID capsule 03/03/19 Amlodipine Besylate [Norvasc -] 10 mg PO DAILY #30 tablet 03/16/19 Gabapentin [Neurontin -] 600 mg PO TID #90 capsule 03/16/19 Quetiapine Fumarate [Seroquel -] 100 mg PO HS #30 tablet 03/16/19 - Medication-Assisted Treatment (MAT) Medication-Assisted Treatment (MAT): Yes - Discharge Instructions Diet, activity, other medical instructions: Diet: Activity: Other medical instructions: - Diagnosis (1) Sedative, hypnotic or anxiolytic dependence with withdrawal, unspecified Current Visit: No Status: Acute (2) History of sarcoma of soft tissue Current Visit: No Status: Chronic (3) Methadone maintenance therapy patient Current Visit: No Status: Chronic (4) Neuropathy Current Visit: No Status: Chronic (5) Opioid dependence on agonist therapy Current Visit: No Status: Chronic (6) Opioid use disorder Current Visit: No Status: Chronic - Follow-up Referral Minutes to complete discharge: 30
[2019-03-16] MEDS: QUEtiapine FUMARATE 100 MG TABLET (FP) PO SCH (21:30)
[2019-03-16] MEDS: DOCUSATE SODIUM 100 MG CAPSULE (FP) PO SCH (21:30)
[2019-03-16] MEDS: THIAMINE HCL 100 MG TABLET (FP) PO SCH (21:31)
[2019-03-17] MEDS ORDERED: METHADONE HCL 40 MG DISPERSABLE TABLET ONE (06:01)
[2019-03-17] MEDS ORDERED: METHADONE HCL 10 MG TABLET ONE (06:01)
[2019-03-17] MEDS: METHADONE 80 MG, METHADONE 30 MG PO SCH (06:15)
[2019-03-17] MEDS: GABAPENTIN 300 MG CAPSULE (FP) PO SCH (06:16)
[2019-03-17] MEDS: VITAMINS A AND D TOPICAL OINTMENT 60 GM TUBE TP SCH (06:16)
[2019-03-17] MEDS: METHOCARBAMOL 500 MG TABLET PO SCH (06:16)
[2019-03-17 06:44] VITALS: BP 124/84; PULSE 62; TEMP 97.6
[2019-03-17] MEDS: IBUPROFEN 400 MG TABLET (FP) PO PRN (08:24)
[2019-03-17] MEDS: amLODIPine BESYLATE 10 MG TABLET (FP) PO SCH (09:10)
[2019-03-17] MEDS: PRENATAL VITAMINS W/ FOLIC ACID TABLET (FP) PO SCH (09:10)
[2019-03-17] MEDS: BACITRACIN 15 GM TUBE TOPICAL OINTMENT TP SCH (09:15)
[2019-03-17] MEDS: NICOTINE 21 MG/24 HOURS TOPICAL PATCH TD SCH (09:15)
== END 2019-03-17 09:50 | disposition home or self-care (01) | DRG 772 ==
LOC: YASAS 13:30 → Y3W 13:31
PROVIDERS: ADMIT Neuromusculoskeletal Medicine & OMM; ATTEND Neuromusculoskeletal Medicine & OMM
PROC: HZ42ZZZ Group Counseling for Substance Abuse Treatment, Cognitive-Behavioral (ICD-10-PCS; principal; 2019-03-03)
DX: F10.20 Alcohol dependence, uncomplicated (principal); F11.20 Opioid dependence, uncomplicated; F13.20 Sedative, hypnotic or anxiolytic dependence, uncomplicated; F14.20 Cocaine dependence, uncomplicated; I10 Essential (primary) hypertension; G62.9 Polyneuropathy, unspecified; Z85.831 Personal history of malignant neoplasm of soft tissue; Z91.013 Allergy to seafood; Z59.0 Homelessness

== ENCOUNTER 2019-04-24 11:21 | Inpatient (IN) | payer OTHER ==
[2019-04-24 12:05] VITALS: BMI 36.6
--- NOTE | 2019-04-24 12:39 | HP ---
COWS - Scale Resting Pulse: 0= OK 80 or Below Sweatin=Flushed/Facial Moisture Restless Observation: 1= Difficult to Sit Still Pupil Size: 1= Pupils >than Normal Bone or Joint Aches: 2= Severe Diffuse Aches Runny Nose/ Eye Tearin= Nasal Congestion GI Upset > 30mins: 1= Stomach Cramp Tremor Observation: 1= Tremor [place], Not Seen Yawning Observation: 1= 1-2x During Session Anxiety or Irritability: 1=Feels Anxious/Irritable Goose Flesh Skin: 3=Piloerection COWS Score: 14 CIWA Score Nausea/Vomitin Muscle Tremors: 4-Moderate,w/Arms Extend Anxiety: 4-Mod. Anxious/Guarded Agitation: 4-Moderately Restless Paroxysmal Sweats: 1-Minimal Palms Moist Orientation: 0-Oriented Tacttile Disturbances: 1-Very Mild Itch/Numbness Auditory Disturbances: 0-None Visual Disturbances: 0-None Headache: 3-Moderate CIWA-Ar Total Score: 22 - Admission Criteria OASAS Guidelines: Admission for Medically Managed Detox: Requires at least one of the followin. CIWA greater than 12 2. Seizures within the past 24 hours 3. Delirium tremens within the past 24 hours 4. Hallucinations within the past 24 hours 5. Acute intervention needed for co occurring medical disorder 6. Acute intervention needed for co occurring psychiatric disorder 7. Severe withdrawal that cannot be handled at a lower level of care (continued vomiting, continued diarrhea, abnormal vital signs) requiring intravenous medication and/or fluids 8. Admitting History and Physical - Admission Chief Complaint: " I can't keep doing this. I need to stop using but my cancer makes me depressed and I am on a methadone program. But I am here for the Xanax Klonopin and cocaine use and alcohol use." History of Present Illness: 53 year old male with history of opioid dependence on a methadone program. However, he is also using alcohol, cocaine, xanax and klonopin that he is buying on the streets. He has had blackouts in the past including 6 months ago and withdrawal seizures 1 year ago. However, his medical problems compounding his substance use disorder. He has skin cancer and has had multiple removals of large areas of skin under his left arm, but it seems to have recurred. Patient is dirnking alcohol about 2-3 packs of beers of 48 oz [employer] beers daily, last drank this morning. Patient still smoking 1 ppd for 36 years ongoing, last smoked today. He wants detox and then rehab for the alcohol, cocaine and benzodiazepines. He is also is homeless and stays in the [facility] [employer]. He denies any pending legal issues. PMH: Sarcoma skin Cancer, HTN, HLD, Early onset DM. Psurg: skin cancer surgery, tonsillectomy as a child. Psych: PTSD from 02/22 Limitations to Obtaining History: No Limitations - Past Medical History Cardiovascular: Yes: HTN, Hyperlipdemia Pulmonary: Yes: Cancer Dermatology: Yes: Other (sarcoma of the skin) - Smoking History Smoking history: Current every day smoker Have you smoked in the past 12 months: Yes Aproximately how many cigarettes per day: 20 - Alcohol/Substance Use Hx Alcohol Use: Yes Admission [facility] Allergies/Adverse Reactions: Allergies Allergy/AdvReac Type Severity Reaction Status Date / Time shellfish derived Allergy Severe Hives Verified 04/24/19 11:51 No Known Drug Allergies Allergy Verified 04/24/19 12:06 Exam Limitations: No Limitations - Ebola screening Have you traveled outside of the country in the last 21 days: No (N) Have you had contact with anyone from an Ebola affected area: No Have you been sick,other than usual withdrawal symptoms: No Do you have a fever: No - Review of Systems Constitutional: Chills, Night Sweats, Unintentional Wgt. Loss EENT: reports: No Symptoms Reported Respiratory: reports: No Symptoms reported Cardiac: reports: No Symptoms Reported GI: reports: No Symptoms Reported : reports: No Symptoms Reported Musculoskeletal: reports: No Symptoms Reported Integumentary: reports: No Symptoms Reported Neuro: reports: No Symptoms reported Endocrine: reports: No Symptoms Reported Hematology: reports: No Symptoms Reported Psychiatric: reports: Judgement Intact, Mood/Affect Appropiate, Orientated x3 Other Systems: Reviewed and Negative Patient History - Patient Medical History Hx Anemia: No Hx Asthma: No Hx Chronic Obstructive Pulmonary Disease (COPD): No Hx Cancer: Yes (Sarcoma diagnosed 4 years ago ) Hx Cardiac Disorders: No Hx Congestive Heart Failure: No Hx Hypertension: Yes Hx Hypercholesterolemia: No Hx Pacemaker: No HX Cerebrovascular Accident: No Hx Seizures: Yes Hx Dementia: No Hx Diabetes: No Hx Gastrointestinal Disorders: No Hx Liver Disease: No Hx Genitourinary Disorders: No Hx Sexually Transmitted Disorders: No Hx Renal Disease (ESRD): No Hx Thyroid Disease: No Hx Human Immunodeficiency Virus (HIV): No (last 2015 negative, declines testing ) Hx Hepatitis C: No Hx Depression: Yes Hx Suicide Attempt: No Hx Bipolar Disorder: Yes Hx Schizophrenia: No - Patient Surgical History Past Surgical History: Yes Hx Neurologic Surgery: No Hx Cataract Extraction: No Hx Cardiac Surgery: No Hx Lung Surgery: No Hx Breast Surgery: No Hx Breast Biopsy: No Hx Abdominal Surgery: No Hx Appendectomy: No Hx Cholecystectomy: No Hx Genitourinary Surgery: No Hx Section: No Hx Orthopedic Surgery: No Other Surgical History: 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 Anesthesia Reaction: No (2 tumors removed from upper arm 04/30) - PPD History Previous Implant?: Yes Documented Results: Negative w/proof Implanted On Prior [facility] Admission?: Yes Date: 02/06/18 Results: 0MM PPD to be Administered?: Yes - Smoking Cessation Smoking history: Current every day smoker Have you smoked in the past 12 months: Yes Aproximately how many cigarettes per day: 20 Cigars Per Day: 0 Hx Chewing Tobacco Use: No Initiated information on smoking cessation: Yes 'Breaking Loose' booklet given: 04/24/19 - Substances abused Alcohol Substance route: Oral Frequency: Daily Amount used: 8 beers (ericka cobra) Age of first use: 13 Date of last use: 04/24/19 Alprazolam (Xanax) Other (specify): 2mg Substance route: Oral Frequency: Daily Amount used: 5 pills Age of first use: 31 Date of last use: 04/22/19 Cocaine Substance route: Smoking Frequency: 1-2 times per week Amount used: $200 Age of first use: 16 Date of last use: 04/23/19 Heroin Other (specify): SNIFF Substance route: Inhalation Frequency: Daily Amount used: 6-8 BAGS Age of first use: 34 Date of last use: 04/23/19 Benzodiazepine (Klonopin) Other (specify): 2mg Substance route: Oral Frequency: Daily Amount used: 5 sticks/ 10mg Age of first use: 37 Date of last use: 04/21/19 Admission Physical Exam BHS - Vital Signs Vital Signs: Vital Signs - 24 hr 04/24/19 11:49 Temperature 97.9 F Pulse Rate 65 Respiratory 20 Rate Blood Pressure 111/74 - Physical General Appearance: Yes: Moderate Distress HEENTM: Yes: EOMI, Hearing grossly Normal, Normal ENT Inspection, Normocephalic , Normal Voice, CHRYSTAL, Pharynx Normal, Tm's normal Respiratory: Yes: Chest Non-Tender, Lungs Clear, Normal Breath Sounds, No Respiratory Distress, No Accessory Muscle Use Neck: Yes: No masses,lesions,Nodules, Supple, Trachea in good position Breast: Yes: Within Normal Limits Abdominal: Yes: Non Tender, Soft, Increased Bowel Sounds, Protuberent Genitourinary: Yes: Within Normal Limits Back: Yes: Normal Inspection Musculoskeletal: Yes: full range of Motion, Gait Steady, Pelvis Stable Extremities: Yes: Normal Capillary Refill, Normal Inspection, Normal Range of Motion, Non-Tender Neurological: Yes: kiln pusher II-XII NML intact, Fully Oriented, Alert, Motor Strength 5/5, Normal Mood/Affect, Normal Response Integumentary: Yes: Normal Color, Warm Lymphatic: Yes: Within Normal Limits - Diagnostic (1) Alcohol dependence with uncomplicated withdrawal Current Visit: Yes Status: Acute (2) Cocaine use disorder Current Visit: Yes Status: Acute (3) Cocaine dependence Current Visit: Yes Status: Chronic Qualifiers: Substance use status: uncomplicated Qualified Code(s): F14.20 - Cocaine dependence, uncomplicated (4) History of sarcoma of soft tissue Current Visit: Yes Status: Chronic Comment: Multiple surgical removals, last surgery 01/2019 (5) Methadone maintenance therapy patient Current Visit: Yes Status: Chronic (6) Nicotine dependence Current Visit: Yes Status: Chronic Qualifiers: Nicotine product type: cigarettes Substance use status: uncomplicated Qualified Code(s): F17.210 - Nicotine dependence, cigarettes, uncomplicated (7) Obese Current Visit: Yes Status: Chronic Qualifiers: Obesity type: unspecified obesity type Obesity classification: adult class 2 (BMI 35 - 39.9) Serious obesity comorbidity presence: without serious comorbidity Body mass index: BMI 36.0-36.9 Qualified Code(s): E66.9 - Obesity, unspecified; Z68.36 - Body mass index (BMI) 36.0-36.9, adult (8) Opioid dependence on agonist therapy Current Visit: Yes Status: Chronic (9) Opioid use disorder Current Visit: Yes Status: Chronic Comment: w/ continued illicit opioid relpase [facility] Level of Care: Medically Managed Detox Regimen/Protocol: Librium Claeared for Rehab Admission: No Screened but not Admitted - Documentation of Visit Screened but not Admitted: No Breathalyzer - Breathalyzer Breathalyzer: 0 Urine Drug Screen - Test Device Lot number: [id number] Expiration date: 11/11/20 - Control Is test valid?: Yes - Results Drug screen NEGATIVE: No Urine drug screen results: KAREEM-Cocaine, FEN-Fentanyl, MOP-Opiates, MTD-Methadone , BZO-Benzodiazepines Inpatient Rehab Admission - Rehab Decision to Admit Inpatient rehab admission?: No
[2019-04-24] MEDS ORDERED: ACETAMINOPHEN 325 MG TABLET (FP) PO PRN ×2 (12:50)
[2019-04-24] MEDS ORDERED: BISMUTH SUBSALICYLATE 524 MG/30 ML UD PO PRN (12:50)
[2019-04-24] MEDS ORDERED: MAGNESIUM CITRATE 300 ML BOTTLE PO PRN (12:50)
[2019-04-24] MEDS ORDERED: MENTHOL/PHENOL 1 EACH UD MM PRN (12:50)
[2019-04-24] MEDS ORDERED: MAGNESIUM HYDROX 2400MG/30ML ORAL SUSPENSION 30 ML CUP PO PRN (12:50)
[2019-04-24] MEDS ORDERED: MELATONIN 5 MG TABLETS PO PRN (12:50)
[2019-04-24] MEDS ORDERED: MAG HYDROX/AL HYDROX/SIMETH 30 ML UNIT-DOSE CUP PO PRN (12:50)
[2019-04-24] MEDS: chlordiazePOXIDE HCL 25 MG CAPSULE PO PRN (14:19)
[2019-04-24] MEDS: GABAPENTIN 300 MG CAPSULE (FP) PO SCH ×2 (14:19→22:12)
[2019-04-24 16:32] LABS: HEMATOCRIT 41.2 % (35.4-49); HEMOGLOBIN 13.3 GM/dL (11.7-16.9); MCH 28.1 pg (25.7-33.7); MCHC 32.3 g/dl (32.0-35.9); MEAN CELL VOLUME 86.9 fl (80-96); MEAN PLT VOLUME 10.1 fl (7.5-11.1); PLATELET COUNT 213 K/MM3 (134-434); RBC 4.74 M/mm3 (4.00-5.60); RDW 15.2 % (11.9-15.9); WHITE BLOOD COUNT 5.8 K/mm3 (4.0-10.0)
[2019-04-24 16:38] LABS: ALBUMIN 3.8 g/dl (3.4-5.0); BILIRUBIN,TOTAL 0.1 mg/dL (0.2-1); BLOOD UREA NITROGEN 12.2 mg/dL (7-18); CALCIUM 8.8 mg/dL (8.5-10.1); CREATININE 0.8 mg/dL (0.55-1.3); POTASSIUM 3.9 mmol/L (3.5-5.1); TOT PROT 6.7 g/dl (6.4-8.2)
[2019-04-24] MEDS: IBUPROFEN 400 MG TABLET (FP) PO PRN (16:40)
[2019-04-24] MEDS: chlordiazePOXIDE HCL 25 MG CAPSULE PO SCH ×2 (16:41→22:12)
[2019-04-24] MEDS: METHOCARBAMOL 500 MG TABLET PO PRN (16:46)
[2019-04-24] MEDS ORDERED: MIRTAZAPINE 30 MG TABLET (FP) PO SCH (22:00)
[2019-04-24] MEDS ORDERED: MIRTAZAPINE 15 MG TABLET (FP) ONE (22:11)
[2019-04-24] MEDS: QUEtiapine FUMARATE 100 MG TABLET (FP) PO SCH (22:12)
[2019-04-24] MEDS: THIAMINE HCL 100 MG TABLET (FP) PO SCH (22:12)
[2019-04-25] MEDS: GABAPENTIN 300 MG CAPSULE (FP) PO SCH ×3 (05:06→22:05)
[2019-04-25] MEDS: chlordiazePOXIDE HCL 25 MG CAPSULE PO SCH ×4 (05:06→22:05)
[2019-04-25] MEDS: chlordiazePOXIDE HCL 25 MG CAPSULE PO PRN ×3 (08:48→20:40)
[2019-04-25] MEDS ORDERED: METHADONE HCL 40 MG DISPERSABLE TABLET PO ONE (10:00)
[2019-04-25] MEDS: PRENATAL VITAMINS W/ FOLIC ACID TABLET (FP) PO SCH (10:39)
[2019-04-25] MEDS: amLODIPine BESYLATE 10 MG TABLET (FP) PO SCH (10:39)
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
[2019-04-25] MEDS: NICOTINE 14 MG/24 HOURS TOPICAL PATCH TD SCH (10:40)
--- NOTE | 2019-04-25 11:41 | PN ---
[facility] CIWA - CIWA Score Nausea/Vomitin-Mild Nausea/No Vomiting Muscle Tremors: 4-Moderate,w/Arms Extend Anxiety: 4-Mod. Anxious/Guarded Agitation: 3 Paroxysmal Sweats: 2 Orientation: 1-Uncertain about Date (date of week) Tacttile Disturbances: 1-Very Mild Itch/Numbness Auditory Disturbances: 1-Very Mild Visual Disturbances: 0-None Headache: 2-Mild CIWA-Ar Total Score: 19 BHS Progress Note (SOAP) Subjective: 53 years old male admitted on 04/24/19 for alcohol and benzo withdrawal sx management treated with librium detox regimen received methadone 120 mg po today feeling better resting on bed limited conversation with staff Objective: 04/25/19 11:40 Vital Signs Temperature 97.7 F 04/25/19 09:50 Pulse Rate 65 04/25/19 09:50 Respiratory Rate 18 04/25/19 09:50 Blood Pressure 110/77 04/25/19 09:50 O2 Sat by Pulse Oximetry (%) Laboratory Last Values WBC 5.8 K/mm3 (4.0-10.0) 04/24/19 13:05 RBC 4.74 M/mm3 (4.00-5.60) 04/24/19 13:05 Hgb 13.3 GM/dL (11.7-16.9) 04/24/19 13:05 Hct 41.2 % (35.4-49) 04/24/19 13:05 MCV 86.9 fl (80-96) 04/24/19 13:05 MCH 28.1 pg (25.7-33.7) 04/24/19 13:05 MCHC 32.3 g/dl (32.0-35.9) 04/24/19 13:05 RDW 15.2 % (11.9-15.9) 04/24/19 13:05 Plt Count 213 K/MM3 (134-434) D 04/24/19 13:05 MPV 10.1 fl (7.5-11.1) 04/24/19 13:05 Sodium 142 mmol/L (136-145) 04/24/19 13:05 Potassium 3.9 mmol/L (3.5-5.1) 04/24/19 13:05 Chloride 110 mmol/L (98-107) H 04/24/19 13:05 Carbon Dioxide 27 mmol/L (21-32) 04/24/19 13:05 Anion Gap 5 MMOL/L (8-16) L 04/24/19 13:05 BUN 12.2 mg/dL (7-18) 04/24/19 13:05 Creatinine 0.8 mg/dL (0.55-1.3) 04/24/19 13:05 Est GFR (CKD-EPI)AfAm 119.04 04/24/19 13:05 Est GFR (CKD-EPI)NonAf 102.71 04/24/19 13:05 Random Glucose 109 mg/dL (74-106) H 04/24/19 13:05 Calcium 8.8 mg/dL (8.5-10.1) 04/24/19 13:05 Total Bilirubin 0.1 mg/dL (0.2-1) L 04/24/19 13:05 AST 16 U/L (15-37) 04/24/19 13:05 ALT 23 U/L (13-61) 04/24/19 13:05 Alkaline Phosphatase 81 U/L (45-117) 04/24/19 13:05 Total Protein 6.7 g/dl (6.4-8.2) 04/24/19 13:05 Albumin 3.8 g/dl (3.4-5.0) 04/24/19 13:05 RPR Titer Nonreactive (NONREACTIVE) 04/24/19 13:05 lab noted Assessment: 04/25/19 11:40 alcohol and benzo withdrawal sx Plan: continue librium detox regimen
[2019-04-25] MEDS: METHOCARBAMOL 500 MG TABLET PO PRN (12:29)
[2019-04-25] MEDS: IBUPROFEN 400 MG TABLET (FP) PO PRN (15:49)
[2019-04-25] MEDS: hydrOXYzine PAMOATE 25 MG CAPSULE (FP) PO PRN (19:33)
[2019-04-25] MEDS: QUEtiapine FUMARATE 100 MG TABLET (FP) PO SCH (22:05)
[2019-04-25] MEDS: THIAMINE HCL 100 MG TABLET (FP) PO SCH (22:05)
[2019-04-26] MEDS: chlordiazePOXIDE HCL 25 MG CAPSULE PO PRN ×4 (00:49→19:40)
[2019-04-26] MEDS: METHADONE HCL 40 MG DISPERSABLE TABLET PO SCH (05:51)
[2019-04-26] MEDS: chlordiazePOXIDE HCL 25 MG CAPSULE PO SCH ×4 (05:51→22:22)
[2019-04-26] MEDS: GABAPENTIN 300 MG CAPSULE (FP) PO SCH ×3 (05:51→22:22)
[2019-04-26] MEDS: IBUPROFEN 400 MG TABLET (FP) PO PRN (08:51)
[2019-04-26] MEDS ORDERED: COLLOIDAL OATMEAL 1 BAR EACH TP PRN (09:53)
--- NOTE | 2019-04-26 10:00 | PN ---
S CIWA - CIWA Score Nausea/Vomitin-Mild Nausea/No Vomiting Muscle Tremors: 3 Anxiety: 3 Agitation: 2 Paroxysmal Sweats: 2 Orientation: 0-Oriented Tacttile Disturbances: 1-Very Mild Itch/Numbness Auditory Disturbances: 0-None Visual Disturbances: 0-None Headache: 2-Mild CIWA-Ar Total Score: 14 S Progress Note (SOAP) Subjective: 53 years old male admitted on 04/24/19 for alcohol and benzo withdrawal sx management treated with librium detox regimen sleep better at night feeling better showered and social with peers in hallway Objective: 04/26/19 10:00 Vital Signs Temperature 99.8 F H 04/26/19 09:26 Pulse Rate 76 04/26/19 09:26 Respiratory Rate 18 04/26/19 09:26 Blood Pressure 125/86 04/26/19 09:26 O2 Sat by Pulse Oximetry (%) Laboratory Last Values WBC 5.8 K/mm3 (4.0-10.0) 04/24/19 13:05 RBC 4.74 M/mm3 (4.00-5.60) 04/24/19 13:05 Hgb 13.3 GM/dL (11.7-16.9) 04/24/19 13:05 Hct 41.2 % (35.4-49) 04/24/19 13:05 MCV 86.9 fl (80-96) 04/24/19 13:05 MCH 28.1 pg (25.7-33.7) 04/24/19 13:05 MCHC 32.3 g/dl (32.0-35.9) 04/24/19 13:05 RDW 15.2 % (11.9-15.9) 04/24/19 13:05 Plt Count 213 K/MM3 (134-434) D 04/24/19 13:05 MPV 10.1 fl (7.5-11.1) 04/24/19 13:05 Sodium 142 mmol/L (136-145) 04/24/19 13:05 Potassium 3.9 mmol/L (3.5-5.1) 04/24/19 13:05 Chloride 110 mmol/L (98-107) H 04/24/19 13:05 Carbon Dioxide 27 mmol/L (21-32) 04/24/19 13:05 Anion Gap 5 MMOL/L (8-16) L 04/24/19 13:05 BUN 12.2 mg/dL (7-18) 04/24/19 13:05 Creatinine 0.8 mg/dL (0.55-1.3) 04/24/19 13:05 Est GFR (CKD-EPI)AfAm 119.04 04/24/19 13:05 Est GFR (CKD-EPI)NonAf 102.71 04/24/19 13:05 Random Glucose 109 mg/dL (74-106) H 04/24/19 13:05 Calcium 8.8 mg/dL (8.5-10.1) 04/24/19 13:05 Total Bilirubin 0.1 mg/dL (0.2-1) L 04/24/19 13:05 AST 16 U/L (15-37) 04/24/19 13:05 ALT 23 U/L (13-61) 04/24/19 13:05 Alkaline Phosphatase 81 U/L (45-117) 04/24/19 13:05 Total Protein 6.7 g/dl (6.4-8.2) 04/24/19 13:05 Albumin 3.8 g/dl (3.4-5.0) 04/24/19 13:05 RPR Titer Nonreactive (NONREACTIVE) 04/24/19 13:05 lab noted Assessment: 04/26/19 10:00 alcohol and benzo withdrawal sx Plan: continue librium detox regimen
[2019-04-26] MEDS: PRENATAL VITAMINS W/ FOLIC ACID TABLET (FP) PO SCH (10:14)
[2019-04-26] MEDS: METHOCARBAMOL 500 MG TABLET PO PRN ×3 (10:14→22:25)
[2019-04-26] MEDS: amLODIPine BESYLATE 10 MG TABLET (FP) PO SCH (10:14)
[2019-04-26] MEDS: NICOTINE 14 MG/24 HOURS TOPICAL PATCH TD SCH (10:14)
[2019-04-26] MEDS: THIAMINE HCL 100 MG TABLET (FP) PO SCH (22:22)
[2019-04-27] MEDS: GABAPENTIN 300 MG CAPSULE (FP) PO SCH ×3 (06:00→22:17)
[2019-04-27] MEDS: METHADONE HCL 40 MG DISPERSABLE TABLET PO SCH (06:00)
[2019-04-27] MEDS: chlordiazePOXIDE HCL 10 MG CAPSULE PO SCH ×4 (06:00→22:17)
[2019-04-27] MEDS: METHOCARBAMOL 500 MG TABLET PO PRN ×2 (08:48→17:14)
[2019-04-27] MEDS: IBUPROFEN 400 MG TABLET (FP) PO PRN (08:48)
[2019-04-27] MEDS: amLODIPine BESYLATE 10 MG TABLET (FP) PO SCH (10:31)
[2019-04-27] MEDS: PRENATAL VITAMINS W/ FOLIC ACID TABLET (FP) PO SCH (10:31)
[2019-04-27] MEDS: NICOTINE 14 MG/24 HOURS TOPICAL PATCH TD SCH (10:32)
[2019-04-27] MEDS: chlordiazePOXIDE HCL 10 MG CAPSULE PO PRN ×2 (12:20→19:02)
--- NOTE | 2019-04-27 13:03 | PN ---
[facility] CIWA - CIWA Score Nausea/Vomitin-Mild Nausea/No Vomiting Muscle Tremors: 3 Anxiety: 3 Agitation: 2 Paroxysmal Sweats: 1-Minimal Palms Moist Orientation: 0-Oriented Tacttile Disturbances: 0-None Auditory Disturbances: 0-None Visual Disturbances: 0-None Headache: 0-None Present CIWA-Ar Total Score: 10 S Progress Note (SOAP) Subjective: 53 years old male admitted on 04/24/19 for alcohol and benzo withdrawal sx management treated wtih librium detox regimen sleep better at night less tremor mild anxiety Objective: 04/27/19 13:02 Vital Signs Temperature 98.6 F 04/27/19 09:14 Pulse Rate 71 04/27/19 09:14 Respiratory Rate 18 04/27/19 09:14 Blood Pressure 103/78 04/27/19 09:14 O2 Sat by Pulse Oximetry (%) Laboratory Last Values WBC 5.8 K/mm3 (4.0-10.0) 04/24/19 13:05 RBC 4.74 M/mm3 (4.00-5.60) 04/24/19 13:05 Hgb 13.3 GM/dL (11.7-16.9) 04/24/19 13:05 Hct 41.2 % (35.4-49) 04/24/19 13:05 MCV 86.9 fl (80-96) 04/24/19 13:05 MCH 28.1 pg (25.7-33.7) 04/24/19 13:05 MCHC 32.3 g/dl (32.0-35.9) 04/24/19 13:05 RDW 15.2 % (11.9-15.9) 04/24/19 13:05 Plt Count 213 K/MM3 (134-434) D 04/24/19 13:05 MPV 10.1 fl (7.5-11.1) 04/24/19 13:05 Sodium 142 mmol/L (136-145) 04/24/19 13:05 Potassium 3.9 mmol/L (3.5-5.1) 04/24/19 13:05 Chloride 110 mmol/L (98-107) H 04/24/19 13:05 Carbon Dioxide 27 mmol/L (21-32) 04/24/19 13:05 Anion Gap 5 MMOL/L (8-16) L 04/24/19 13:05 BUN 12.2 mg/dL (7-18) 04/24/19 13:05 Creatinine 0.8 mg/dL (0.55-1.3) 04/24/19 13:05 Est GFR (CKD-EPI)AfAm 119.04 04/24/19 13:05 Est GFR (CKD-EPI)NonAf 102.71 04/24/19 13:05 Random Glucose 109 mg/dL (74-106) H 04/24/19 13:05 Calcium 8.8 mg/dL (8.5-10.1) 04/24/19 13:05 Total Bilirubin 0.1 mg/dL (0.2-1) L 04/24/19 13:05 AST 16 U/L (15-37) 04/24/19 13:05 ALT 23 U/L (13-61) 04/24/19 13:05 Alkaline Phosphatase 81 U/L (45-117) 04/24/19 13:05 Total Protein 6.7 g/dl (6.4-8.2) 04/24/19 13:05 Albumin 3.8 g/dl (3.4-5.0) 04/24/19 13:05 RPR Titer Nonreactive (NONREACTIVE) 04/24/19 13:05 lab noted Assessment: 04/27/19 13:03 alcohol and benzo withdrawal sx Plan: continue librium detox regimen
[2019-04-27] MEDS: hydrOXYzine PAMOATE 25 MG CAPSULE (FP) PO PRN (17:12)
[2019-04-27] MEDS ORDERED: VITAMINS A AND D TOPICAL OINTMENT 60 GM TUBE TP PRN (19:04)
[2019-04-27] MEDS: THIAMINE HCL 100 MG TABLET (FP) PO SCH (22:17)
[2019-04-27] MEDS ORDERED: QUEtiapine FUMARATE 100 MG TABLET (FP) PO ONE (22:23)
[2019-04-28] MEDS ORDERED: chlordiazePOXIDE HCL 10 MG CAPSULE PO SCH (05:00)
[2019-04-28] MEDS: GABAPENTIN 300 MG CAPSULE (FP) PO SCH (05:45)
[2019-04-28] MEDS: METHADONE HCL 40 MG DISPERSABLE TABLET PO SCH (05:45)
[2019-04-28] MEDS: METHOCARBAMOL 500 MG TABLET PO PRN (08:42)
[2019-04-28] MEDS: IBUPROFEN 400 MG TABLET (FP) PO PRN (08:42)
--- NOTE | 2019-04-28 08:59 | PN ---
S CIWA - CIWA Score Nausea/Vomitin-No Nausea/No Vomiting Muscle Tremors: 1-None Visible, but [place] Anxiety: 1-Mildly Anxious Agitation: 1-Slight > Activity Paroxysmal Sweats: No Perspiration Orientation: 0-Oriented Tacttile Disturbances: 0-None Auditory Disturbances: 0-None Visual Disturbances: 0-None Headache: 1-Very Mild CIWA-Ar Total Score: 4 BHS Progress Note (SOAP) Subjective: alert,no complaint Objective: 04/28/19 08:57 Vital Signs Temperature 96.3 F L 04/28/19 06:03 Pulse Rate 61 04/28/19 06:03 Respiratory Rate 18 04/28/19 06:03 Blood Pressure 108/73 04/28/19 06:03 O2 Sat by Pulse Oximetry (%) Laboratory Last Values WBC 5.8 K/mm3 (4.0-10.0) 04/24/19 13:05 RBC 4.74 M/mm3 (4.00-5.60) 04/24/19 13:05 Hgb 13.3 GM/dL (11.7-16.9) 04/24/19 13:05 Hct 41.2 % (35.4-49) 04/24/19 13:05 MCV 86.9 fl (80-96) 04/24/19 13:05 MCH 28.1 pg (25.7-33.7) 04/24/19 13:05 MCHC 32.3 g/dl (32.0-35.9) 04/24/19 13:05 RDW 15.2 % (11.9-15.9) 04/24/19 13:05 Plt Count 213 K/MM3 (134-434) D 04/24/19 13:05 MPV 10.1 fl (7.5-11.1) 04/24/19 13:05 Sodium 142 mmol/L (136-145) 04/24/19 13:05 Potassium 3.9 mmol/L (3.5-5.1) 04/24/19 13:05 Chloride 110 mmol/L (98-107) H 04/24/19 13:05 Carbon Dioxide 27 mmol/L (21-32) 04/24/19 13:05 Anion Gap 5 MMOL/L (8-16) L 04/24/19 13:05 BUN 12.2 mg/dL (7-18) 04/24/19 13:05 Creatinine 0.8 mg/dL (0.55-1.3) 04/24/19 13:05 Est GFR (CKD-EPI)AfAm 119.04 04/24/19 13:05 Est GFR (CKD-EPI)NonAf 102.71 04/24/19 13:05 Random Glucose 109 mg/dL (74-106) H 04/24/19 13:05 Calcium 8.8 mg/dL (8.5-10.1) 04/24/19 13:05 Total Bilirubin 0.1 mg/dL (0.2-1) L 04/24/19 13:05 AST 16 U/L (15-37) 04/24/19 13:05 ALT 23 U/L (13-61) 04/24/19 13:05 Alkaline Phosphatase 81 U/L (45-117) 04/24/19 13:05 Total Protein 6.7 g/dl (6.4-8.2) 04/24/19 13:05 Albumin 3.8 g/dl (3.4-5.0) 04/24/19 13:05 RPR Titer Nonreactive (NONREACTIVE) 04/24/19 13:05 Assessment: 04/28/19 08:57 no withdrawal symptom Plan: discharge today,follow up with [facility] as arrangement
--- NOTE | 2019-04-28 09:02 | DS ---
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 - Physical Exam Results Vital Signs: Vital Signs Temperature 96.3 F L 04/28/19 06:03 Pulse Rate 61 04/28/19 06:03 Respiratory Rate 18 04/28/19 06:03 Blood Pressure 108/73 04/28/19 06:03 O2 Sat by Pulse Oximetry (%) Pertinent Admission Physical Exam Findings: withdrawal signs and symptom Laboratory Last Values WBC 5.8 K/mm3 (4.0-10.0) 04/24/19 13:05 RBC 4.74 M/mm3 (4.00-5.60) 04/24/19 13:05 Hgb 13.3 GM/dL (11.7-16.9) 04/24/19 13:05 Hct 41.2 % (35.4-49) 04/24/19 13:05 MCV 86.9 fl (80-96) 04/24/19 13:05 MCH 28.1 pg (25.7-33.7) 04/24/19 13:05 MCHC 32.3 g/dl (32.0-35.9) 04/24/19 13:05 RDW 15.2 % (11.9-15.9) 04/24/19 13:05 Plt Count 213 K/MM3 (134-434) D 04/24/19 13:05 MPV 10.1 fl (7.5-11.1) 04/24/19 13:05 Sodium 142 mmol/L (136-145) 04/24/19 13:05 Potassium 3.9 mmol/L (3.5-5.1) 04/24/19 13:05 Chloride 110 mmol/L (98-107) H 04/24/19 13:05 Carbon Dioxide 27 mmol/L (21-32) 04/24/19 13:05 Anion Gap 5 MMOL/L (8-16) L 04/24/19 13:05 BUN 12.2 mg/dL (7-18) 04/24/19 13:05 Creatinine 0.8 mg/dL (0.55-1.3) 04/24/19 13:05 Est GFR (CKD-EPI)AfAm 119.04 04/24/19 13:05 Est GFR (CKD-EPI)NonAf 102.71 04/24/19 13:05 Random Glucose 109 mg/dL (74-106) H 04/24/19 13:05 Calcium 8.8 mg/dL (8.5-10.1) 04/24/19 13:05 Total Bilirubin 0.1 mg/dL (0.2-1) L 04/24/19 13:05 AST 16 U/L (15-37) 04/24/19 13:05 ALT 23 U/L (13-61) 04/24/19 13:05 Alkaline Phosphatase 81 U/L (45-117) 04/24/19 13:05 Total Protein 6.7 g/dl (6.4-8.2) 04/24/19 13:05 Albumin 3.8 g/dl (3.4-5.0) 04/24/19 13:05 RPR Titer Nonreactive (NONREACTIVE) 04/24/19 13:05 Vital Signs Temperature 96.9 F L 04/28/19 09:15 Pulse Rate 82 04/28/19 09:15 Respiratory Rate 18 04/28/19 09:15 Blood Pressure 115/77 04/28/19 09:15 O2 Sat by Pulse Oximetry (%) - Treatment Hospital Course: Detox Protocol Followed, Detoxed Safely, Responded well, Discharged Condition Good, Rehab Referral Accepted Patient has Accepted a Rehab Referral to: [facility] - Medication Discharge Medications: Ambulatory Orders Mirtazapine [Remeron -] 30 mg PO HS #30 tablet 10/19/18 Amlodipine Besylate [Norvasc -] 10 mg PO DAILY #30 tablet 03/16/19 Gabapentin [Neurontin -] 600 mg PO TID #90 capsule 03/16/19 Quetiapine Fumarate [Seroquel -] 100 mg PO HS #30 tablet 03/16/19 - Diagnosis (1) Alcohol dependence with uncomplicated withdrawal Current Visit: Yes Status: Acute (2) Cocaine use disorder Current Visit: Yes Status: Acute (3) History of sarcoma of soft tissue Current Visit: Yes Status: Chronic (4) Methadone maintenance therapy patient Current Visit: Yes Status: Chronic (5) Neuropathy Current Visit: Yes Status: Chronic (6) Nicotine dependence Current Visit: Yes Status: Chronic Qualifiers: Nicotine product type: cigarettes Substance use status: uncomplicated Qualified Code(s): F17.210 - Nicotine dependence, cigarettes, uncomplicated (7) Obese Current Visit: Yes Status: Chronic Qualifiers: Obesity type: unspecified obesity type Obesity classification: adult class 2 (BMI 35 - 39.9) Serious obesity comorbidity presence: without serious comorbidity Body mass index: BMI 36.0-36.9 Qualified Code(s): E66.9 - Obesity, unspecified; Z68.36 - Body mass index (BMI) 36.0-36.9, adult - AMA Did Patient Leave Against Medical Advice: No
[2019-04-28 09:15] VITALS: BP 115/77; PULSE 82; TEMP 96.9
[2019-04-28] MEDS: PRENATAL VITAMINS W/ FOLIC ACID TABLET (FP) PO SCH (12:51)
[2019-04-28] MEDS: amLODIPine BESYLATE 10 MG TABLET (FP) PO SCH (12:51)
[2019-04-28] MEDS: NICOTINE 14 MG/24 HOURS TOPICAL PATCH TD SCH (12:51)
[2019-04-28] MEDS ORDERED: QUEtiapine FUMARATE 100 MG TABLET (FP) PO SCH (22:00)
[2019-04-29] MEDS ORDERED: chlordiazePOXIDE HCL 10 MG CAPSULE PO ONE (05:00)
== END 2019-04-28 09:20 | disposition other institution (70) | DRG 773 ==
LOC: YASAS 11:21 → Y3N 13:30
PROVIDERS: ADMIT Allergy & Immunology; ATTEND Allergy & Immunology
PROC: HZ2ZZZZ Detoxification Services for Substance Abuse Treatment (ICD-10-PCS; principal; 2019-04-24)
DX: F10.230 Alcohol dependence with withdrawal, uncomplicated (principal); F11.20 Opioid dependence, uncomplicated; F13.230 Sedative, hypnotic or anxiolytic dependence with withdrawal, uncomplicated; F14.20 Cocaine dependence, uncomplicated; F17.210 Nicotine dependence, cigarettes, uncomplicated; F19.282 Other psychoactive substance dependence with psychoactive substance-induced sleep disorder; F19.24 Other psychoactive substance dependence with psychoactive substance-induced mood disorder; F31.9 Bipolar disorder, unspecified; F43.10 Post-traumatic stress disorder, unspecified; G40.509 Epileptic seizures related to external causes, not intractable, without status epilepticus; G62.9 Polyneuropathy, unspecified; C44.99 Other specified malignant neoplasm of skin, unspecified; I10 Essential (primary) hypertension; E11.9 Type 2 diabetes mellitus without complications; E78.5 Hyperlipidemia, unspecified; E66.9 Obesity, unspecified; Z85.831 Personal history of malignant neoplasm of soft tissue; Z68.36 Body mass index [BMI] 36.0-36.9, adult; Z91.013 Allergy to seafood; Z59.0 Homelessness
CPT/HCPCS: 36415; 80053; 85027; 86593

== ENCOUNTER 2019-06-18 11:51 | Inpatient (IN) | payer OTHER ==
[2019-06-18 13:31] VITALS: BMI 37.3
--- NOTE | 2019-06-18 17:45 | HP ---
CIWA Score Nausea/Vomitin Muscle Tremors: 3 Anxiety: 3 Agitation: 3 Paroxysmal Sweats: 1-Minimal Palms Moist Orientation: 0-Oriented Tacttile Disturbances: 1-Very Mild Itch/Numbness Auditory Disturbances: 0-None Visual Disturbances: 0-None Headache: 2-Mild CIWA-Ar Total Score: 15 - Admission Criteria OASAS Guidelines: Admission for Medically Managed Detox: Requires at least one of the followin. CIWA greater than 12 2. Seizures within the past 24 hours 3. Delirium tremens within the past 24 hours 4. Hallucinations within the past 24 hours 5. Acute intervention needed for co occurring medical disorder 6. Acute intervention needed for co occurring psychiatric disorder 7. Severe withdrawal that cannot be handled at a lower level of care (continued vomiting, continued diarrhea, abnormal vital signs) requiring intravenous medication and/or fluids 8. Admitting History and Physical - Admission Chief Complaint: i need help to stop drinking alcohol,xanax,cocaine,heroin abused,mmtp. 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 and radiation last end january ,schedule for surgery again in 07/10/09 neuropathy hypertension nicotine dependence 1 pack/day ptsd,bipolar disorder no significant period of sobriety History Source: Patient Limitations to Obtaining History: No Limitations - Past Medical History RADIOTELEGRAPHIST: Yes: Syncope Cardiovascular: Yes: HTN, Hyperlipdemia Pulmonary: Yes: Cancer, Other (sarcoma of left upper arm) Psych: Yes: Addictions, Bipolar, Other (ptsd) Dermatology: Yes: Other (sarcoma of the skin) Additional Past Medical History: oft tissue sarcoma left upper arm neuropathy - Past Surgical History Additional Past Surgical History: multiple surgery left upper arm for sarcoma of soft tissue - Smoking History Smoking history: Current every day smoker Have you smoked in the past 12 months: Yes Aproximately how many cigarettes per day: 20 - Alcohol/Substance Use Hx Alcohol Use: Yes History of Substance Use: reports: Cocaine, Heroin - Social History Usual Living Arrangement: Yes: Other (homeless) Occupation: unemployed Admission ROS S - HPI Chief Complaint: i need help to stop drinking alcohol,cocaine,heroin abused,mmtp 130 mgs/day Allergies/Adverse Reactions: Allergies Allergy/AdvReac Type Severity Reaction Status Date / Time shellfish derived Allergy Severe Hives Verified 04/24/19 11:51 No Known Drug Allergies Allergy Verified 04/24/19 12:06 History of Present Illness: this 53 years old male with alcohol dependence,xanax abused,heroin abuse,mmtp 130 mgs/day,last medicated today, homeless last detox [facility] 04/24/19 to 04/28/19 neuropathy seizure last 3 moths ago syncope ptsd,bipolar disorder nicotine dependence Exam Limitations: No Limitations - Ebola screening Have you traveled outside of the country in the last 21 days: No (N) Have you had contact with anyone from an Ebola affected area: No Do you have a fever: No - Review of Systems Constitutional: Chills, Loss of Appetite, Malaise, Night Sweats, Changes in sleep, Weakness EENT: reports: Tearing, Nose Congestion Respiratory: reports: No Symptoms reported Cardiac: reports: No Symptoms Reported GI: reports: Diarrhea, Nausea, Vomiting, Abdominal cramping : reports: Burning Musculoskeletal: reports: Back Pain, Muscle Pain Integumentary: reports: Dryness Neuro: reports: Headache, Tremors Endocrine: reports: No Symptoms Reported Hematology: reports: No Symptoms Reported Psychiatric: reports: No Sypmtoms Reported, Judgement Intact, Mood/Affect Appropiate, Orientated x3, other (bipolar,ptsd) Patient History - Patient Medical History Hx Anemia: No Hx Asthma: No Hx Chronic Obstructive Pulmonary Disease (COPD): No Hx Cancer: Yes (Sarcoma diagnosed 4 years ago ) Hx Cardiac Disorders: No Hx Congestive Heart Failure: No Hx Hypertension: Yes Hx Hypercholesterolemia: No Hx Pacemaker: No HX Cerebrovascular Accident: No Hx Seizures: Yes (DRUG RELATED LAST 1 YR AGO) Hx Dementia: No Hx Diabetes: No Hx Gastrointestinal Disorders: No Hx Liver Disease: No Hx Genitourinary Disorders: No Hx Sexually Transmitted Disorders: No Hx Renal Disease (ESRD): No Hx Thyroid Disease: No Hx Human Immunodeficiency Virus (HIV): No (last 2015 negative, declines testing ) Hx Hepatitis C: No Hx Depression: Yes Hx Suicide Attempt: No Hx Bipolar Disorder: Yes Hx Schizophrenia: No Other Medical History: ptsd,no sucidal,no homicidal - Patient Surgical History Past Surgical History: Yes Hx Neurologic Surgery: No Hx Cataract Extraction: No Hx Cardiac Surgery: No Hx Lung Surgery: No Hx Breast Surgery: No Hx Breast Biopsy: No Hx Abdominal Surgery: No Hx Appendectomy: No Hx Cholecystectomy: No Hx Genitourinary Surgery: No Hx Section: No Hx Orthopedic Surgery: No Other Surgical History: 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 History Hx Alcohol Use: Yes Hx Substance Use: Yes Substance Use Type: Alcohol, Cocaine, Heroin, Opiates - Substances abused Alcohol Substance route: Oral Frequency: Daily Amount used: 8 beers (ericka cobra)/2 pints of whisky Age of first use: 13 Date of last use: 06/17/19 Alprazolam (Xanax) Other (specify): 2mg Substance route: Oral Frequency: Daily Amount used: 5 pills Age of first use: 31 Date of last use: 06/17/19 Cocaine Substance route: Smoking Frequency: 1-2 times per week Amount used: $200 Age of first use: 16 Date of last use: 06/18/19 Heroin Other (specify): SNIFF Substance route: Inhalation Frequency: Daily Amount used: 10 BAGS Age of first use: 34 Date of last use: 06/17/19 Benzodiazepine (Klonopin) Other (specify): 1mg Substance route: Oral Frequency: Daily Amount used: 4mgs Age of first use: 37 Date of last use: 06/17/19 Admission Physical Exam BHS - Vital Signs Vital Signs: Vital Signs - 24 hr 06/18/19 06/18/19 13:24 16:42 Temperature 98.5 F 98.5 F Pulse Rate 87 87 Respiratory 20 20 Rate Blood Pressure 112/74 112/74 - Physical General Appearance: Yes: Moderate Distress, Tremorous, Irritable, Sweating, Anxious HEENTM: Yes: Normal ENT Inspection, CHRYSTAL, Pharynx Normal Respiratory: Yes: Lungs Clear, Normal Breath Sounds, No Respiratory Distress Neck: Yes: Within Normal Limits, Supple, Trachea in good position Breast: Yes: Within Normal Limits Cardiology: Yes: Within Normal Limits, Regular Rhythm, Regular Rate, S1, S2 Abdominal: Yes: Within Normal Limits, Normal Bowel Sounds, Non Tender, Flat, Soft Genitourinary: Yes: Within Normal Limits Extremities: Yes: Within Normal Limits, Tremors, Other (recurrent soft tissue sac=rcome inne aspect of left upper arm) Neurological: Yes: web feeder II-XII NML intact, Fully Oriented, Alert, Motor Strength 5/5 Integumentary: Yes: Dry, Rash Lymphatic: Yes: Within Normal Limits - Diagnostic (1) Alcohol dependence with uncomplicated withdrawal Current Visit: No Status: Acute (2) Sedative, hypnotic or anxiolytic dependence with withdrawal, unspecified Current Visit: No Status: Acute Comment: Mild illicit usage (3) Cocaine dependence Current Visit: No Status: Chronic Qualifiers: Substance use status: uncomplicated Qualified Code(s): F14.20 - Cocaine dependence, uncomplicated (4) History of sarcoma of soft tissue Current Visit: No Status: Chronic Comment: Multiple surgical removals, last surgery 01/2019 (5) Methadone maintenance therapy patient Current Visit: No Status: Chronic (6) Neuropathy Current Visit: No Status: Chronic (7) Nicotine dependence Current Visit: No Status: Chronic Qualifiers: Nicotine product type: cigarettes Substance use status: uncomplicated Qualified Code(s): F17.210 - Nicotine dependence, cigarettes, uncomplicated (8) Opioid dependence on agonist therapy Current Visit: No Status: Chronic (9) Seizure concurrent with and due to anxiolytic withdrawal Current Visit: No Status: Resolved (10) Bipolar disorder Current Visit: No Status: Ruled-out Cleared for Admission S - Detox or Rehab [facility] Level of Care: Medically Managed Detox Regimen/Protocol: Librium Breathalyzer - Breathalyzer Breathalyzer: 0 Urine Drug Screen - Test Device Lot number: [id number] Expiration date: 03/13/21 - Control Is test valid?: Yes - Results Drug screen NEGATIVE: No Urine drug screen results: KAREEM-Cocaine, FEN-Fentanyl, MOP-Opiates, MTD-Methadone Inpatient Rehab Admission - Rehab Decision to Admit Inpatient rehab admission?: No
[2019-06-18] MEDS ORDERED: ACETAMINOPHEN 325 MG TABLET (FP) PO PRN ×2 (18:01)
[2019-06-18] MEDS ORDERED: MENTHOL/PHENOL 1 EACH UD MM PRN (18:01)
[2019-06-18] MEDS ORDERED: BISMUTH SUBSALICYLATE 524 MG/30 ML UD PO PRN (18:01)
[2019-06-18] MEDS ORDERED: MAGNESIUM CITRATE 300 ML BOTTLE PO PRN (18:01)
[2019-06-18] MEDS ORDERED: MAGNESIUM HYDROX 2400MG/30ML ORAL SUSPENSION 30 ML CUP PO PRN (18:01)
[2019-06-18] MEDS ORDERED: MAG HYDROX/AL HYDROX/SIMETH 30 ML UNIT-DOSE CUP PO PRN (18:01)
[2019-06-18] MEDS ORDERED: IBUPROFEN 400 MG TABLET (FP) PO PRN (18:01)
[2019-06-18] MEDS: NICOTINE 21 MG/24 HOURS TOPICAL PATCH TD SCH (18:37)
[2019-06-18] MEDS: chlordiazePOXIDE HCL 25 MG CAPSULE PO PRN (18:37)
[2019-06-18] MEDS ORDERED: MELATONIN 5 MG TABLETS PO PRN (22:00)
[2019-06-18] MEDS: THIAMINE HCL 100 MG TABLET (FP) PO SCH (22:44)
[2019-06-18] MEDS: QUEtiapine FUMARATE 100 MG TABLET (FP) PO SCH (22:44)
[2019-06-18] MEDS: chlordiazePOXIDE HCL 25 MG CAPSULE PO SCH (22:44)
[2019-06-18] MEDS: METHOCARBAMOL 500 MG TABLET PO PRN (22:45)
[2019-06-18] MEDS: COLLOIDAL OATMEAL 1 BAR EACH TP PRN (23:52)
[2019-06-19] MEDS: chlordiazePOXIDE HCL 25 MG CAPSULE PO SCH ×4 (05:57→22:09)
[2019-06-19] MEDS: METHOCARBAMOL 500 MG TABLET PO PRN ×3 (05:59→22:10)
[2019-06-19] MEDS ORDERED: IBUPROFEN 400 MG TABLET (FP) PO PRN (08:31)
[2019-06-19] MEDS ORDERED: METHADONE HCL 10 MG TABLET PO ONE (08:50)
[2019-06-19] MEDS ORDERED: METHADONE 120 MG, METHADONE 10 MG PO ONE (09:30)
[2019-06-19] MEDS ORDERED: METHADONE HCL 10 MG TABLET ONE (09:45)
[2019-06-19] MEDS ORDERED: METHADONE HCL 40 MG DISPERSABLE TABLET ONE (09:46)
[2019-06-19 09:54] LABS: HEMATOCRIT 36.4 % (35.4-49); HEMOGLOBIN 11.7 GM/dL (11.7-16.9); MCH 27.4 pg (25.7-33.7); MCHC 32.2 g/dl (32.0-35.9); MEAN CELL VOLUME 85.2 fl (80-96); MEAN PLT VOLUME 9.4 fl (7.5-11.1); PLATELET COUNT 264 K/MM3 (134-434); RBC 4.27 M/mm3 (4.00-5.60); RDW 15.4 % (11.9-15.9); WHITE BLOOD COUNT 6.3 K/mm3 (4.0-10.0)
[2019-06-19 10:05] LABS: BILIRUBIN,TOTAL 0.2 mg/dL (0.2-1); BLOOD UREA NITROGEN 9.8 mg/dL (7-18); CALCIUM 8.5 mg/dL (8.5-10.1); CREATININE 0.7 mg/dL (0.55-1.3); POTASSIUM 3.4 mmol/L (3.5-5.1)
[2019-06-19] MEDS: NICOTINE 21 MG/24 HOURS TOPICAL PATCH TD SCH (10:20)
[2019-06-19] MEDS: amLODIPine BESYLATE 10 MG TABLET (FP) PO SCH (10:21)
[2019-06-19] MEDS: PRENATAL VITAMINS W/ FOLIC ACID TABLET (FP) PO SCH (10:21)
--- NOTE | 2019-06-19 10:37 | PN ---
[facility] Progress Note Note: telephoned [facility] to confirm pt dose of gabapentin, pharmacist states pt was prescribed 900mg TID prn but pt has not picked up his medication. Pt will be placed on 300mg tid for his neuropathy as well as his methadone and the medication we are detoxing him with. Pt is at risk of sedation therefore we will continue to monitor.
--- NOTE | 2019-06-19 10:45 | PN ---
S CIWA - CIWA Score Nausea/Vomitin-No Nausea/No Vomiting Muscle Tremors: 3 Anxiety: 3 Agitation: 3 Paroxysmal Sweats: 3 Orientation: 0-Oriented Tacttile Disturbances: 0-None Auditory Disturbances: 0-None Visual Disturbances: 0-None Headache: 0-None Present CIWA-Ar Total Score: 12 S Progress Note (SOAP) Subjective: sweats body aches irritable interrupted sleep Objective: 06/19/19 11:15 Vital Signs Temperature 97.9 F 06/19/19 09:25 Pulse Rate 79 06/19/19 09:25 Respiratory Rate 20 06/19/19 09:25 Blood Pressure 137/81 06/19/19 09:25 O2 Sat by Pulse Oximetry (%) Laboratory Tests 06/19/19 06/19/19 08:15 08:15 WBC 6.3 RBC 4.27 Hgb 11.7 Hct 36.4 MCV 85.2 MCH 27.4 MCHC 32.2 RDW 15.4 Plt Count 264 D MPV 9.4 Sodium 146 H Potassium 3.4 L Chloride 110 H Carbon Dioxide 32 Anion Gap 4 L BUN 9.8 Creatinine 0.7 Est GFR (CKD-EPI)AfAm 125.75 Est GFR (CKD-EPI)NonAf 108.50 Random Glucose 91 Calcium 8.5 Total Bilirubin 0.2 AST 32 ALT 48 Alkaline Phosphatase 74 Total Protein 6.0 L Albumin 3.0 L aaox3 ambulating no acute distress low potassium 3.4; kdur 20meq x 3 days ordered repeat labs Assessment: 06/19/19 11:17 withdrawals Plan: continue detox increase fluids kdur ordered repeat labs
[2019-06-19] MEDS: IBUPROFEN 400 MG TABLET (FP) PO PRN ×2 (12:10→22:10)
[2019-06-19] MEDS: POTASSIUM CHLORIDE TABS 20 MEQ TABLET.ER (FP) PO SCH (12:10)
[2019-06-19] MEDS: chlordiazePOXIDE HCL 25 MG CAPSULE PO PRN ×2 (13:23→19:54)
[2019-06-19] MEDS: GABAPENTIN 300 MG CAPSULE (FP) PO SCH ×2 (14:12→22:09)
[2019-06-19] MEDS: QUEtiapine FUMARATE 100 MG TABLET (FP) PO SCH (22:09)
[2019-06-19] MEDS: THIAMINE HCL 100 MG TABLET (FP) PO SCH (22:09)
[2019-06-20] MEDS: chlordiazePOXIDE HCL 25 MG CAPSULE PO PRN ×4 (00:34→19:24)
[2019-06-20] MEDS ORDERED: METHADONE HCL 40 MG DISPERSABLE TABLET ONE (04:29)
[2019-06-20] MEDS ORDERED: METHADONE HCL 10 MG TABLET ONE (04:29)
[2019-06-20] MEDS: METHADONE 120 MG, METHADONE 10 MG PO SCH (05:21)
[2019-06-20] MEDS: GABAPENTIN 300 MG CAPSULE (FP) PO SCH (05:22)
[2019-06-20] MEDS: METHOCARBAMOL 500 MG TABLET PO PRN ×3 (05:24→22:13)
[2019-06-20] MEDS: chlordiazePOXIDE HCL 25 MG CAPSULE PO SCH ×4 (05:41→22:13)
[2019-06-20] MEDS ORDERED: METHADONE HCL 40 MG DISPERSABLE TABLET PO SCH (06:00)
[2019-06-20] MEDS: amLODIPine BESYLATE 10 MG TABLET (FP) PO SCH (09:10)
[2019-06-20] MEDS: PRENATAL VITAMINS W/ FOLIC ACID TABLET (FP) PO SCH (09:10)
[2019-06-20] MEDS: NICOTINE 21 MG/24 HOURS TOPICAL PATCH TD SCH (09:10)
[2019-06-20] MEDS: POTASSIUM CHLORIDE TABS 20 MEQ TABLET.ER (FP) PO SCH (09:10)
[2019-06-20] MEDS: IBUPROFEN 400 MG TABLET (FP) PO PRN ×2 (09:14→18:33)
--- NOTE | 2019-06-20 10:57 | PN ---
S CIWA - CIWA Score Nausea/Vomitin-No Nausea/No Vomiting Muscle Tremors: 3 Anxiety: 2 Agitation: 2 Paroxysmal Sweats: 2 Orientation: 0-Oriented Tacttile Disturbances: 0-None Auditory Disturbances: 0-None Visual Disturbances: 0-None Headache: 0-None Present CIWA-Ar Total Score: 9 BHS Progress Note (SOAP) Subjective: irritable agitation sweats neuropathy to my arm Objective: 06/20/19 11:30 Vital Signs Temperature 99.7 F H 06/20/19 09:32 Pulse Rate 68 06/20/19 09:32 Respiratory Rate 20 06/20/19 09:32 Blood Pressure 134/85 06/20/19 09:32 O2 Sat by Pulse Oximetry (%) Laboratory Tests 06/19/19 06/19/19 06/19/19 08:15 08:15 08:15 WBC 6.3 RBC 4.27 Hgb 11.7 Hct 36.4 MCV 85.2 MCH 27.4 MCHC 32.2 RDW 15.4 Plt Count 264 D MPV 9.4 Sodium 146 H Potassium 3.4 L Chloride 110 H Carbon Dioxide 32 Anion Gap 4 L BUN 9.8 Creatinine 0.7 Est GFR (CKD-EPI)AfAm 125.75 Est GFR (CKD-EPI)NonAf 108.50 Random Glucose 91 Calcium 8.5 Total Bilirubin 0.2 AST 32 ALT 48 Alkaline Phosphatase 74 Total Protein 6.0 L Albumin 3.0 L RPR Titer Nonreactive aaox3 ambulating no acute distress Assessment: 06/20/19 11:30 withdrawals Plan: continue detox increase fluids gabapentin increased to 400mg tid motrin 800mg tid vitamin a&d oint.
[2019-06-20] MEDS: GABAPENTIN 400 MG CAPSULE (FP) PO SCH ×2 (13:21→22:13)
[2019-06-20] MEDS: VITAMINS A AND D TOPICAL OINTMENT 60 GM TUBE TP SCH ×3 (13:22→23:13)
[2019-06-20] MEDS: QUEtiapine FUMARATE 100 MG TABLET (FP) PO SCH (22:13)
[2019-06-20] MEDS: THIAMINE HCL 100 MG TABLET (FP) PO SCH (22:14)
[2019-06-21] MEDS: chlordiazePOXIDE HCL 10 MG CAPSULE PO PRN ×3 (01:10→19:37)
[2019-06-21] MEDS ORDERED: METHADONE HCL 10 MG TABLET ONE (03:35)
[2019-06-21] MEDS ORDERED: METHADONE HCL 40 MG DISPERSABLE TABLET ONE (03:36)
[2019-06-21] MEDS: METHADONE 120 MG, METHADONE 10 MG PO SCH (05:40)
[2019-06-21] MEDS: chlordiazePOXIDE HCL 10 MG CAPSULE PO SCH ×4 (05:40→22:00)
[2019-06-21] MEDS: GABAPENTIN 400 MG CAPSULE (FP) PO SCH ×3 (05:43→21:46)
[2019-06-21] MEDS: VITAMINS A AND D TOPICAL OINTMENT 60 GM TUBE TP SCH ×3 (06:06→19:01)
[2019-06-21] MEDS: METHOCARBAMOL 500 MG TABLET PO PRN ×3 (06:06→21:47)
[2019-06-21 09:41] LABS: URINE APPEARANCE CLEAR; URINE BILIRUBIN NEGATIVE (NEGATIVE); URINE COLOR YELLOW; URINE GLUCOSE (UA) NEGATIVE (NEGATIVE); URINE KETONE NEGATIVE (NEGATIVE); URINE LEUK ESTERASE NEGATIVE (NEGATIVE); URINE NITRITE NEGATIVE (NEGATIVE); URINE PROTEIN NEGATIVE (NEGATIVE); URINE UROBILINOGEN 0.2 mg/dL (0.2-1.0)
--- NOTE | 2019-06-21 09:41 | PN ---
S CIWA - CIWA Score Nausea/Vomitin-No Nausea/No Vomiting Muscle Tremors: 2 Anxiety: 2 Agitation: 1-Slight > Activity Paroxysmal Sweats: 2 Orientation: 0-Oriented Tacttile Disturbances: 0-None Auditory Disturbances: 0-None Visual Disturbances: 0-None Headache: 0-None Present CIWA-Ar Total Score: 7 BHS Progress Note (SOAP) Subjective: irritable agitation sweats Objective: 06/21/19 09:41 Vital Signs Temperature 98.2 F 06/21/19 09:16 Pulse Rate 75 06/21/19 09:16 Respiratory Rate 18 06/21/19 09:16 Blood Pressure 139/78 06/21/19 09:16 O2 Sat by Pulse Oximetry (%) Laboratory Tests 06/19/19 06/19/19 06/19/19 08:15 08:15 08:15 WBC 6.3 RBC 4.27 Hgb 11.7 Hct 36.4 MCV 85.2 MCH 27.4 MCHC 32.2 RDW 15.4 Plt Count 264 D MPV 9.4 Sodium 146 H Potassium 3.4 L Chloride 110 H Carbon Dioxide 32 Anion Gap 4 L BUN 9.8 Creatinine 0.7 Est GFR (CKD-EPI)AfAm 125.75 Est GFR (CKD-EPI)NonAf 108.50 Random Glucose 91 Calcium 8.5 Total Bilirubin 0.2 AST 32 ALT 48 Alkaline Phosphatase 74 Total Protein 6.0 L Albumin 3.0 L RPR Titer Nonreactive aaox3 ambulating no acute distress repeated labs ordered; however pt refused.. pt was encouraged to allow for blood to be drawn; pt insisted on being left alone. Assessment: 06/21/19 09:47 withdrawal sx Plan: continue detox will repeat lab and encourage pt importance of making sure his potassium is WNL.
[2019-06-21] MEDS: NICOTINE 21 MG/24 HOURS TOPICAL PATCH TD SCH (10:10)
[2019-06-21] MEDS: POTASSIUM CHLORIDE TABS 20 MEQ TABLET.ER (FP) PO SCH (10:11)
[2019-06-21] MEDS: amLODIPine BESYLATE 10 MG TABLET (FP) PO SCH (10:11)
[2019-06-21] MEDS: PRENATAL VITAMINS W/ FOLIC ACID TABLET (FP) PO SCH (10:11)
[2019-06-21] MEDS: IBUPROFEN 400 MG TABLET (FP) PO PRN ×2 (10:39→16:51)
[2019-06-21 16:07] LABS: ALBUMIN 2.9 g/dl (3.4-5.0); BILIRUBIN,TOTAL 0.1 mg/dL (0.2-1); BLOOD UREA NITROGEN 9.9 mg/dL (7-18); CALCIUM 8.4 mg/dL (8.5-10.1); CREATININE 0.8 mg/dL (0.55-1.3); TOT PROT 5.9 g/dl (6.4-8.2)
[2019-06-21] MEDS: QUEtiapine FUMARATE 100 MG TABLET (FP) PO SCH (21:46)
[2019-06-21] MEDS: THIAMINE HCL 100 MG TABLET (FP) PO SCH (22:48)
[2019-06-22] MEDS: VITAMINS A AND D TOPICAL OINTMENT 60 GM TUBE TP SCH ×5 (01:00→23:12)
[2019-06-22] MEDS: IBUPROFEN 400 MG TABLET (FP) PO PRN ×2 (03:00→12:35)
[2019-06-22] MEDS ORDERED: METHADONE HCL 10 MG TABLET ONE (03:48)
[2019-06-22] MEDS ORDERED: METHADONE HCL 40 MG DISPERSABLE TABLET ONE (03:49)
[2019-06-22] MEDS: METHADONE 120 MG, METHADONE 10 MG PO SCH (05:27)
[2019-06-22] MEDS: GABAPENTIN 400 MG CAPSULE (FP) PO SCH ×3 (05:28→22:25)
[2019-06-22] MEDS: chlordiazePOXIDE HCL 10 MG CAPSULE PO SCH ×2 (05:28→16:51)
[2019-06-22] MEDS: hydrOXYzine PAMOATE 25 MG CAPSULE (FP) PO PRN ×3 (07:58→20:39)
[2019-06-22] MEDS: amLODIPine BESYLATE 10 MG TABLET (FP) PO SCH (09:28)
[2019-06-22] MEDS: NICOTINE 21 MG/24 HOURS TOPICAL PATCH TD SCH (09:28)
[2019-06-22] MEDS: POTASSIUM CHLORIDE TABS 20 MEQ TABLET.ER (FP) PO SCH (09:28)
[2019-06-22] MEDS: PRENATAL VITAMINS W/ FOLIC ACID TABLET (FP) PO SCH (09:28)
[2019-06-22] MEDS: METHOCARBAMOL 500 MG TABLET PO PRN ×2 (09:31→16:51)
--- NOTE | 2019-06-22 09:52 | PN ---
[facility] CIWA - CIWA Score Nausea/Vomitin-No Nausea/No Vomiting Muscle Tremors: 1-None Visible, but [place] Anxiety: 2 Agitation: 3 Paroxysmal Sweats: 3 Orientation: 0-Oriented Tacttile Disturbances: 0-None Auditory Disturbances: 0-None Visual Disturbances: 0-None Headache: 0-None Present CIWA-Ar Total Score: 9 S Progress Note (SOAP) Subjective: sweats irritable Objective: 06/22/19 09:52 Vital Signs Temperature 98.1 F 06/22/19 09:23 Pulse Rate 73 06/22/19 09:23 Respiratory Rate 18 06/22/19 09:23 Blood Pressure 121/67 06/22/19 09:23 O2 Sat by Pulse Oximetry (%) Laboratory Tests 06/19/19 06/19/19 06/19/19 08:15 08:15 08:15 WBC 6.3 RBC 4.27 Hgb 11.7 Hct 36.4 MCV 85.2 MCH 27.4 MCHC 32.2 RDW 15.4 Plt Count 264 D MPV 9.4 Sodium 146 H Potassium 3.4 L Chloride 110 H Carbon Dioxide 32 Anion Gap 4 L BUN 9.8 Creatinine 0.7 Est GFR (CKD-EPI)AfAm 125.75 Est GFR (CKD-EPI)NonAf 108.50 Random Glucose 91 Calcium 8.5 Total Bilirubin 0.2 AST 32 ALT 48 Alkaline Phosphatase 74 Total Protein 6.0 L Albumin 3.0 L Urine Color Urine Appearance Urine pH Ur Specific Addy Urine Protein Urine Glucose (UA) Urine Ketones Urine Blood Urine Nitrite Urine Bilirubin Urine Urobilinogen Ur Leukocyte Esterase RPR Titer Nonreactive 06/21/19 06/21/19 08:00 11:20 WBC RBC Hgb Hct MCV MCH MCHC RDW Plt Count MPV Sodium 141 Potassium 4.0 Chloride 106 Carbon Dioxide 29 Anion Gap 5 L BUN 9.9 Creatinine 0.8 Est GFR (CKD-EPI)AfAm 119.04 Est GFR (CKD-EPI)NonAf 102.71 Random Glucose 130 H Calcium 8.4 L Total Bilirubin 0.1 L AST 23 ALT 40 Alkaline Phosphatase 71 Total Protein 5.9 L Albumin 2.9 L Urine Color Yellow Urine Appearance Clear Urine pH 6.0 Ur Specific Addy 1.011 Urine Protein Negative Urine Glucose (UA) Negative Urine Ketones Negative Urine Blood Negative Urine Nitrite Negative Urine Bilirubin Negative Urine Urobilinogen 0.2 Ur Leukocyte Esterase Negative RPR Titer aaox3 ambulating no acute distress Assessment: 06/22/19 09:53 mild withdrawals Plan: continue detox d/c in am
--- NOTE | 2019-06-22 11:53 | EKG ---
Test Reason : Blood Pressure : / mmHG Vent. Rate : 068 BPM Atrial Rate : 068 BPM P-R Int : 160 ms QRS Dur : 088 ms QT Int : 432 ms P-R-T Axes : 035 039 022 degrees QTc Int : 459 ms NORMAL SINUS RHYTHM NORMAL ECG WHEN COMPARED WITH ECG OF 12-MAR-2018 17:44, NO SIGNIFICANT CHANGE WAS FOUND Confirmed by BULMARO KENT MD ([id number]) on 06/22/2019 11:53:13 AM Referred By: Mark Barron Confirmed By:BULMARO KENT MD
[2019-06-22 13:54] VITALS: TEMP 97.7
[2019-06-22] MEDS: THIAMINE HCL 100 MG TABLET (FP) PO SCH (22:25)
[2019-06-22] MEDS: QUEtiapine FUMARATE 100 MG TABLET (FP) PO SCH (22:25)
[2019-06-23] MEDS ORDERED: chlordiazePOXIDE HCL 10 MG CAPSULE PO ONE (05:00)
[2019-06-23] MEDS ORDERED: METHADONE HCL 10 MG TABLET ONE (05:56)
[2019-06-23] MEDS ORDERED: METHADONE HCL 40 MG DISPERSABLE TABLET ONE (05:57)
[2019-06-23] MEDS: GABAPENTIN 400 MG CAPSULE (FP) PO SCH (06:24)
[2019-06-23] MEDS: METHADONE 120 MG, METHADONE 10 MG PO SCH (06:24)
[2019-06-23] MEDS: VITAMINS A AND D TOPICAL OINTMENT 60 GM TUBE TP SCH (06:25)
--- NOTE | 2019-06-23 09:00 | DS ---
[facility] Detox Discharge Summary Admission Date: 06/18/19 Discharge Date: 06/23/19 - History Present History: Alcohol Dependence, Cannabis Dependence, Cocaine Dependence, Sedative Dependence, MMTP - Physical Exam Results Vital Signs: Vital Signs Temperature 97.7 F 06/23/19 08:00 Pulse Rate 82 06/23/19 08:00 Respiratory Rate 18 06/23/19 08:00 Blood Pressure 143/82 06/23/19 08:00 O2 Sat by Pulse Oximetry (%) Pertinent Admission Physical Exam Findings: Vital Signs Temperature 97.7 F 06/23/19 08:00 Pulse Rate 82 06/23/19 08:00 Respiratory Rate 18 06/23/19 08:00 Blood Pressure 143/82 06/23/19 08:00 O2 Sat by Pulse Oximetry (%) Laboratory Tests 06/19/19 06/19/19 06/19/19 08:15 08:15 08:15 WBC 6.3 RBC 4.27 Hgb 11.7 Hct 36.4 MCV 85.2 MCH 27.4 MCHC 32.2 RDW 15.4 Plt Count 264 D MPV 9.4 Sodium 146 H Potassium 3.4 L Chloride 110 H Carbon Dioxide 32 Anion Gap 4 L BUN 9.8 Creatinine 0.7 Est GFR (CKD-EPI)AfAm 125.75 Est GFR (CKD-EPI)NonAf 108.50 Random Glucose 91 Calcium 8.5 Total Bilirubin 0.2 AST 32 ALT 48 Alkaline Phosphatase 74 Total Protein 6.0 L Albumin 3.0 L Urine Color Urine Appearance Urine pH Ur Specific Epps Urine Protein Urine Glucose (UA) Urine Ketones Urine Blood Urine Nitrite Urine Bilirubin Urine Urobilinogen Ur Leukocyte Esterase RPR Titer Nonreactive 06/21/19 06/21/19 08:00 11:20 WBC RBC Hgb Hct MCV MCH MCHC RDW Plt Count MPV Sodium 141 Potassium 4.0 Chloride 106 Carbon Dioxide 29 Anion Gap 5 L BUN 9.9 Creatinine 0.8 Est GFR (CKD-EPI)AfAm 119.04 Est GFR (CKD-EPI)NonAf 102.71 Random Glucose 130 H Calcium 8.4 L Total Bilirubin 0.1 L AST 23 ALT 40 Alkaline Phosphatase 71 Total Protein 5.9 L Albumin 2.9 L Urine Color Yellow Urine Appearance Clear Urine pH 6.0 Ur Specific Epps 1.011 Urine Protein Negative Urine Glucose (UA) Negative Urine Ketones Negative Urine Blood Negative Urine Nitrite Negative Urine Bilirubin Negative Urine Urobilinogen 0.2 Ur Leukocyte Esterase Negative RPR Titer aaox3 ambulating no acute distress - Treatment Hospital Course: Detox Protocol Followed, Detoxed Safely, Responded well, Discharged Condition Good, Rehab Referral Accepted Patient has Accepted a Rehab Referral to: referred to [facility] - Medication Discharge Medications: Ambulatory Orders Amlodipine Besylate [Norvasc -] 10 mg PO DAILY #30 tablet 03/16/19 Quetiapine Fumarate [Seroquel -] 100 mg PO HS #30 tablet 03/16/19 Gabapentin [Neurontin -] 900 mg PO QID 06/18/19 - Diagnosis (1) Alcohol dependence with uncomplicated withdrawal Current Visit: Yes Status: Chronic (2) Cocaine use disorder Current Visit: Yes Status: Chronic (3) Diabetes mellitus Current Visit: Yes Status: Chronic Qualifiers: Diabetes mellitus type: type 1 (4) Sedative, hypnotic or anxiolytic dependence with withdrawal, unspecified Current Visit: Yes Status: Chronic (5) Substance induced mood disorder Current Visit: No Status: Acute (6) Substance-induced sleep disorder Current Visit: No Status: Acute (7) Cannabis dependence Current Visit: Yes Status: Chronic (8) Cocaine dependence Current Visit: Yes Status: Chronic Qualifiers: Substance use status: uncomplicated Qualified Code(s): F14.20 - Cocaine dependence, uncomplicated (9) Constipation Current Visit: No Status: Chronic Qualifiers: Constipation type: unspecified constipation type Qualified Code(s): K59.00 - Constipation, unspecified (10) Dyslipidemia Current Visit: No Status: Chronic (11) HTN (hypertension) Current Visit: No Status: Chronic Qualifiers: Hypertension type: essential hypertension Qualified Code(s): I10 - Essential (primary) hypertension (12) History of sarcoma of soft tissue Current Visit: No Status: Chronic (13) Methadone maintenance therapy patient Current Visit: Yes Status: Chronic (14) Mood disorder Current Visit: No Status: Chronic (15) Neuropathy Current Visit: No Status: Chronic (16) Nicotine dependence Current Visit: Yes Status: Chronic Qualifiers: Nicotine product type: cigarettes Substance use status: uncomplicated Qualified Code(s): F17.210 - Nicotine dependence, cigarettes, uncomplicated (17) Obese Current Visit: No Status: Chronic Qualifiers: Obesity type: unspecified obesity type Obesity classification: adult class 2 (BMI 35 - 39.9) Serious obesity comorbidity presence: without serious comorbidity Body mass index: BMI 36.0-36.9 Qualified Code(s): E66.9 - Obesity, unspecified; Z68.36 - Body mass index (BMI) 36.0-36.9, adult (18) Opioid dependence on agonist therapy Current Visit: No Status: Chronic (19) PTSD (post-traumatic stress disorder) Current Visit: No Status: Chronic (20) Seizure concurrent with and due to anxiolytic withdrawal Current Visit: No Status: Resolved (21) Bipolar disorder Current Visit: No Status: Ruled-out - AMA Did Patient Leave Against Medical Advice: No
[2019-06-23] MEDS: amLODIPine BESYLATE 10 MG TABLET (FP) PO SCH (09:25)
[2019-06-23] MEDS: PRENATAL VITAMINS W/ FOLIC ACID TABLET (FP) PO SCH (09:25)
[2019-06-23] MEDS: METHOCARBAMOL 500 MG TABLET PO PRN (09:26)
[2019-06-23] MEDS: IBUPROFEN 400 MG TABLET (FP) PO PRN (09:27)
[2019-06-23] MEDS: COLLOIDAL OATMEAL 1 BAR EACH TP PRN (09:28)
[2019-06-23] MEDS: hydrOXYzine PAMOATE 25 MG CAPSULE (FP) PO PRN (09:29)
[2019-06-23 10:11] VITALS: BP 160/95; PULSE 84
== END 2019-06-23 10:49 | disposition home or self-care (01) | DRG 773 ==
LOC: YASAS 11:51 → Y6N 18:12
PROVIDERS: ADMIT Allergy & Immunology; ATTEND Allergy & Immunology
PROC: HZ2ZZZZ Detoxification Services for Substance Abuse Treatment (ICD-10-PCS; principal; 2019-06-18)
DX: F10.230 Alcohol dependence with withdrawal, uncomplicated (principal); F11.20 Opioid dependence, uncomplicated; F13.230 Sedative, hypnotic or anxiolytic dependence with withdrawal, uncomplicated; F14.20 Cocaine dependence, uncomplicated; F12.20 Cannabis dependence, uncomplicated; F17.210 Nicotine dependence, cigarettes, uncomplicated; F43.10 Post-traumatic stress disorder, unspecified; F31.9 Bipolar disorder, unspecified; F19.24 Other psychoactive substance dependence with psychoactive substance-induced mood disorder; F19.282 Other psychoactive substance dependence with psychoactive substance-induced sleep disorder; F39 Unspecified mood [affective] disorder; I10 Essential (primary) hypertension; E11.9 Type 2 diabetes mellitus without complications; K59.00 Constipation, unspecified; E78.5 Hyperlipidemia, unspecified; G62.9 Polyneuropathy, unspecified; E66.9 Obesity, unspecified; Z68.37 Body mass index [BMI] 37.0-37.9, adult; Z85.831 Personal history of malignant neoplasm of soft tissue; Z86.69 Personal history of other diseases of the nervous system and sense organs; Z91.013 Allergy to seafood; Z56.0 Unemployment, unspecified
CPT/HCPCS: 36415; 80053; 81003; 85027; 86593; 93005; 93010